=== PATIENT | male | born 1980 | race Caucasian/White ===

== ENCOUNTER → 2019-03-08 09:37 | Outpatient (BNVA) | payer MEDICAID, SELFPAY | PROVIDERS: Family Provider Internal Medicine; PCP Internal Medicine; Visit Provider Nurse Practitioner | DX: F84.0 Autistic disorder (principal); F20.5 Residual schizophrenia | CPT/HCPCS: 99203 ==

== ENCOUNTER 2019-03-17 13:04 | Emergency (ER) | payer MEDICAID, SELFPAY ==
[2019-03-17 13:25] VITALS: BP 129/89; PULSE 69; RESP 18; TEMP 36.4; O2SAT 100; BMI 31.1
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
[2019-03-17 14:15] VITALS: O2SAT 97
[2019-03-17 14:57] LABS: Basophils # 0.1 10^3/uL (0.0-0.1); Eosinophils # 0.2 10^3/uL (0.0-0.8); Eosinophils % 3.3 %; Hematocrit 39.7 % (42.0-52.0); Hemoglobin 12.9 g/dL (11.7-16.6); Lymphocytes # 1.8 10^3/uL (0.8-4.8); Lymphocytes % 34.2 %; Mean Corpuscular HGB Conc 32.5 g/dL (30.0-36.0); Mean Corpuscular Hemoglobin 30.6 pg (28.0-34.0); Mean Corpuscular Volume 94.3 fL (80-94); Mean Platelet Volume 10.5 fL (7.4-10.4); Monocytes # 0.4 10^3/uL (0.2-0.9); Monocytes % 7.4 %; Neutrophils # 2.8 10^3/uL (1.8-7.7); Neutrophils % 53.9 %; Nucleated Red Blood Cells % 0 %; Platelet Count 201 10^3/cmm (130-400); Red Blood Count 4.21 10^6/uL (4.1-5.3); Red Cell Distribution Width 12.6 % (12.1-15.1); White Blood Count 5.2 10^3/uL (4.0-10.0)
[2019-03-17 15:16] LABS: Amphetamines Screen Urine Negative (Negative); Barbiturates Screen Urine Negative (Negative); Benzodiazepines Screen Urine Negative (Negative); Cocaine Screen Urine Negative (Negative); Opiate Screen Urine Negative (Negative); PCP Screen Urine Negative (Negative); THC Screen Urine Negative (Negative)
[2019-03-17 15:25] LABS: Lithium 0.1 mmol/L (0.6-1.2)
[2019-03-17 15:29] LABS: Alanine Aminotransferase 17 U/L (0-41); Albumin Level 4.5 g/dL (3.5-5.2); Alkaline Phosphatase 77 IU/L (40-130); Aspartate Amino Transferase 13 U/L (0-40); Blood Urea Nitrogen 11 mg/dL (6-20); Carbon Dioxide 27 mmol/L (22-29); Chloride 101 mmol/L (98-107); Creatinine Clr Calc Pharmacy 136.7997; Globulin 2.8 g/dL (1.3-4.6); Glomerular Filtration Rate 109.4 mL/min (90-130); Glucose 120 mg/dL (65-115); Phenytoin Dilantin 0.8 ug/mL (10-20); Sodium 139 mmol/L (136-145); Thyroid Stimulating Hormone 1.56 uIU/mL (0.27-4.20); Total Bilirubin 0.2 mg/dL (0.15-1.2); Total Protein 7.3 g/dL (6.6-8.7); Valproic Acid Level 84.5 mcg/mL (50-100)
[2019-03-17 15:33] LABS: Acetaminophen < 5.0 ug/mL (10-30); Alcohol Level < 10 mg/dL (0-10); Salicylate < 0.3 mg/dL (3-10)
--- NOTE | 2019-03-17 15:36 | PC.NURSE ---
Patients caregiver asked this nurse if she could administer the patients meds that is due at 1600. Caregiver reports the medication is oxybutin chloride 5mg. Per Dr. Berg the caregiver can administer the medication to the patient.
[2019-03-17 17:22] VITALS: BP 120/79; PULSE 104; RESP 17; O2SAT 99
== END 2019-03-17 17:23 | disposition home or self-care (01) ==
PROVIDERS: Emergency Provider Emergency Medicine; Family Provider Internal Medicine; PCP Internal Medicine
DX: R45.851 Suicidal ideations (principal); F84.0 Autistic disorder; F20.5 Residual schizophrenia; F17.210 Nicotine dependence, cigarettes, uncomplicated
CPT/HCPCS: 36415; 80053; 80156; 80164; 80178; 80185; 80307; 84443; 85025; 99284; A9270

== ENCOUNTER → 2019-05-03 14:05 | Outpatient (BNVA) | payer MEDICAID, SELFPAY | PROVIDERS: Family Provider Internal Medicine; PCP Internal Medicine; Visit Provider Nurse Practitioner | DX: F20.5 Residual schizophrenia (principal); F84.0 Autistic disorder | CPT/HCPCS: 99213 ==

== ENCOUNTER 2019-11-19 22:18 | Emergency (ER) | payer MEDICAID, SELFPAY ==
[2019-11-19 22:22] VITALS: BP 109/72; PULSE 99; RESP 15; TEMP 36.6; O2SAT 100; BMI 31.3
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
--- NOTE | 2019-11-19 22:45 | ED_ITS ---
HPI - Psych General: Chief Complaint: Psychiatric Symptoms Stated Complaint: mhe Time Seen by Provider: 11/19/19 22:40 Source: patient Mode of arrival: ambulatory Limitations: no limitations History of Present Illness: HPI Narrative: 39-year-old male patient comes in today for abnormal behavior for patient. Patient is a schizophrenic patient with a history of autism. Patient's caregiver states over the last 3 weekends that she has cared for him she has noticed some changes in his behavior. Caregiver is concerned that he may need some adjustments with his medications due to these abnormalities. Patient denies feeling suicidal or wanting to harm himself. Patient denies wanting to hurt anyone else. Caregiver reports that 2 weeks ago he had threatened to hurt himself with a knife but has no thoughts of this at this time. Patient is also trashed his room and his bed. Patient appears well. Patient is cooperative. MD complaint: altered mental status Review of Systems General: Reports: 10 or more systems reviewed and unremarkable except in HPI and below Psych: Reports: mood swings [facility] ED PFSH: Medical History (Updated 11/19/19 @ 23:57 by KALEE Chase) Autistic disorder Residual schizophrenia Social History Smoking and tobacco status: current every day smoker cigarettes Smoking risk assessment/counseling performed?: Yes Tobacco counseling given: counseling >3 minutes Physical Exam Const: COMMON NORMALS: no acute distress and patient oriented x3 GENERAL APPEARANCE: cooperative HENMT: COMMON NORMALS: normocephalic, TM's normal bilaterally and Normal external nose present HEAD & SCALP: normal to inspection and normocephalic NOSE: Normal external nose present TYMPANIC MEMBRANE: TM's normal bilaterally MOUTH: Normal oral and palatal mucosa present Eye: GENERAL EYE: appearance normal, both eyes and all related structures Neck/C-Spine: COMMON NORMALS: full ROM Chest: COMMONS NORMALS: normal inspection of the chest Resp: COMMON NORMALS: normal respiratory effort EFFORT & INSPECTION: Yes able to speak in complete sentences Cardio: COMMON NORMALS: regular rate and regular rhythm RATE: regular rate RHYTHM: regular rhythm GI: COMMON NORMALS: non-tender Back/Pelvis: COMMON NORMALS: thoracic and lumbar spine normal to inspection Extremity: COMMON NORMALS: normal to inspection Neuro: COMMON NORMALS: patient oriented x3 and moves all extremities Psych: COMMON NORMALS: mental status grossly normal and cooperative Skin: COMMON NORMALS: no rashes or lesions noted GENERAL SKIN EXAM: no rashes or lesions noted MDM - Psych MDM Narrative: Medical decision making narrative: Patient comes in today for complaints of agitation and restlessness. Patient denied any suicidal thoughts or thoughts to harm anyone else. Patient's caregiver who watches the patient over the weekend said for the last 3 weekends he seemed like he has been more agitated than normal. She thinks that he may need to have an adjustment in his medication. Patient appears well. Patient is very cooperative on exam. No signs of injury is noted to patient. Patient allows nursing to collect urine and blood without any signs of agitation or distress. Differential diagnosis includes but not limited to behavioral difficulty, autism, schizophrenia, acute psychosis, acute depression. Laboratory values were normal. No signs of hyponatremia or other abnormalities was noted. Reviewed this with patient and recommended may be hydroxyzine to help with agitation as he needs it. Patient was agreeable to try. I also reviewed this with caregiver and recommendations for follow-up with behavioral health cna caregiver to manage his medications. Patient and caregiver both reported understanding. Lab Data: Labs: Lab Results 11/19/19 11/19/19 11/19/19 Range/Units 22:53 22:53 22:53 WBC Cancelled Corrected WBC Cancelled RBC Cancelled Hgb Cancelled Hct Cancelled MCV Cancelled MCH Cancelled MCHC Cancelled RDW Cancelled Plt Count Cancelled MPV Cancelled Gran % Cancelled Neut % (Auto) Cancelled Lymph % (Auto) Cancelled [place] % (Auto) Cancelled Eos % (Auto) Cancelled Baso % (Auto) Cancelled Neut # (Auto) Cancelled Lymph # (Auto) Cancelled [place] # (Auto) Cancelled Eos # (Auto) Cancelled Baso # (Auto) Cancelled Absolute Gran (aut o) Cancelled Nucleated RBC % (a uto) Cancelled Nucleated RBCs # Cancelled Sodium 137 (136-145) mmol/L Potassium 4.1 (3.5-5.1) mmol/L Chloride 101 (98-107) mmol/L Carbon Dioxide 24 (22-29) mmol/L Anion Gap 16.1 (5-19) BUN 13 (6-20) mg/dL Creatinine 0.8 (0.7-1.2) mg/dL GFR Calculation 108.8 (90-130) mL/min Glucose 120 H (65-115) mg/dL Calculated Osmolal ity 285 (285-295) mOsm/k g Calcium 9.8 (8.5-10.5) mg/dL Total Bilirubin 0.3 (0.15-1.2) mg/dL AST 13 (0-40) U/L ALT 11 (0-41) U/L Alkaline Phosphata se 69 (40-130) IU/L Total Protein 6.9 (6.6-8.7) g/dL Albumin 4.6 (3.5-5.2) g/dL Globulin 2.3 (1.3-4.6) g/dL TSH 3.99 (0.27-4.20) uIU/ mL Urine Color (Yellow) Urine Appearance (CLEAR) Urine pH (5-7) Ur Specific Gravit y (1.005-1.030) Urine Protein (Negative) Urine Glucose (UA) (Normal) Urine Ketones (Negative) Urine Blood (Negative) Urine Nitrate (Negative) Urine Bilirubin (Negative) Urine Urobilinogen (Negative) mg/dL Ur Leukocyte Aggie ase (Negative) Salicylates < 0.3 L (3-10) mg/dL Urine Opiates Scre en (Negative) ng/mL Acetaminophen < 5.0 L (10-30) ug/mL Ur Barbiturates Sc reen (Negative) ng/mL Valproic Acid 89.0 (50-100) ug/mL Ur Phencyclidine S crn (Negative) ng/mL Ur Amphetamines Sc reen (Negative) ng/mL U Benzodiazepines Scrn (Negative) ng/mL Urine Cocaine Scre en (Negative) ng/mL U Marijuana (THC) Screen (Negative) ng/mL Ethyl Alcohol < 10 (0-10) mg/dL 11/19/19 11/19/19 11/19/19 Range/Units 23:20 23:20 23:35 WBC 7.6 Corrected WBC RBC 4.40 Hgb 13.7 Hct 41.3 L MCV 93.9 MCH 31.1 MCHC 33.2 RDW 12.0 L Plt Count 227 MPV 10.0 Gran % Neut % (Auto) 56.1 Lymph % (Auto) 30.7 [place] % (Auto) 9.2 Eos % (Auto) 2.9 Baso % (Auto) 0.8 Neut # (Auto) 4.28 Lymph # (Auto) 2.3 [place] # (Auto) 0.7 Eos # (Auto) 0.2 Baso # (Auto) 0.1 Absolute Gran (aut o) Nucleated RBC % (a uto) 0 Nucleated RBCs # 0.0 Sodium (136-145) mmol/L Potassium (3.5-5.1) mmol/L Chloride (98-107) mmol/L Carbon Dioxide (22-29) mmol/L Anion Gap (5-19) BUN (6-20) mg/dL Creatinine (0.7-1.2) mg/dL GFR Calculation (90-130) mL/min Glucose (65-115) mg/dL Calculated Osmolal ity (285-295) mOsm/k g Calcium (8.5-10.5) mg/dL Total Bilirubin (0.15-1.2) mg/dL AST (0-40) U/L ALT (0-41) U/L Alkaline Phosphata se (40-130) IU/L Total Protein (6.6-8.7) g/dL Albumin (3.5-5.2) g/dL Globulin (1.3-4.6) g/dL TSH (0.27-4.20) uIU/ mL Urine Color Yellow (Yellow) Urine Appearance Clear (CLEAR) Urine pH 7 (5-7) Ur Specific Gravit y 1.005 (1.005-1.030) Urine Protein Neg (Negative) Urine Glucose (UA) Norm (Normal) Urine Ketones 1+ H (Negative) Urine Blood Neg (Negative) Urine Nitrate Negative (Negative) Urine Bilirubin Neg (Negative) Urine Urobilinogen Norm (Negative) mg/dL Ur Leukocyte Aggie ase Negative (Negative) Salicylates (3-10) mg/dL Urine Opiates Scre en Negative (Negative) ng/mL Acetaminophen (10-30) ug/mL Ur Barbiturates Sc reen Negative (Negative) ng/mL Valproic Acid (50-100) ug/mL Ur Phencyclidine S crn Negative (Negative) ng/mL Ur Amphetamines Sc reen Negative (Negative) ng/mL U Benzodiazepines Scrn Negative (Negative) ng/mL Urine Cocaine Scre en Negative (Negative) ng/mL U Marijuana (THC) Screen Negative (Negative) ng/mL Ethyl Alcohol (0-10) mg/dL Discharge Plan Discharge Patient Disposition: Home Clinical Impression: Agitation, Autistic disorder, Residual schizophrenia Condition: Stable Prescriptions: New hydroxyzine pamoate 25 mg capsule 25 mg PO TID PRN (Reason: anxiety) Qty: 14 RF: 0 No Action divalproex [Depakote ER] 500 mg tablet extended release 24 hr 500 mg PO DAILY RF: 0 omeprazole 20 mg capsule,delayed release(DR/EC) 20 mg PO DAILY RF: 0 oxybutynin chloride 5 mg tablet 5 mg PO BID RF: 0 paliperidone [Invega] 6 mg tablet extended release 24hr 6 mg PO BID RF: 0 divalproex [Depakote ER] 500 mg tablet extended release 24 hr 1,000 mg PO BEDTIME RF: 0 fluvoxamine 50 mg tablet 50 mg PO DAILY RF: 0 atorvastatin 40 mg tablet 40 mg PO DAILY RF: 0 trazodone 150 mg tablet 150 mg PO BEDTIME RF: 0 naproxen sodium 550 mg tablet 550 mg PO BID PRN (Reason: Pain) RF: 0 Discharge Orders: Discharge Order (Routine); Ordered 11/20/19 Ordered By: Darren Perez Referrals: Baldomero Chacon DO [Primary Care Provider] - Discharge Diet: Usual diet Discharge Activity: Increase activity as tolerated Patient Instructions: Cognitive Behavioral Therapy (ED) Activity Restrictions/Additional Instructions: Home and rest. Continue with routine care. Use hydroxyzine for breakthrough symptoms. Follow-up with primary care or veterans services specialist for further treatment and evaluation. Return to the emergency department for worsening symptoms or new concerns. Coding Level of Care Code ED Lamination Inspector for Evgeny Fwag[place]ito Exam Comprehensive
[2019-11-19 23:31] LABS: Add Urine Microscopic? NO
[2019-11-19 23:36] LABS: Alanine Aminotransferase 11 U/L (0-41); Albumin Level 4.6 g/dL (3.5-5.2); Alkaline Phosphatase 69 IU/L (40-130); Aspartate Amino Transferase 13 U/L (0-40); Blood Urea Nitrogen 13 mg/dL (6-20); Calcium 9.8 mg/dL (8.5-10.5); Carbon Dioxide 24 mmol/L (22-29); Chloride 101 mmol/L (98-107); Globulin 2.3 g/dL (1.3-4.6); Glomerular Filtration Rate 108.8 mL/min (90-130); Glucose 120 mg/dL (65-115); Osmolality Calculated 285 mOsm/kg (285-295); Sodium 137 mmol/L (136-145); Thyroid Stimulating Hormone 3.99 uIU/mL (0.27-4.20); Total Bilirubin 0.3 mg/dL (0.15-1.2); Total Protein 6.9 g/dL (6.6-8.7)
[2019-11-19 23:41] LABS: Bilirubin Urine Neg (Negative); Blood Urine Neg (Negative); Glucose Urine UA Norm (Normal); Ketones Urine 1+ (Negative); Leukocyte Esterase Urine Negative (Negative); Nitrate Urine Negative (Negative); Protein Urine Neg (Negative); Specific Gravity, Urine 1.005 (1.005-1.030); Urine Appearance Clear (CLEAR); Urine Color Yellow (Yellow); Urobilinogen Urine Norm (Negative); pH Urine 7 (5-7)
[2019-11-19 23:42] LABS: Acetaminophen < 5.0 ug/mL (10-30); Alcohol Level < 10 mg/dL (0-10); Anion Gap 16.1 (5-19); Potassium 4.1 mmol/L (3.5-5.1); Salicylate < 0.3 mg/dL (3-10)
[2019-11-19 23:45] LABS: Amphetamines Screen Urine Negative (Negative); Barbiturates Screen Urine Negative (Negative); Benzodiazepines Screen Urine Negative (Negative); Cocaine Screen Urine Negative (Negative); Opiate Screen Urine Negative (Negative); PCP Screen Urine Negative (Negative); THC Screen Urine Negative (Negative)
[2019-11-20 00:05] LABS: Basophils # 0.1 10^3/uL (0.0-0.1); Basophils % 0.8 %; Eosinophils # 0.2 10^3/uL (0.0-0.8); Eosinophils % 2.9 %; Hematocrit 41.3 % (42.0-52.0); Hemoglobin 13.7 g/dL (11.7-16.6); Lymphocytes # 2.3 10^3/uL (0.8-4.8); Lymphocytes % 30.7 %; Mean Corpuscular HGB Conc 33.2 g/dL (30.0-36.0); Mean Corpuscular Hemoglobin 31.1 pg (28.0-34.0); Mean Corpuscular Volume 93.9 fL (80-94); Monocytes # 0.7 10^3/uL (0.2-0.9); Monocytes % 9.2 %; Neutrophils # 4.28 10^3/uL (1.8-7.7); Neutrophils % 56.1 %; Nucleated Red Blood Cells % 0 %; Platelet Count 227 10^3/cmm (130-400); White Blood Count 7.6 10^3/uL (4.0-10.0)
[2019-11-20] MEDS: hyDROXYzine 25 mg Capsule PO (00:21)
[2019-11-20 00:29] VITALS: BP 122/90; PULSE 88; RESP 16; TEMP 36.8; O2SAT 98
== END 2019-11-20 00:31 | disposition home or self-care (01) ==
PROVIDERS: Emergency Provider Nurse Practitioner Family; PCP Internal Medicine
DX: R45.1 Restlessness and agitation (principal); F84.0 Autistic disorder; F20.5 Residual schizophrenia; F17.210 Nicotine dependence, cigarettes, uncomplicated
CPT/HCPCS: 12345; 70450; 80053; 80164; 80306; 80307; 81003; 84443; 85025; 99281; 99283

== ENCOUNTER 2019-11-20 13:07 | Emergency (ER) | payer MEDICAID, SELFPAY ==
[2019-11-20 13:30] VITALS: BP 125/79; PULSE 88; RESP 16; TEMP 36.6; O2SAT 100; BMI 32.5
--- NOTE | 2019-11-20 14:29 | W.ED.GENADLT ---
HPI - General Adult General: Chief complaint: General Medical Stated complaint: HTN Time Seen by Provider: 11/20/19 14:24 History of Present Illness: HPI narrative: Patient with episode of possible hypertension that was acquired by the caregiver who does not have any idea how high the blood pressure was. Said he just been acting out was not able get medication prescription filled today that they received in the ER last night MD complaint: Possible hypertensive episode and anxiety Onset (ago): hour(s) Associated symptoms: Reports no associated symptoms; Deny chest pain, dyspnea, headache(s), nausea, rash or vomiting Review of Systems Const: Denies: fever(s), chills or body aches Eyes: Denies: change in vision or blurry vision ENMT: Denies: throat pain or nasal congestion Card: Denies: chest pain or dyspnea on exertion Resp: Denies: dyspnea, productive cough or non-productive cough GI: Denies: abdominal pain, nausea or vomiting : Denies: difficulty urinating Musc: Denies: extremity pain Skin/Breast: Denies: rash Neuro: Denies: headache(s) Psych: Denies: anxiety or depression Holland/Lymph: Denies: easy bruising PFSH ED PFSH: Medical History (Updated 11/20/19 @ 14:25 by KALEE Everett) Autistic disorder Residual schizophrenia Social History Smoking and tobacco status: current every day smoker cigarettes Smoking risk assessment/counseling performed?: Yes Tobacco counseling given: counseling >3 minutes Physical Exam Const: COMMON NORMALS: no acute distress, average body habitus and patient oriented x3 HENMT: COMMON NORMALS: normocephalic HEAD & SCALP: normal to inspection and normocephalic FACE & SINUS: normal facial exam Eye: COMMON NORMALS: conjunctivae normal GENERAL EYE: appearance normal, both eyes and all related structures CONJUNCTIVA: Yes conjunctivae normal Neck/C-Spine: COMMON NORMALS: no JVD Chest: COMMONS NORMALS: normal inspection of the chest Resp: COMMON NORMALS: normal respiratory effort and clear to auscultation bilaterally AUSCULTATION: clear to auscultation bilaterally Cardio: COMMON NORMALS: no JVD, regular rate and regular rhythm RATE: regular rate RHYTHM: regular rhythm GI: COMMON NORMALS: Normal to inspection, nondistended, normoactive bowel sounds present Extremity: COMMON NORMALS: normal to inspection and full ROM Neuro: COMMON NORMALS: patient oriented x3 Course Vital Signs: Vital signs: Vital Signs Temperature 98 F 11/20/19 13:30 Pulse Rate 88 11/20/19 13:30 Respiratory Rate 16 11/20/19 13:30 Blood Pressure 125/79 11/20/19 13:30 Pulse Oximetry 100 11/20/19 13:30 Discharge Plan Discharge Patient Disposition: Home Clinical Impression: Agitation Condition: Stable Prescriptions: No Action divalproex [Depakote ER] 500 mg tablet extended release 24 hr 500 mg PO DAILY RF: 0 omeprazole 20 mg capsule,delayed release(DR/EC) 20 mg PO DAILY RF: 0 oxybutynin chloride 5 mg tablet 5 mg PO BID RF: 0 paliperidone [Invega] 6 mg tablet extended release 24hr 6 mg PO BID RF: 0 divalproex [Depakote ER] 500 mg tablet extended release 24 hr 1,000 mg PO BEDTIME RF: 0 fluvoxamine 50 mg tablet 50 mg PO DAILY RF: 0 atorvastatin 40 mg tablet 40 mg PO DAILY RF: 0 trazodone 150 mg tablet 150 mg PO BEDTIME RF: 0 naproxen sodium 550 mg tablet 550 mg PO BID PRN (Reason: Pain) RF: 0 hydroxyzine pamoate 25 mg capsule 25 mg PO TID PRN (Reason: anxiety) Qty: 14 RF: 0 Discharge Orders: Discharge Order (Routine); Ordered 11/20/19 Ordered By: Madi Mitchell Referrals: Baldomero Chacon, [Primary Care Provider] - Discharge Diet: Usual diet Discharge Activity: Increase activity as tolerated Patient Instructions: Anxiety (ED) Activity Restrictions/Additional Instructions: Follow-up with medical provider as directed. Take medications as prescribed. Return to the ER or your medical provider if condition worsens. Please read and understand discharge instructions. If any questions ask please. Coding Level of Care Code ED Typesetter Perforator Operator for Evgeny Alcaraz
[2019-11-20] MEDS: hyDROXYzine 25 mg Capsule PO (14:33)
== END 2019-11-20 14:46 | disposition home or self-care (01) ==
PROVIDERS: Emergency Provider Nurse Practitioner Family; PCP Internal Medicine
DX: R45.1 Restlessness and agitation (principal); F84.0 Autistic disorder; F17.210 Nicotine dependence, cigarettes, uncomplicated
CPT/HCPCS: 12345; 99281; 99283

== ENCOUNTER 2019-11-21 17:36 | Emergency (ER) | payer MEDICAID, SELFPAY ==
[2019-11-21 17:41] VITALS: BP 121/55; PULSE 66; RESP 16; TEMP 36.8; O2SAT 100; BMI 29.6
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
[2019-11-21] MEDS: haloperidol 5 mg Tablet PO (21:05)
[2019-11-21 21:10] VITALS: BP 122/78; PULSE 68; RESP 18; TEMP 36.7; O2SAT 98
== END 2019-11-21 21:12 | disposition home or self-care (01) ==
PROVIDERS: Emergency Provider Emergency Medicine; PCP Internal Medicine
DX: R46.89 Other symptoms and signs involving appearance and behavior (principal); F84.0 Autistic disorder; F17.210 Nicotine dependence, cigarettes, uncomplicated
CPT/HCPCS: 12345; 99284

== ENCOUNTER → 2019-11-22 07:35 | Outpatient (BNVA) | payer MEDICAID, SELFPAY | PROVIDERS: PCP Internal Medicine; Visit Provider Nurse Practitioner | DX: F20.5 Residual schizophrenia (principal); F84.0 Autistic disorder | CPT/HCPCS: 99214 ==

== ENCOUNTER 2019-11-28 12:08 | Emergency (ER) | payer MEDICAID, SELFPAY ==
[2019-11-28 12:51] VITALS: BP 111/71; PULSE 96; RESP 18; TEMP 36.7; O2SAT 100; BMI 22.8
--- NOTE | 2019-11-28 15:55 | W.ED.GENADLT ---
Documented by User: Ehsan Hagen DO 11/29/19 07:13 HPI - General Adult General: Chief complaint: General Medical Stated complaint: PAIN L WRIST Time Seen by Provider: 11/28/19 15:55 History of Present Illness: HPI narrative: 39-year-old male who is a resident of a local retirement he has an intellectual disability comes in complaining of some vague chest pain he also has some swelling and discomfort in his left wrist note was earlier today evidently around 11:00 it is all resolved now. He has not had any shortness of breath or cough no fever. No vomiting or diarrhea according to the caregiver. Manipulation left wrist he has no evidence of pain. He denies any pain or shortness of breath now. Onset (ago): hour(s) Location: chest and upper extremity (Left wrist) Radiation: non-radiation Quality: aching Pain Consistency: intermittent and now resolved Relieving factors: none Exacerbating factors: none Associated symptoms: Reports chest pain; Deny confusion, cough, diaphoresis, decreased appetite, dyspnea, fevers/chills, headache(s), malaise, nausea, rash, palpitations, seizures, short of breath, syncope, vomiting or weakness Treatments prior to arrival: none Review of Systems Const: Denies: malaise or diaphoresis ENMT: Denies: throat pain, ear or mastoid pain, nasal discharge or nasal congestion Card: Reports: chest pain; Denies: palpitations or syncope Resp: Denies: dyspnea GI: Denies: nausea or vomiting : Denies: flank pain, dysuria, urinary frequency or urinary urgency Skin/Breast: Denies: rash Neuro: Denies: headache(s) or confusion [facility] ED PFSH: Medical History Autistic disorder Residual schizophrenia Social History Smoking and tobacco status: current every day smoker cigarettes Smoking risk assessment/counseling performed?: Yes Tobacco counseling given: counseling >3 minutes Physical Exam Const: COMMON NORMALS: no acute distress GENERAL APPEARANCE: cooperative and comfortable HENMT: COMMON NORMALS: normocephalic, atraumatic, hearing grossly normal bilaterally, external ears normal, EAC's normal, TM's normal bilaterally, Normal nasal mucous membranes and turbinates present, moist oral mucous membranes and oropharynx normal HEAD & SCALP: normocephalic and atraumatic NOSE: Normal nasal mucous membranes and turbinates present EXTERNAL EAR: Yes external ears normal EXTERNAL AUDITORY CANAL: EAC's normal TYMPANIC MEMBRANE: TM's normal bilaterally Eye: COMMON NORMALS: Equal, round and reactive pupils present, EOMs intact bilaterally, conjunctivae normal and no scleral icterus CONJUNCTIVA: Yes conjunctivae normal PUPIL: Yes Equal, round and reactive pupils present Neck/C-Spine: COMMON NORMALS: full ROM, no lymphadenopathy, supple and no JVD Lymph: LYMPHATIC: no lymphadenopathy noted and no lymphedema noted Resp: COMMON NORMALS: normal respiratory effort, No retractions, No use of accessory muscles and clear to auscultation bilaterally AUSCULTATION: clear to auscultation bilaterally Cardio: COMMON NORMALS: no JVD, regular rate, regular rhythm and No murmurs present (Cardio) RATE: regular rate RHYTHM: regular rhythm GI: COMMON NORMALS: Soft to palpation and No hepatosplenomegaly present AUSCULTATION: Yes normoactive bowel sounds PALPATION: Yes Soft to palpation, No Tenderness to palpation present (GI), No Guarding due to palpation present (GI) and Yes No hepatosplenomegaly present Extremity: COMMON NORMALS: normal to inspection, capillary refill normal, no clubbing, cyanosis or edema, no calf tenderness and no pedal edema Skin: COMMON NORMALS: no rashes or lesions noted GENERAL SKIN EXAM: no rashes or lesions noted Course Vital Signs: Vital signs: Vital Signs Temperature 98.1 F 11/28/19 12:51 Pulse Rate 85 11/28/19 20:01 Respiratory Rate 16 11/28/19 20:01 Blood Pressure 130/66 11/28/19 20:01 Pulse Oximetry 98 11/28/19 20:01 MDM - General Adult MDM Narrative: Medical decision making narrative: Care turned over to Dr. Bethea at change of shift. See his final notes for disposition and diagnosis Lab Data: Labs: Lab Results 11/28/19 11/28/19 11/28/19 Range/Units 16:07 16:07 16:07 WBC 6.2 (4.0-10.0) 10^3/ uL RBC 4.37 (4.1-5.3) 10^6/u L Hgb 13.8 (11.7-16.6) g/dL Hct 42.4 (42.0-52.0) % MCV 97.0 H (80-94) fL MCH 31.6 (28.0-34.0) pg MCHC 32.5 (30.0-36.0) g/dL RDW 12.2 (12.1-15.1) % Plt Count 203 (130-400) 10^3/c mm MPV 10.3 (7.4-10.4) fL Neut % (Auto) 51.4 % Lymph % (Auto) 34.5 % Moore % (Auto) 9.7 % Eos % (Auto) 3.1 % Baso % (Auto) 1.1 % Neut # (Auto) 3.20 (1.8-7.7) 10^3/u L Lymph # (Auto) 2.1 (0.8-4.8) 10^3/u L Moore # (Auto) 0.6 (0.2-0.9) 10^3/u L Eos # (Auto) 0.2 (0.0-0.8) 10^3/u L Baso # (Auto) 0.1 (0.0-0.1) 10^3/u L Nucleated RBC % (a uto) 0 % Nucleated RBCs # 0.0 /100WBC Sodium 139 (136-145) mmol/L Potassium 3.9 (3.5-5.1) mmol/L Chloride 104 (98-107) mmol/L Carbon Dioxide 25 (22-29) mmol/L Anion Gap 13.9 (5-19) BUN 12 (6-20) mg/dL Creatinine 0.6 L (0.7-1.2) mg/dL GFR Calculation 151.6 H (90-130) mL/min Glucose 104 (65-115) mg/dL Calculated Osmolal ity 288 (285-295) mOsm/k g Calcium 8.9 (8.5-10.5) mg/dL Total Bilirubin 0.2 (0.15-1.2) mg/dL AST 13 (0-40) U/L ALT 12 (0-41) U/L Alkaline Phosphata se 63 (40-130) IU/L Troponin T Baselin e 6 (0-15) ng/L Troponin T 120 Min [place] (0-15) ng/L Delta Troponin T (0-10) ABS# C-Reactive Protein 0.5 (0.0-4.9) mg/L Total Protein 6.6 (6.6-8.7) g/dL Albumin 4.2 (3.5-5.2) g/dL Globulin 2.4 (1.3-4.6) g/dL Urine Color (Yellow) Urine Appearance (CLEAR) Urine pH (5-7) Ur Specific Gravit y (1.005-1.030) Urine Protein (Negative) Urine Glucose (UA) (Normal) Urine Ketones (Negative) Urine Blood (Negative) Urine Nitrate (Negative) Urine Bilirubin (Negative) Urine Urobilinogen (Negative) mg/dL Ur Leukocyte Aggie ase (Negative) 11/28/19 11/28/19 Range/Units 16:55 19:10 WBC (4.0-10.0) 10^3/ uL RBC (4.1-5.3) 10^6/u L Hgb (11.7-16.6) g/dL Hct (42.0-52.0) % MCV (80-94) fL MCH (28.0-34.0) pg MCHC (30.0-36.0) g/dL RDW (12.1-15.1) % Plt Count (130-400) 10^3/c mm MPV (7.4-10.4) fL Neut % (Auto) % Lymph % (Auto) % Moore % (Auto) % Eos % (Auto) % Baso % (Auto) % Neut # (Auto) (1.8-7.7) 10^3/u L Lymph # (Auto) (0.8-4.8) 10^3/u L Moore # (Auto) (0.2-0.9) 10^3/u L Eos # (Auto) (0.0-0.8) 10^3/u L Baso # (Auto) (0.0-0.1) 10^3/u L Nucleated RBC % (a uto) % Nucleated RBCs # /100WBC Sodium (136-145) mmol/L Potassium (3.5-5.1) mmol/L Chloride (98-107) mmol/L Carbon Dioxide (22-29) mmol/L Anion Gap (5-19) BUN (6-20) mg/dL Creatinine (0.7-1.2) mg/dL GFR Calculation (90-130) mL/min Glucose (65-115) mg/dL Calculated Osmolal ity (285-295) mOsm/k g Calcium (8.5-10.5) mg/dL Total Bilirubin (0.15-1.2) mg/dL AST (0-40) U/L ALT (0-41) U/L Alkaline Phosphata se (40-130) IU/L Troponin T Baselin e (0-15) ng/L Troponin T 120 Min [place] 6.00 (0-15) ng/L Delta Troponin T 0 (0-10) ABS# C-Reactive Protein (0.0-4.9) mg/L Total Protein (6.6-8.7) g/dL Albumin (3.5-5.2) g/dL Globulin (1.3-4.6) g/dL Urine Color Yellow (Yellow) Urine Appearance Clear (CLEAR) Urine pH 6.5 (5-7) Ur Specific Gravit y 1.015 (1.005-1.030) Urine Protein Neg (Negative) Urine Glucose (UA) Norm (Normal) Urine Ketones 1+ H (Negative) Urine Blood Neg (Negative) Urine Nitrate Negative (Negative) Urine Bilirubin Neg (Negative) Urine Urobilinogen Neg (Negative) mg/dL Ur Leukocyte Aggie ase Negative (Negative) Discharge Plan Discharge Patient Disposition: Home Clinical Impression: Chest pain Qualifiers: Chest pain type: unspecified Qualified Code(s): R07.9 - Chest pain, unspecified Condition: Stable Prescriptions: No Action divalproex [Depakote ER] 500 mg tablet extended release 24 hr 500 mg PO DAILY RF: 0 omeprazole 20 mg capsule,delayed release(DR/EC) 20 mg PO DAILY RF: 0 oxybutynin chloride 5 mg tablet 5 mg PO BID RF: 0 divalproex [Depakote ER] 500 mg tablet extended release 24 hr 1,000 mg PO BEDTIME RF: 0 atorvastatin 40 mg tablet 40 mg PO DAILY RF: 0 naproxen sodium 550 mg tablet 550 mg PO BID PRN (Reason: Pain) RF: 0 aripiprazole [Abilify] 10 mg tablet 10 mg PO DAILY Qty: 30 RF: 0 trazodone 150 mg tablet 150 mg PO BEDTIME Qty: 30 RF: 0 fluvoxamine 50 mg tablet 50 mg PO DAILY Qty: 30 RF: 0 haloperidol 5 mg tablet 5 mg PO BID PRN (Reason: aggression) Qty: 14 RF: 0 hydroxyzine HCl 50 mg tablet 50 mg PO Q8H PRN (Reason: agitation) Qty: 30 RF: 0 hydroxyzine pamoate 25 mg capsule 25 mg PO TID PRN (Reason: anxiety) Qty: 14 RF: 0 Discharge Orders: Discharge Order (Routine); Ordered 11/28/19 Ordered By: Adilson Bethea Referrals: Baldomero Chacon DO [Primary Care Provider] - 1-3 days Discharge Diet: Advance as tolerated Discharge Activity: Resume usual activity Patient Instructions: Chest Pain (ED) Discharge Date/Time: 11/28/19 20:04 Coding Level of Care Code ED Hand Developer for Chg Fwd Exam Comprehensive Documented by User: Adilson Bethea MD 11/28/19 19:57 HPI - General Adult General: Chief complaint: General Medical Stated complaint: PAIN L WRIST Time Seen by Provider: 11/28/19 15:55 PFSH ED PFSH: Medical History Autistic disorder Residual schizophrenia Social History Smoking and tobacco status: current every day smoker cigarettes Smoking risk assessment/counseling performed?: Yes Tobacco counseling given: counseling >3 minutes Course Vital Signs: Vital signs: Vital Signs Temperature 98.1 F 11/28/19 12:51 Pulse Rate 85 11/28/19 20:01 Respiratory Rate 16 11/28/19 20:01 Blood Pressure 130/66 11/28/19 20:01 Pulse Oximetry 98 11/28/19 20:01 MDM - General Adult MDM Narrative: Medical decision making narrative: Patient presents with chest pains atypical in nature. I took patient over from Dr. Huerta to follow his 2-hour troponin which was unchanged. Has been well-appearing here in initial and repeat troponin are normal. Patient's blood work is normal as well. He is stable for discharge and is to follow-up his PCP and return if worsening. Lab Data: Labs: Lab Results 11/28/19 11/28/19 11/28/19 Range/Units 16:07 16:07 16:07 WBC 6.2 (4.0-10.0) 10^3/ uL RBC 4.37 (4.1-5.3) 10^6/u L Hgb 13.8 (11.7-16.6) g/dL Hct 42.4 (42.0-52.0) % MCV 97.0 H (80-94) fL MCH 31.6 (28.0-34.0) pg MCHC 32.5 (30.0-36.0) g/dL RDW 12.2 (12.1-15.1) % Plt Count 203 (130-400) 10^3/c mm MPV 10.3 (7.4-10.4) fL Neut % (Auto) 51.4 % Lymph % (Auto) 34.5 % Moore % (Auto) 9.7 % Eos % (Auto) 3.1 % Baso % (Auto) 1.1 % Neut # (Auto) 3.20 (1.8-7.7) 10^3/u L Lymph # (Auto) 2.1 (0.8-4.8) 10^3/u L Moore # (Auto) 0.6 (0.2-0.9) 10^3/u L Eos # (Auto) 0.2 (0.0-0.8) 10^3/u L Baso # (Auto) 0.1 (0.0-0.1) 10^3/u L Nucleated RBC % (a uto) 0 % Nucleated RBCs # 0.0 /100WBC Sodium 139 (136-145) mmol/L Potassium 3.9 (3.5-5.1) mmol/L Chloride 104 (98-107) mmol/L Carbon Dioxide 25 (22-29) mmol/L Anion Gap 13.9 (5-19) BUN 12 (6-20) mg/dL Creatinine 0.6 L (0.7-1.2) mg/dL GFR Calculation 151.6 H (90-130) mL/min Glucose 104 (65-115) mg/dL Calculated Osmolal ity 288 (285-295) mOsm/k g Calcium 8.9 (8.5-10.5) mg/dL Total Bilirubin 0.2 (0.15-1.2) mg/dL AST 13 (0-40) U/L ALT 12 (0-41) U/L Alkaline Phosphata se 63 (40-130) IU/L Troponin T Baselin e 6 (0-15) ng/L Troponin T 120 Min [place] (0-15) ng/L Delta Troponin T (0-10) ABS# C-Reactive Protein 0.5 (0.0-4.9) mg/L Total Protein 6.6 (6.6-8.7) g/dL Albumin 4.2 (3.5-5.2) g/dL Globulin 2.4 (1.3-4.6) g/dL Urine Color (Yellow) Urine Appearance (CLEAR) Urine pH (5-7) Ur Specific Gravit y (1.005-1.030) Urine Protein (Negative) Urine Glucose (UA) (Normal) Urine Ketones (Negative) Urine Blood (Negative) Urine Nitrate (Negative) Urine Bilirubin (Negative) Urine Urobilinogen (Negative) mg/dL Ur Leukocyte Aggie ase (Negative) 11/28/19 11/28/19 Range/Units 16:55 19:10 WBC (4.0-10.0) 10^3/ uL RBC (4.1-5.3) 10^6/u L Hgb (11.7-16.6) g/dL Hct (42.0-52.0) % MCV (80-94) fL MCH (28.0-34.0) pg MCHC (30.0-36.0) g/dL RDW (12.1-15.1) % Plt Count (130-400) 10^3/c mm MPV (7.4-10.4) fL Neut % (Auto) % Lymph % (Auto) % Moore % (Auto) % Eos % (Auto) % Baso % (Auto) % Neut # (Auto) (1.8-7.7) 10^3/u L Lymph # (Auto) (0.8-4.8) 10^3/u L Moore # (Auto) (0.2-0.9) 10^3/u L Eos # (Auto) (0.0-0.8) 10^3/u L Baso # (Auto) (0.0-0.1) 10^3/u L Nucleated RBC % (a uto) % Nucleated RBCs # /100WBC Sodium (136-145) mmol/L Potassium (3.5-5.1) mmol/L Chloride (98-107) mmol/L Carbon Dioxide (22-29) mmol/L Anion Gap (5-19) BUN (6-20) mg/dL Creatinine (0.7-1.2) mg/dL GFR Calculation (90-130) mL/min Glucose (65-115) mg/dL Calculated Osmolal ity (285-295) mOsm/k g Calcium (8.5-10.5) mg/dL Total Bilirubin (0.15-1.2) mg/dL AST (0-40) U/L ALT (0-41) U/L Alkaline Phosphata se (40-130) IU/L Troponin T Baselin e (0-15) ng/L Troponin T 120 Min [place] 6.00 (0-15) ng/L Delta Troponin T 0 (0-10) ABS# C-Reactive Protein (0.0-4.9) mg/L Total Protein (6.6-8.7) g/dL Albumin (3.5-5.2) g/dL Globulin (1.3-4.6) g/dL Urine Color Yellow (Yellow) Urine Appearance Clear (CLEAR) Urine pH 6.5 (5-7) Ur Specific Gravit y 1.015 (1.005-1.030) Urine Protein Neg (Negative) Urine Glucose (UA) Norm (Normal) Urine Ketones 1+ H (Negative) Urine Blood Neg (Negative) Urine Nitrate Negative (Negative) Urine Bilirubin Neg (Negative) Urine Urobilinogen Neg (Negative) mg/dL Ur Leukocyte Aggie ase Negative (Negative) EKG Data^: EKG 2: Attestation: I personally reviewed and interpreted this EKG as follows: EKG interpretation date: 11/28/19 EKG interpretation time: 19:12 Interpretation: nsr hr [address] or t wave abnormalities qrs 78 qtc 391 Discharge Plan Discharge Patient Disposition: Home Clinical Impression: Chest pain Qualifiers: Chest pain type: unspecified Qualified Code(s): R07.9 - Chest pain, unspecified Condition: Stable Prescriptions: No Action divalproex [Depakote ER] 500 mg tablet extended release 24 hr 500 mg PO DAILY RF: 0 omeprazole 20 mg capsule,delayed release(DR/EC) 20 mg PO DAILY RF: 0 oxybutynin chloride 5 mg tablet 5 mg PO BID RF: 0 divalproex [Depakote ER] 500 mg tablet extended release 24 hr 1,000 mg PO BEDTIME RF: 0 atorvastatin 40 mg tablet 40 mg PO DAILY RF: 0 naproxen sodium 550 mg tablet 550 mg PO BID PRN (Reason: Pain) RF: 0 aripiprazole [Abilify] 10 mg tablet 10 mg PO DAILY Qty: 30 RF: 0 trazodone 150 mg tablet 150 mg PO BEDTIME Qty: 30 RF: 0 fluvoxamine 50 mg tablet 50 mg PO DAILY Qty: 30 RF: 0 haloperidol 5 mg tablet 5 mg PO BID PRN (Reason: aggression) Qty: 14 RF: 0 hydroxyzine HCl 50 mg tablet 50 mg PO Q8H PRN (Reason: agitation) Qty: 30 RF: 0 hydroxyzine pamoate 25 mg capsule 25 mg PO TID PRN (Reason: anxiety) Qty: 14 RF: 0 Discharge Orders: Discharge Order (Routine); Ordered 11/28/19 Ordered By: Adilson Bethea Referrals: Baldomero Chacon DO [Primary Care Provider] - 1-3 days Discharge Diet: Advance as tolerated Discharge Activity: Resume usual activity Patient Instructions: Chest Pain (ED) Discharge Date/Time: 11/28/19 20:04 Coding Level of Care Code ED Hand Developer for Joelleng Fwd Exam Comprehensive
--- NOTE | 2019-11-28 16:03 | ECG_ITS ---
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 Measurements Intervals [place] Rate: 70 P: 27 NH: 172 QRS: 7 QRSD: 80 T: 42 QT: 358 QTc: 388 Interpretive Statements SINUS RHYTHM Compared to ECG 11/13/2018 02:16:27 Sinus bradycardia no longer present Electronically Signed On 11-28-2019 21:41:58 CDT by Josafat Ames M.D. [id number]
[2019-11-28 16:14] LABS: Basophils # 0.1 10^3/uL (0.0-0.1); Basophils % 1.1 %; Eosinophils # 0.2 10^3/uL (0.0-0.8); Eosinophils % 3.1 %; Hematocrit 42.4 % (42.0-52.0); Hemoglobin 13.8 g/dL (11.7-16.6); Lymphocytes # 2.1 10^3/uL (0.8-4.8); Lymphocytes % 34.5 %; Mean Corpuscular HGB Conc 32.5 g/dL (30.0-36.0); Mean Corpuscular Hemoglobin 31.6 pg (28.0-34.0); Mean Platelet Volume 10.3 fL (7.4-10.4); Monocytes # 0.6 10^3/uL (0.2-0.9); Monocytes % 9.7 %; Neutrophils % 51.4 %; Nucleated Red Blood Cells % 0 %; Platelet Count 203 10^3/cmm (130-400); Red Blood Count 4.37 10^6/uL (4.1-5.3); Red Cell Distribution Width 12.2 % (12.1-15.1); White Blood Count 6.2 10^3/uL (4.0-10.0)
[2019-11-28 16:31] LABS: Alanine Aminotransferase 12 U/L (0-41); Albumin Level 4.2 g/dL (3.5-5.2); Alkaline Phosphatase 63 IU/L (40-130); Anion Gap 13.9 (5-19); Aspartate Amino Transferase 13 U/L (0-40); Blood Urea Nitrogen 12 mg/dL (6-20); Calcium 8.9 mg/dL (8.5-10.5); Carbon Dioxide 25 mmol/L (22-29); Chloride 104 mmol/L (98-107); Globulin 2.4 g/dL (1.3-4.6); Glomerular Filtration Rate 151.6 mL/min (90-130); Glucose 104 mg/dL (65-115); Osmolality Calculated 288 mOsm/kg (285-295); Potassium 3.9 mmol/L (3.5-5.1); Sodium 139 mmol/L (136-145); Total Bilirubin 0.2 mg/dL (0.15-1.2); Total Protein 6.6 g/dL (6.6-8.7)
[2019-11-28 16:33] LABS: Troponin(5th) Baseline 6 ng/L (0-15)
[2019-11-28 16:45] LABS: C Reactive Protein 0.5 mg/L (0.0-4.9)
[2019-11-28 16:55] VITALS: BP 160/76; PULSE 69; RESP 20; O2SAT 97
[2019-11-28 17:23] LABS: Add Urine Microscopic? NO
[2019-11-28 17:39] LABS: Urine Appearance Clear (CLEAR); Urine Color Yellow (Yellow); pH Urine 6.5 (5-7)
[2019-11-28 17:40] LABS: Bilirubin Urine Neg (Negative); Blood Urine Neg (Negative); Glucose Urine UA Norm (Normal); Ketones Urine 1+ (Negative); Leukocyte Esterase Urine Negative (Negative); Nitrate Urine Negative (Negative); Protein Urine Neg (Negative); Specific Gravity, Urine 1.015 (1.005-1.030); Urobilinogen Urine Neg (Negative)
--- NOTE | 2019-11-28 18:03 | ECG_ITS ---
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 Measurements Intervals [place] Rate: 82 P: 25 IN: 164 QRS: -12 QRSD: 78 T: 20 QT: 353 QTc: 413 Interpretive Statements SINUS RHYTHM Compared to ECG 11/28/2019 16:47:10 No significant changes Electronically Signed On 11-28-2019 21:48:36 CDT by Josafat Ames M.D. [id number]
[2019-11-28 18:44] VITALS: BP 126/70; PULSE 75; RESP 16; O2SAT 98
[2019-11-28 19:48] LABS: Troponin 5 2HR Delta 0 ABS# (0-10)
[2019-11-28 20:01] VITALS: BP 130/66; PULSE 85; RESP 16; O2SAT 98
== END 2019-11-28 20:04 | disposition home or self-care (01) ==
PROVIDERS: Family Medicine; Emergency Provider Emergency Medicine; PCP Internal Medicine
DX: R07.9 Chest pain, unspecified (principal); F84.0 Autistic disorder; F17.210 Nicotine dependence, cigarettes, uncomplicated
CPT/HCPCS: 12345; 80053; 81003; 84484; 85025; 86140; 93005; 99283

== ENCOUNTER → 2019-12-06 08:03 | Outpatient (BNVA) | payer MEDICAID, SELFPAY | PROVIDERS: PCP Internal Medicine; Visit Provider Nurse Practitioner | DX: F20.5 Residual schizophrenia (principal); F84.0 Autistic disorder | CPT/HCPCS: 99214 ==

== ENCOUNTER 2019-12-11 14:39 | Emergency (ER) | payer MEDICAID, SELFPAY ==
[2019-12-11 14:43] VITALS: PULSE 93; RESP 18; TEMP 36.7; O2SAT 100; BMI 27.3
--- NOTE | 2019-12-11 16:39 | CTR_ITS ---
PROCEDURE INFORMATION: Exam: CT Head Without Contrast Exam date and time: 12/11/2019 5:27 PM Age: 39 years old Clinical indication: Other: Seizures; Additional info: Repeated seizures TECHNIQUE: Imaging protocol: Computed tomography of the head without contrast. Radiation optimization: All CT scans at this facility use at least one of these dose optimization techniques: automated exposure control; mA and/or kV adjustment per patient size (includes targeted exams where dose is matched to clinical indication); or iterative reconstruction. COMPARISON: CT head wo con* [id number] 11/19/2019 10:51 PM RADIATION DOSE METRICS: Total DLP (mGy-cm): 896.72 FINDINGS: Brain: Normal. No hemorrhage. Unremarkable white matter. No mass effect. Cerebral ventricles: No ventriculomegaly. Bones/joints: Unremarkable. No acute fracture. Paranasal sinuses: Visualized sinuses are unremarkable. No fluid levels. Mastoid air cells: Visualized mastoid air cells are well aerated. Soft tissues: Unremarkable. CT/CT head wo con* [id number] IMPRESSION: No acute intracranial abnormality. Radiation Dose CTDIVOL = (mGy): DLP = 896.72 (mGy-cm)
--- NOTE | 2019-12-11 16:39 | XRR_ITS ---
PROCEDURE INFORMATION: Exam: XR Chest, 1 View Exam date and time: 12/11/2019 4:48 PM Age: 39 years old Clinical indication: Other: Seizures; Additional info: Repeated seizures TECHNIQUE: Imaging protocol: XR of the chest Views: 1 view. COMPARISON: CR XR chest 2V* [id number] 07/06/2019 1:07 PM FINDINGS: Lungs: Unremarkable. No consolidation. Pleural space: Unremarkable. No pleural effusion. No pneumothorax. Heart/Mediastinum: Unremarkable. No cardiomegaly. Bones/joints: No acute abnormality. XR/XR chest 1V portable [id number] IMPRESSION: No acute findings.
--- NOTE | 2019-12-11 16:58 | W.ED.SEIZURE ---
HPI - Seizure General: Chief Complaint: Seizure Stated Complaint: SEIZURES Time Seen by Provider: 12/11/19 15:22 Source: patient and other (caregiver) Mode of arrival: EMS Limitations: no limitations History of Present Illness: HPI Narrative: 59-year-old gentleman on with a history of developmental delay and seizures and lives in a residential presents to the emergency department with complaints of seizures. According to the residential staff the patient had 2 seizures last night, 5 seizures today described as staring into space and shaking, then 3 full-blown seizures by which domain generalized tonic-clonic seizures. He is alert and at baseline now. No fever, no recent head trauma. complaint: seizure Description of Episode: tonic-clonic movement Seizure History: Yes Place: Home Associated symptoms: Deny chills or fever(s) Review of Systems General: Reports: 10 or more systems reviewed and unremarkable except in HPI and below Const: Denies: fever(s), chills or body aches Eyes: Denies: change in vision or blurry vision ENMT: Denies: throat pain, enlarged tonsils, odynophagia, hoarseness, mouth pain or swelling of lips/tongue Card: Denies: palpitations, irregular heart rhythm, edema or swelling of feet/ankles Resp: Denies: dyspnea, productive cough or non-productive cough GI: Denies: abdominal pain, nausea or vomiting : Denies: flank pain, dysuria, urinary frequency, urinary urgency or urinary hesitancy Musc: Denies: neck pain, back pain or extremity swelling Skin/Breast: Denies: rash, pruritus or erythema Neuro: Reports: seizure-like activity; Denies: headache(s), numbness in extremities or weakness in extremities Endo: Denies: polyuria, polydipsia or tired all the time PFS ED PFSH: Medical History (Reviewed 12/11/19 @ 17:03 by Margaret Castle MD, [facility] [place]) Autistic disorder Residual schizophrenia Social History (Reviewed 12/11/19 @ 17:03 by Margaret Castle MD, [facility] [place]) Smoking and tobacco status: current every day smoker cigarettes Smoking risk assessment/counseling performed?: Yes Tobacco counseling given: counseling >3 minutes Physical Exam Const: COMMON NORMALS: no acute distress, average body habitus, patient oriented x3, no limitations, healthy appearing, alert and well nourished HENMT: COMMON NORMALS: normocephalic, atraumatic and moist oral mucous membranes HEAD & SCALP: normocephalic and atraumatic Eye: COMMON NORMALS: Equal, round and reactive pupils present, EOMs intact bilaterally, conjunctivae normal and no scleral icterus CONJUNCTIVA: Yes conjunctivae normal PUPIL: Yes Equal, round and reactive pupils present Neck/C-Spine: COMMON NORMALS: no meningeal signs and no JVD Resp: COMMON NORMALS: normal respiratory effort, No retractions, No use of accessory muscles, clear to auscultation bilaterally and percussion normal AUSCULTATION: clear to auscultation bilaterally PERCUSSION: percussion normal Cardio: COMMON NORMALS: no JVD, regular rate, regular rhythm, S1 normal heart sound present, S2 normal heart sound present, No gallops present (Cardio), No clicks present (Cardio), No murmurs present (Cardio), No rub (Cardio) and Peripheral pulses 2+ throughout RATE: regular rate RHYTHM: regular rhythm HEART SOUNDS: S1 normal heart sound present and S2 normal heart sound present PERIPHERAL PULSES: Peripheral pulses 2+ throughout GI: COMMON NORMALS: Normal to inspection, nondistended, normoactive bowel sounds present, Soft to palpation, non-tender, No hepatosplenomegaly present, no masses and no bruits PALPATION: Yes Soft to palpation and Yes No hepatosplenomegaly present Extremity: COMMON NORMALS: normal to inspection, full ROM, capillary refill normal, no calf tenderness and no pedal edema Neuro: COMMON NORMALS: patient oriented x3 SENSORIUM/ORIENTATION: Yes alert MENINGEAL SIGNS: Yes no meningeal signs Skin: COMMON NORMALS: no rashes or lesions noted, no wounds, turgor normal, no jaundice, no petechiae and no mottling GENERAL SKIN EXAM: no rashes or lesions noted and turgor normal Course Reevaluation(s): Reevaluation #1: Discussed lab and imaging findings with patient and caregiver. Negative for acute findings. He is advised to follow-up with his primary care provider for adjustment of his medications. He voiced understanding and is in agreement with the plan Time: 21:06 Vital Signs: Vital signs: Vital Signs Temperature 98.1 F 12/11/19 14:43 Pulse Rate 70 11/01/20 21:17 Respiratory Rate 18 12/11/19 21:17 Blood Pressure 114/60 12/11/19 21:17 Pulse Oximetry 96 12/11/19 21:17 MDM - Seizure MDM Narrative: Medical decision making narrative: Patient with a history of seizures and apparently had several seizures between yesterday and today. Throughout his ED stay he did not have any seizures, however he was given a dose of IV keppra. Evaluation in the ED was negative for acute findings and he is discharged home with no new orders, however he is to f/u with his PCP for adjustment of his antiepileptics. Medical Records: Attestation: I reviewed the patient's medical records. Lab Data: Attestation: I reviewed the patient's lab results. Labs: Lab Results 12/11/19 12/11/19 12/11/19 Range/Units 18:00 18:00 20:02 WBC 5.8 (4.0-10.0) 10^3/ uL RBC 4.54 (4.1-5.3) 10^6/u L Hgb 14.1 (11.7-16.6) g/dL Hct 43.1 (42.0-52.0) % MCV 94.9 H (80-94) fL MCH 31.1 (28.0-34.0) pg MCHC 32.7 (30.0-36.0) g/dL RDW 11.9 L (12.1-15.1) % Plt Count 214 (130-400) 10^3/c mm MPV 10.5 H (7.4-10.4) fL Neut % (Auto) 46.9 % Lymph % (Auto) 39.2 % [place] % (Auto) 9.1 % Eos % (Auto) 3.6 % Baso % (Auto) 0.9 % Neut # (Auto) 2.73 (1.8-7.7) 10^3/u L Lymph # (Auto) 2.3 (0.8-4.8) 10^3/u L [place] # (Auto) 0.5 (0.2-0.9) 10^3/u L Eos # (Auto) 0.2 (0.0-0.8) 10^3/u L Baso # (Auto) 0.1 (0.0-0.1) 10^3/u L Nucleated RBC % (a uto) 0 % Nucleated RBCs # 0.0 /100WBC Sodium Cancelled 141 Potassium Cancelled 3.8 Chloride Cancelled 104 Carbon Dioxide Cancelled 26 Anion Gap Cancelled 14.8 BUN Cancelled 10 Creatinine Cancelled 0.6 L GFR Calculation Cancelled 151.6 H Glucose Cancelled 132 H Calculated Osmolal ity Cancelled 293 Calcium Cancelled 9.2 Phosphorus Cancelled 3.7 Magnesium Cancelled 2.0 Total Bilirubin Cancelled 0.2 AST Cancelled 10 ALT Cancelled 13 Alkaline Phosphata se Cancelled 64 Creatine Kinase Cancelled 65 C-Reactive Protein Cancelled 0.6 Total Protein Cancelled 6.4 L Albumin Cancelled 4.2 Globulin Cancelled 2.2 Lipase Cancelled 51 TSH Cancelled 1.14 Imaging Data^: CXR: Attestation: I personally reviewed and interpreted this imaging study as follows: Radiologist's impression: [place] [address] XRay Report Signed Patient: Cesar Melo #: [id number] : 1980Acct#:[id number] Age/Sex: 39 / MADM Date: 12/11/19 Loc: ERRoom/Bed: Attending Dr: Ordering Provider/Ordering MD: Margaret Castle MD, [facility] [place] Date of Service: 12/11/19 Procedure(s): XR chest 1V portable [id number] Accession Number(s): [id number] Report Number: [id number] PROCEDURE INFORMATION: Exam: XR Chest, 1 View Exam date and time: 12/11/2019 4:48 PM Age: 39 years old Clinical indication: Other: Seizures; Additional info: Repeated seizures TECHNIQUE: Imaging protocol: XR of the chest Views: 1 view. COMPARISON: CR XR chest 2V* [id number] 07/06/2019 1:07 PM FINDINGS: Lungs: Unremarkable. No consolidation. Pleural space: Unremarkable. No pleural effusion. No pneumothorax. Heart/Mediastinum: Unremarkable. No cardiomegaly. Bones/joints: No acute abnormality. XR/XR chest 1V portable [id number] IMPRESSION: No acute findings. Dictated By:Crista Mazariegos Signed By:Paulette Mazariegos Date/Time:12/11/191706 DD/ 05 CT Head: Attestation: I personally reviewed and interpreted this imaging study as follows: Radiologist's impression: [address] [address] [address] Scan Report Signed Patient: Cesar Melo #: [id number] : 1980Acct#:[id number] Age/Sex: 39 / MADM Date: 12/11/19 Loc: ERRoom/Bed: Attending Dr: Ordering Provider/Ordering MD: Margaret Castle MD, [facility] [place] Date of Service: 12/11/19 Procedure(s): CT head wo con* [id number] Accession Number(s): [id number] Report Number: [id number] PROCEDURE INFORMATION: Exam: CT Head Without Contrast Exam date and time: 12/11/2019 5:27 PM Age: 39 years old Clinical indication: Other: Seizures; Additional info: Repeated seizures TECHNIQUE: Imaging protocol: Computed tomography of the head without contrast. Radiation optimization: All CT scans at this facility use at least one of these dose optimization techniques: automated exposure control; mA and/or kV adjustment per patient size (includes targeted exams where dose is matched to clinical indication); or iterative reconstruction. COMPARISON: CT head wo con* [id number] 11/19/2019 10:51 PM RADIATION DOSE METRICS: Total DLP (mGy-cm): 896.72 FINDINGS: Brain: Normal. No hemorrhage. Unremarkable white matter. No mass effect. Cerebral ventricles: No ventriculomegaly. Bones/joints: Unremarkable. No acute fracture. Paranasal sinuses: Visualized sinuses are unremarkable. No fluid levels. Mastoid air cells: Visualized mastoid air cells are well aerated. Soft tissues: Unremarkable. CT/CT head wo con* [id number] IMPRESSION: No acute intracranial abnormality. Radiation Dose CTDIVOL = (mGy): DLP = 896.72 (mGy-cm) Dictated By:Crista Mazariegos Signed By:Paulette Mazariegos Date/Time:12/11/191753 DD/ 51 Discharge Plan Discharge Patient Disposition: Home Clinical Impression: Epileptic seizure Qualifiers: Epilepsy type: generalized idiopathic Intractability: not intractable Status epilepticus: without status epilepticus Qualified Code(s): G40.309 - Generalized idiopathic epilepsy and epileptic syndromes, not intractable, without status epilepticus Condition: Stable Prescriptions: Continued divalproex [Depakote ER] 500 mg tablet extended release 24 hr 500 mg PO DAILY RF: 0 omeprazole 20 mg capsule,delayed release(DR/EC) 20 mg PO DAILY RF: 0 oxybutynin chloride 5 mg tablet 5 mg PO BID RF: 0 divalproex [Depakote ER] 500 mg tablet extended release 24 hr 1,000 mg PO BEDTIME RF: 0 atorvastatin 40 mg tablet 40 mg PO DAILY RF: 0 naproxen sodium 550 mg tablet 550 mg PO BID PRN (Reason: Pain) RF: 0 trazodone 150 mg tablet 150 mg PO BEDTIME Qty: 30 RF: 0 fluvoxamine 50 mg tablet 50 mg PO DAILY Qty: 30 RF: 0 aripiprazole [Abilify] 15 mg tablet 15 mg PO DAILY Qty: 30 RF: 1 haloperidol 5 mg tablet 5 mg PO BID PRN (Reason: aggression) Qty: 14 RF: 0 hydroxyzine HCl 50 mg tablet 50 mg PO Q8H PRN (Reason: agitation) Qty: 30 RF: 0 hydroxyzine pamoate 25 mg capsule 25 mg PO TID PRN (Reason: anxiety) Qty: 14 RF: 0 Discharge Orders: Discharge Order (Routine); Ordered 12/11/19 Ordered By: Margaret Castle Referrals: Baldomero Chacon DO [Primary Care Provider] - 1-3 days Discharge Diet: Usual diet Discharge Activity: Increase activity as tolerated Patient Instructions: Epilepsy (ED) Activity Restrictions/Additional Instructions: Return for any new or worsening symptoms. Follow-up with your primary care provider within 2 days for an adjustment of your medication. Meanwhile continue your current medications. Discharge Date/Time: 12/11/19 21:18 Coding Level of Care Code ED Outreach Clinician for Evgeny Fwagapito Exam Comprehensive
[2019-12-11] MEDS: haloperidol inj 5 mg/mL INJ 1 mL 2 MG IVP (17:44)
[2019-12-11 18:07] LABS: Basophils # 0.1 10^3/uL (0.0-0.1); Basophils % 0.9 %; Eosinophils # 0.2 10^3/uL (0.0-0.8); Eosinophils % 3.6 %; Hematocrit 43.1 % (42.0-52.0); Hemoglobin 14.1 g/dL (11.7-16.6); Lymphocytes # 2.3 10^3/uL (0.8-4.8); Lymphocytes % 39.2 %; Mean Corpuscular HGB Conc 32.7 g/dL (30.0-36.0); Mean Corpuscular Hemoglobin 31.1 pg (28.0-34.0); Mean Corpuscular Volume 94.9 fL (80-94); Mean Platelet Volume 10.5 fL (7.4-10.4); Monocytes # 0.5 10^3/uL (0.2-0.9); Monocytes % 9.1 %; Neutrophils # 2.73 10^3/uL (1.8-7.7); Neutrophils % 46.9 %; Nucleated Red Blood Cells % 0 %; Platelet Count 214 10^3/cmm (130-400); Red Blood Count 4.54 10^6/uL (4.1-5.3); Red Cell Distribution Width 11.9 % (12.1-15.1); White Blood Count 5.8 10^3/uL (4.0-10.0)
[2019-12-11 20:45] LABS: Alanine Aminotransferase 13 U/L (0-41); Albumin Level 4.2 g/dL (3.5-5.2); Alkaline Phosphatase 64 IU/L (40-130); Anion Gap 14.8 (5-19); Aspartate Amino Transferase 10 U/L (0-40); Blood Urea Nitrogen 10 mg/dL (6-20); C Reactive Protein 0.6 mg/L (0.0-4.9); Calcium 9.2 mg/dL (8.5-10.5); Carbon Dioxide 26 mmol/L (22-29); Chloride 104 mmol/L (98-107); Creatine Phosphokinase 65 U/L (39-308); Globulin 2.2 g/dL (1.3-4.6); Glomerular Filtration Rate 151.6 mL/min (90-130); Glucose 132 mg/dL (65-115); Lipase 51 U/L (13-60); Osmolality Calculated 293 mOsm/kg (285-295); Phosphorus 3.7 mg/dL (2.5-4.5); Potassium 3.8 mmol/L (3.5-5.1); Sodium 141 mmol/L (136-145); Thyroid Stimulating Hormone 1.14 uIU/mL (0.27-4.20); Total Bilirubin 0.2 mg/dL (0.15-1.2); Total Protein 6.4 g/dL (6.6-8.7)
[2019-12-11 21:17] VITALS: BP 114/60; PULSE 70; RESP 18; O2SAT 96
== END 2019-12-11 21:18 | disposition home or self-care (01) ==
PROVIDERS: Emergency Provider Family Medicine; PCP Internal Medicine
DX: G40.309 Generalized idiopathic epilepsy and epileptic syndromes, not intractable, without status epilepticus (principal); F84.0 Autistic disorder; F17.210 Nicotine dependence, cigarettes, uncomplicated
CPT/HCPCS: 12345; 70450; 71045; 80053; 82550; 83690; 83735; 84100; 84443; 85025; 86140; 96374; 96375; 99283; J1630; J1953

== ENCOUNTER 2019-12-19 03:25 | Inpatient (IN) | payer MEDICAID, SELFPAY ==
--- NOTE | 2019-12-19 05:40 | PC.NURSE ---
Report from LEOPOLDO Panda. Caregiver at bedside. Per provider no 1:1 sitter need with caregiver at bedside
--- NOTE | 2019-12-19 06:38 | ED_ITS ---
HPI - Psych General: Stated Complaint: SI Time Seen by Provider: 12/19/19 05:34 History of Present Illness: HPI Narrative: 39-year-old male, evidently with a history of autism, presenting with suicidal ideation. Evidently has made suicidal statements recently, essentially yesterday. He was seen at an outside facility and laboratory was drawn. He presents here to be hopefully admitted to the neuropsychiatric facility. He denies other complaints including cough, fever, congestion, shortness of breath, vomiting or diarrhea. complaint: suicidal ideation Onset (ago): hour(s) Duration: constant History of same: Yes Relieving factors: none Exacerbating factors: none Associated psychiatric symptoms: depression Associated symptoms: Reports suicidal ideation Review of Systems Const: Denies: fever(s) or chills Eyes: Denies: change in vision Resp: Denies: dyspnea, productive cough, non-productive cough or wheezing GI: Denies: abdominal pain, nausea, vomiting or hematemesis Psych: Reports: suicidal ideation [facility] ED PFSH: Medical History (Updated 12/19/19 @ 06:45 by Erich Pemberton DO) Autistic disorder Residual schizophrenia Social History Smoking and tobacco status: current every day smoker cigarettes Smoking risk assessment/counseling performed?: Yes Tobacco counseling given: counseling >3 minutes Physical Exam Const: GENERAL APPEARANCE: well developed ORIENTATION/CONSCIOUSNESS: Yes oriented to person, Yes oriented to place and Yes oriented to time HENMT: COMMON NORMALS: normocephalic, external ears normal and Normal external nose present HEAD & SCALP: normocephalic FACE & SINUS: normal facial exam NOSE: Normal external nose present and No nasal discharge present EXTERNAL EAR: Yes external ears normal MOUTH: tongue normal Eye: COMMON NORMALS: Equal, round and reactive pupils present, EOMs intact bilaterally and conjunctivae normal EYELID: eyelids normal CONJUNCTIVA: Yes conjunctivae normal PUPIL: Yes Equal, round and reactive pupils present Neck/C-Spine: COMMON NORMALS: full ROM GENERAL: No tracheal deviation Chest: COMMONS NORMALS: normal inspection of the chest CHEST: No tenderness Resp: COMMON NORMALS: clear to auscultation bilaterally EFFORT & INSPECTION: No tachypneic, No respiratory distress, No retractions, No uses accessory muscles and No tracheal deviation AUSCULTATION: clear to auscultation bilaterally, no rhonchi, no wheezes and lung sounds not diminished Cardio: COMMON NORMALS: regular rate and regular rhythm RATE: regular rate RHYTHM: regular rhythm HEART SOUNDS: no murmurs PERIPHERAL PULSES: radial pulses present GI: INSPECTION: No abdominal distension AUSCULTATION: No Hyperactive bowel sounds present and No Hypoactive bowel sounds present PALPATION: No Guarding due to palpation present (GI) and No Rigid due to palpation PERCUSSION: no dullness to percussion and no tympanic to percussion Neuro: SENSORIUM/ORIENTATION: Yes oriented to person, Yes oriented to place and Yes oriented to time Psych: COMMON NORMALS: speech normal ATTITUDE: Yes engaged ACTIVITY/MOTOR BEHAVIOR: Yes appropriate eye contact SPEECH: Yes normal speech MOOD & AFFECT: Yes depressed mood Skin: COMMON NORMALS: no rashes or lesions noted GENERAL SKIN EXAM: no rashes or lesions noted MDM - Psych 2 MDM Narrative: Medical decision making narrative: 39-year-old autistic patient presents with suicidal statements/ideation. There may be some secondary gain to his statements. He now states that he does not have a plan. He is medically stable this is based on labs done at the outside facility last night. Discharge Plan Discharge Patient Disposition: Admitted As Inpatient Clinical Impression: Suicide ideation Condition: Stable Coding Level of Care Code ED Inverted Block Operator for Evgeny Alcaraz Exam Comprehensive
[2019-12-19 08:09] VITALS: BP 135/94; PULSE 84; RESP 18; TEMP 37.1; O2SAT 99
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
[2019-12-19 14:00] VITALS: BP 122/78; PULSE 84; RESP 20; TEMP 36.2; O2SAT 96
--- NOTE | 2019-12-19 14:19 | PM.NHP ---
Providers/Chief Complaint Admitting Physician: Hany Hooks MD Primary Care Provider: Baldomero Chacon DO Chief Complaint: SI HPI NPU History of Present Illness Yadiel Melo is a 39 year old male who presented to the emergency department with the following report: Stated Complaint: SI Time Seen by Provider: 12/19/19 05:34 History of Present Illness: HPI Narrative: 39-year-old male, evidently with a history of autism, presenting with suicidal ideation. Evidently has made suicidal statements recently, essentially yesterday. He was seen at an outside facility and laboratory was drawn. He presents here to be hopefully admitted to the neuropsychiatric facility. He denies other complaints including cough, fever, congestion, shortness of breath, vomiting or diarrhea. MD complaint: suicidal ideation Onset (ago): hour(s) Duration: constant History of same: Yes Relieving factors: none Exacerbating factors: none Associated psychiatric symptoms: depression Associated symptoms: Reports suicidal ideation. He was admitted to the neuropsychiatric unit for definitive treatment of those issues. Yadiel presents today as a family to my assist RN reporting that he is doing fine and denying any issues. He reports that he was having some anger problems with his [facility]mates at his [facility] but denies having any issues right now. Most questions that were asked of him were followed by 1 or 2 word answers and then home bringing his hands up to his eyes/face and making a trembling motion like he was afraid of how this inspector automatic typewriter would respond to his response. This pattern was fairly predictable. For additional information we reached out to his guardian and the facility. He does have fairly robust follow-up at [facility] and he sees Cherri Valerio. He is letting on and an excerpt of that note is included. Also Joselny from his November 2018 evaluation at [facility]. He has had no inpatient hospitalizations here most likely secondary to him not meeting the criteria for hospitalization here given his intellectual disability. Per his 12/06/2019 [facility] outpatient follow-up: Psychiatry SOAP Note Diagnosis (1) Residual schizophrenia: Status: Acute (2) Autistic disorder: Status: Acute Psychiatry SOAP Note Time In: 11:00 Time Out: 11:16 Subjective Subjective: Yadiel is a 39-year-old male, who is being seen today by telephone due to COVID 19 precautions for medication management and follow up for his schizophrenia and his autism spectrum disorder. He was last seen November 22, 2019. When I called Yadiel today he was at [facility]. I spoke to his caregivers including Brenda, Raven Hansen, and Janina Jones. Staff report he continued to have a few behaviors last week. He did break another window in TV. He has been agitated with his roommate. His behaviors have improved as of and Thursday through the weekend. Staff state when he had behaviors he reported hearing voices. He was on quarantine due to being exposed to someone with coronavirus. He has been allowed to return to [facility] today. Happy about coming to [facility] and enjoys being there. Yadiel use the as needed Haldol 6 different times in the last 2-weeks. He last used it on the . The time before that was on the . Staff state this as needed medication is helpful to calm him. Staff and Yadiel is agreeable to increasing Abilify today for his mood and voices. Staff and Yadiel report the following: Mood: Agitated in the last 2 weeks. His mood has been good throughout the weekend. Sleep: Sleeping well. Typically goes to bed and sleeps throughout the night. Appetite: Adequate Level of energy: Adequate Level of anxiety: None reported Ability to do ADLs: Independent Frightening/uncomfortable/or racing thoughts: Denies Thoughts of , suicide, or violence towards others: Denies Hearing voices or seeing hallucinations/visions: Yadiel reports to hearing voices ROS Respiratory: Recently on quarantine due to exposure to COVID-19 Constitutional: Denies fever, fatigue, weakness Neurological: Seizure disorder. Staff report no seizures recently. Objective Objective: Alert and oriented to person place and time. Patient describes mood as agitated/going through the weekend. Speech is normal rate, rhythm, and volume. Thought process is logical and organized. No hallucinatory activity noted. Currently denies thoughts of harming self and others. Judgment and insight are poor related to diagnosis and history. Memory is intact for recent and remote events. Attention and concentration are within normal limits. Fund of knowledge is estimated to be below average. Affect, appearance, behavior, eye contact, and gait unable to be assessed due to telephone visit for COVID 19 precautions. November 2019 Depakote level was May lipid panel was within normal limits September 2018 hemoglobin A1c was 5.5 Assesment & Plan Assessment: Yadiel had a few continued aggressive behaviors. Staff report throughout this weekend his mood and behaviors have been good Plan: Increase Abilify to 15 mg daily Continue trazodone 150 mg at bedtime Continue Luvox 50 mg daily Continue Haldol 5 mg twice a day as needed for severe agitation A prescription of the increased dose of the Abilify for 30 days with 1 refill was sent to [facility] pharmacy Follow-up in 1 month. Client and staff instructed symptoms worsen or the need to be seen sooner to call the clinic for an earlier appointment. Will order repeat hemoglobin A1c and lipid panel at next in office visit. Per his 11/16/2018 [facility] outpatient psychiatric evaluation: [facility] Psychiatric Evaluation Psychiatric Evaluation: Identifying Data: Yadiel Melo is a 38 year old white male who was referred for medication management.He is single and lives in assisted living facility. Admission is voluntary. He was accompanied by staff at assisted living facility. He gave some of the history. Chief Complaint: On too Many Medications.: History of Present Illness: Mr. Melo is a 38 year old white male who was referred for medication management.Moods are happy. He is able to have fun. Sleep is good Yadiel sleeps all of the time. Appetite is good. He has lost weight. Energy level is low. He is tired all the time. Concentration is good if he is not tired. The patient denies crying spells and guilty feelings.Motivation is good. Self esteem is good. Yadiel denies homicidal and suicidal thoughts. He does not like to be in crowds. Loud noises bother him. He likes to be by himself. The patient will not initiate or sustain a conversation. Yadiel an adapt to changes in routine. Certain clohters and foods do not bother. Yadiel denies hoa and irritability. The patient denies generalized anxiety, specific phobia, social anxiety, compulsions, and obsessions. He hears voices. The voices tell him it is not time to smoke. Denies visual hallucinations, paranoia, ideas of references, thought broadcasting, thought insertion and thought withdrawal. Yadiel denies a history of PTSD. Past Psychiatric History: There is no history of known psychiatric hospitalizations. He went to counseling but there are no records of therapy. He had psychotropic medications prescribed in the residential. Medical History: Seizure Disorder, Diabetes Mellitus, History of Thyroid Disease, Hypertension. Surgical History: Eye Surgery for Cataract Removal Medications: Losartan Potassium 25 mg po q am; Divaproex ER two tabs po a m and 2 tabs po q pm; Fourosemide 40 mg po q day; Oxybutynin 5 mg po bidl Ranitidine 15 0 mg po q 12 hours; Metformin 1000 mg po bid; Atorvastatin 40 mg po q hs and Naproxen 550 mg po bid prn Allergy: Sulfa, Sudafed, purified protein and Tuberculin Review of Systems: HEENT-Allergies Cardiology-Hypertension Pulmonary-None Gastrointestinal-Acid Reflux Endocrine-Diabetes Mellitus and History of Thyroid Disease Genitourinary-Overactive Bladder Hematology-None Dermatology-None Rheumatology-None Musculoskeletal-None Neurology-Seizure Psychiatry-Autism, Depression and Schizophrenia Social History: Substance Abuse: Yadiel denies a history of drug and alcohol abuse. He was born and raised in [place], [place]. Mother is still living. The where abouts of father is unknown. He has half brothers on father's side. The patient is single. He does not know how far he went in [employer]. 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 The patient is disabled and lives in [facility]. Denies legal issues. Yadiel denies a history of physical and sexual abuse. Developmental History: He has a history of autism. Meds NPU Home Medications Medication Instructions Recorded Confirmed Last Taken Type atorvastatin 40 mg tablet 40 mg PO DAILY 03/08/19 12/19/19 03/16/19 History divalproex 500 mg tablet,extended 1,000 mg PO BEDTIME tab 03/08/19 12/19/19 03/16/19 History release 24 hr divalproex 500 mg tablet,extended 500 mg PO DAILY 03/08/19 12/19/19 03/17/19 History release 24 hr naproxen sodium 550 mg tablet 550 mg PO BID PRN 03/08/19 12/19/19 Unknown History omeprazole 20 mg capsule,delayed 20 mg PO DAILY 03/08/19 12/19/19 03/17/19 History release oxybutynin chloride 5 mg tablet 5 mg PO BID 03/08/19 12/19/19 03/17/19 History hydroxyzine pamoate 25 mg PO TID PRN #14 cap 11/20/19 12/19/19 Unknown Rx hydroxyzine HCl 50 mg PO Q8H PRN #30 tab 11/21/19 12/19/19 Unknown Rx fluvoxamine 50 mg tablet 50 mg PO DAILY #30 tab 11/22/19 12/19/19 Unknown Rx trazodone 150 mg tablet 150 mg PO BEDTIME #30 tab 11/22/19 12/19/19 Unknown Rx aripiprazole 15 mg tablet 15 mg PO DAILY #30 tab 12/06/19 12/19/19 Unknown Rx haloperidol 5 mg tablet 5 mg PO BID PRN #60 tab 12/14/19 12/19/19 Unknown Rx Allergies Allergy/AdvReac Type Severity Reaction Status Date / Time lorazepam Allergy Unknown Verified 12/11/19 14:50 pseudoephedrine Allergy Unknown Verified 12/11/19 14:50 Sulfa (Sulfonamide Allergy Unknown Verified 12/11/19 14:50 Antibiotics) tuberculin, purified protein Allergy Unknown Verified 12/11/19 14:50 deriva PFSH NPU PFSH: Medical History (Updated 12/19/19 @ 06:45 by Erich Pemberton DO) Autistic disorder Residual schizophrenia Social History (Reviewed 12/11/19 @ 17:03 by Margaret Castle MD, [facility] [place]) Smoking and tobacco status: current every day smoker cigarettes Smoking risk assessment/counseling performed?: Yes Tobacco counseling given: counseling >3 minutes Mental Status Exam MSE Comments: This is an obese white male with adequate and eye contact. No abnormal movements except for psychomotor retardation and occasional maneuver he brings his hands up to his eyes and face and then he shakes as if he is almost shivering after answering a question. Cooperative with exam in mild distress. Speech was decreased rate and volume and mildly dysarthric. Mood described as okay affect slightly subdued. Thought process linear. Thought content: Patient denied suicidal or homicidal ideations, there were no delusions reported or noted, he denied any auditory visual hallucination. Sensation appeared intact and memory was limited but mostly appeared reliable but none were formally tested. He is alert and oriented x3. Insight and judgment are impaired, impulse control appears limited, intellectual ability is impaired. Vitals/I&O/Wt Last Vital Signs Temp 98.7 F 12/19/19 08:09 Pulse 84 12/19/19 08:09 Resp 18 12/19/19 08:09 BP 135/94 12/19/19 08:09 Pulse Ox 99 12/19/19 08:09 Involuntary Hold Information 96 Hour Hold: 96 Hour Involuntary Admission: No Attestations NPU Medical Necessity Statement*: Inpatient hospitalization is medically necessary and the clinically appropriate intervention at this time. We will monitor medications and make changes as indicated. We will get collateral information from guardian and [facility]. Given the impulsive nature of his diagnoses mind is clear signs of decompensation it would be appropriate to discharge him as soon as he is deemed safe. Likely length of stay 1 to 4 days. 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
[2019-12-19] MEDS: trazodone 150 mg Tablet PO (20:00)
[2019-12-19] MEDS: oxybutynin 5 mg Tablet PO (20:00)
[2019-12-19] MEDS: divalproex ER 500 mg Tablet (24H) 1000 MG PO (20:00)
[2019-12-19 21:40] VITALS: BP 151/92; PULSE 83; RESP 16; TEMP 36.9; O2SAT 96
[2019-12-20 06:00] VITALS: BP 118/74; PULSE 110; RESP 18; TEMP 36.8; O2SAT 96
[2019-12-20] MEDS: atorvastatin 40 mg Tablet PO (08:33)
[2019-12-20] MEDS: divalproex ER 500 mg Tablet (24H) PO (08:33)
[2019-12-20] MEDS: pantoprazole DR 40 mg Tablet PO (08:33)
[2019-12-20] MEDS: ARIPiprazole 30 mg Tablet 15 MG PO (08:33)
[2019-12-20] MEDS: oxybutynin 5 mg Tablet PO (08:35)
--- NOTE | 2019-12-20 11:30 | PM.NDC ---
Diagnoses at Discharge Discharge Diagnosis (1) Suicide ideation: Status: Acute (2) Residual schizophrenia: Status: Acute (3) Autistic disorder: Status: Acute Reason for Visit Reason for Visit: SI Brief History: History of Present Illness Yadiel Melo is a 39 year old male who presented to the emergency department with the following report: Stated Complaint: SI Time Seen by Provider: 12/19/19 05:34 History of Present Illness: HPI Narrative: 39-year-old male, evidently with a history of autism, presenting with suicidal ideation. Evidently has made suicidal statements recently, essentially yesterday. He was seen at an outside facility and laboratory was drawn. He presents here to be hopefully admitted to the neuropsychiatric facility. He denies other complaints including cough, fever, congestion, shortness of breath, vomiting or diarrhea. MD complaint: suicidal ideation Onset (ago): hour(s) Duration: constant History of same: Yes Relieving factors: none Exacerbating factors: none Associated psychiatric symptoms: depression Associated symptoms: Reports suicidal ideation. He was admitted to the neuropsychiatric unit for definitive treatment of those issues. Yadiel presents today as a family to my assist RN reporting that he is doing fine and denying any issues. He reports that he was having some anger problems with his roommates at his residential but denies having any issues right now. Most questions that were asked of him were followed by 1 or 2 word answers and then home bringing his hands up to his eyes/face and making a trembling motion like he was afraid of how this poem writer would respond to his response. This pattern was fairly predictable. For additional information we reached out to his guardian and the facility. He does have fairly robust follow-up at [facility] and he sees Cherri Valerio. He is letting on and an excerpt of that note is included. Also Joselyn from his November 2018 evaluation at [facility]. He has had no inpatient hospitalizations here most likely secondary to him not meeting the criteria for hospitalization here given his intellectual disability. Per his 12/06/2019 [facility] outpatient follow-up: Psychiatry SOAP Note Diagnosis (1) Residual schizophrenia: Status: Acute (2) Autistic disorder: Status: Acute Psychiatry SOAP Note Time In: 11:00 Time Out: 11:16 Subjective Subjective: Yadiel is a 39-year-old male, who is being seen today by telephone due to COVID 19 precautions for medication management and follow up for his schizophrenia and his autism spectrum disorder. He was last seen November 22, 2019. When I called Yadiel today he was at [facility]. I spoke to his caregivers including Brenda, Raven Hansen, and Janina Jones. Staff report he continued to have a few behaviors last week. He did break another window in TV. He has been agitated with his roommate. His behaviors have improved as of and Thursday through the weekend. Staff state when he had behaviors he reported hearing voices. He was on quarantine due to being exposed to someone with coronavirus. He has been allowed to return to [facility] today. Happy about coming to [facility] and enjoys being there. Yadiel use the as needed Haldol 6 different times in the last 2-weeks. He last used it on the . The time before that was on the . Staff state this as needed medication is helpful to calm him. Staff and Yadiel is agreeable to increasing Abilify today for his mood and voices. Staff and Yadiel report the following: Mood: Agitated in the last 2 weeks. His mood has been good throughout the weekend. Sleep: Sleeping well. Typically goes to bed and sleeps throughout the night. Appetite: Adequate Level of energy: Adequate Level of anxiety: None reported Ability to do ADLs: Independent Frightening/uncomfortable/or racing thoughts: Denies Thoughts of , suicide, or violence towards others: Denies Hearing voices or seeing hallucinations/visions: Yadiel reports to hearing voices ROS Respiratory: Recently on quarantine due to exposure to COVID-19 Constitutional: Denies fever, fatigue, weakness Neurological: Seizure disorder. Staff report no seizures recently. Objective Objective: Alert and oriented to person place and time. Patient describes mood as agitated/going through the weekend. Speech is normal rate, rhythm, and volume. Thought process is logical and organized. No hallucinatory activity noted. Currently denies thoughts of harming self and others. Judgment and insight are poor related to diagnosis and history. Memory is intact for recent and remote events. Attention and concentration are within normal limits. Fund of knowledge is estimated to be below average. Affect, appearance, behavior, eye contact, and gait unable to be assessed due to telephone visit for COVID 19 precautions. November 2019 Depakote level was May lipid panel was within normal limits September 2018 hemoglobin A1c was 5.5 Assesment & Plan Assessment: Yadiel had a few continued aggressive behaviors. Staff report throughout this weekend his mood and behaviors have been good Plan: Increase Abilify to 15 mg daily Continue trazodone 150 mg at bedtime Continue Luvox 50 mg daily Continue Haldol 5 mg twice a day as needed for severe agitation A prescription of the increased dose of the Abilify for 30 days with 1 refill was sent to [facility] pharmacy Follow-up in 1 month. Client and staff instructed symptoms worsen or the need to be seen sooner to call the clinic for an earlier appointment. Will order repeat hemoglobin A1c and lipid panel at next in office visit. Per his 11/16/2018 [facility] outpatient psychiatric evaluation: [facility] Psychiatric Evaluation Psychiatric Evaluation: Identifying Data: Yadiel Melo is a 38 year old white male who was referred for medication management.He is single and lives in assisted living facility. Admission is voluntary. He was accompanied by staff at assisted living facility. He gave some of the history. Chief Complaint: On too Many Medications.: History of Present Illness: Mr. Melo is a 38 year old white male who was referred for medication management.Moods are happy. He is able to have fun. Sleep is good Yadiel sleeps all of the time. Appetite is good. He has lost weight. Energy level is low. He is tired all the time. Concentration is good if he is not tired. The patient denies crying spells and guilty feelings.Motivation is good. Self esteem is good. Yadiel denies homicidal and suicidal thoughts. He does not like to be in crowds. Loud noises bother him. He likes to be by himself. The patient will not initiate or sustain a conversation. Yadiel an adapt to changes in routine. Certain clohters and foods do not bother. Yadiel denies hoa and irritability. The patient denies generalized anxiety, specific phobia, social anxiety, compulsions, and obsessions. He hears voices. The voices tell him it is not time to smoke. Denies visual hallucinations, paranoia, ideas of references, thought broadcasting, thought insertion and thought withdrawal. Yadiel denies a history of PTSD. Past Psychiatric History: There is no history of known psychiatric hospitalizations. He went to counseling but there are no records of therapy. He had psychotropic medications prescribed in the intermediate. Medical History: Seizure Disorder, Diabetes Mellitus, History of Thyroid Disease, Hypertension. Surgical History: Eye Surgery for Cataract Removal Medications: Losartan Potassium 25 mg po q am; Divaproex ER two tabs po a m and 2 tabs po q pm; Fourosemide 40 mg po q day; Oxybutynin 5 mg po bidl Ranitidine 15 0 mg po q 12 hours; Metformin 1000 mg po bid; Atorvastatin 40 mg po q hs and Naproxen 550 mg po bid prn Allergy: Sulfa, Sudafed, purified protein and Tuberculin Review of Systems: HEENT-Allergies Cardiology-Hypertension Pulmonary-None Gastrointestinal-Acid Reflux Endocrine-Diabetes Mellitus and History of Thyroid Disease Genitourinary-Overactive Bladder Hematology-None Dermatology-None Rheumatology-None Musculoskeletal-None Neurology-Seizure Psychiatry-Autism, Depression and Schizophrenia Social History: Substance Abuse: Yadiel denies a history of drug and alcohol abuse. He was born and raised in [place], [place]. Mother is still living. The where abouts of father is unknown. He has half brothers on father's side. The patient is single. He does not know how far he went in [place]. 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 The patient is disabled and lives in [facility]. Denies legal issues. Yadiel denies a history of physical and sexual abuse. Developmental History: He has a history of autism. Hospital Course Hospital Course Yadiel presented to the emergency department after significant conflict at his facility. Endorsing lethality and was admitted to the neuropsychiatric unit for definitive treatment of those issues. Consulting with his guardian and residential it was read that this represented an impulsive outburst with his not unheard of but did normally lead to long decompensations. It was agreed that the best plan of action was a quick return to his normal environment. He slowly acclimated to the individual, group and milieu therapies provided. There were no medication changes. He showed modest provement. During hospitalization he had routine laboratory studies which were within normal limits except for few outliers. Additionally he had a general medical evaluation which was also within normal limits and revealed no new acute processes. Discharge summary: At the time of discharge, he was absent lethality and demonstrating no psychosis. His mood and anxiety were well managed. He endorsed a plan to follow the treatment team recommendations after discharge. He was evaluated and deemed to be absent credible lethality and had the maximum benefit patient hospitalization, so he was discharged. Involuntary Hold Information 96 Hour Hold: 96 Hour Involuntary Admission: No Mental Status Exam MSE Comments: This is an obese white male with adequate and eye contact. No abnormal movements except for psychomotor retardation and occasional maneuver he brings his hands up to his eyes and face and then he shakes as if he is almost shivering after answering a question. Cooperative with exam in mild distress. Speech was decreased rate and volume and mildly dysarthric. Mood described happy to go home affect less subdued. Thought process linear. Thought content: Patient denied suicidal or homicidal ideations, there were no delusions reported or noted, he denied any auditory visual hallucination. Sensation appeared intact and memory was limited but mostly appeared reliable but none were formally tested. He is alert and oriented x3. Insight and judgment are impaired, impulse control appears limited, intellectual ability is impaired. Discharge Data Vitals: Last Vital Signs Temp 98.2 F 12/20/19 14:53 Pulse 110 H 12/20/19 14:53 Resp 18 12/20/19 14:53 BP 118/74 12/20/19 14:53 Pulse Ox 96 12/20/19 14:53 Discharge Plan Discharge Patient Disposition: Home Condition: Stable Prescriptions: Continued divalproex [Depakote ER] 500 mg tablet extended release 24 hr 500 mg PO DAILY RF: 0 omeprazole 20 mg capsule,delayed release(DR/EC) 20 mg PO DAILY RF: 0 oxybutynin chloride 5 mg tablet 5 mg PO BID RF: 0 divalproex [Depakote ER] 500 mg tablet extended release 24 hr 1,000 mg PO BEDTIME RF: 0 atorvastatin 40 mg tablet 40 mg PO DAILY RF: 0 naproxen sodium 550 mg tablet 550 mg PO BID PRN (Reason: Pain) RF: 0 trazodone 150 mg tablet 150 mg PO BEDTIME Qty: 30 RF: 0 fluvoxamine 50 mg tablet 50 mg PO DAILY Qty: 30 RF: 0 aripiprazole [Abilify] 15 mg tablet 15 mg PO DAILY Qty: 30 RF: 1 haloperidol 5 mg tablet 5 mg PO BID PRN (Reason: aggression) Qty: 60 RF: 0 hydroxyzine HCl 50 mg tablet 50 mg PO Q8H PRN (Reason: agitation) Qty: 30 RF: 0 hydroxyzine pamoate 25 mg capsule 25 mg PO TID PRN (Reason: anxiety) Qty: 14 RF: 0 Discharge Orders: Discharge Order (Routine); Ordered 12/20/19 Ordered By: Hany Hooks Referrals: [facility] [Outside] - 4-7 days (continue to go to [facility] until patient can get set up with his new psychiatrist. IS staff to make the appointment at [facility] if needed. IS home said that there is already a request to get seen by a different psychiatrist, Dr. Trejo. ) Baldomero Chacon, [Primary Care Provider] - Discharge Diet: Regular Discharge Activity: Resume usual activity Patient Instructions: Autism (DC) Discharge Attestations NPU Time Spent in Discharge Care*: less than 30 min Specific Discharge Activities: Specific discharge activities: educating patient, educating and/or supporting family/caregiver, discussing with case resolution specialist/social workers/dc planners, documenting/other paperwork and evaluating patient/reviewing data Coding Level of Care Code Acute Side Door Man for Chg Fwd Diagnoses Suicide ideation R45.851 Residual schizophrenia F20.5 Autistic disorder F84.0
[2019-12-20 14:53] VITALS: BP 118/74; PULSE 110; RESP 18; TEMP 36.8; O2SAT 96
== END 2019-12-20 15:57 | disposition home or self-care (01) | DRG 885 ==
LOC: ER 06:45 → NP 07:07
PROVIDERS: Admitting Provider Psychiatry & Neurology Psychiatry; Emergency Provider Emergency Medicine; PCP Internal Medicine; Visit Provider Psychiatry & Neurology Psychiatry
DX: F20.5 Residual schizophrenia (principal); R45.851 Suicidal ideations; F32.9 Major depressive disorder, single episode, unspecified; F84.0 Autistic disorder; F17.210 Nicotine dependence, cigarettes, uncomplicated
CPT/HCPCS: 12345; 99281

== ENCOUNTER → 2020-01-02 07:45 | Outpatient (BNVA) | payer MEDICAID, SELFPAY | PROVIDERS: PCP Internal Medicine; Visit Provider Nurse Practitioner | DX: F20.5 Residual schizophrenia (principal); F84.0 Autistic disorder | CPT/HCPCS: 99214 ==

== ENCOUNTER 2020-02-11 00:55 | Inpatient (IN) | payer MEDICAID, SELFPAY ==
[2020-02-11] VITALS (7 sets, daily range): BP systolic 106–134; BP diastolic 55–77; PULSE 67–82; RESP 16–20; TEMP 36.2–37.1; O2SAT 94–97; BMI 35.2
[2020-02-11 01:35] LABS: Basophils # 0.1 10^3/uL (0.0-0.1); Eosinophils # 0.1 10^3/uL (0.0-0.8); Eosinophils % 1.7 %; Hematocrit 44.6 % (42.0-52.0); Hemoglobin 14.6 g/dL (11.7-16.6); Lymphocytes # 2.3 10^3/uL (0.8-4.8); Lymphocytes % 30.2 %; Mean Corpuscular HGB Conc 32.7 g/dL (30.0-36.0); Mean Corpuscular Hemoglobin 30.5 pg (28.0-34.0); Mean Corpuscular Volume 93.1 fL (80-94); Mean Platelet Volume 10.5 fL (7.4-10.4); Monocytes # 0.7 10^3/uL (0.2-0.9); Monocytes % 8.7 %; Neutrophils # 4.46 10^3/uL (1.8-7.7); Neutrophils % 58.3 %; Nucleated Red Blood Cells % 0 %; Platelet Count 218 10^3/cmm (130-400); Red Blood Count 4.79 10^6/uL (4.1-5.3); Red Cell Distribution Width 11.9 % (12.1-15.1); White Blood Count 7.7 10^3/uL (4.0-10.0)
[2020-02-11 01:49] LABS: Alanine Aminotransferase 15 U/L (0-41); Albumin Level 4.2 g/dL (3.5-5.2); Alkaline Phosphatase 79 IU/L (40-130); Anion Gap 13.9 (5-19); Aspartate Amino Transferase 15 U/L (0-40); Blood Urea Nitrogen 14 mg/dL (6-20); Calcium 9.5 mg/dL (8.5-10.5); Carbon Dioxide 25 mmol/L (22-29); Chloride 106 mmol/L (98-107); Globulin 2.7 g/dL (1.3-4.6); Glomerular Filtration Rate 108.8 mL/min (90-130); Glucose 127 mg/dL (65-115); Osmolality Calculated 294 mOsm/kg (285-295); Potassium 3.9 mmol/L (3.5-5.1); Sodium 141 mmol/L (136-145); Total Bilirubin 0.2 mg/dL (0.15-1.2); Total Protein 6.9 g/dL (6.6-8.7)
[2020-02-11 01:52] LABS: Lithium 0.1 mmol/L (0.6-1.2); Valproic Acid Level 74.4 ug/mL (50-100)
[2020-02-11 02:02] LABS: Acetaminophen < 5.0 ug/mL (10-30); Alcohol Level < 10 mg/dL (0-10); Salicylate < 0.3 mg/dL (3-10)
[2020-02-11 02:26] LABS: Amphetamines Screen Urine Negative (Negative); Barbiturates Screen Urine Negative (Negative); Benzodiazepines Screen Urine Positive (Negative); Cocaine Screen Urine Negative (Negative); Opiate Screen Urine Negative (Negative); PCP Screen Urine Negative (Negative); THC Screen Urine Negative (Negative)
[2020-02-11 02:28] LABS: Add Urine Microscopic? YES; Bilirubin Urine Neg (Negative); Blood Urine Neg (Negative); Glucose Urine UA Norm (Normal); Ketones Urine 1+ (Negative); Leukocyte Esterase Urine Negative (Negative); Nitrate Urine Negative (Negative); Protein Urine Neg (Negative); Specific Gravity, Urine 1.015 (1.005-1.030); Urine Appearance Hazy (CLEAR); Urine Color Yellow (Yellow); Urobilinogen Urine Norm (Negative); pH Urine 7 (5-7)
--- NOTE | 2020-02-11 02:32 | W.ED.PSYCH ---
HPI - Psych General: Chief Complaint: Psychiatric Symptoms Stated Complaint: General Medical Time Seen by Provider: 02/11/20 01:07 History of Present Illness: HPI Narrative: 39-year-old autistic male who lives in a long term environment. He became agitated around 9 PM, and made threats to harm himself and his roommate. One of his caretakers notes this is been an ongoing problem, waxing and waning for about 3 to 4 months, but seem to be much worse tonight. He has been admitted for this in the past, although historically calms down pretty quickly and is allowed to go back to his long term environment. He denies any recent illness medically. He has been taking medication appropriately according to the staff member with him. MD complaint: suicidal ideation Onset (ago): hour(s) Duration: constant History of same: Yes Relieving factors: none Exacerbating factors: other Context: significant life stressor Associated psychiatric symptoms: depression, suicidal ideation and homicidal ideation Associated symptoms: Reports homicidal ideation and suicidal ideation; Deny auditory hallucinations or visual hallucinations Review of Systems Const: Denies: fever(s) or chills Eyes: Denies: change in vision ENMT: Denies: odynophagia or sinus pain Card: Denies: chest pain, palpitations or irregular heart rhythm Resp: Denies: dyspnea, productive cough, non-productive cough or wheezing GI: Denies: abdominal pain, nausea or vomiting : Denies: difficulty urinating or hematuria Musc: Reports: back pain; Denies: neck pain Skin/Breast: Denies: rash or erythema Neuro: Denies: headache(s), dizziness, vertigo, confusion or seizure-like activity Psych: Reports: suicidal ideation and homicidal ideation; Denies: visual hallucinations or auditory hallucinations [facility] ED PFSH: Medical History (Updated 02/11/20 @ 03:15 by Erich Pemberton DO) Autistic disorder Residual schizophrenia Social History Smoking and tobacco status: current every day smoker cigarettes Smoking risk assessment/counseling performed?: Yes Tobacco counseling given: counseling >3 minutes Physical Exam Const: GENERAL APPEARANCE: cooperative, comfortable and well kempt ORIENTATION/CONSCIOUSNESS: Yes oriented to person and Yes oriented to place HENMT: COMMON NORMALS: normocephalic, external ears normal and Normal external nose present HEAD & SCALP: normocephalic FACE & SINUS: normal facial exam NOSE: Normal external nose present and No nasal discharge present EXTERNAL EAR: Yes external ears normal MOUTH: tongue normal TEETH & GINGIVA: no abnormal tooth and associated gingiva THROAT: posterior oropharynx normal; no peritonsillar mass Eye: COMMON NORMALS: Equal, round and reactive pupils present, EOMs intact bilaterally and conjunctivae normal EYELID: eyelids normal CONJUNCTIVA: Yes conjunctivae normal PUPIL: Yes Equal, round and reactive pupils present Neck/C-Spine: GENERAL: No tracheal deviation Chest: COMMONS NORMALS: normal inspection of the chest CHEST: No tenderness Resp: COMMON NORMALS: clear to auscultation bilaterally EFFORT & INSPECTION: No tachypneic, No respiratory distress, No retractions, No uses accessory muscles and No tracheal deviation AUSCULTATION: clear to auscultation bilaterally, no rhonchi, no wheezes and lung sounds not diminished Cardio: COMMON NORMALS: regular rate and regular rhythm RATE: regular rate RHYTHM: regular rhythm HEART SOUNDS: no murmurs PERIPHERAL PULSES: radial pulses present GI: INSPECTION: No abdominal distension AUSCULTATION: No Hyperactive bowel sounds present and No Hypoactive bowel sounds present PALPATION: No Guarding due to palpation present (GI) and No Rigid due to palpation PERCUSSION: no dullness to percussion and no tympanic to percussion Neuro: SENSORIUM/ORIENTATION: Yes oriented to person and Yes oriented to place Psych: COMMON NORMALS: Normal thought process present APPEARANCE: Yes well kempt ATTITUDE: Yes calm ACTIVITY/MOTOR BEHAVIOR: Yes psychomotor slowing SPEECH: Yes minimal and Yes slow MOOD & AFFECT: Yes depressed mood and Yes Flat affect present THOUGHT PROCESS: Normal thought process present THOUGHT CONTENT: Yes Suicidality present and Yes Homicidality present ATTENTION/CONCENTRATION: Yes attention grossly intact and Yes concentration grossly intact MEMORY/COGNITION: Yes memory grossly intact and Yes cognition grossly impaired (mild) INSIGHT: Limited insight present (Psych) JUDGEMENT: Limited judgement present (Psych) Skin: COMMON NORMALS: no rashes or lesions noted GENERAL SKIN EXAM: no rashes or lesions noted MDM - Psych MDM Narrative: Medical decision making narrative: Patient is medically stable. Consulted psychiatry from the ER they are okay with admission and evaluation in the morning. Lab Data: Labs: Lab Results 02/11/20 02/11/2021 Range/Units 01:15 01:15 01:15 WBC 7.7 (4.0-10.0) 10^3/ uL RBC 4.79 (4.1-5.3) 10^6/u L Hgb 14.6 (11.7-16.6) g/dL Hct 44.6 (42.0-52.0) % MCV 93.1 (80-94) fL MCH 30.5 (28.0-34.0) pg MCHC 32.7 (30.0-36.0) g/dL RDW 11.9 L (12.1-15.1) % Plt Count 218 (130-400) 10^3/c mm MPV 10.5 H (7.4-10.4) fL Neut % (Auto) 58.3 % Lymph % (Auto) 30.2 % Roane % (Auto) 8.7 % Eos % (Auto) 1.7 % Baso % (Auto) 1.0 % Neut # (Auto) 4.46 (1.8-7.7) 10^3/u L Lymph # (Auto) 2.3 (0.8-4.8) 10^3/u L Roane # (Auto) 0.7 (0.2-0.9) 10^3/u L Eos # (Auto) 0.1 (0.0-0.8) 10^3/u L Baso # (Auto) 0.1 (0.0-0.1) 10^3/u L Nucleated RBC % (a uto) 0 % Nucleated RBCs # 0.0 /100WBC Sodium 141 (136-145) mmol/L Potassium 3.9 (3.5-5.1) mmol/L Chloride 106 (98-107) mmol/L Carbon Dioxide 25 (22-29) mmol/L Anion Gap 13.9 (5-19) BUN 14 (6-20) mg/dL Creatinine 0.8 (0.7-1.2) mg/dL GFR Calculation 108.8 (90-130) mL/min Glucose 127 H (65-115) mg/dL Calculated Osmolal ity 294 (285-295) mOsm/k g Calcium 9.5 (8.5-10.5) mg/dL Total Bilirubin 0.2 (0.15-1.2) mg/dL AST 15 (0-40) U/L ALT 15 (0-41) U/L Alkaline Phosphata se 79 (40-130) IU/L Total Protein 6.9 (6.6-8.7) g/dL Albumin 4.2 (3.5-5.2) g/dL Globulin 2.7 (1.3-4.6) g/dL Urine Color (Yellow) Urine Appearance (CLEAR) Urine pH (5-7) Ur Specific Gravit y (1.005-1.030) Urine Protein (Negative) Urine Glucose (UA) (Normal) Urine Ketones (Negative) Urine Blood (Negative) Urine Nitrate (Negative) Urine Bilirubin (Negative) Urine Urobilinogen (Negative) mg/dL Ur Leukocyte Aggie ase (Negative) Urine RBC (0-2) /hpf Urine WBC (0-5) /hpf Ur Squamous Epith Cells (0-5) /hpf Amorphous Sediment Urine Bacteria (NONE) /hpf Urine Mucus /hpf Salicylates < 0.3 L (3-10) mg/dL Urine Opiates Scre en (Negative) ng/mL Acetaminophen < 5.0 L (10-30) ug/mL Ur Barbiturates Sc reen (Negative) ng/mL Valproic Acid 74.4 (50-100) ug/mL Ur Phencyclidine S crn (Negative) ng/mL Ur Amphetamines Sc reen (Negative) ng/mL U Benzodiazepines Scrn (Negative) ng/mL Captain Cook 0.1 L (0.6-1.2) mmol/L Urine Cocaine Scre en (Negative) ng/mL U Marijuana (THC) Screen (Negative) ng/mL Ethyl Alcohol < 10 (0-10) mg/dL 02/11/20 02/11/20 Range/Units 01:56 01:56 WBC (4.0-10.0) 10^3/ uL RBC (4.1-5.3) 10^6/u L Hgb (11.7-16.6) g/dL Hct (42.0-52.0) % MCV (80-94) fL MCH (28.0-34.0) pg MCHC (30.0-36.0) g/dL RDW (12.1-15.1) % Plt Count (130-400) 10^3/c mm MPV (7.4-10.4) fL Neut % (Auto) % Lymph % (Auto) % Roane % (Auto) % Eos % (Auto) % Baso % (Auto) % Neut # (Auto) (1.8-7.7) 10^3/u L Lymph # (Auto) (0.8-4.8) 10^3/u L Roane # (Auto) (0.2-0.9) 10^3/u L Eos # (Auto) (0.0-0.8) 10^3/u L Baso # (Auto) (0.0-0.1) 10^3/u L Nucleated RBC % (a uto) % Nucleated RBCs # /100WBC Sodium (136-145) mmol/L Potassium (3.5-5.1) mmol/L Chloride (98-107) mmol/L Carbon Dioxide (22-29) mmol/L Anion Gap (5-19) BUN (6-20) mg/dL Creatinine (0.7-1.2) mg/dL GFR Calculation (90-130) mL/min Glucose (65-115) mg/dL Calculated Osmolal ity (285-295) mOsm/k g Calcium (8.5-10.5) mg/dL Total Bilirubin (0.15-1.2) mg/dL AST (0-40) U/L ALT (0-41) U/L Alkaline Phosphata se (40-130) IU/L Total Protein (6.6-8.7) g/dL Albumin (3.5-5.2) g/dL Globulin (1.3-4.6) g/dL Urine Color Yellow (Yellow) Urine Appearance Hazy A (CLEAR) Urine pH 7 (5-7) Ur Specific Gravit y 1.015 (1.005-1.030) Urine Protein Neg (Negative) Urine Glucose (UA) Norm (Normal) Urine Ketones 1+ H (Negative) Urine Blood Neg (Negative) Urine Nitrate Negative (Negative) Urine Bilirubin Neg (Negative) Urine Urobilinogen Norm (Negative) mg/dL Ur Leukocyte Aggie ase Negative (Negative) Urine RBC None (0-2) /hpf Urine WBC None (0-5) /hpf Ur Squamous Epith Cells 0-4 H (0-5) /hpf Amorphous Sediment Not Reportable Urine Bacteria Trace (NONE) /hpf Urine Mucus 2+ /hpf Salicylates (3-10) mg/dL Urine Opiates Scre en Negative (Negative) ng/mL Acetaminophen (10-30) ug/mL Ur Barbiturates Sc reen Negative (Negative) ng/mL Valproic Acid (50-100) ug/mL Ur Phencyclidine S crn Negative (Negative) ng/mL Ur Amphetamines Sc reen Negative (Negative) ng/mL U Benzodiazepines Scrn Positive H (Negative) ng/mL Captain Cook (0.6-1.2) mmol/L Urine Cocaine Scre en Negative (Negative) ng/mL U Marijuana (THC) Screen Negative (Negative) ng/mL Ethyl Alcohol (0-10) mg/dL Discharge Plan Discharge Patient Disposition: Admitted As Inpatient Admit Provider: Hany Hooks Clinical Impression: Suicidal ideation Condition: Stable Coding Level of Care Code ED Stockroom Attendant for Evgeny Fwd Exam Comprehensive
[2020-02-11 02:36] LABS: Add Urine Culture? No; Bacteria Urine TRACE /hpf; Mucus Urine 2+ /hpf; Squamous Epithelial Cell Urine 0-4 /hpf (0-5)
[2020-02-11] MEDS: ziprasidone hcl 20 mg Capsule PO (03:13)
[2020-02-11] MEDS: divalproex ER 500 mg Tablet (24H) PO (08:37)
[2020-02-11] MEDS: ARIPiprazole 30 mg Tablet PO (08:37)
[2020-02-11] MEDS: pantoprazole DR 40 mg Tablet PO (08:37)
[2020-02-11] MEDS: oxybutynin 5 mg Tablet PO ×2 (08:37→17:57)
[2020-02-11] MEDS: atorvastatin 40 mg Tablet PO (08:38)
[2020-02-11] MEDS: hyDROXYzine 25 mg Capsule 50 MG PO (14:53)
[2020-02-11] MEDS: nicotine 2 mg Gum BUCCAL (15:49)
--- NOTE | 2020-02-11 16:27 | PM.NHP ---
Providers/Chief Complaint Admitting Physician: Hany Hooks MD Primary Care Provider: Baldomero Chacon DO Chief Complaint: General Medical HPI NPU History of Present Illness Yadiel Melo is a 39 year old male who presented to the ED with the following report: Chief Complaint: Psychiatric Symptoms Stated Complaint: General Medical Time Seen by Provider: 02/11/20 01:07 History of Present Illness: HPI Narrative: 39-year-old autistic male who lives in a long term environment. He became agitated around 9 PM, and made threats to harm himself and his roommate. One of his caretakers notes this is been an ongoing problem, waxing and waning for about 3 to 4 months, but seem to be much worse tonight. He has been admitted for this in the past, although historically calms down pretty quickly and is allowed to go back to his long term environment. He denies any recent illness medically. He has been taking medication appropriately according to the staff member with him. MD complaint: suicidal ideation Onset (ago): hour(s) Duration: constant History of same: Yes Relieving factors: none Exacerbating factors: other Context: significant life stressor Associated psychiatric symptoms: depression, suicidal ideation and homicidal ideation Associated symptoms: Reports homicidal ideation and suicidal ideation; Deny auditory hallucinations or visual hallucinations. He was admitted to the psychiatric unit for definitive treatment of those issues. Yadiel presented to the unit this morning much like he normally does. With limited input or thoughts about the circumstances that led to his admission. Seeming somewhat timid and endorsing ultimately wanting to go back to his facility. He denied any significant insight into the circumstance or how it was different than any of the other situations. It appears to be the standard acting out behavior that is followed by a fairly rapid return to baseline. Consistent with what one might see with someone with autism and limited intellectual ability. Report from staff are that this episode was made worse or that frequency is increasing, however he is consistent with his outpatient appointments and his last report about a month ago suggested that these episodes are decreasing. An excerpt from his most recent hospitalization is included below for context. Per his 12/19/2019 [facility] inpatient eval: History of Present Illness Yadiel Melo is a 39 year old male who presented to the emergency department with the following report: Stated Complaint: SI Time Seen by Provider: 12/19/19 05:34 History of Present Illness: HPI Narrative: 39-year-old male, evidently with a history of autism, presenting with suicidal ideation. Evidently has made suicidal statements recently, essentially yesterday. He was seen at an outside facility and laboratory was drawn. He presents here to be hopefully admitted to the neuropsychiatric facility. He denies other complaints including cough, fever, congestion, shortness of breath, vomiting or diarrhea. MD complaint: suicidal ideation Onset (ago): hour(s) Duration: constant History of same: Yes Relieving factors: none Exacerbating factors: none Associated psychiatric symptoms: depression Associated symptoms: Reports suicidal ideation. He was admitted to the neuropsychiatric unit for definitive treatment of those issues. Yadiel presents today as a family to my assist RN reporting that he is doing fine and denying any issues. He reports that he was having some anger problems with his roommates at his long term but denies having any issues right now. Most questions that were asked of him were followed by 1 or 2 word answers and then home bringing his hands up to his eyes/face and making a trembling motion like he was afraid of how this chief writer would respond to his response. This pattern was fairly predictable. For additional information we reached out to his guardian and the facility. He does have fairly robust follow-up at [facility] and he sees Cherri Valerio. He is letting on and an excerpt of that note is included. Also Joselyn from his November 2018 evaluation at [facility]. He has had no inpatient hospitalizations here most likely secondary to him not meeting the criteria for hospitalization here given his intellectual disability. Per his 12/06/2019 [facility] outpatient follow-up: Psychiatry SOAP Note Diagnosis (1) Residual schizophrenia: Status: Acute (2) Autistic disorder: Status: Acute Psychiatry SOAP Note Time In: 11:00 Time Out: 11:16 Subjective Subjective: Yadiel is a 39-year-old male, who is being seen today by telephone due to COVID 19 precautions for medication management and follow up for his schizophrenia and his autism spectrum disorder. He was last seen November 22, 2019. When I called Yadiel today he was at [facility]. I spoke to his caregivers including Brenda, Raven Hansen, and Janina Jones. Staff report he continued to have a few behaviors last week. He did break another window in TV. He has been agitated with his roommate. His behaviors have improved as of and Thursday through the weekend. Staff state when he had behaviors he reported hearing voices. He was on quarantine due to being exposed to someone with coronavirus. He has been allowed to return to [facility] today. Happy about coming to [facility] and enjoys being there. Yadiel use the as needed Haldol 6 different times in the last 2-weeks. He last used it on the . The time before that was on the . Staff state this as needed medication is helpful to calm him. Staff and Yadiel is agreeable to increasing Abilify today for his mood and voices. Staff and Yadiel report the following: Mood: Agitated in the last 2 weeks. His mood has been good throughout the weekend. Sleep: Sleeping well. Typically goes to bed and sleeps throughout the night. Appetite: Adequate Level of energy: Adequate Level of anxiety: None reported Ability to do ADLs: Independent Frightening/uncomfortable/or racing thoughts: Denies Thoughts of , suicide, or violence towards others: Denies Hearing voices or seeing hallucinations/visions: Yadiel reports to hearing voices ROS Respiratory: Recently on quarantine due to exposure to COVID-19 Constitutional: Denies fever, fatigue, weakness Neurological: Seizure disorder. Staff report no seizures recently. Objective Objective: Alert and oriented to person place and time. Patient describes mood as agitated/going through the weekend. Speech is normal rate, rhythm, and volume. Thought process is logical and organized. No hallucinatory activity noted. Currently denies thoughts of harming self and others. Judgment and insight are poor related to diagnosis and history. Memory is intact for recent and remote events. Attention and concentration are within normal limits. Fund of knowledge is estimated to be below average. Affect, appearance, behavior, eye contact, and gait unable to be assessed due to telephone visit for COVID 19 precautions. November 2019 Depakote level was May lipid panel was within normal limits September 2018 hemoglobin A1c was 5.5 Assesment & Plan Assessment: Yadiel had a few continued aggressive behaviors. Staff report throughout this weekend his mood and behaviors have been good Plan: Increase Abilify to 15 mg daily Continue trazodone 150 mg at bedtime Continue Luvox 50 mg daily Continue Haldol 5 mg twice a day as needed for severe agitation A prescription of the increased dose of the Abilify for 30 days with 1 refill was sent to [facility] pharmacy Follow-up in 1 month. Client and staff instructed symptoms worsen or the need to be seen sooner to call the clinic for an earlier appointment. Will order repeat hemoglobin A1c and lipid panel at next in office visit. Per his 11/16/2018 [facility] outpatient psychiatric evaluation: [facility] Psychiatric Evaluation Psychiatric Evaluation: Identifying Data: Yadiel Melo is a 38 year old white male who was referred for medication management.He is single and lives in assisted living facility. Admission is voluntary. He was accompanied by staff at assisted living facility. He gave some of the history. Chief Complaint: On too Many Medications.: History of Present Illness: Mr. Melo is a 38 year old white male who was referred for medication management.Moods are happy. He is able to have fun. Sleep is good Yadiel sleeps all of the time. Appetite is good. He has lost weight. Energy level is low. He is tired all the time. Concentration is good if he is not tired. The patient denies crying spells and guilty feelings.Motivation is good. Self esteem is good. Yadiel denies homicidal and suicidal thoughts. He does not like to be in crowds. Loud noises bother him. He likes to be by himself. The patient will not initiate or sustain a conversation. Yadiel an adapt to changes in routine. Certain clohters and foods do not bother. Yadiel denies hoa and irritability. The patient denies generalized anxiety, specific phobia, social anxiety, compulsions, and obsessions. He hears voices. The voices tell him it is not time to smoke. Denies visual hallucinations, paranoia, ideas of references, thought broadcasting, thought insertion and thought withdrawal. Yadiel denies a history of PTSD. Past Psychiatric History: There is no history of known psychiatric hospitalizations. He went to counseling but there are no records of therapy. He had psychotropic medications prescribed in the correction. Medical History: Seizure Disorder, Diabetes Mellitus, History of Thyroid Disease, Hypertension. Surgical History: Eye Surgery for Cataract Removal Medications: Losartan Potassium 25 mg po q am; Divaproex ER two tabs po a m and 2 tabs po q pm; Fourosemide 40 mg po q day; Oxybutynin 5 mg po bidl Ranitidine 15 0 mg po q 12 hours; Metformin 1000 mg po bid; Atorvastatin 40 mg po q hs and Naproxen 550 mg po bid prn Allergy: Sulfa, Sudafed, purified protein and Tuberculin Review of Systems: HEENT-Allergies Cardiology-Hypertension Pulmonary-None Gastrointestinal-Acid Reflux Endocrine-Diabetes Mellitus and History of Thyroid Disease Genitourinary-Overactive Bladder Hematology-None Dermatology-None Rheumatology-None Musculoskeletal-None Neurology-Seizure Psychiatry-Autism, Depression and Schizophrenia Social History: Substance Abuse: Yadiel denies a history of drug and alcohol abuse. He was born and raised in [place], [place]. Mother is still living. The where abouts of father is unknown. He has half brothers on father's side. The patient is single. He does not know how far he went in [place] ([place]). 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 The patient is disabled and lives in [facility]. Denies legal issues. Yadiel denies a history of physical and sexual abuse. Developmental History: He has a history of autism. Meds NPU Home Medications Medication Instructions Recorded Confirmed Last Taken Type atorvastatin 40 mg tablet 40 mg PO DAILY 03/08/19 02/11/20 02/10/20 History divalproex 500 mg tablet,extended 1,000 mg PO BEDTIME tab 03/08/19 02/11/20 02/10/20 History release 24 hr divalproex 500 mg tablet,extended 500 mg PO DAILY 03/08/19 02/11/20 02/10/20 History release 24 hr omeprazole 20 mg capsule,delayed 20 mg PO DAILY 03/08/19 02/11/20 02/10/20 History release oxybutynin chloride 5 mg tablet 5 mg PO BID 03/08/19 02/11/20 02/10/20 History aripiprazole 30 mg tablet 30 mg PO DAILY #30 tab 01/02/20 02/11/20 02/10/20 Rx fluvoxamine 50 mg tablet 50 mg PO DAILY #30 tab 01/02/20 02/11/20 02/10/20 Rx trazodone 150 mg tablet 150 mg PO BEDTIME #30 tab 11/23/20 01/02/21 12/31/20 Rx haloperidol 5 mg tablet 5 mg PO BID PRN #60 tab 01/04/20 02/11/20 02/10/20 Rx Allergies Allergy/AdvReac Type Severity Reaction Status Date / Time lorazepam Allergy Unknown Verified 12/11/19 14:50 pseudoephedrine Allergy Unknown Verified 12/11/19 14:50 Sulfa (Sulfonamide Allergy Unknown Verified 12/11/19 14:50 Antibiotics) tuberculin, purified protein Allergy Unknown Verified 12/11/19 14:50 deriva PFSH NPU PFSH: Medical History (Updated 02/12/20 @ 11:48 by Hany Hooks MD) Autistic disorder Residual schizophrenia Social History (Reviewed 12/11/19 @ 17:03 by Margaret Castle MD, [facility]) Smoking and tobacco status: current every day smoker cigarettes Smoking risk assessment/counseling performed?: Yes Tobacco counseling given: counseling >3 minutes Mental Status Exam MSE Comments: This is an obese white male in hospital scrubs with adequate and eye contact. With bald head. No abnormal movements except for psychomotor retardation. Cooperative with exam in no acute distress. Speech was decreased rate and volume and mildly dysarthric. Mood described okay, affect less subdued. Thought process linear. Thought content: Patient denied suicidal or homicidal ideations, there were no delusions reported or noted, he denied any auditory visual hallucination. Sensation appeared intact and memory was limited but mostly appeared reliable but none were formally tested. He is alert and oriented x3. Insight and judgment are impaired, impulse control appears limited, intellectual ability is impaired. Vitals/I&O/Wt Last Vital Signs Temp 97.2 F L 02/11/20 14:00 Pulse 74 02/11/20 14:00 Resp 20 H 02/11/20 14:00 BP 128/77 02/11/20 14:00 Pulse Ox 96 02/11/20 14:00 Weight last 48 hrs Weight 117.934 kg Data NPU : 02/11/20 01:15 02/11/20 01:15 A&P Assessment and plan (1) Suicidal ideation: Status: Acute (2) Residual schizophrenia: Status: Acute (3) Autistic disorder: Status: Acute (4) Intellectual disability: Status: Acute Additional A&P Information This is a 39-year-old white male with a long history of left visibility, autism and history of schizophrenia who presents after an episode at his facility much like previous episodes that are significant enough to lead to an evaluation in emergency room but generally he is calm almost immediately and discharged quickly. 1. Continue current medication. Medication changes inpatient when his low projected to his outpatient provider likely would not make sense when she is the one best equipped to make insightful changes. 2. Continue every 15 minute checks for safety. 3. Encourage individual, group and milieu therapy. 4. Will work with facility to get him home sooner rather than later. Involuntary Hold Information 96 Hour Hold: 96 Hour Involuntary Admission: No Attestations NPU Medical Necessity Statement*: Inpatient hospitalization is medically necessary and the clinically appropriate intervention at this time. We will monitor medications and make changes as indicated. We will get collateral information from guardian and long term. Given the impulsive nature of his diagnoses minus clear signs of decompensation it would be appropriate to discharge him as soon as he is deemed safe. Likely length of stay 1 to 4 days. Coding Level of Care Code Acute [facility] for [facility] Fwd Diagnoses Suicidal ideation R45.851 Residual schizophrenia F20.5 Autistic disorder F84.0 Intellectual disability F79
[2020-02-11] MEDS: divalproex ER 500 mg Tablet (24H) 1000 MG PO (20:25)
[2020-02-11] MEDS: trazodone 150 mg Tablet PO (20:25)
[2020-02-12 05:51] VITALS: BP 122/72; PULSE 81; RESP 20; TEMP 36.3; O2SAT 98
[2020-02-12 05:59] VITALS: BMI 35.2
[2020-02-12] MEDS: ARIPiprazole 30 mg Tablet PO (08:09)
[2020-02-12] MEDS: pantoprazole DR 40 mg Tablet PO (08:09)
[2020-02-12] MEDS: oxybutynin 5 mg Tablet PO (08:09)
[2020-02-12] MEDS: divalproex ER 500 mg Tablet (24H) PO (08:09)
[2020-02-12] MEDS: atorvastatin 40 mg Tablet PO (08:09)
--- NOTE | 2020-02-12 12:34 | P.DS_ITS ---
Diagnoses at Discharge Discharge Diagnosis (1) Suicidal ideation: Status: Resolved (2) Residual schizophrenia: Status: Acute (3) Autistic disorder: Status: Acute (4) Intellectual disability: Status: Acute Reason for Visit Reason for Visit: General Medical Brief History: History of Present Illness Yadiel Melo is a 39 year old male who presented to the ED with the following report: Chief Complaint: Psychiatric Symptoms Stated Complaint: General Medical Time Seen by Provider: 02/11/20 01:07 History of Present Illness: HPI Narrative: 39-year-old autistic male who lives in a assisted environment. He became agitated around 9 PM, and made threats to harm himself and his roommate. One of his caretakers notes this is been an ongoing problem, waxing and waning for about 3 to 4 months, but seem to be much worse tonight. He has been admitted for this in the past, although historically calms down pretty quickly and is allowed to go back to his assisted environment. He denies any recent illness medically. He has been taking medication appropriately according to the staff member with him. MD complaint: suicidal ideation Onset (ago): hour(s) Duration: constant History of same: Yes Relieving factors: none Exacerbating factors: other Context: significant life stressor Associated psychiatric symptoms: depression, suicidal ideation and homicidal ideation Associated symptoms: Reports homicidal ideation and suicidal ideation; Deny auditory hallucinations or visual hallucinations. He was admitted to the psychiatric unit for definitive treatment of those issues. Yadiel presented to the unit this morning much like he normally does. With limited input or thoughts about the circumstances that led to his admission. Seeming somewhat timid and endorsing ultimately wanting to go back to his facility. He denied any significant insight into the circumstance or how it was different than any of the other situations. It appears to be the standard acting out behavior that is followed by a fairly rapid return to baseline. Consistent with what one might see with someone with autism and limited intellectual ability. Report from staff are that this episode was made worse or that frequency is increasing, however he is consistent with his outpatient appointments and his last report about a month ago suggested that these episodes are decreasing. An excerpt from his most recent hospitalization is included below for context. Per his 12/19/2019 [facility] inpatient eval: History of Present Illness Yadiel Melo is a 39 year old male who presented to the emergency department with the following report: Stated Complaint: SI Time Seen by Provider: 12/19/19 05:34 History of Present Illness: HPI Narrative: 39-year-old male, evidently with a history of autism, presenting with suicidal ideation. Evidently has made suicidal statements recently, essentially yesterday. He was seen at an outside facility and laboratory was drawn. He presents here to be hopefully admitted to the neuropsychiatric facility. He denies other complaints including cough, fever, congestion, shortness of breath, vomiting or diarrhea. MD complaint: suicidal ideation Onset (ago): hour(s) Duration: constant History of same: Yes Relieving factors: none Exacerbating factors: none Associated psychiatric symptoms: depression Associated symptoms: Reports suicidal ideation. He was admitted to the neuropsychiatric unit for definitive treatment of those issues. Yadiel presents today as a family to my assist RN reporting that he is doing fine and denying any issues. He reports that he was having some anger problems with his roommates at his assisted but denies having any issues right now. Most questions that were asked of him were followed by 1 or 2 word answers and then home bringing his hands up to his eyes/face and making a trembling motion like he was afraid of how this entry writer would respond to his response. This pattern was fairly predictable. For additional information we reached out to his guardian and the facility. He does have fairly robust follow-up at [facility] and he sees Cherri Valerio. He is letting on and an excerpt of that note is included. Also Joselyn from his November 2018 evaluation at [facility]. He has had no inpatient hospitalizations here most likely secondary to him not meeting the criteria for hospitalization here given his intellectual disability. Per his 12/06/2019 [facility] outpatient follow-up: Psychiatry SOAP Note Diagnosis (1) Residual schizophrenia: Status: Acute (2) Autistic disorder: Status: Acute Psychiatry SOAP Note Time In: 11:00 Time Out: 11:16 Subjective Subjective: Yadiel is a 39-year-old male, who is being seen today by telephone due to COVID 19 precautions for medication management and follow up for his schizophrenia and his autism spectrum disorder. He was last seen November 22, 2019. When I called Yadiel today he was at [facility]. I spoke to his caregivers including Raven Gutierrez, and Janina Jones. Staff report he continued to have a few behaviors last week. He did break another window in TV. He has been agitated with his roommate. His behaviors have improved as of and Thursday through the weekend. Staff state when he had behaviors he reported hearing voices. He was on quarantine due to being exposed to someone with coronavirus. He has been allowed to return to [facility] today. Happy about coming to [facility] and enjoys being there. Yadiel use the as needed Haldol 6 diff erent times in the last 2-weeks. He last used it on the . The time before that was on the . Staff state this as needed medication is helpful to calm him. Staff and Yadiel is agreeable to increasing Abilify today for his mood and voices. Staff and Yadiel report the following: Mood: Agitated in the last 2 weeks. His mood has been good throughout the weekend. Sleep: Sleeping well. Typically goes to bed and sleeps throughout the night. Appetite: Adequate Level of energy: Adequate Level of anxiety: None reported Ability to do ADLs: Independent Frightening/uncomfortable/or racing thoughts: Denies Thoughts of , suicide, or violence towards others: Denies Hearing voices or seeing hallucinations/visions: Yadiel reports to hearing voices ROS Respiratory: Recently on quarantine due to exposure to COVID-19 Constitutional: Denies fever, fatigue, weakness Neurological: Seizure disorder. Staff report no seizures recently. Objective Objective: Alert and oriented to person place and time. Patient describes mood as agitated/going through the weekend. Speech is normal rate, rhythm, and volume. Thought process is logical and organized. No hallucinatory activity noted. Currently denies thoughts of harming self and others. Judgment and insight are poor related to diagnosis and history. Memory is intact for recent and remote events. Attention and concentration are within normal limits. Fund of knowledge is estimated to be below average. Affect, appearance, behavior, eye contact, and gait unable to be assessed due to telephone visit for COVID 19 precautions. November 2019 Depakote level was May lipid panel was within normal limits September 2018 hemoglobin A1c was 5.5 Assesment & Plan Assessment: Yadiel had a few continued aggressive behaviors. Staff report thr oughout this weekend his mood and behaviors have been good Plan: Increase Abilify to 15 mg daily Continue trazodone 150 mg at bedtime Continue Luvox 50 mg daily Continue Haldol 5 mg twice a day as needed for severe agitation A prescription of the increased dose of the Abilify for 30 days with 1 refill was sent to [facility] pharmacy Follow-up in 1 month. Client and staff instructed symptoms worsen or the need to be seen sooner to call the clinic for an earlier appointment. Will order repeat hemoglobin A1c and lipid panel at next in office visit. Per his 11/16/2018 [facility] outpatient psychiatric evaluation: [facility] Psychiatric Evaluation Psychiatric Evaluation: Identifying Data: Yadiel Melo is a 38 year old white male who was referred for medication management.He is single and lives in assisted living facility. Admission is voluntary. He was accompanied by staff at assisted living facility. He gave some of the history. Chief Complaint: On too Many Medications.: History of Present Illness: Mr. Melo is a 38 year old white male who was referred for medication management.Moods are happy. He is able to have fun. Sleep is good Yadiel sleeps all of the time. Appetite is good. He has lost weigh t. Energy level is low. He is tired all the time. Concentration is good if he is not tired. The patient denies crying spells and guilty feelings.Motivation is good. Self esteem is good. Yadiel denies homicidal and suicidal thoughts. He does not like to be in crowds. Loud noises bother him. He likes to be by himself. The patient will not initiate or sustain a conversation. Yadiel an adapt to changes in routine. Certain clohters and foods do not bother. Yadiel denies hoa and irritability. The patient denies generalized anxiety, specific phobia, social anxiety, compulsions, and obsessions. He hears voices. The voices tell him it is not time to smoke. Denies visual hallucinations, paranoia, ideas of references, thought broadcasting, thought insertion and thought withdrawal. Yadiel denies a history of PTSD. Past Psychiatric History: There is no history of known psychiatric hospitalizations. He went to counseling but there are no records of therapy. He had psychotropic medications prescribed in the shelter. Medical History: Seizure Disorder, Diabetes Mellitus, History of Thyroid Disease, Hypertension. Surgical History: Eye Surgery for Cataract Removal Medications: Losartan Potassium 25 mg po q am; Divaproex ER two tabs po a m and 2 tabs po q pm; Fourosemide 40 mg po q day; Oxybutynin 5 mg po bidl Ranitidine 15 0 mg po q 12 hours; Metformin 1000 mg po bid; Atorvastatin 40 mg po q hs and Naproxen 550 mg po bid prn Allergy: Sulfa, Sudafed, purified protein and Tuberculin Review of Systems: HEENT-Allergies Cardiology-Hypertension Pulmonary-None Gastrointestinal-Acid Reflux Endocrine-Diabetes Mellitus and History of Thyroid Disease Genitourinary-Overactive Bladder Hematology-None Dermatology-None Rheumatology-None Musculoskeletal-None Neurology-Seizure Psychiatry-Autism, Depression and Schizophrenia Social History: Substance Abuse: Yadiel denies a history of drug and alcohol abuse. He was born and raised in [place], [place]. Mother is still living. The where abouts of father is unknown. He has half brothers on father's side. The patient is single. He does not know how far he went in [employer]. 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 The patient is disabled and lives in [facility]. Denies legal issues. Yadiel denies a history of physical and sexual abuse. Developmental History: He has a history of autism. Hospital Course Hospital Course Yadiel presented to the emergency department with aggression at his [facility] and reports for concerns for lethality. He was admitted to the neuropsychiatric unit for definitive treatment of those issues and to assure safety. He continues to have intermittent outbursts which are consistent with his intellectual disability and per his outpatient provider notes there is no indication of decompensations that would warrant medication changes that are not led by his outpatient provider who knows him much better. We assessed him for safety, and he was able to contract for safety prior to discharge. During the hospitalization, patient had routine laboratory studies which were within normal limits except for few outliers. Additionally he had a general medical evaluation which was also within normal limits and revealed no new acute processes. Discharge Summary: At the time of discharge, patient was absent psychosis or lethality. Mood and anxiety were well managed. Patient endorsed a plan to follow-up with the aftercare recommendations of the treatment team. Patient was evaluated and deemed to be absent credible lethality, and had achieved the maximum benefit from an inpatient hospitalization, so was discharged. Involuntary Hold Information 96 Hour Hold: 96 Hour Involuntary Admission: No Mental Status Exam MSE Comments: This is an obese white male in hospital scrubs with adequate and eye contact. With bald head. No abnormal movements except for psychomotor retardation. Cooperative with exam in no acute distress. Speech was decreased rate and volume and mildly dysarthric. Mood described okay, affect less subdued. Thought process linear. Thought content: Patient denied suicidal or homicidal ideations, there were no delusions reported or noted, he denied any auditory visual hallucination. Sensation appeared intact and memory was limited but mostly appeared reliable but none were formally tested. He is alert and oriented x3. Insight and judgment are impaired, impulse control appears limited, intellectual ability is impaired. Discharge Data Vitals: Last Vital Signs Temp 97.4 F L 02/12/20 05:51 Pulse 81 02/12/20 05:51 Resp 20 H 02/12/20 05:51 BP 122/72 02/12/20 05:51 Pulse Ox 98 02/12/20 05:51 Discharge Plan Discharge Patient Disposition: Home Condition: Stable Prescriptions: Continued aripiprazole [Abilify] 30 mg tablet 30 mg PO DAILY Qty: 30 RF: 1 trazodone 150 mg tablet 150 mg PO BEDTIME Qty: 30 RF: 1 fluvoxamine 50 mg tablet 50 mg PO DAILY Qty: 30 RF: 1 divalproex [Depakote ER] 500 mg tablet extended release 24 hr 500 mg PO DAILY RF: 0 omeprazole 20 mg capsule,delayed release(DR/EC) 20 mg PO DAILY RF: 0 oxybutynin chloride 5 mg tablet 5 mg PO BID RF: 0 divalproex [Depakote ER] 500 mg tablet extended release 24 hr 1,000 mg PO BEDTIME RF: 0 atorvastatin 40 mg tablet 40 mg PO DAILY RF: 0 haloperidol 5 mg tablet 5 mg PO BID PRN (Reason: aggression) Qty: 60 RF: 4 Discharge Orders: Discharge Order (Routine); Ordered 02/12/20 Ordered By: Hany Hooks Discharge Diet: Regular Discharge Activity: Resume usual activity Discharge Attestations NPU Time Spent in Discharge Care*: less than 30 min Specific Discharge Activities: Specific discharge activities: educating patient, educating and/or supporting family/caregiver, documenting/other paperwork and evaluating patient/reviewing data Coding Level of Care Code Acute Director Of Nuclear Medicine for [facility] Fwd Diagnoses Suicidal ideation R45.851 Residual schizophrenia F20.5 Autistic disorder F84.0 Intellectual disability F79
[2020-02-12 12:42] VITALS: BP 122/72; PULSE 81; RESP 20; TEMP 36.3; O2SAT 98
--- NOTE | 2020-02-13 14:16 | PC.RESP ---
Smoking Cessation information sent to patient.
== END 2020-02-12 13:54 | disposition home or self-care (01) | DRG 885 ==
LOC: ER 01:39 → NP 03:02
PROVIDERS: Admitting Provider Psychiatry & Neurology Psychiatry; Emergency Provider Emergency Medicine; PCP Internal Medicine; Visit Provider Psychiatry & Neurology Psychiatry
DX: F20.5 Residual schizophrenia (principal); F84.0 Autistic disorder; I10 Essential (primary) hypertension; K21.9 Gastro-esophageal reflux disease without esophagitis; E11.9 Type 2 diabetes mellitus without complications; N32.81 Overactive bladder; F32.9 Major depressive disorder, single episode, unspecified; F17.210 Nicotine dependence, cigarettes, uncomplicated; F79 Unspecified intellectual disabilities
CPT/HCPCS: 12345; 80053; 80164; 80178; 80306; 80307; 81001; 85025; 99284

== ENCOUNTER 2020-02-12 20:32 | Emergency (ER) | payer MEDICAID, SELFPAY ==
[2020-02-12 20:47] VITALS: BP 97/60; PULSE 63; RESP 17; TEMP 36.7; O2SAT 98; BMI 35.2
--- NOTE | 2020-02-12 21:29 | ECG_ITS ---
[facility] Test Date: 2020-02-12 Pat Name: Yadiel Melo Department: Room: Gender: Male Hospice Care Sales Consultant: : 1980 Requested By: Jose Ramon Villeda Order Number: [id number] Smith MD: Benjamin Gao M.D. Measurements Intervals Valentine Rate: 64 P: 19 AK: 180 QRS: 10 QRSD: 92 T: 31 QT: 379 QTc: 393 Interpretive Statements SINUS RHYTHM SEPTAL MYOCARDIAL INFARCTION , OF INDETERMINATE AGE [40+ ms Q WAVE IN V1/V2] Compared to ECG 11/28/2019 19:12:04 Myocardial infarct finding now present Electronically Signed On 02-13-2020 19:00:41 PRINT OPERATOR by Benjamin Gao M.D. [email or web address] [email or web address].[id number] f
--- NOTE | 2020-02-12 21:29 | XRR_ITS ---
PROCEDURE INFORMATION: Exam: XR Chest, 1 View Exam date and time: 02/12/2020 10:40 PM Age: 39 years old Clinical indication: Shortness of breath; Chest pain; Type not specified; Additional info: Cp TECHNIQUE: Imaging protocol: XR of the chest Views: 1 view. COMPARISON: CR XR chest 1V portable [id number] 12/11/2019 4:40 PM FINDINGS: Lungs: Unremarkable. No consolidation. Pleural space: Unremarkable. No pleural effusion. No pneumothorax. Heart/Mediastinum: Unremarkable. No cardiomegaly. Bones/joints: Unremarkable. XR/XR chest 1V portable [id number] IMPRESSION: No acute findings.
--- NOTE | 2020-02-12 21:30 | ED_ITS ---
HPI - Chest Pain General: Chief Complaint: Chest Pain Stated Complaint: CHEST PAIN Time Seen by Provider: 02/12/20 20:49 History of Present Illness: HPI narrative: Patient is a 39-year-old male comes to the ED with chest pain. Patient has an intellectual disability and is diagnosed with autistic disorder and was just released from [facility] earlier today. Patient lives in a longterm embedded nurse is present. Patient says his chest pain started earlier today and he describes it as a burning pain. Location of pain is in the center of chest. He has a history of acid reflux and takes omeprazole to treat it. Patient's embedded nurse is present. Associated symptoms: Deny abdominal pain, dyspnea, fever(s), nausea, palpitations or vomiting Review of Systems Const: Denies: fever(s), chills or fatigue Eyes: Denies: change in vision or eye discomfort ENMT: Denies: throat pain, odynophagia, nasal discharge or nasal congestion Card: Reports: chest pain; Denies: palpitations, edema, swelling of feet/ankles, dyspnea on exertion or orthopnea Resp: Denies: dyspnea, productive cough or non-productive cough GI: Reports: heartburn; Denies: abdominal pain, nausea, vomiting, diarrhea, constipation or hematochezia : Denies: flank pain, difficulty urinating, dysuria or hematuria Musc: Denies: neck pain, back pain or extremity swelling Skin/Breast: Denies: rash or new lesions Neuro: Denies: headache(s), numbness in extremities or weakness in extremities PFS ED PFSH: Medical History Autistic disorder Residual schizophrenia Social History Smoking and tobacco status: current every day smoker cigarettes Smoking risk assessment/counseling performed?: Yes Tobacco counseling given: counseling >3 minutes Physical Exam Const: COMMON NORMALS: no acute distress, patient oriented x3 and alert EXAM LIMITATIONS: altered mental status (Patient has intellectual disability and is been diagnosed with autistic dis) GENERAL APPEARANCE: cooperative and comfortable HENMT: COMMON NORMALS: normocephalic HEAD & SCALP: normocephalic MOUTH: Normal oral and palatal mucosa present THROAT: posterior oropharynx normal and uvula midline Eye: COMMON NORMALS: Equal, round and reactive pupils present PUPIL: Yes Equal, round and reactive pupils present Neck/C-Spine: COMMON NORMALS: supple GENERAL: Yes normal visual inspection Resp: COMMON NORMALS: normal respiratory effort, No retractions, No use of accessory muscles and clear to auscultation bilaterally AUSCULTATION: clear to auscultation bilaterally Cardio: COMMON NORMALS: regular rate, regular rhythm, S1 normal heart sound present, S2 normal heart sound present, No gallops present (Cardio), No clicks present (Cardio), No murmurs present (Cardio) and Peripheral pulses 2+ throughout RATE: regular rate RHYTHM: regular rhythm HEART SOUNDS: S1 normal heart sound present and S2 normal heart sound present PERIPHERAL PULSES: Peripheral pulses 2+ throughout GI: COMMON NORMALS: Normal to inspection, nondistended, normoactive bowel sounds present, Soft to palpation, non-tender and no masses PALPATION: Yes Soft to palpation : COMMON NORMALS: Yes no CVA tenderness BLADDER/KIDNEY EXAM: Yes no CVA tenderness Back/Pelvis: COMMON NORMALS: no CVA tenderness Extremity: GENERAL: Yes normal exam except as noted and Yes edema (Bilateral 1+ pitting edema.) Neuro: COMMON NORMALS: patient oriented x3 and moves all extremities SENSORIUM/ORIENTATION: Yes alert Skin: GENERAL SKIN EXAM: dry skin Course Reevaluation(s): Reevaluation #1: Patient says after he got GI cocktail his chest pain resolved. He currently has no more chest pain and is ready to go home. Time: 23:06 Vital Signs: Vital signs: Vital Signs Temperature 98.1 F 02/12/20 20:47 Pulse Rate 62 02/12/20 22:44 Respiratory Rate 16 02/12/20 22:44 Blood Pressure 132/65 02/12/20 22:44 Pulse Oximetry 99 02/12/20 22:44 MDM - Chest Pain 2 MDM Narrative: Medical decision making narrative: Patient is a 39-year-old male comes to the ED with chest pain. Past medical history of intellectual disability and autistic disorder and lives in a longterm. He has a history of acid reflux and describes the chest pain as a burning located in the center of the chest. Exam findings were unremarkable. CBC and CMP unremarkable. Troponin negative. EKG showed no signs of IN. Chest x-ray shows no acute findings. Patient was given GI cocktail here in the ED and chest pain compl etely resolved. Patient diagnosed with noncardiac chest pain and discharged. Return to ED precautions given. Follow-up with PCP in 7 to 10 days. Patient understood and agreed with plan and patient's embedded nurse was present and understood agree with plan as well. Lab Data: Attestation: I reviewed the patient's lab results. Labs: Lab Results 02/12/20 02/12/20 02/12/20 Range/Units 20:52 20:52 20:52 WBC 5.5 (4.0-10.0) 10^3/ uL RBC 4.73 (4.1-5.3) 10^6/u L Hgb 14.7 (11.7-16.6) g/dL Hct 44.1 (42.0-52.0) % MCV 93.2 (80-94) fL MCH 31.1 (28.0-34.0) pg MCHC 33.3 (30.0-36.0) g/dL RDW 11.9 L (12.1-15.1) % Plt Count 213 (130-400) 10^3/c mm MPV 10.9 H (7.4-10.4) fL Neut % (Auto) 42.4 % Lymph % (Auto) 41.9 % [place] % (Auto) 10.2 % Eos % (Auto) 4.0 % Baso % (Auto) 1.3 % Neut # (Auto) 2.33 (1.8-7.7) 10^3/u L Lymph # (Auto) 2.3 (0.8-4.8) 10^3/u L [place] # (Auto) 0.6 (0.2-0.9) 10^3/u L Eos # (Auto) 0.2 (0.0-0.8) 10^3/u L Baso # (Auto) 0.1 (0.0-0.1) 10^3/u L Nucleated RBC % (a uto) 0 % Nucleated RBCs # 0.0 /100WBC Sodium 140 (136-145) mmol/L Potassium 4.5 (3.5-5.1) mmol/L Chloride 100 (98-107) mmol/L Carbon Dioxide 30 H (22-29) mmol/L Anion Gap 14.5 (5-19) BUN 13 (6-20) mg/dL Creatinine 0.8 (0.7-1.2) mg/dL GFR Calculation 108.8 (90-130) mL/min Glucose 134 H (65-115) mg/dL Calculated Osmolal ity 292 (285-295) mOsm/k g Calcium 10.2 (8.5-10.5) mg/dL Total Bilirubin 0.3 (0.15-1.2) mg/dL AST 15 (0-40) U/L ALT 16 (0-41) U/L Alkaline Phosphata se 81 (40-130) IU/L Troponin T Baselin e 6 (0-15) ng/L Total Protein 7.0 (6.6-8.7) g/dL Albumin 4.5 (3.5-5.2) g/dL Globulin 2.5 (1.3-4.6) g/dL Urine Color (Yellow) Urine Appearance (CLEAR) Urine pH (5-7) Ur Specific Gravit y (1.005-1.030) Urine Protein (Negative) Urine Glucose (UA) (Normal) Urine Ketones (Negative) Urine Blood (Negative) Urine Nitrate (Negative) Urine Bilirubin (Negative) Urine Urobilinogen (Negative) mg/dL Ur Leukocyte Aggie ase (Negative) Urine RBC (0-2) /hpf Urine WBC (0-5) /hpf Ur Squamous Epith Cells (0-5) /hpf Amorphous Sediment Urine Bacteria (NONE) /hpf 02/12/20 Range/Units 21:15 WBC (4.0-10.0) 10^3/ uL RBC (4.1-5.3) 10^6/u L Hgb (11.7-16.6) g/dL Hct (42.0-52.0) % MCV (80-94) fL MCH (28.0-34.0) pg MCHC (30.0-36.0) g/dL RDW (12.1-15.1) % Plt Count (130-400) 10^3/c mm MPV (7.4-10.4) fL Neut % (Auto) % Lymph % (Auto) % [place] % (Auto) % Eos % (Auto) % Baso % (Auto) % Neut # (Auto) (1.8-7.7) 10^3/u L Lymph # (Auto) (0.8-4.8) 10^3/u L [place] # (Auto) (0.2-0.9) 10^3/u L Eos # (Auto) (0.0-0.8) 10^3/u L Baso # (Auto) (0.0-0.1) 10^3/u L Nucleated RBC % (a uto) % Nucleated RBCs # /100WBC Sodium (136-145) mmol/L Potassium (3.5-5.1) mmol/L Chloride (98-107) mmol/L Carbon Dioxide (22-29) mmol/L Anion Gap (5-19) BUN (6-20) mg/dL Creatinine (0.7-1.2) mg/dL GFR Calculation (90-130) mL/min Glucose (65-115) mg/dL Calculated Osmolal ity (285-295) mOsm/k g Calcium (8.5-10.5) mg/dL Total Bilirubin (0.15-1.2) mg/dL AST (0-40) U/L ALT (0-41) U/L Alkaline Phosphata se (40-130) IU/L Troponin T Baselin e (0-15) ng/L Total Protein (6.6-8.7) g/dL Albumin (3.5-5.2) g/dL Globulin (1.3-4.6) g/dL Urine Color Straw (Yellow) Urine Appearance Clear (CLEAR) Urine pH 7 (5-7) Ur Specific Gravit y 1.005 (1.005-1.030) Urine Protein Neg (Negative) Urine Glucose (UA) Norm (Normal) Urine Ketones Negative (Negative) Urine Blood Neg (Negative) Urine Nitrate Negative (Negative) Urine Bilirubin Neg (Negative) Urine Urobilinogen Norm (Negative) mg/dL Ur Leukocyte Aggie ase Negative (Negative) Urine RBC None (0-2) /hpf Urine WBC None (0-5) /hpf Ur Squamous Epith Cells None (0-5) /hpf Amorphous Sediment Not Reportable Urine Bacteria None (NONE) /hpf Imaging Data^: CXR: Attestation: I personally reviewed and interpreted this imaging study as follows: My impression: Chest x-ray showed no acute findings. EKG Data^: EKG 1: Attestation: I personally reviewed and interpreted this EKG as follows: EKG interpretation date: 02/12/20 Interpretation: Sinus rhythm, 64 bpm, no ST segment elevation or depression seen. Discharge Plan Discharge Patient Disposition: Home Clinical Impression: Non-cardiac chest pain Condition: Stable Prescriptions: No Action aripiprazole [Abilify] 30 mg tablet 30 mg PO DAILY Qty: 30 RF: 1 trazodone 150 mg tablet 150 mg PO BEDTIME Qty: 30 RF: 1 fluvoxamine 50 mg tablet 50 mg PO DAILY Qty: 30 RF: 1 divalproex [Depakote ER] 500 mg tablet extended release 24 hr 500 mg PO DAILY RF: 0 omeprazole 20 mg capsule,delayed release(DR/EC) 20 mg PO DAILY RF: 0 oxybutynin chloride 5 mg tablet 5 mg PO BID RF: 0 divalproex [Depakote ER] 500 mg tablet extended release 24 hr 1,000 mg PO BEDTIME RF: 0 atorvastatin 40 mg tablet 40 mg PO DAILY RF: 0 haloperidol 5 mg tablet 5 mg PO BID PRN (Reason: aggression) Qty: 60 RF: 4 Discharge Orders: Discharge ED (Routine); Ordered 02/12/20 Ordered By: Jose Ramon Villeda Referrals: Baldomero Chacon DO [Primary Care Provider] - Discharge Diet: Regular Discharge Activity: Increase activity as tolerated Patient Instructions: Noncardiac Chest Pain (ED) Activity Restrictions/Additional Instructions: Follow-up with medical provider as directed in 7-10 days for reevaluation. Continue taking all home medications as prescribed. Make sure to continue taking your previously prescribed omeprazole to help with any acid reflux symptoms. Return to the ER or your medical provider if condition worsens. Please read and understand discharge instructions. If any questions, please ask. Coding Level of Care Code ED Gear Lapping Machine Operator for Chg Fwd Exam Comprehensive
[2020-02-12 21:50] LABS: Basophils # 0.1 10^3/uL (0.0-0.1); Basophils % 1.3 %; Eosinophils # 0.2 10^3/uL (0.0-0.8); Hematocrit 44.1 % (42.0-52.0); Hemoglobin 14.7 g/dL (11.7-16.6); Lymphocytes # 2.3 10^3/uL (0.8-4.8); Lymphocytes % 41.9 %; Mean Corpuscular HGB Conc 33.3 g/dL (30.0-36.0); Mean Corpuscular Hemoglobin 31.1 pg (28.0-34.0); Mean Corpuscular Volume 93.2 fL (80-94); Mean Platelet Volume 10.9 fL (7.4-10.4); Monocytes # 0.6 10^3/uL (0.2-0.9); Monocytes % 10.2 %; Neutrophils # 2.33 10^3/uL (1.8-7.7); Neutrophils % 42.4 %; Nucleated Red Blood Cells % 0 %; Platelet Count 213 10^3/cmm (130-400); Red Blood Count 4.73 10^6/uL (4.1-5.3); Red Cell Distribution Width 11.9 % (12.1-15.1); White Blood Count 5.5 10^3/uL (4.0-10.0)
[2020-02-12 22:12] LABS: Troponin(5th) Baseline 6 ng/L (0-15)
[2020-02-12 22:13] LABS: Alanine Aminotransferase 16 U/L (0-41); Albumin Level 4.5 g/dL (3.5-5.2); Alkaline Phosphatase 81 IU/L (40-130); Aspartate Amino Transferase 15 U/L (0-40); Blood Urea Nitrogen 13 mg/dL (6-20); Calcium 10.2 mg/dL (8.5-10.5); Carbon Dioxide 30 mmol/L (22-29); Chloride 100 mmol/L (98-107); Globulin 2.5 g/dL (1.3-4.6); Glomerular Filtration Rate 108.8 mL/min (90-130); Glucose 134 mg/dL (65-115); Osmolality Calculated 292 mOsm/kg (285-295); Sodium 140 mmol/L (136-145); Total Bilirubin 0.3 mg/dL (0.15-1.2)
[2020-02-12 22:17] LABS: Anion Gap 14.5 (5-19); Potassium 4.5 mmol/L (3.5-5.1)
[2020-02-12] MEDS: lidocaine 2% viscous 15 ML, aluminum-mag hydrox-simethicon 30 ML, sucralfate oral liq 1 GM PO (22:31)
[2020-02-12 22:44] VITALS: BP 132/65; PULSE 62; RESP 16; O2SAT 99
[2020-02-12 23:06] LABS: Add Urine Culture? No; Bilirubin Urine Neg (Negative); Blood Urine Neg (Negative); Glucose Urine UA Norm (Normal); Ketones Urine Negative (Negative); Leukocyte Esterase Urine Negative (Negative); Nitrate Urine Negative (Negative); Protein Urine Neg (Negative); Specific Gravity, Urine 1.005 (1.005-1.030); Urine Appearance Clear (CLEAR); Urine Color Straw (Yellow); Urobilinogen Urine Norm (Negative); pH Urine 7 (5-7)
== END 2020-02-13 00:46 | disposition home or self-care (01) ==
PROVIDERS: Emergency Provider Physician Assistant; PCP Internal Medicine
DX: R07.89 Other chest pain (principal); F84.0 Autistic disorder; F17.210 Nicotine dependence, cigarettes, uncomplicated
CPT/HCPCS: 12345; 71045; 80053; 81001; 84484; 85025; 93005; 99282; 99283

== ENCOUNTER 2020-02-22 17:13 | Emergency (ER) | payer MEDICAID, SELFPAY ==
[2020-02-22 17:19] VITALS: BP 115/71; PULSE 86; RESP 18; TEMP 36.1; O2SAT 99; BMI 4686.6
[2020-02-22 17:23] VITALS: BP 118/76; PULSE 92; RESP 16; O2SAT 98
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
--- NOTE | 2020-02-22 17:34 | XR_ITS ---
WS: [id number] Right hand, 3 views, 02/22/2020 Clinical Data: hand injury Comparison: None. Findings: No fractures or dislocations are seen. The soft tissues are unremarkable. The joint space s are normal XR/XR hand RT min 3V* [id number] Impression: Negative right hand.
--- NOTE | 2020-02-22 17:34 | XR_ITS ---
WS: [id number] Chest with left rib detail, 02/22/2020 Clinical Data: left rib pain Comparison: Portable chest, 02/12/2020. Findings: The lungs show no nodules, masses, or effusions. The heart is normal. No pneumonia or pneumothorax is seen. The ribs are intact. No rib fractures seen. No subcutaneous emphysema is present. XR/XR ribs LT mn 3V w CXR1V [id number] Impression: Negative chest with left rib detail.
--- NOTE | 2020-02-22 17:34 | CTR_ITS ---
PROCEDURE INFORMATION: Exam: CT Head Without Contrast Exam date and time: 02/22/2020 5:58 PM Age: 39 years old Clinical indication: Injury or trauma; Fall; Blunt trauma (contusions or hematomas); Consciousness not specified; Injury details: Hematoma above left eye; Additional info: Fell hit head TECHNIQUE: Imaging protocol: Computed tomography of the head without contrast. Sagittal and coronal reformatted images were created and reviewed. Radiation optimization: All CT scans at this facility use at least one of these dose optimization techniques: automated exposure control; mA and/or kV adjustment per patient size (includes targeted exams where dose is matched to clinical indication); or iterative reconstruction. COMPARISON: CT head wo con* [id number] 12/11/2019 5:44 PM RADIATION DOSE METRICS: Total DLP (mGy-cm): 906.09 FINDINGS: Brain: No acute intracranial hemorrhage. No acute infarct. No intra-axial or extra-axial masses. [place]-white matter differentiation is preserved. No cerebral edema. No extra-axial fluid collections. No midline shift. No evidence for Chiari 1 malformation. Cerebral ventricles: No hydrocephalus. Incidental note of a cavum septum pellucidum and cavum septum vergae. Bones/joints: Mild left nasal septal deviation. Paranasal sinuses: Visualized paranasal sinuses are clear. Mastoid air cells: Mastoid air cells are clear bilaterally. Orbital cavity: Globes and lenses, extraocular muscles, and optic nerves are intact bilaterally. No acute intraorbital abnormality. Soft tissues: Small left supraorbital hematoma/contusion. CT/CT head wo con* [id number] IMPRESSION: 1. No acute abnormality of the brain. 2. Small left supraorbital hematoma/contusion. Radiation Dose CTDIVOL = (mGy): DLP = 906.09 (mGy-cm)
[2020-02-22] MEDS: HYDROcodone-acetaminophen 5-325 mg Tablet 1 TAB PO (17:40)
== END 2020-02-22 19:14 | disposition home or self-care (01) ==
PROVIDERS: Emergency Provider Physician Assistant; PCP Internal Medicine
DX: M79.641 Pain in right hand (principal); S00.03XA Contusion of scalp, initial encounter; F84.0 Autistic disorder; F17.210 Nicotine dependence, cigarettes, uncomplicated; Y04.2XXA Assault by strike against or bumped into by another person, initial encounter
CPT/HCPCS: 12345; 70450; 71101; 73130; 99281; 99283

== ENCOUNTER → 2020-03-02 10:33 | Outpatient (BNVA) | payer MEDICAID, SELFPAY | PROVIDERS: PCP Internal Medicine; Visit Provider Nurse Practitioner Family | DX: E78.5 Hyperlipidemia, unspecified (principal); R73.9 Hyperglycemia, unspecified; K21.9 Gastro-esophageal reflux disease without esophagitis; J06.9 Acute upper respiratory infection, unspecified; R60.9 Edema, unspecified | CPT/HCPCS: 80053; 80061; 83036; 85025 ==

== ENCOUNTER → 2020-03-15 10:46 | Outpatient (BNVA) | payer MEDICAID, SELFPAY | PROVIDERS: PCP Internal Medicine; Visit Provider Nurse Practitioner | DX: F20.5 Residual schizophrenia (principal); F84.0 Autistic disorder | CPT/HCPCS: 99214 ==

== ENCOUNTER 2020-03-18 21:31 | Emergency (ER) | payer MEDICAID, SELFPAY ==
[2020-03-18 21:32] VITALS: BP 121/72; PULSE 63; RESP 16; TEMP 36.6; O2SAT 100; BMI 33.9
--- NOTE | 2020-03-18 21:39 | XRR_ITS ---
PROCEDURE INFORMATION: Exam: XR Chest, 1 View Exam date and time: 03/18/2020 9:48 PM Age: 39 years old Clinical indication: Cough; Additional info: Cough with leg swelling TECHNIQUE: Imaging protocol: XR of the chest Views: 1 view. COMPARISON: 1. CR XR ribs LT mn 3V w CXR1V [id number] 02/22/2020 6:09 PM 2. CR XR chest 1V portable [id number] 02/12/2020 10:30:01 PM FINDINGS: Lungs: Unremarkable. No consolidation. Pleural spaces: Unremarkable. No pleural effusion. No pneumothorax. Heart/Mediastinum: Unremarkable. No cardiomegaly. Bones/joints: Unremarkable. XR/XR chest 1V portable [id number] IMPRESSION: No acute findings.
--- NOTE | 2020-03-18 21:40 | ECG_ITS ---
[facility] Test Date: 2020-03-18 Pat Name: Yadiel Melo Department: Room: Gender: Male Reordering Clerk: : 1980 Requested By: Camila Lujan Order Number: [id number] Luis MD: JOSE THOMAS Measurements Intervals Ord Rate: 58 P: 5 TN: 168 QRS: -7 QRSD: 85 T: 19 QT: 385 QTc: 381 Interpretive Statements SINUS BRADYCARDIA Compared to ECG 02/12/2020 20:43:28 Sinus rhythm no longer present Myocardial infarct finding no longer present Electronically Signed On 03-19-2020 19:31:11 MILL REPRESENTATIVE by JOSE THOMAS [id number]
[2020-03-18 21:53] VITALS: BP 127/78; PULSE 65; RESP 18; O2SAT 99
--- NOTE | 2020-03-18 22:06 | ED_ITS ---
HPI - General Adult General: Chief complaint: General Medical Stated complaint: COUGH/ RIB PAIN/ LEG SWELLING Time Seen by Provider: 03/18/20 21:33 Source: patient and EMS Mode of arrival: EMS Limitations: physical limitation History of Present Illness: HPI narrative: 39-year-old male patient presents to the emergency department due to caregiver's concern of cough congestion for approximately 1 week. Patient reports coughing up yellow phlegm. He reports he is insulin-dependent diabetic with blood sugars up and down but that is chronic. He has history of autism, schizophrenia and seizure disorder. Primary care provider is Dr. Torres. Staff is available to assist with history of present illness, they report he has experienced lower extremity edema for the past 5 months. States edema has been evaluated by PCP without addition of medication suggested. Staff reports tonight, he has complained of chest pain. Staff also reports he has experienced a headache over the past week with negative Covid test results. He denies headache upon exam, denies chest pain upon exam. Staff also reports he exhibited gasping episodes today as if he was short of breath. He is alert and oriented, is normally ambulatory, needs assistance with ADLs. Caregiver who is with him today states he has been out from work due to Covid 19 infection. Staff reports he has normal intake of p.o. fluid and meals. They deny diarrhea. Onset (ago): day(s) (7) Location: chest Associated symptoms: Reports chest pain, cough, headache(s) and nausea; Deny confusion, diaphoresis, dyspnea, rash, palpitations or vomiting Treatments prior to arrival: other (cough syrup) Review of Systems General: Reports: 10 or more systems reviewed and unremarkable except in HPI and below Const: Denies: fever(s), chills, change in appetite or diaphoresis Eyes: Denies: change in vision, blurry vision, eye discomfort or eye redness ENMT: Reports: throat pain; Denies: hoarseness, dental pain, disequilibrium, nasal discharge, nasal congestion or nasal obstruction Card: Reports: chest pain, swelling of feet/ankles and dyspnea on exertion; Denies: palpitations or lightheadedness Resp: Denies: dyspnea, productive cough, non-productive cough or wheezing GI: Reports: nausea; Denies: abdominal pain, vomiting, heartburn, diarrhea, constipation or fecal incontinence : Denies: difficulty urinating, dysuria or nocturia Musc: Denies: neck pain, back pain, joint pain or joint warmth Skin/Breast: Denies: rash, pruritus or changes in skin color Neuro: Reports: headache(s); Denies: numbness in extremities, difficulty walking or confusion [place]/Lymph: Denies: easy bruising PFS ED PFSH: Medical History Autistic disorder GERD (gastroesophageal reflux disease) Hyperglycemia Hyperlipidemia Peripheral edema Residual schizophrenia Seizure disorder Social History Smoking and tobacco status: current every day smoker cigarettes Smoking risk assessment/counseling performed?: Yes Tobacco counseling given: counseling >3 minutes Physical Exam Const: COMMON NORMALS: no acute distress, patient oriented x3, alert and well nourished EXAM LIMITATIONS: physical limitations GENERAL APPEARANCE: cooperative, comfortable, well kempt, well developed and well hydrated; not anxious, not ill appearing and not frail appearing ORIENTATION/CONSCIOUSNESS: Yes awake, Yes oriented to person and Yes oriented to place HENMT: COMMON NORMALS: normocephalic, atraumatic, Normal external nose present and moist oral mucous membranes HEAD & SCALP: normal to inspection, normocephalic and atraumatic NOSE: Normal external nose present MOUTH: Normal oral and palatal mucosa present and tongue normal THROAT: uvula midline Eye: COMMON NORMALS: Equal, round and reactive pupils present and EOMs intact bilaterally GENERAL EYE: appearance normal, both eyes and all related structures PUPIL: Yes Equal, round and reactive pupils present Neck/C-Spine: COMMON NORMALS: full ROM, no lymphadenopathy and no meningeal signs GENERAL: Yes normal visual inspection and Yes trachea midline CERVICAL SPINE: Yes cervical ROM normal Lymph: LYMPHATIC: no lymphadenopathy noted Chest: COMMONS NORMALS: normal inspection of the chest CHEST: Yes Symmetrical chest wall rise and Yes tenderness costal cartilage Laterality: bila teral Resp: COMMON NORMALS: normal respiratory effort, No retractions, No use of accessory muscles and clear to auscultation bilaterally EFFORT & INSPECTION: Yes able to speak in complete sentences, No respiratory distress, No pursed lip breathing, No labored and No audible wheezes AUSCULTATION: clear to auscultation bilaterally Cardio: COMMON NORMALS: regular rate, regular rhythm, S1 normal heart sound present, S2 normal heart sound present and Peripheral pulses 2+ throughout RATE: regular rate RHYTHM: regular rhythm HEART SOUNDS: S1 normal heart sound present and S2 normal heart sound present PERIPHERAL PULSES: Peripheral pulses 2+ throughout GI: COMMON NORMALS: Normal to inspection, nondistended, normoactive bowel sounds present, Soft to palpation and non-tender INSPECTION: Yes normal to inspection, No abdominal wall ecchymosis, No abdominal distension and Yes central obesity AUSCULTATION: Yes normoactive bowel sounds PALPATION: Yes Soft to palpation : COMMON NORMALS: Yes no CVA tenderness BLADDER/KIDNEY EXAM: Yes no CVA tenderness Back/Pelvis: COMMON NORMALS: no CVA tenderness and thoracic and lumbar spine normal to inspection Extremity: COMMON NORMALS: normal to inspection, full ROM, capillary refill normal, no clubbing, cyanosis or edema and no calf tenderness GENERAL: Yes normal exam except as noted and Yes edema (BLE 2 +, non-pitting) Neuro: GERSON COMA SCALE: document GCS findings Gerson coma scale eye opening: Spontaneous Gerson coma scale verbal response: Orientated [place] coma scale motor response: Obey commands Gerson coma scale total score: 15 COMMON NORMALS: patient oriented x3 and no focal motor deficits SENSORIUM/ORIENTATION: Yes alert, Yes oriented to person and Yes oriented to place MENINGEAL SIGNS: Yes no meningeal signs SPEECH: speech normal MOTOR EXAM: Abnormal motor strength present (generalized weakness) Psych: COMMON NORMALS: cooperative, speech normal, denies hallucinations, denies homicidal ideation and denies suicidal ideation APPEARANCE: Yes grossly normal and Yes well kempt ATTITUDE: Yes calm ACTIVITY/MOTOR BEHAVIOR: Yes psychomotor slowing SPEECH: Yes normal speech THOUGHT PROCESS: Circumstantial thought process present INSIGHT: Limited insight present (Psych) JUDGEMENT: Limited judgement present (Psych) Skin: COMMON NORMALS: no rashes or lesions noted, no wounds, turgor normal, no petechiae and no mottling GENERAL SKIN EXAM: no rashes or lesions noted, elasticity normal and turgor normal Course Vital Signs: Vital signs: Vital Signs Temperature 98 F 03/18/20 21:32 Pulse Rate 82 03/19/20 01:11 Respiratory Rate 16 03/19/20 01:11 Blood Pressure 168/96 03/19/20 01:11 Pulse Oximetry 94 03/19/20 01:11 MDM - General Adult MDM Narrative: Medical decision making narrative: 39-year-old male patient presents to the emergency department with history of schizophrenia, autistic disorder and intellectual disability. Patient was not able to provide detailed history of present illness due to medical conditions. Staff from his long-term care facility was available to assist. Covid testing results from last week were negative. His rapid screen today was negative. He has exhibited 1 week onset of cough with congestion, productive sputum that is yellow. Staff was concerned as he has experienced bilateral lower extremity edema x6 months. He exhibited episodes of shortness of breath today at the facility. During his stay. He remained sinus rhythm to the monitor, oxygen saturation remained 97 to 100%, he is afebrile, has not exhibited fever by history. EKG without ST elevation/depression, BNP slightly elevated 161, troponin 10, chemistry without acute abnormalities, CBC without acute abnormalities, valproic acid within normal limits. Urinalysis normal. EKG and troponin with BNP completed secondary to patient's complaint of chest pain with bilateral lower extremity edema present, edema is non-pitting, congestive heart failure not present upon today's findings. Chest pain was reproduced with costochondral palpation. Toradol was administered for pain. CT of the head was completed as baseline neurological function was difficult to evaluate, he did complain of headache x7 days, CT of the head was normal. Upon discharge, patient denied chest pain or headache. He states was ready to go home. Omnicef provided as antibiotic for bronchitis along with albuterol inhaler with spacer to use for cough. Staff states cough medication, guaifenesin was effective with controlling cough symptoms. Encouraged to follow-up with his primary care provider this week for reevaluation to ensure he is improving. I discussed with staff bilateral lower extremity edema could be result of chronic medications patient is taking. Lab Data: Labs: Lab Results 03/18/20 03/18/20 03/18/20 Range/Units 22:04 22:04 22:04 WBC 7.7 (4.0-10.0) 10^3/ uL RBC 4.49 (4.1-5.3) 10^6/u L Hgb 13.7 (11.7-16.6) g/dL Hct 42.0 (42.0-52.0) % MCV 93.5 (80-94) fL MCH 30.5 (28.0-34.0) pg MCHC 32.6 (30.0-36.0) g/dL RDW 12.2 (12.1-15.1) % Plt Count 237 (130-400) 10^3/c mm MPV 10.3 (7.4-10.4) fL Neut % (Auto) 56.0 % Lymph % (Auto) 31.5 % [place] % (Auto) 8.2 % Eos % (Auto) 3.3 % Baso % (Auto) 0.9 % Neut # (Auto) 4.31 (1.8-7.7) 10^3/u L Lymph # (Auto) 2.4 (0.8-4.8) 10^3/u L [place] # (Auto) 0.6 (0.2-0.9) 10^3/u L Eos # (Auto) 0.3 (0.0-0.8) 10^3/u L Baso # (Auto) 0.1 (0.0-0.1) 10^3/u L Nucleated RBC % (a uto) 0 % Nucleated RBCs # 0.0 /100WBC Sodium 138 (136-145) mmol/L Potassium 4.1 (3.5-5.1) mmol/L Chloride 102 (98-107) mmol/L Carbon Dioxide 25 (22-29) mmol/L Anion Gap 15.1 (5-19) BUN 13 (6-20) mg/dL Creatinine 0.7 (0.7-1.2) mg/dL GFR Calculation 126.9 (90-130) mL/min Glucose 104 (65-115) mg/dL Calculated Osmolal ity 286 (285-295) mOsm/k g Calcium 9.2 (8.5-10.5) mg/dL Total Bilirubin 0.2 (0.15-1.2) mg/dL AST 14 (0-40) U/L ALT 15 (0-41) U/L Alkaline Phosphata se 95 (40-130) IU/L Troponin T Gen 5 n g/L (0-15) ng/L NT-Pro-B Natriuret Pep 161 H (0-125) pg/mL Total Protein 6.5 L (6.6-8.7) g/dL Albumin 4.1 (3.5-5.2) g/dL Globulin 2.4 (1.3-4.6) g/dL Lipase (13-60) U/L Urine Color (Yellow) Urine Appearance (CLEAR) Urine pH (5-7) Ur Specific Gravit y (1.005-1.030) Urine Protein (Negative) Urine Glucose (UA) (Normal) Urine Ketones (Negative) Urine Blood (Negative) Urine Nitrate (Negative) Urine Bilirubin (Negative) Prot Sulfosalicyli c Acd (Negative) Urine Urobilinogen (Negative) mg/dL Ur Leukocyte Aggie ase (Negative) Valproic Acid 81.0 (50-100) ug/mL SARS-CoV-2 Ag (Rap id) (Negative) 03/18/20 03/18/20 03/18/20 Range/Units 22:04 22:04 22:20 WBC (4.0-10.0) 10^3/ uL RBC (4.1-5.3) 10^6/u L Hgb (11.7-16.6) g/dL Hct (42.0-52.0) % MCV (80-94) fL MCH (28.0-34.0) pg MCHC (30.0-36.0) g/dL RDW (12.1-15.1) % Plt Count (130-400) 10^3/c mm MPV (7.4-10.4) fL Neut % (Auto) % Lymph % (Auto) % [place] % (Auto) % Eos % (Auto) % Baso % (Auto) % Neut # (Auto) (1.8-7.7) 10^3/u L Lymph # (Auto) (0.8-4.8) 10^3/u L [place] # (Auto) (0.2-0.9) 10^3/u L Eos # (Auto) (0.0-0.8) 10^3/u L Baso # (Auto) (0.0-0.1) 10^3/u L Nucleated RBC % (a uto) % Nucleated RBCs # /100WBC Sodium (136-145) mmol/L Potassium (3.5-5.1) mmol/L Chloride (98-107) mmol/L Carbon Dioxide (22-29) mmol/L Anion Gap (5-19) BUN (6-20) mg/dL Creatinine (0.7-1.2) mg/dL GFR Calculation (90-130) mL/min Glucose (65-115) mg/dL Calculated Osmolal ity (285-295) mOsm/k g Calcium (8.5-10.5) mg/dL Total Bilirubin (0.15-1.2) mg/dL AST (0-40) U/L ALT (0-41) U/L Alkaline Phosphata se (40-130) IU/L Troponin T Gen 5 n g/L 10 (0-15) ng/L NT-Pro-B Natriuret Pep (0-125) pg/mL Total Protein (6.6-8.7) g/dL Albumin (3.5-5.2) g/dL Globulin (1.3-4.6) g/dL Lipase 43 (13-60) U/L Urine Color (Yellow) Urine Appearance (CLEAR) Urine pH (5-7) Ur Specific Gravit y (1.005-1.030) Urine Protein (Negative) Urine Glucose (UA) (Normal) Urine Ketones (Negative) Urine Blood (Negative) Urine Nitrate (Negative) Urine Bilirubin (Negative) Prot Sulfosalicyli c Acd (Negative) Urine Urobilinogen (Negative) mg/dL Ur Leukocyte Aggie ase (Negative) Valproic Acid (50-100) ug/mL SARS-CoV-2 Ag (Rap id) Negative (Negative) 03/18/20 Range/Units 23:26 WBC (4.0-10.0) 10^3/ uL RBC (4.1-5.3) 10^6/u L Hgb (11.7-16.6) g/dL Hct (42.0-52.0) % MCV (80-94) fL MCH (28.0-34.0) pg MCHC (30.0-36.0) g/dL RDW (12.1-15.1) % Plt Count (130-400) 10^3/c mm MPV (7.4-10.4) fL Neut % (Auto) % Lymph % (Auto) % [place] % (Auto) % Eos % (Auto) % Baso % (Auto) % Neut # (Auto) (1.8-7.7) 10^3/u L Lymph # (Auto) (0.8-4.8) 10^3/u L [place] # (Auto) (0.2-0.9) 10^3/u L Eos # (Auto) (0.0-0.8) 10^3/u L Baso # (Auto) (0.0-0.1) 10^3/u L Nucleated RBC % (a uto) % Nucleated RBCs # /100WBC Sodium (136-145) mmol/L Potassium (3.5-5.1) mmol/L Chloride (98-107) mmol/L Carbon Dioxide (22-29) mmol/L Anion Gap (5-19) BUN (6-20) mg/dL Creatinine (0.7-1.2) mg/dL GFR Calculation (90-130) mL/min Glucose (65-115) mg/dL Calculated Osmolal ity (285-295) mOsm/k g Calcium (8.5-10.5) mg/dL Total Bilirubin (0.15-1.2) mg/dL AST (0-40) U/L ALT (0-41) U/L Alkaline Phosphata se (40-130) IU/L Troponin T Gen 5 n g/L (0-15) ng/L NT-Pro-B Natriuret Pep (0-125) pg/mL Total Protein (6.6-8.7) g/dL Albumin (3.5-5.2) g/dL Globulin (1.3-4.6) g/dL Lipase (13-60) U/L Urine Color Yellow (Yellow) Urine Appearance Clear (CLEAR) Urine pH 8 H (5-7) Ur Specific Gravit y 1.005 (1.005-1.030) Urine Protein Neg (Negative) Urine Glucose (UA) Norm (Normal) Urine Ketones Negative (Negative) Urine Blood Neg (Negative) Urine Nitrate Negative (Negative) Urine Bilirubin Neg (Negative) Prot Sulfosalicyli c Acd Negative (Negative) Urine Urobilinogen Norm (Negative) mg/dL Ur Leukocyte Aggie ase Negative (Negative) Valproic Acid (50-100) ug/mL SARS-CoV-2 Ag (Rap id) (Negative) Imaging Data^: CXR: Radiologist's impression: [address] [address] XRay Report Signed Patient: Yadiel Melo #: [id number] : 1980 Age/Sex: 39 / M ADM Date: 03/18/20 Loc: ER Room/Bed: Attending Dr: Ordering Provider/Ordering MD: Camila Feliz Date of Service: 03/18/20 Procedure(s): XR chest 1V portable [id number] Accession Number(s): [id number] Report Number: [id number] PROCEDURE INFORMATION: Exam: XR Chest, 1 View Exam date and time: 03/18/2020 9:48 PM Age: 39 years old Clinical indication: Cough; Additional info: Cough with leg swelling TECHNIQUE: Imaging protocol: XR of the chest Views: 1 view. COMPARISON: 1. CR XR ribs LT mn 3V w CXR1V [id number] 02/22/2020 6:09 PM 2. CR XR chest 1V portable [id number] 02/12/2020 10:30:01 PM FINDINGS: Lungs: Unremarkable. No consolidation. Pleural spaces: Unremarkable. No pleural effusion. No pneumothorax. Heart/Mediastinum: Unremarkable. No cardiomegaly. Bones/joints: Unremarkable. XR/XR chest 1V portable [id number] IMPRESSION: No acute findings. Dictated By: Pepe Street Signed By: Pepe Street Signed Date/Time: 03/18/202154 DD/ 52 CT Head: Radiologist's impression: [address] [address] XRay Report Signed Patient: Alma Delia Meloit #: [id number] : 1980Acct#:[id number] Age/Sex: 39 / MADM Date: 03/18/20 Loc: ERRoom/Bed: Attending Dr: Ordering Provider/Ordering MD: Camila Feliz Date of Service: 03/18/20 Procedure(s): XR chest 1V portable [id number] Accession Number(s): [id number] Report Number: [id number] PROCEDURE INFORMATION: Exam: XR Chest, 1 View Exam date and time: 03/18/2020 9:48 PM Age: 39 years old Clinical indication: Cough; Additional info: Cough with leg swelling TECHNIQUE: Imaging protocol: XR of the chest Views: 1 view. COMPARISON: 1. CR XR ribs LT mn 3V w CXR1V [id number] 02/22/2020 6:09 PM 2. CR XR chest 1V portable [id number] 02/12/2020 10:30:01 PM FINDINGS: Lungs: Unremarkable. No consolidation. Pleural spaces: Unremarkable. No pleural effusion. No pneumothorax. Heart/Mediastinum: Unremarkable. No cardiomegaly. Bones/joints: Unremarkable. XR/XR chest 1V portable [id number] IMPRESSION: No acute findings. Dictated By:Pepe Street Signed By:Belgica Streetigned Date/Time:03/18/202154 DD/ 52 Discharge Plan Discharge Patient Disposition: Home Clinical Impression: Acute costochondritis Acute bronchitis Qualifiers: Bronchitis organism: unspecified organism Qualified Code(s): J20.9 - Acute bronchitis, unspecified Headache Qualifiers: Headache type: unspecified Headache chronicity pattern: unspecified pattern Intractability: intractable Qualified Code(s): R51.9 - Headache, unspecified Condition: Stable Prescriptions: New cefdinir 300 mg capsule 300 mg PO BID 10 Days Qty: 20 RF: 0 No Action oxybutynin chloride 5 mg tablet 5 mg PO BID RF: 0 atorvastatin 40 mg tablet 40 mg PO DAILY RF: 0 dextromethorphan-guaifenesin [Tussin DM] 10-100 mg/5 mL syrup 10 ml PO Q4H PRN (Reason: cough) Qty: 237 RF: 1 pantoprazole 40 mg tablet,delayed release (DR/EC) 40 mg PO DAILY Qty: 30 RF: 0 aripiprazole [Abilify] 30 mg tablet 30 mg PO DAILY Qty: 30 RF: 1 divalproex [Depakote ER] 500 mg tablet extended release 24 hr 1,500 mg PO .COMPLEX Qty: 90 RF: 1 fluvoxamine 50 mg tablet 50 mg PO DAILY Qty: 30 RF: 1 trazodone 150 mg tablet 150 mg PO BEDTIME Qty: 30 RF: 1 hydroxyzine HCl 25 mg tablet 25 mg PO BID PRN (Reason: anxiety) Qty: 60 RF: 1 haloperidol 5 mg tablet 5 mg PO BID PRN (Reason: aggression) Qty: 60 RF: 4 Discharge Orders: Discharge ED (Routine); Ordered 03/19/20 Ordered By: Camila Feliz Referrals: Baldomero Chacon DO [Primary Care Provider] - Discharge Diet: Usual diet Discharge Activity: Resume usual activity Patient Instructions: Chest Pain - Noncardiac, Acute Bronchitis (ED), Acute Headache (ED) Activity Restrictions/Additional Instructions: Follow-up with your primary care provider this week without fail to ensure patient is improving Return to the emergency department if patient develops worsening symptoms Take antibiotics until all gone, even if better May take Tylenol as needed for chest pain or headache Continue prescribed cough syrup as needed for cough as directed Albuterol 2 puffs every 4 hours with spacer as needed for cough/shortness of breath as instructed by respiratory therapy Coding Level of Care Code ED Quality Control Engineer for Joelleng Fwd Exam Comprehensive
[2020-03-18 22:13] LABS: Basophils # 0.1 10^3/uL (0.0-0.1); Basophils % 0.9 %; Eosinophils # 0.3 10^3/uL (0.0-0.8); Eosinophils % 3.3 %; Hemoglobin 13.7 g/dL (11.7-16.6); Lymphocytes # 2.4 10^3/uL (0.8-4.8); Lymphocytes % 31.5 %; Mean Corpuscular HGB Conc 32.6 g/dL (30.0-36.0); Mean Corpuscular Hemoglobin 30.5 pg (28.0-34.0); Mean Corpuscular Volume 93.5 fL (80-94); Mean Platelet Volume 10.3 fL (7.4-10.4); Monocytes # 0.6 10^3/uL (0.2-0.9); Monocytes % 8.2 %; Neutrophils # 4.31 10^3/uL (1.8-7.7); Nucleated Red Blood Cells % 0 %; Platelet Count 237 10^3/cmm (130-400); Red Blood Count 4.49 10^6/uL (4.1-5.3); Red Cell Distribution Width 12.2 % (12.1-15.1); White Blood Count 7.7 10^3/uL (4.0-10.0)
--- NOTE | 2020-03-18 22:20 | CTR_ITS ---
PROCEDURE INFORMATION: Exam: CT Head Without Contrast Exam date and time: 03/18/2020 11:05 PM Age: 39 years old Clinical indication: Pain; Headache not specified; Patient HX: C/O EMERSON x 1 week TECHNIQUE: Imaging protocol: Computed tomography of the head without contrast. Radiation optimization: All CT scans at this facility use at least one of these dose optimization techniques: automated exposure control; mA and/or kV adjustment per patient size (includes targeted exams where dose is matched to clinical indication); or iterative reconstruction. COMPARISON: CT head wo con* [id number] 02/22/2020 6:20 PM RADIATION DOSE METRICS: Total DLP (mGy-cm): 810.57 FINDINGS: Brain: Normal. No hemorrhage. Unremarkable white matter. No mass effect. Cerebral ventricles: There is a cavum septum pellucidum. Ventricles are within normal limits of size. Bones/joints: Unremarkable. No acute fracture. Paranasal sinuses: Visualized sinuses are unremarkable. No fluid levels. Mastoid air cells: Visualized mastoid air cells are well aerated. Soft tissues: Unremarkable. CT/CT head wo con* [id number] IMPRESSION: No acute intracranial finding. No significant change from previous. Radiation Dose CTDIVOL = (mGy): DLP = 810.57 (mGy-cm)
[2020-03-18 22:23] VITALS: RESP 18
[2020-03-18 22:44] LABS: Alanine Aminotransferase 15 U/L (0-41); Albumin Level 4.1 g/dL (3.5-5.2); Alkaline Phosphatase 95 IU/L (40-130); Aspartate Amino Transferase 14 U/L (0-40); Blood Urea Nitrogen 13 mg/dL (6-20); Calcium 9.2 mg/dL (8.5-10.5); Carbon Dioxide 25 mmol/L (22-29); Chloride 102 mmol/L (98-107); Globulin 2.4 g/dL (1.3-4.6); Glomerular Filtration Rate 126.9 mL/min (90-130); Glucose 104 mg/dL (65-115); NT Pro B Type Natriuretic Pept 161 pg/mL (0-125); Osmolality Calculated 286 mOsm/kg (285-295); Sodium 138 mmol/L (136-145); Total Bilirubin 0.2 mg/dL (0.15-1.2); Total Protein 6.5 g/dL (6.6-8.7)
--- NOTE | 2020-03-18 22:45 | PC.NURSE ---
patient given urinal for urine sample.
[2020-03-18 22:48] LABS: Anion Gap 15.1 (5-19); Potassium 4.1 mmol/L (3.5-5.1)
[2020-03-18 23:02] LABS: SARS Covid-2 Antigen Negative (Negative)
[2020-03-18 23:08] LABS: Lipase 43 U/L (13-60)
[2020-03-18 23:34] LABS: Add Urine Microscopic? NO
[2020-03-18 23:48] LABS: Bilirubin Urine Neg (Negative); Blood Urine Neg (Negative); Glucose Urine UA Norm (Normal); Ketones Urine Negative (Negative); Leukocyte Esterase Urine Negative (Negative); Nitrate Urine Negative (Negative); Protein Urine Neg (Negative); Specific Gravity, Urine 1.005 (1.005-1.030); Sulfosalicylic Acid Urine Negative (Negative); Urine Appearance Clear (CLEAR); Urine Color Yellow (Yellow); Urobilinogen Urine Norm (Negative); pH Urine 8 (5-7)
[2020-03-19 00:18] VITALS: BP 122/74; PULSE 62; RESP 17; O2SAT 97
[2020-03-19 00:19] LABS: Troponin T (5th) Once 10 ng/L (0-15)
[2020-03-19] MEDS: albuterol 8 gm MDI 2 PUFF INHALATION (00:56)
[2020-03-19 00:57] VITALS: PULSE 88; RESP 16; O2SAT 98
[2020-03-19 01:02] VITALS: PULSE 89
[2020-03-19] MEDS: cefdinir 300 MG CAPSULE PO (01:05)
[2020-03-19] MEDS: ketorolac 30 mg/mL INJ IVP (01:05)
[2020-03-19 01:11] VITALS: BP 168/96; PULSE 82; RESP 16; O2SAT 94
== END 2020-03-19 01:13 | disposition home or self-care (01) ==
PROVIDERS: Emergency Provider Nurse Practitioner Family; PCP Internal Medicine
DX: J20.9 Acute bronchitis, unspecified (principal); M94.0 Chondrocostal junction syndrome [Tietze]; R51.9 Headache, unspecified; E78.5 Hyperlipidemia, unspecified; F84.0 Autistic disorder; F17.210 Nicotine dependence, cigarettes, uncomplicated
CPT/HCPCS: 12345; 70450; 71045; 80053; 80164; 81003; 83690; 83880; 84484; 85025; 87426; 93005; 94640; 96374; 99283; 99284; J1885; J3535

== ENCOUNTER 2020-03-28 21:39 | Emergency (ER) | payer MEDICAID, SELFPAY ==
[2020-03-28 21:44] VITALS: BP 135/53; PULSE 65; RESP 18; TEMP 36.8; O2SAT 97; BMI 29.8
--- NOTE | 2020-03-28 21:46 | W.ED.SEIZURE ---
HPI - Seizure General: Chief Complaint: Seizure Stated Complaint: seizures Time Seen by Provider: 03/28/20 21:41 Source: patient and EMS Mode of arrival: EMS Limitations: no limitations History of Present Illness: HPI Narrative: 39-year-old male who has a history of seizures presents here by EMS. Patient is here from [facility] and is on Depakote. He had multiple seizures tonight was the last one being at 9 PM. Patient now is awake alert able answer my questions. He denies hitting his head. He states he does have a migraine headache that is typical for his previous migraines. MD complaint: seizure Seizure History: Yes Associated symptoms: Deny chest pain, chills or fever(s) Review of Systems Const: Denies: fever(s), chills, body aches or change in appetite Eyes: Denies: blurry vision or eye discomfort ENMT: Denies: throat pain or dental pain Card: Denies: chest pain Resp: Denies: dyspnea GI: Denies: abdominal pain, nausea, vomiting or diarrhea : Denies: dysuria Musc: Denies: neck pain or back pain Skin/Breast: Denies: rash Neuro: Reports: seizure-like activity Psych: Denies: depression [place]/Lymph: Denies: easy bruising All/Imm: Denies: urticaria PFSH ED PFSH: Medical History Autistic disorder GERD (gastroesophageal reflux disease) Hyperglycemia Hyperlipidemia Peripheral edema Residual schizophrenia Seizure disorder Social History Smoking and tobacco status: current every day smoker cigarettes Smoking risk assessment/counseling performed?: Yes Tobacco counseling given: counseling >3 minutes Physical Exam Const: COMMON NORMALS: no acute distress, patient oriented x3 and healthy appearing HENMT: COMMON NORMALS: normocephalic and atraumatic HEAD & SCALP: normocephalic and atraumatic Eye: COMMON NORMALS: Equal, round and reactive pupils present and EOMs intact bilaterally PUPIL: Yes Equal, round and reactive pupils present Neck/C-Spine: COMMON NORMALS: full ROM and supple Chest: COMMONS NORMALS: normal inspection of the chest and normal palpation of entire chest wall Resp: COMMON NORMALS: normal respiratory effort, No retractions, No use of accessory muscles and clear to auscultation bilaterally AUSCULTATION: clear to auscultation bilaterally Cardio: COMMON NORMALS: regular rate, regular rhythm and No murmurs present (Cardio) RATE: regular rate RHYTHM: regular rhythm GI: COMMON NORMALS: Normal to inspection, nondistended, normoactive bowel sounds present, Soft to palpation, non-tender and no masses PALPATION: Yes Soft to palpation Extremity: COMMON NORMALS: normal to inspection and full ROM Neuro: COMMON NORMALS: patient oriented x3, moves all extremities and no focal motor deficits Psych: COMMON NORMALS: mental status grossly normal, Normal thought process present and cooperative THOUGHT PROCESS: Normal thought process present Skin: COMMON NORMALS: no rashes or lesions noted and no wounds GENERAL SKIN EXAM: no rashes or lesions noted Course Vital Signs: Vital signs: Vital Signs Temperature 98.3 F 03/28/20 21:44 Pulse Rate 74 03/28/20 22:17 Respiratory Rate 18 03/28/20 22:17 Blood Pressure 130/59 03/28/20 22:17 Pulse Oximetry 98 03/28/20 22:17 MDM - Seizure MDM Narrative: Medical decision making narrative: 71-year-old male Yadiel presents here with seizure. His Depakote level is normal. He stable for discharge back to [facility]. He is to continue take his meds and follow-up with PCP and return if worsening. Lab Data: Labs: Lab Results 03/28/20 Range/Units 22:08 Valproic Acid 80.0 (50-100) ug/mL Discharge Plan Discharge Patient Disposition: Home Clinical Impression: Generalized seizure Condition: Stable Prescriptions: No Action oxybutynin chloride 5 mg tablet 5 mg PO BID RF: 0 atorvastatin 40 mg tablet 40 mg PO DAILY RF: 0 dextromethorphan-guaifenesin [Tussin DM] 10-100 mg/5 mL syrup 10 ml PO Q4H PRN (Reason: cough) Qty: 237 RF: 1 pantoprazole 40 mg tablet,delayed release (DR/EC) 40 mg PO DAILY Qty: 30 RF: 0 aripiprazole [Abilify] 30 mg tablet 30 mg PO DAILY Qty: 30 RF: 1 divalproex [Depakote ER] 500 mg tablet extended release 24 hr 1,500 mg PO .COMPLEX Qty: 90 RF: 1 fluvoxamine 50 mg tablet 50 mg PO DAILY Qty: 30 RF: 1 trazodone 150 mg tablet 150 mg PO BEDTIME Qty: 30 RF: 1 hydroxyzine HCl 25 mg tablet 25 mg PO BID PRN (Reason: anxiety) Qty: 60 RF: 1 haloperidol 5 mg tablet 5 mg PO BID PRN (Reason: aggression) Qty: 60 RF: 4 cefdinir 300 mg capsule 300 mg PO BID 10 Days Qty: 20 RF: 0 Discharge Orders: Discharge ED (Routine); Ordered 03/28/20 Ordered By: Adilson Bethea Referrals: Baldomero Chaocn DO [Primary Care Provider] - 1-3 days Discharge Diet: Advance as tolerated Discharge Activity: Resume usual activity Patient Instructions: Recurrent Seizures Adult (ED) Coding Level of Care Code ED Machine Design Checker for Evgeny Fwagapito Exam Comprehensive
[2020-03-28] MEDS: ketorolac 30 mg/mL INJ 15 MG IVP (22:05)
[2020-03-28] MEDS: diazePAM 5 mg Tablet PO (22:05)
[2020-03-28 22:17] VITALS: BP 130/59; PULSE 74; RESP 18; O2SAT 98
[2020-03-28 23:26] VITALS: BP 121/61; PULSE 87; RESP 18; O2SAT 99
== END 2020-03-28 23:26 | disposition home or self-care (01) ==
PROVIDERS: Emergency Provider Emergency Medicine; PCP Internal Medicine
DX: G40.409 Other generalized epilepsy and epileptic syndromes, not intractable, without status epilepticus (principal); E78.5 Hyperlipidemia, unspecified; F84.0 Autistic disorder; F17.210 Nicotine dependence, cigarettes, uncomplicated
CPT/HCPCS: 80164; 96374; 99283; J1885

== ENCOUNTER → 2020-03-30 15:33 | Outpatient (BNVA) | payer MEDICAID, SELFPAY | PROVIDERS: PCP Internal Medicine; Visit Provider Nurse Practitioner Family | DX: J02.9 Acute pharyngitis, unspecified (principal); R09.82 Postnasal drip | CPT/HCPCS: 87071; 87880 ==

== ENCOUNTER 2020-04-01 15:37 | Inpatient (IN) | payer MEDICAID, SELFPAY ==
[2020-04-01 15:44] VITALS: BP 144/84; PULSE 103; RESP 20; TEMP 36.6; O2SAT 100; BMI 39.5
--- NOTE | 2020-04-01 15:56 | ECG_ITS ---
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 Measurements Intervals [place] Rate: 61 P: 15 AL: 162 QRS: 4 QRSD: 81 T: 28 QT: 371 QTc: 375 Interpretive Statements SINUS RHYTHM Compared to ECG 03/18/2020 21:59:34 Sinus bradycardia no longer present Electronically Signed On 04-01-2020 18:36:02 FOOD PREPARER by Haley Tee M.D. [id number]
--- NOTE | 2020-04-01 16:02 | CTR_ITS ---
PROCEDURE INFORMATION: Exam: CT Head Without Contrast Exam date and time: 04/01/2020 4:17 PM Age: 39 years old Clinical indication: Injury or trauma; Fall; Blunt trauma (contusions or hematomas) and laceration; Without loss of consciousness; Without residual foreign body; Scalp; Patient HX: Mentally challenged - threw self onto pavement - lac and abrasions R side of head TECHNIQUE: Imaging protocol: Computed tomography of the head without contrast. Radiation optimization: All CT scans at this facility use at least one of these dose optimization techniques: automated exposure control; mA and/or kV adjustment per patient size (includes targeted exams where dose is matched to clinical indication); or iterative reconstruction. COMPARISON: CT head wo con* [id number] 03/18/2020 11:14 PM RADIATION DOSE METRICS: Total DLP (mGy-cm): 882.98 FINDINGS: Brain: Normal. No hemorrhage. Unremarkable white matter. No mass effect. Cerebral ventricles: Normal variant cavum septum pellucidum. Bones/joints: Hyperostosis of the calvarium is similar to the prior study. Paranasal sinuses: Visualized sinuses are unremarkable. No fluid levels. Mastoid air cells: Visualized mastoid air cells are well aerated. Vasculature: There are multiple benign dural-based calcifications similar to the prior study. Soft tissues: Right frontal and right facial soft tissue lacerations. CT/CT head wo con* [id number] IMPRESSION: There are right frontal and right facial soft tissue lacerations. No evidence for acute intracranial injury. Radiation Dose CTDIVOL = (mGy): DLP = 882.98 (mGy-cm)
--- NOTE | 2020-04-01 16:08 | CTR_ITS ---
PROCEDURE INFORMATION: Exam: CT Cervical Spine Without Contrast Exam date and time: 04/01/2020 4:17 PM Age: 39 years old Clinical indication: Injury or trauma; Fall; Blunt trauma; Patient HX: Mentally challenged - threw self onto pavement - lac and abrasions R side of head TECHNIQUE: Imaging protocol: Computed tomography images of the cervical spine without contrast. Radiation optimization: All CT scans at this facility use at least one of these dose optimization techniques: automated exposure control; mA and/or kV adjustment per patient size (includes targeted exams where dose is matched to clinical indication); or iterative reconstruction. COMPARISON: No relevant prior studies available. RADIATION DOSE METRICS: Total DLP (mGy-cm): 685.26 FINDINGS: Vertebrae: Multilevel mild uncovertebral and facet degenerative changes. C2-C3: No significant disc protrusion. No severe spinal canal stenosis. No significant neural foraminal narrowing. C3-C4: No significant disc protrusion. No severe spinal canal stenosis. No significant neural foraminal narrowing. C4-C5: No significant disc protrusion. No severe spinal canal stenosis. No significant neural foraminal narrowing. C5-C6: No significant disc protrusion. No severe spinal canal stenosis. No significant neural foraminal narrowing. C6-C7: No significant disc protrusion. No severe spinal canal stenosis. No significant neural foraminal narrowing. C7-T1: No significant disc protrusion. No severe spinal canal stenosis. No significant neural foraminal narrowing. Soft tissues: Unremarkable. Lungs: Lung apices are normal. CT/CT cervical spin wo con* [id number] IMPRESSION: There are mild degenerative changes in the cervical spine. No evidence for acute fracture. Radiation Dose CTDIVOL = (mGy): DLP = 685.26 (mGy-cm)
--- NOTE | 2020-04-01 16:08 | CTR_ITS ---
PROCEDURE INFORMATION: Exam: CT Maxillofacial Without Contrast Exam date and time: 04/01/2020 4:17 PM Age: 39 years old Clinical indication: Injury or trauma; Fall; Blunt trauma (contusions or hematomas); Head/scalp and forehead; Without loss of consciousness; Patient HX: Mentally challenged - threw self onto pavement - lac and abrasions R side of head TECHNIQUE: Imaging protocol: Computed tomography images of the face without contrast. Radiation optimization: All CT scans at this facility use at least one of these dose optimization techniques: automated exposure control; mA and/or kV adjustment per patient size (includes targeted exams where dose is matched to clinical indication); or iterative reconstruction. COMPARISON: No relevant prior studies available. RADIATION DOSE METRICS: Total DLP (mGy-cm): 724.12 FINDINGS: Orbital cavity: Orbits are normal. Globes are unremarkable. Bones/joints: There is hyperostosis of the calvarium and multiple benign dural-based calcifications. Paranasal sinuses: There is mild mucosal thickening in the maxillary sinuses. Soft tissues: Right frontal and right facial soft tissue lacerations with underlying edema and/or hematoma. Dental: Patient is edentulous. CT/CT facial bones wo con* [id number] IMPRESSION: Right frontal and right facial soft tissue lacerations with underlying edema and/or hematoma. No acute fracture. Radiation Dose CTDIVOL = (mGy): DLP = 724.12 (mGy-cm)
--- NOTE | 2020-04-01 16:14 | ED_ITS ---
HPI - Psych General: Chief Complaint: Psychiatric Symptoms Stated Complaint: FELL/HEAD INJURY Time Seen by Provider: 04/01/20 15:49 History of Present Illness: HPI Narrative: The patient is a 39-year-old male with past medical history of depression, autism, and seizure disorder. He comes to the ER today after he was out of his residential with his experimental physicist and he said he wanted to kill himself and threw himself on the floor sustaining a laceration to his right eyebrow. [employer] says he has had increased threats of killing himself, and his roommate, and experimental physicist complaint: suicidal ideation and feels depressed Associated symptoms: Reports no associated symptoms and depression If self harm: admits thoughts of self harm and has acted on plan Review of Systems General: Reports: 10 or more systems reviewed and unremarkable except in HPI and below Const: Denies: fatigue Eyes: Denies: change in vision, blurry vision or eye redness ENMT: Denies: throat pain, swelling of lips/tongue, ear or mastoid pain or nasal congestion Card: Denies: chest pain, palpitations, irregular heart rhythm, edema, dyspnea on exertion or orthopnea Resp: Denies: dyspnea, productive cough or non-productive cough GI: Denies: abdominal pain, diarrhea or GI cramping : Denies: flank pain, urinary frequency or urinary urgency Musc: Denies: neck pain, back pain, extremity pain, joint pain, joint redness, limited range of motion or muscle weakness Skin/Breast: Denies: rash, pruritus, erythema, skin pain or skin tenderness Neuro: Denies: headache(s), numbness in extremities, weakness in extremities, sensory changes, difficulty walking, dizziness, confusion or Slurred speech present Psych: Reports: anxiety and depression Endo: Denies: polyuria All/Imm: Denies: urticaria, throat swelling or tongue swelling PFSH ED PFSH: Medical History Autistic disorder GERD (gastroesophageal reflux disease) Hyperglycemia Hyperlipidemia Peripheral edema Residual schizophrenia Seizure disorder Social History Smoking and tobacco status: current every day smoker cigarettes Smoking risk assessment/counseling performed?: Yes Tobacco counseling given: counseling >3 minutes Physical Exam Const: COMMON NORMALS: no acute distress, average body habitus, patient oriented x3, no limitations, healthy appearing, alert and well nourished GENERAL APPEARANCE: cooperative, comfortable, well kempt and well developed ORIENTATION/CONSCIOUSNESS: Yes awake, Yes oriented to person, Yes oriented to place and Yes oriented to time HENMT: COMMON NORMALS: normocephalic, external ears normal and Normal external nose present HEAD & SCALP: normal to inspection and normocephalic NOSE: Normal external nose present EXTERNAL EAR: Yes external ears normal MOUTH: Normal oral and palatal mucosa present THROAT: posterior oropharynx normal Eye: COMMON NORMALS: Equal, round and reactive pupils present and EOMs intact bilaterally GENERAL EYE: appearance normal, both eyes and all related structures PUPIL: Yes Equal, round and reactive pupils present Neck/C-Spine: COMMON NORMALS: full ROM, no lymphadenopathy, no meningeal signs and no JVD GENERAL: Yes normal visual inspection Lymph: LYMPHATIC: no lymphadenopathy noted Chest: COMMONS NORMALS: normal inspection of the chest and normal palpation of entire chest wall Resp: COMMON NORMALS: normal respiratory effort, No retractions, No use of accessory muscles, clear to auscultation bilaterally and percussion normal EFFORT & INSPECTION: Yes able to speak in complete sentences AUSCULTATION: clear to auscultation bilaterally PERCUSSION: percussion normal Cardio: COMMON NORMALS: no JVD, regular rate, regular rhythm, S1 normal heart sound present, S2 normal heart sound present and Peripheral pulses 2+ throughout RATE: regular rate RHYTHM: regular rhythm HEART SOUNDS: S1 normal heart sound present and S2 normal heart sound present PERIPHERAL PULSES: Peripheral pulses 2+ throughout GI: COMMON NORMALS: Normal to inspection, nondistended, normoactive bowel sounds present, Soft to palpation, non-tender and no masses INSPECTION: Yes normal to inspection PALPATION: Yes Soft to palpation : COMMON NORMALS: Yes no CVA tenderness BLADDER/KIDNEY EXAM: Yes no CVA tenderness Back/Pelvis: COMMON NORMALS: no CVA tenderness, thoracic and lumbar spine normal to inspection, no thoracic nor lumbar tenderness and thoraco-lumbar ROM normal Extremity: COMMON NORMALS: normal to inspection, full ROM, capillary refill normal, no joint enlargement and no pedal edema GENERAL: Yes normal exam except as noted Neuro: COMMON NORMALS: patient oriented x3, CN's II-XII intact bilaterally, moves all extremities, no focal motor deficits, no sensory deficits noted and gait normal SENSORIUM/ORIENTATION: Yes alert, Yes oriented to person, Yes oriented to place and Yes oriented to time MENINGEAL SIGNS: Yes no meningeal signs Psych: COMMON NORMALS: mental status grossly normal, cooperative, normal affect and speech normal APPEARANCE: Yes well kempt ATTITUDE: Yes calm SPEECH: Yes normal speech MOOD & AFFECT: Yes anxious INSIGHT: Poor insight present (Psych) JUDGEMENT: Poor judgement present (Psych) Skin: COMMON NORMALS: no rashes or lesions noted NARRATIVE SKIN EXAM: 4 cm laceration to right eyebrow. This 1 was repaired with 6 sutures. Abrasion to right face 6 cm in diameter. The right face abrasion has a small area that separates requiring 1 suture. The rest of it should heal fine. GENERAL SKIN EXAM: no rashes or lesions noted Procedures Laceration Laceration 1: Site: face (fight eyebrow) Side (If applicable): right Size (cm): 4 Description: irregular Depth: simple, single layer Local Anesthetic: lidocaine 1% Amount of anesthesia used (mL): 3 Pre-repair: wound explored and irrigated extensively Skin layer closed with: other (ethilon) Size (cm): 5-0 Number of sutures: 6 Technique: simple, interrupted Laceration 2: Site: face (right cheek) Size (cm): 7 Description: linear Depth: simple, single layer Local Anesthetic: lidocaine 1% Amount of anesthesia used (mL): 2 Pre-repair: wound explored and irrigated extensively Skin layer closed with: other (ethilon) Size (cm): 5-0 Number of sutures: 1 Technique: simple, interrupted MDM - Psych MDM Narrative: Medical decision making narrative: Discussed with Dr. Pickens who accepts to the NPU. Lab Data: Labs: Lab Results 04/01/20 04/01/20 04/01/20 Range/Units 16:42 16:42 16:48 WBC 10.2 H (4.0-10.0) 10^3/ uL RBC 5.13 (4.1-5.3) 10^6/u L Hgb 15.8 (11.7-16.6) g/dL Hct 48.8 (42.0-52.0) % MCV 95.1 H (80-94) fL MCH 30.8 (28.0-34.0) pg MCHC 32.4 (30.0-36.0) g/dL RDW 12.2 (12.1-15.1) % Plt Count 200 (130-400) 10^3/c mm MPV 10.7 H (7.4-10.4) fL Neut % (Auto) 75.7 % Lymph % (Auto) 15.5 % Wirt % (Auto) 6.9 % Eos % (Auto) 1.0 % Baso % (Auto) 0.6 % Neut # (Auto) 7.71 H (1.8-7.7) 10^3/u L Lymph # (Auto) 1.6 (0.8-4.8) 10^3/u L Wirt # (Auto) 0.7 (0.2-0.9) 10^3/u L Eos # (Auto) 0.1 (0.0-0.8) 10^3/u L Baso # (Auto) 0.1 (0.0-0.1) 10^3/u L Nucleated RBC % (a uto) 0 % Nucleated RBCs # 0.0 /100WBC Urine Color Dark yellow (Yellow) Urine Appearance Clear (CLEAR) Urine pH 7 (5-7) Ur Specific Gravit y 1.010 (1.005-1.030) Urine Protein 1+ H (Negative) Urine Glucose (UA) Norm (Normal) Urine Ketones 2+ H (Negative) Urine Blood Neg (Negative) Urine Nitrate Negative (Negative) Urine Bilirubin 1+ H (Negative) Urine Urobilinogen 1 H (Negative) mg/dL Ur Leukocyte Aggie ase Negative (Negative) Urine RBC None (0-2) /hpf Urine WBC Rare (0-5) /hpf Ur Squamous Epith Cells Rare (0-5) /hpf Amorphous Sediment Not Reportable Urine Bacteria Trace (NONE) /hpf Urine Mucus 1+ /hpf Urine Opiates Scre en (Negative) ng/mL Ur Barbiturates Sc reen (Negative) ng/mL Valproic Acid 87.8 (50-100) ug/mL Ur Phencyclidine S crn (Negative) ng/mL Ur Amphetamines Sc reen (Negative) ng/mL U Benzodiazepines Scrn (Negative) ng/mL Urine Cocaine Scre en (Negative) ng/mL U Marijuana (THC) Screen (Negative) ng/mL 04/01/20 Range/Units 16:48 WBC (4.0-10.0) 10^3/ uL RBC (4.1-5.3) 10^6/u L Hgb (11.7-16.6) g/dL Hct (42.0-52.0) % MCV (80-94) fL MCH (28.0-34.0) pg MCHC (30.0-36.0) g/dL RDW (12.1-15.1) % Plt Count (130-400) 10^3/c mm MPV (7.4-10.4) fL Neut % (Auto) % Lymph % (Auto) % Wirt % (Auto) % Eos % (Auto) % Baso % (Auto) % Neut # (Auto) (1.8-7.7) 10^3/u L Lymph # (Auto) (0.8-4.8) 10^3/u L Wirt # (Auto) (0.2-0.9) 10^3/u L Eos # (Auto) (0.0-0.8) 10^3/u L Baso # (Auto) (0.0-0.1) 10^3/u L Nucleated RBC % (a uto) % Nucleated RBCs # /100WBC Urine Color (Yellow) Urine Appearance (CLEAR) Urine pH (5-7) Ur Specific Gravit y (1.005-1.030) Urine Protein (Negative) Urine Glucose (UA) (Normal) Urine Ketones (Negative) Urine Blood (Negative) Urine Nitrate (Negative) Urine Bilirubin (Negative) Urine Urobilinogen (Negative) mg/dL Ur Leukocyte Aggie ase (Negative) Urine RBC (0-2) /hpf Urine WBC (0-5) /hpf Ur Squamous Epith Cells (0-5) /hpf Amorphous Sediment Urine Bacteria (NONE) /hpf Urine Mucus /hpf Urine Opiates Scre en Negative (Negative) ng/mL Ur Barbiturates Sc reen Negative (Negative) ng/mL Valproic Acid (50-100) ug/mL Ur Phencyclidine S crn Negative (Negative) ng/mL Ur Amphetamines Sc reen Negative (Negative) ng/mL U Benzodiazepines Scrn Positive H (Negative) ng/mL Urine Cocaine Scre en Negative (Negative) ng/mL U Marijuana (THC) Screen Negative (Negative) ng/mL Discharge Plan Discharge Patient Disposition: Admitted As Inpatient Clinical Impression: Depression Condition: Stable Coding Level of Care Code ED Manager Etl for Evgeny Fwd Exam Comprehensive
[2020-04-01] MEDS: lidocaine 1% INJ 20 mL SUBCUT (16:27)
[2020-04-01 17:08] LABS: Basophils # 0.1 10^3/uL (0.0-0.1); Basophils % 0.6 %; Eosinophils # 0.1 10^3/uL (0.0-0.8); Hematocrit 48.8 % (42.0-52.0); Hemoglobin 15.8 g/dL (11.7-16.6); Lymphocytes # 1.6 10^3/uL (0.8-4.8); Lymphocytes % 15.5 %; Mean Corpuscular HGB Conc 32.4 g/dL (30.0-36.0); Mean Corpuscular Hemoglobin 30.8 pg (28.0-34.0); Mean Corpuscular Volume 95.1 fL (80-94); Mean Platelet Volume 10.7 fL (7.4-10.4); Monocytes # 0.7 10^3/uL (0.2-0.9); Monocytes % 6.9 %; Neutrophils # 7.71 10^3/uL (1.8-7.7); Neutrophils % 75.7 %; Nucleated Red Blood Cells % 0 %; Platelet Count 200 10^3/cmm (130-400); Red Blood Count 5.13 10^6/uL (4.1-5.3); Red Cell Distribution Width 12.2 % (12.1-15.1); White Blood Count 10.2 10^3/uL (4.0-10.0)
[2020-04-01 17:14] LABS: Amphetamines Screen Urine Negative (Negative); Barbiturates Screen Urine Negative (Negative); Benzodiazepines Screen Urine Positive (Negative); Cocaine Screen Urine Negative (Negative); Opiate Screen Urine Negative (Negative); PCP Screen Urine Negative (Negative); THC Screen Urine Negative (Negative)
[2020-04-01 17:18] LABS: Urine Appearance Clear (CLEAR); Urine Color Dark Yellow (Yellow); pH Urine 7 (5-7)
[2020-04-01 17:19] LABS: Add Urine Culture? No; Add Urine Microscopic? YES; Bacteria Urine TRACE /hpf; Bilirubin Urine 1+ (Negative); Blood Urine Neg (Negative); Glucose Urine UA Norm (Normal); Ketones Urine 2+ (Negative); Leukocyte Esterase Urine Negative (Negative); Mucus Urine 1+ /hpf; Nitrate Urine Negative (Negative); Protein Urine 1+ (Negative); Squamous Epithelial Cell Urine RARE /hpf (0-5); Urobilinogen Urine 1 mg/dL (Negative); WBC Urine RARE /hpf (0-5)
[2020-04-01] MEDS: neomycin-poly-bacitracin oint 0.9 gm Pkt 1 APPLIC TOPICAL (17:24)
[2020-04-01 17:29] LABS: Valproic Acid Level 87.8 ug/mL (50-100)
[2020-04-01] MEDS: cephALEXin 500 mg Capsule PO (18:28)
[2020-04-01 18:32] LABS: Alanine Aminotransferase 27 U/L (0-41); Albumin Level 4.7 g/dL (3.5-5.2); Alkaline Phosphatase 99 IU/L (40-130); Aspartate Amino Transferase 27 U/L (0-40); Blood Urea Nitrogen 13 mg/dL (6-20); Calcium 9.5 mg/dL (8.5-10.5); Carbon Dioxide 21 mmol/L (22-29); Chloride 102 mmol/L (98-107); Globulin 3.1 g/dL (1.3-4.6); Glucose 92 mg/dL (65-115); Osmolality Calculated 288 mOsm/kg (285-295); Sodium 139 mmol/L (136-145); Total Bilirubin 0.6 mg/dL (0.15-1.2); Total Protein 7.8 g/dL (6.6-8.7)
[2020-04-01 18:34] VITALS: RESP 18
[2020-04-01 18:36] LABS: Acetaminophen < 5.0 ug/mL (10-30); Alcohol Level < 10 mg/dL (0-10); Salicylate < 0.3 mg/dL (3-10)
[2020-04-01 18:46] VITALS: BP 118/68; PULSE 101; RESP 21; TEMP 36.9; O2SAT 100
[2020-04-01 20:02] VITALS: BP 118/68; PULSE 101; RESP 19; TEMP 36.9; O2SAT 100
[2020-04-01 22:00] VITALS: RESP 18
[2020-04-02] MEDS: hyDROXYzine 25 mg Capsule 50 MG PO ×2 (00:57→19:59)
[2020-04-02] MEDS: trazodone 50 mg Tablet PO (00:57)
[2020-04-02 06:00] VITALS: BP 111/68; PULSE 76; RESP 17; TEMP 36.2; O2SAT 100
[2020-04-02 06:37] LABS: Glucose Point of Care 113 mg/dL (70-110)
[2020-04-02] MEDS: pantoprazole DR 40 mg Tablet PO (08:37)
[2020-04-02] MEDS: divalproex ER 500 mg Tablet (24H) 1000 MG PO ×2 (08:37→19:59)
[2020-04-02] MEDS: ARIPiprazole 30 mg Tablet PO (08:37)
[2020-04-02] MEDS: oxybutynin 5 mg Tablet PO ×2 (08:37→16:35)
[2020-04-02] MEDS: artificial tears Op Soln 15 mL Btl 1 DROP EYE-BOTH ×3 (08:38→20:25)
--- NOTE | 2020-04-02 12:33 | PM.NHP ---
Providers/Chief Complaint Admitting Physician: Alonso Pickens DO Primary Care Provider: Bladomero Chacon DO Chief Complaint: FELL/HEAD INJURY HPI NPU History of Present Illness Yadiel Melo is a 39 year old male with history of autistic disorder and schizophrenia presented to the emergency department after throwing himself on the ground well outside of the house on a trip sustaining a laceration above his eyebrow. Per report, patient had been endorsing suicidal ideation as well as thoughts about hurting other people and worsening depressive symptoms. Patient frequently presents to the emergency department on a near monthly basis with similar complaints related to behavioral disturbances due to underlying autistic disorder as well as perceptual disturbances that have been previously reported as schizophrenia. Per previous episodes of care, patient typically quickly reconstitutes and requests to go home. Patient currently denying any suicidal ideation or thoughts about harming others. When initially asked about depressive symptoms he denied any depressive symptoms but then subsequently reports some depressive symptoms recently. Patient is a difficult historian secondary to his autism and presents in a very childlike manner with brief responses. He currently denies any perceptual disturbances, denies any auditory or visual hallucinations and denies any delusions. Patient states, I was having behaviors and hurt myself. Psychiatric review of systems is otherwise negative. Review of Systems General: Reports: 10 or more systems reviewed and unremarkable except in HPI and below Meds NPU Home Medications Medication Instructions Recorded Confirmed Last Taken Type atorvastatin 40 mg tablet 40 mg PO DAILY@199903/08/19 04/01/20 03/31/20 History oxybutynin chloride 5 mg tablet 5 mg PO BID@03/08/19 04/01/20 04/01/20 History haloperidol 5 mg tablet 5 mg PO BID PRN #60 tab 01/04/20 04/01/20 02/10/20 Rx aripiprazole [Abilify] 30 mg PO DAILY@04/01/20 04/01/20 04/01/20 History divalproex [Depakote ER] 1,000 mg PO BID 04/01/20 04/01/20 04/01/20 History fluvoxamine 50 mg PO DAILY@199904/01/20 04/01/20 03/31/20 History pantoprazole 40 mg PO DAILY@04/01/20 04/01/20 04/01/20 History trazodone 150 mg PO BEDTIME@199904/01/20 04/01/20 03/31/20 History Allergies Allergy/AdvReac Type Severity Reaction Status Date / Time lorazepam Allergy Unknown Verified 03/30/20 15:32 pseudoephedrine Allergy Unknown Verified 03/30/20 15:32 Sulfa (Sulfonamide Allergy Unknown Verified 03/30/20 15:32 Antibiotics) tuberculin, purified protein Allergy Unknown Verified 03/30/20 15:32 deriva PFSH NPU PFSH: Medical History Autistic disorder GERD (gastroesophageal reflux disease) Hyperglycemia Hyperlipidemia Peripheral edema Residual schizophrenia Seizure disorder Social History Smoking and tobacco status: current every day smoker cigarettes Smoking risk assessment/counseling performed?: Yes Tobacco counseling given: counseling >3 minutes Other Psychiatric History: Other Psychiatric History: No changes in psychiatric history since last admission 02/11/2020 Mental Status Exam MSE Comments: Appears stated age, obese, childlike behavior, shy and nervous, averted gaze but mostly making good eye contact, cooperative Psychomotor activity is neither increased nor decreased although patient has a somewhat nervous restlessness at times Speech is simple, brief, normal volume, spontaneous, not pressured I feel fine, full range, not labile Alert and oriented to person, place, time, situation Intellectual functioning appears to be low to low to below average based on historical reference, vocabulary, interview Memory and concentration appear to be fair to intact per interview Thought process, linear but brief Thought content, no delusions, no hallucinations, no suicidal homicidal ideation Insight and judgment appear to be limited Vitals/I&O/Wt Last Vital Signs Temp 97.2 F L 04/02/20 06:00 Pulse 76 04/02/20 06:00 Resp 17 04/02/20 06:00 BP 111/68 04/02/20 06:00 Pulse Ox 100 04/02/20 06:00 Weight last 48 hrs Weight 117.934 kg Data NPU : 04/01/20 16:42 04/01/20 16:42 A&P Assessment and plan (1) Depression: Status: Acute (2) Autistic disorder: Status: Acute (3) Generalized seizure: Status: Acute (4) Suicidal ideation: Status: Acute Additional A&P Information Patient with longstanding intermittent behavioral disturbances, suicidal behavior as well as physical agitation in the context of autism, history of schizophrenia, mood disorder, with reported worsening depressive symptoms with recent increase in suicidal ideation, throwing himself on the ground and injuring himself. Patient would likely benefit from observation, medication stabilization targeting depressive symptoms. VOLUNTARY ADMIT to inpatient psychiatry INCREASE to fluvoxamine 75 mg by mouth daily targeting mood symptoms CONTINUE other home medications, continue to monitor Involuntary Hold Information 96 Hour Hold: 96 Hour Involuntary Admission: No Attestations NPU Medical Necessity Statement*: Require psychiatric hospitalization for observation for return of any suicidal ideation or behavior, medication stabilization, coordination for safe discharge Anticipate hospital stay to exceed 2 midnights Time Spent in Patient Care: Greater than 35 minutes (>than 50% of time spent in counselling and/or direct pt care on unit). Coding Level of Care Code Acute Title I Instructional Assistant for Evgeny Alcaraz Diagnoses Depression F32.9 Autistic disorder F84.0 Generalized seizure R56.9 Suicidal ideation R45.85
[2020-04-02] MEDS: acetaminophen 325 mg Tablet 650 MG PO (12:56)
[2020-04-02 14:00] VITALS: BP 95/53; PULSE 82; RESP 20; TEMP 36.9; O2SAT 98
[2020-04-02 17:02] LABS: Glucose Point of Care 144 mg/dL (70-110)
[2020-04-02 19:37] VITALS: BP 118/76; PULSE 84; RESP 16; TEMP 36.7; O2SAT 96
[2020-04-02] MEDS: atorvastatin 40 mg Tablet PO (19:59)
[2020-04-02] MEDS: trazodone 150 mg Tablet PO (20:00)
[2020-04-03] MEDS: acetaminophen 325 mg Tablet 650 MG PO (02:55)
[2020-04-03 06:00] VITALS: BP 131/78; PULSE 68; RESP 16; TEMP 36.3; O2SAT 99
[2020-04-03 06:38] LABS: Glucose Point of Care 121 mg/dL (70-110)
[2020-04-03] MEDS: ARIPiprazole 30 mg Tablet PO (07:12)
[2020-04-03] MEDS: pantoprazole DR 40 mg Tablet PO (07:12)
[2020-04-03] MEDS: oxybutynin 5 mg Tablet PO ×2 (07:12→15:25)
[2020-04-03] MEDS: divalproex ER 500 mg Tablet (24H) 1000 MG PO ×2 (07:12→21:05)
--- NOTE | 2020-04-03 10:23 | PM.NPN ---
Subjective NPU Subjective: Interval history: Continues to report no depressive symptoms, no suicidal ideation Denies any irritability, denies any homicidal ideation or thoughts about harming others Denies any interval psychotic symptoms, no auditory or visual destinations Reports that his appetite is good States that he slept well Reports being compliant with his medication and denies any medication side effects Per nurse report, no interval behavioral disturbances Mental Status Exam MSE Comments: Standing in his room, calm, cooperative, childlike in his mannerisms and interaction, shy and nervous, good eye contact, cooperative Psychomotor activity is neither increased nor decreased, no agitation Speech is simple, brief, normal volume, spontaneous, not pressured I feel good, full range, not labile Alert and oriented to person, place, time, situation Memory and concentration appear to be fair to intact per interview Thought process, linear but brief Thought content, no delusions, no hallucinations, no suicidal homicidal ideation Insight and judgment appear to be limited Vitals/I&O/Wt Last Vital Signs Temp 97.3 F L 04/03/20 06:00 Pulse 68 04/03/20 06:00 Resp 16 04/03/20 06:00 BP 131/78 04/03/20 06:00 Pulse Ox 99 04/03/20 06:00 Weight last 48 hrs Weight 117.934 kg Data NPU : 04/01/20 16:42 04/01/20 16:42 A&P Assessment and plan (1) Suicidal ideation: Status: Acute (2) Depression: Status: Acute (3) Autistic disorder: Status: Acute (4) Generalized seizure: Status: Acute Additional A&P Information Continues to report improved mood with no suicidal or homicidal ideation, no interval behavioral disturbances, tolerating increase of fluvoxamine well with no reported side effects CONTINUE current medication, continue to monitor Anticipate discharge tomorrow Involuntary Hold Information 96 Hour Hold: 96 Hour Involuntary Admission: No Attestations NPU Medical Necessity Statement*: Continues require psychiatric hospitalization for medication stabilization, coordination of safe discharge Coding Level of Care Code Acute Crown Wheel Assembler for Evgeny Fwagapito Diagnoses Suicidal ideation R45.851 Depression F32.9 Autistic disorder F84.0 Generalized seizure R56.9
[2020-04-03 14:00] VITALS: BP 105/70; PULSE 85; RESP 20; TEMP 36.6; O2SAT 97
[2020-04-03 16:37] LABS: Glucose Point of Care 134 mg/dL (70-110)
[2020-04-03 19:23] VITALS: BP 101/66; PULSE 94; RESP 16; TEMP 36.8; O2SAT 96
[2020-04-03] MEDS: atorvastatin 40 mg Tablet PO (21:02)
[2020-04-03] MEDS: trazodone 150 mg Tablet PO (21:03)
[2020-04-03] MEDS: artificial tears Op Soln 15 mL Btl 1 DROP EYE-BOTH (21:04)
[2020-04-03] MEDS: hyDROXYzine 25 mg Capsule 50 MG PO (21:05)
[2020-04-04 06:00] VITALS: BP 103/69; PULSE 87; RESP 18; TEMP 36.3; O2SAT 95
[2020-04-04 06:18] LABS: Glucose Point of Care 110 mg/dL (70-110)
[2020-04-04] MEDS: ARIPiprazole 30 mg Tablet PO (07:26)
[2020-04-04] MEDS: pantoprazole DR 40 mg Tablet PO (07:26)
[2020-04-04] MEDS: oxybutynin 5 mg Tablet PO (07:26)
[2020-04-04] MEDS: divalproex ER 500 mg Tablet (24H) 1000 MG PO (07:27)
--- NOTE | 2020-04-04 09:55 | PM.NDC ---
Diagnoses at Discharge Discharge Diagnosis (1) Suicidal ideation: Status: Acute (2) Depression: Status: Acute (3) Autistic disorder: Status: Acute (4) Generalized seizure: Status: Acute Reason for Visit Reason for Visit: FELL/HEAD INJURY Hospital Course Hospital Course 39 year old male with history of autistic disorder and schizophrenia presented to the emergency department after throwing himself on the ground well outside of the house on a trip sustaining a laceration above his eyebrow. Per report, patient had been endorsing suicidal ideation as well as thoughts about hurting other people and worsening depressive symptoms. At the time of initial evaluation patient had reported ongoing low mood symptoms but was unable to report for how long only stating that he had decreased interest in his usual activities. He did admit to having suicidal thoughts although was currently denying any suicidal ideation or thoughts about self-harm. Patient states that he enjoys being at his half-way and enjoys watching TV and playing video games. Patient's fluvoxamine was increased to fluvoxamine 75 mg targeting mood symptoms with no reports of any medication side effects. Patient quickly reconstituted and never endorsed any suicidal thoughts throughout his hospital stay and participate in unit milieu with no reports of any behavioral disturbances. Of note, patient typically reconstitutes quite quickly on this unit with no behavioral problems throughout his hospital stays. Patient was not suicidal at the time of discharge and did not appear to pose an imminent threat of harm to self or others. Patient is low to moderate risk of harm to self or others given no current suicidal ideation and no current endorsement of psychiatric symptoms although patient historically has a pattern of intermittently being impulsive or demonstrating behavioral problems in the context of his environment which could lead to unexpected behavior not intended by the patient. Risk mitigation during this hospitalization was observation, increasing his fluvoxamine as well as coordinating for safe discharge. Behavioral modification and redirection in his living environment in conjunction with medication and medication management follow-up compliance will likely further mitigate this risk. Involuntary Hold Information 96 Hour Hold: 96 Hour Involuntary Admission: No Mental Status Exam MSE Comments: Standing in the hallway, polite, interactive, appropriately groomed in hospital scrubs, childlike in his mannerisms and interaction, good eye contact Psychomotor activity is neither increased nor decreased, no agitation Speech is simple, brief, normal volume, spontaneous, not pressured I feel okay, full range, smiles at times during interview, not labile Alert and oriented to person, place, time, situation Memory and concentration appear to be fair to intact per interview Thought process, linear but brief Thought content, no delusions, no hallucinations, no suicidal homicidal ideation Insight and judgment appear to be limited Discharge Data Data Completed and Pending: Completed Studies During Hospitalization Category Date Time Status CT cervical spin wo con* 21814 Stat Cat Scan 04/01/20 16:[address] facial bones w o con* 03436 Stat Cat Scan 04/01/20 16:[address] head wo con* 7 0450 Stat Cat Scan 04/01/20 16:02 Completed Labs from last 24 hours 04/04/20 04/03/20 06:13 16:32 POC Glucose 110 134 H Vitals: Last Vital Signs Temp 97.3 F L 04/04/20 06:00 Pulse 87 04/04/20 06:00 Resp 18 04/04/20 06:00 BP 103/69 04/04/20 06:00 Pulse Ox 95 04/04/20 06:00 Discharge Plan Discharge Patient Disposition: Home Condition: Stable Prescriptions: New fluvoxamine 50 mg Tablet 75 mg PO DAILY@2099 Qty: 30 RF: 0 Continued oxybutynin chloride 5 mg tablet 5 mg PO BID@, RF: 0 atorvastatin 40 mg tablet 40 mg PO DAILY@1999 RF: 0 haloperidol 5 mg tablet 5 mg PO BID PRN (Reason: aggression) Qty: 60 RF: 4 pantoprazole 40 mg tablet,delayed release (DR/EC) 40 mg PO DAILY@ RF: 0 trazodone 150 mg tablet 150 mg PO BEDTIME@1999 RF: 0 divalproex [Depakote ER] 500 mg tablet extended release 24 hr 1,000 mg PO BID RF: 0 aripiprazole [Abilify] 30 mg tablet 30 mg PO DAILY@ RF: 0 Discontinued fluvoxamine 50 mg tablet 50 mg PO DAILY@1999 RF: 0 Discharge Orders: Discharge Order (Routine); Ordered 04/04/20 Ordered By: Alonso Pickens Referrals: Cherri Valerio, PMHNP [Staff Physician] - 04/17/20 11:30 am (Hospital follow up, medication check *Phone appointment) Benjamin Gao M.D [Physician] - 04/17/20 1:15 pm (For cardiac work up) Baldomero Chacon DO [Primary Care Provider] - Discharge Diet: Usual diet Discharge Activity: Resume usual activity Activity Restrictions/Additional Instructions: Remove stitches 04/08/20-04/10/20 Discharge Attestations NPU Time Spent in Discharge Care*: greater than 30 min Status at Discharge: Cognitive status at discharge: mildly impaired cognition, Behavioral status at discharge: cooperative, Functional status at discharge: independent ambulation Overall status at discharge: patient is back to baseline Coding Level of Care Code Acute Forest Fire Prevention Manager for g Fwd Diagnoses Suicidal ideation R45.851 Depression F32.9 Autistic disorder F84.0 Generalized seizure R56.9
[2020-04-04 10:06] VITALS: BP 103/69; PULSE 87; RESP 18; TEMP 36.3; O2SAT 95
--- NOTE | 2020-04-04 10:51 | PC.NURSE ---
Guardian Notified guardian Allie Gómez of patient discharge and info.
== END 2020-04-04 14:53 | disposition home or self-care (01) | DRG 884 ==
LOC: ER 18:06 → NP 18:20
PROVIDERS: Admitting Provider Psychiatry & Neurology Psychiatry; Emergency Provider Family Medicine; PCP Internal Medicine; Visit Provider Psychiatry & Neurology Psychiatry
DX: F84.0 Autistic disorder (principal); R45.851 Suicidal ideations; F20.5 Residual schizophrenia; K21.9 Gastro-esophageal reflux disease without esophagitis; E78.5 Hyperlipidemia, unspecified; F17.210 Nicotine dependence, cigarettes, uncomplicated; F32.9 Major depressive disorder, single episode, unspecified
CPT/HCPCS: 36416; 70450; 70486; 72125; 80053; 80164; 80306; 80307; 81001; 82962; 85025; 93005; 99285

== ENCOUNTER 2020-05-04 20:41 | Emergency (ER) | payer MEDICAID, SELFPAY ==
[2020-05-04 20:42] VITALS: BP 126/58; PULSE 73; RESP 18; TEMP 37.1; O2SAT 98; BMI 29.9
--- NOTE | 2020-05-04 20:48 | ECG_ITS ---
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 Measurements Intervals [place] Rate: 66 P: 27 MN: 173 QRS: 9 QRSD: 88 T: 27 QT: 376 QTc: 394 Interpretive Statements SINUS RHYTHM Compared to ECG 04/01/2020 16:53:23 No significant changes Electronically Signed On 05-05-2020 0:05:57 CDT by Haley Tee M.D. [email or web address]
--- NOTE | 2020-05-04 21:06 | W.ED.SEIZURE ---
HPI - Seizure General: Chief Complaint: Seizure Stated Complaint: seizure Time Seen by Provider: 05/04/20 20:41 History of Present Illness: HPI Narrative: 40-year-old autistic male. Presents with a seizure lasting about 2 minutes, with a prolonged postictal episode with obtundation, followed by stupor, by slow recovery to baseline lasting about 30 minutes. He states that he can tell the seizure was coming on, he told a home staff member that he was fighting it happening. He went and sat down on the couch, and had the episode he appears to be back at baseline on exam. complaint: seizure Onset (ago): hour(s) (1) Description of Episode: loss of consciousness and tonic-clonic movement Duration of episode: 2 Witnessed: Yes - by Other Trauma: No Seizure History: Yes Place: Home Possible Precipitating Event: none Associated symptoms: Reports confusion (now improved), syncope and weakness; Deny chest pain, chills or fever(s) Treatments prior to arrival: none Review of Systems Const: Denies: fever(s) or chills Eyes: Denies: change in vision ENMT: Denies: odynophagia, bleeding gums, epistaxis or sinus pain Card: Reports: syncope; Denies: chest pain Resp: Denies: dyspnea or productive cough GI: Reports: nausea; Denies: abdominal pain or vomiting : Denies: difficulty urinating or hematuria Musc: Denies: neck pain or back pain Skin/Breast: Denies: rash, pruritus or erythema Neuro: Reports: headache(s) and confusion (now improved) Psych: Denies: anxiety, visual hallucinations or auditory hallucinations PFSH ED PFSH: Medical History Autistic disorder GERD (gastroesophageal reflux disease) Hyperglycemia Hyperlipidemia Peripheral edema Residual schizophrenia Seizure disorder Social History Smoking and tobacco status: current every day smoker cigarettes Smoking risk assessment/counseling performed?: Yes Tobacco counseling given: counseling >3 minutes Physical Exam Const: GENERAL APPEARANCE: cooperative, comfortable and other (developmental delay, autism ) ORIENTATION/CONSCIOUSNESS: Yes oriented to person and Yes oriented to place HENMT: COMMON NORMALS: normocephalic, external ears normal and Normal external nose present HEAD & SCALP: normocephalic FACE & SINUS: normal facial exam NOSE: Normal external nose present and No nasal discharge present EXTERNAL EAR: Yes external ears normal MOUTH: tongue normal THROAT: posterior oropharynx normal; no peritonsillar mass Eye: COMMON NORMALS: Equal, round and reactive pupils present, EOMs intact bilaterally and conjunctivae normal EYELID: eyelids normal CONJUNCTIVA: Yes conjunctivae normal PUPIL: Yes Equal, round and reactive pupils present Neck/C-Spine: COMMON NORMALS: full ROM GENERAL: No tracheal deviation CERVICAL SPINE: Yes normal cervical lordosis Chest: COMMONS NORMALS: normal inspection of the chest CHEST: No tenderness Resp: COMMON NORMALS: clear to auscultation bilaterally EFFORT & INSPECTION: No tachypneic, No respiratory distress, No retractions, No uses accessory muscles and No tracheal deviation AUSCULTATION: clear to auscultation bilaterally, no rhonchi, no wheezes and lung sounds not diminished Cardio: COMMON NORMALS: regular rate and regular rhythm RATE: regular rate RHYTHM: regular rhythm HEART SOUNDS: no murmurs PERIPHERAL PULSES: radial pulses present GI: INSPECTION: No abdominal distension AUSCULTATION: No Hyperactive bowel sounds present and No Hypoactive bowel sounds present PALPATION: No Guarding due to palpation present (GI) and No Rigid due to palpation Neuro: GERSON COMA SCALE: document GCS findings Gerson coma scale eye opening: Spontaneous [place] coma scale verbal response: Orientated [place] coma scale motor response: Obey commands Gerson coma scale total score: 15 SENSORIUM/ORIENTATION: Yes oriented to person and Yes oriented to place CRANIAL NERVES: Yes CN normal except as noted SENSORY EXAM: Yes extremities MOTOR EXAM: 5/5 motor strength present throughout Skin: COMMON NORMALS: no rashes or lesions noted GENERAL SKIN EXAM: no rashes or lesions noted Course Vital Signs: Vital signs: Vital Signs Temperature 98.8 F 05/04/20 20:42 Pulse Rate 82 05/04/20 23:30 Respiratory Rate 18 05/04/20 23:30 Blood Pressure 115/64 05/04/20 23:30 Pulse Oximetry 98 05/04/20 23:30 MDM - Seizure MDM Narrative: Medical decision making narrative: Yadiel is back to baseline. His labs are normal. His valproic acid level is appropriate. He will be allowed home. Lab Data: Labs: Lab Results 05/04/20 05/04/20 05/04/20 Range/Units 21:06 21:06 21:26 WBC Cancelled Corrected WBC Cancelled RBC Cancelled Hgb Cancelled Hct Cancelled MCV Cancelled MCH Cancelled MCHC Cancelled RDW Cancelled Plt Count Cancelled MPV Cancelled Gran % Cancelled Neut % (Auto) Cancelled Lymph % (Auto) Cancelled [place] % (Auto) Cancelled Eos % (Auto) Cancelled Baso % (Auto) Cancelled Neut # (Auto) Cancelled Lymph # (Auto) Cancelled [place] # (Auto) Cancelled Eos # (Auto) Cancelled Baso # (Auto) Cancelled Absolute Gran (aut o) Cancelled Nucleated RBC % (a uto) Cancelled Nucleated RBCs # Cancelled Sodium 141 (136-145) mmol/L Potassium 4.3 (3.5-5.1) mmol/L Chloride 103 (98-107) mmol/L Carbon Dioxide 27 (22-29) mmol/L Anion Gap 15.3 (5-19) BUN 14 (6-20) mg/dL Creatinine 0.8 (0.7-1.2) mg/dL GFR Calculation 108.2 (90-130) mL/min Glucose 138 H (65-115) mg/dL Calculated Osmolal ity 295 (285-295) mOsm/k g Calcium 9.1 (8.5-10.5) mg/dL Magnesium 1.9 (1.7-2.3) mg/dL Total Bilirubin 0.3 (0.15-1.2) mg/dL AST 13 (0-40) U/L ALT 11 (0-41) U/L Alkaline Phosphata se 81 (40-130) IU/L Creatine Kinase 87 (39-308) U/L Total Protein 6.6 (6.6-8.7) g/dL Albumin 4.3 (3.5-5.2) g/dL Globulin 2.3 (1.3-4.6) g/dL Urine Color Yellow (Yellow) Urine Appearance Clear (CLEAR) Urine pH 5 (5-7) Ur Specific Gravit y 1.020 (1.005-1.030) Urine Protein Neg (Negative) Urine Glucose (UA) Norm (Normal) Urine Ketones 1+ H (Negative) Urine Blood Neg (Negative) Urine Nitrate Negative (Negative) Urine Bilirubin 1+ H (Negative) Urine Urobilinogen 1 H (Negative) mg/dL Ur Leukocyte Aggie ase Negative (Negative) Urine Opiates Scre en (Negative) ng/mL Ur Barbiturates Sc reen (Negative) ng/mL Valproic Acid (50-100) ug/mL Ur Phencyclidine S crn (Negative) ng/mL Ur Amphetamines Sc reen (Negative) ng/mL U Benzodiazepines Scrn (Negative) ng/mL Urine Cocaine Scre en (Negative) ng/mL U Marijuana (THC) Screen (Negative) ng/mL Ethyl Alcohol < 10 (0-10) mg/dL 05/04/20 05/04/20 05/04/20 Range/Units 21:26 22:29 22:29 WBC Cancelled Corrected WBC Cancelled RBC Cancelled Hgb Cancelled Hct Cancelled MCV Cancelled MCH Cancelled MCHC Cancelled RDW Cancelled Plt Count Cancelled MPV Cancelled Gran % Cancelled Neut % (Auto) Cancelled Lymph % (Auto) Cancelled [place] % (Auto) Cancelled Eos % (Auto) Cancelled Baso % (Auto) Cancelled Neut # (Auto) Cancelled Lymph # (Auto) Cancelled [place] # (Auto) Cancelled Eos # (Auto) Cancelled Baso # (Auto) Cancelled Absolute Gran (aut o) Cancelled Nucleated RBC % (a uto) Cancelled Nucleated RBCs # Cancelled Sodium (136-145) mmol/L Potassium (3.5-5.1) mmol/L Chloride (98-107) mmol/L Carbon Dioxide (22-29) mmol/L Anion Gap (5-19) BUN (6-20) mg/dL Creatinine (0.7-1.2) mg/dL GFR Calculation (90-130) mL/min Glucose (65-115) mg/dL Calculated Osmolal ity (285-295) mOsm/k g Calcium (8.5-10.5) mg/dL Magnesium (1.7-2.3) mg/dL Total Bilirubin (0.15-1.2) mg/dL AST (0-40) U/L ALT (0-41) U/L Alkaline Phosphata se (40-130) IU/L Creatine Kinase (39-308) U/L Total Protein (6.6-8.7) g/dL Albumin (3.5-5.2) g/dL Globulin (1.3-4.6) g/dL Urine Color (Yellow) Urine Appearance (CLEAR) Urine pH (5-7) Ur Specific Gravit y (1.005-1.030) Urine Protein (Negative) Urine Glucose (UA) (Normal) Urine Ketones (Negative) Urine Blood (Negative) Urine Nitrate (Negative) Urine Bilirubin (Negative) Urine Urobilinogen (Negative) mg/dL Ur Leukocyte Aggie ase (Negative) Urine Opiates Scre en Negative (Negative) ng/mL Ur Barbiturates Sc reen Negative (Negative) ng/mL Valproic Acid 75.0 (50-100) ug/mL Ur Phencyclidine S crn Negative (Negative) ng/mL Ur Amphetamines Sc reen Negative (Negative) ng/mL U Benzodiazepines Scrn Negative (Negative) ng/mL Urine Cocaine Scre en Negative (Negative) ng/mL U Marijuana (THC) Screen Negative (Negative) ng/mL Ethyl Alcohol (0-10) mg/dL 05/04/20 Range/Units 22:57 WBC 7.1 Corrected WBC RBC 4.44 Hgb 13.5 Hct 42.3 MCV 95.3 H MCH 30.4 MCHC 31.9 RDW 12.8 Plt Count 202 MPV 10.4 Gran % Neut % (Auto) 51.7 Lymph % (Auto) 34.9 [place] % (Auto) 8.8 Eos % (Auto) 3.3 Baso % (Auto) 1.0 Neut # (Auto) 3.65 Lymph # (Auto) 2.5 [place] # (Auto) 0.6 Eos # (Auto) 0.2 Baso # (Auto) 0.1 Absolute Gran (aut o) Nucleated RBC % (a uto) 0 Nucleated RBCs # 0.0 Sodium (136-145) mmol/L Potassium (3.5-5.1) mmol/L Chloride (98-107) mmol/L Carbon Dioxide (22-29) mmol/L Anion Gap (5-19) BUN (6-20) mg/dL Creatinine (0.7-1.2) mg/dL GFR Calculation (90-130) mL/min Glucose (65-115) mg/dL Calculated Osmolal ity (285-295) mOsm/k g Calcium (8.5-10.5) mg/dL Magnesium (1.7-2.3) mg/dL Total Bilirubin (0.15-1.2) mg/dL AST (0-40) U/L ALT (0-41) U/L Alkaline Phosphata se (40-130) IU/L Creatine Kinase (39-308) U/L Total Protein (6.6-8.7) g/dL Albumin (3.5-5.2) g/dL Globulin (1.3-4.6) g/dL Urine Color (Yellow) Urine Appearance (CLEAR) Urine pH (5-7) Ur Specific Gravit y (1.005-1.030) Urine Protein (Negative) Urine Glucose (UA) (Normal) Urine Ketones (Negative) Urine Blood (Negative) Urine Nitrate (Negative) Urine Bilirubin (Negative) Urine Urobilinogen (Negative) mg/dL Ur Leukocyte Aggie ase (Negative) Urine Opiates Scre en (Negative) ng/mL Ur Barbiturates Sc reen (Negative) ng/mL Valproic Acid (50-100) ug/mL Ur Phencyclidine S crn (Negative) ng/mL Ur Amphetamines Sc reen (Negative) ng/mL U Benzodiazepines Scrn (Negative) ng/mL Urine Cocaine Scre en (Negative) ng/mL U Marijuana (THC) Screen (Negative) ng/mL Ethyl Alcohol (0-10) mg/dL Discharge Plan Discharge Patient Disposition: Home Clinical Impression: Epileptic seizure Qualifiers: Epilepsy type: generalized idiopathic Intractability: not intractable Status epilepticus: without status epilepticus Qualified Code(s): G40.309 - Generalized idiopathic epilepsy and epileptic syndromes, not intractable, without status epilepticus Condition: Stable Prescriptions: No Action oxybutynin chloride 5 mg tablet 5 mg PO BID@ RF: 0 atorvastatin 40 mg tablet 40 mg PO DAILY@1999 RF: 0 trazodone 150 mg tablet 150 mg PO BEDTIME@1999 RF: 0 divalproex [Depakote ER] 500 mg tablet extended release 24 hr 1,000 mg PO BID@ RF: 0 acetaminophen 325 mg tablet 650 mg PO Q6H PRN (Reason: PAIN OR FEVER GREATER THAN 100) RF: 0 naproxen sodium 550 mg Tablet 550 mg PO BID PRN (Reason: Pain) RF: 0 omeprazole 20 mg capsule,delayed release(DR/EC) 20 mg PO DAILY@0800 RF: 0 paliperidone 6 mg tablet extended release 24hr 6 mg PO BID@0800,1999 RF: 0 fluvoxamine 50 mg tablet 75 mg PO DAILY@1999 RF: 0 Discharge Orders: Discharge ED (Routine); Ordered 05/04/20 Ordered By: Erich Pemberton Referrals: Baldomero Chacon DO [Primary Care Provider] - 4-7 days Discharge Diet: Advance as tolerated Discharge Activity: Increase activity as tolerated Patient Instructions: Recurrent Seizures Adult (ED) Activity Restrictions/Additional Instructions: Return for mental status changes, continued episodes of seizure, fever greater than 100, any other concerning symptoms Coding Level of Care Code ED Sales Driver for Chg Fwd Exam Comprehensive
[2020-05-04 21:28] LABS: Alanine Aminotransferase 11 U/L (0-41); Albumin Level 4.3 g/dL (3.5-5.2); Alkaline Phosphatase 81 IU/L (40-130); Blood Urea Nitrogen 14 mg/dL (6-20); Calcium 9.1 mg/dL (8.5-10.5); Carbon Dioxide 27 mmol/L (22-29); Chloride 103 mmol/L (98-107); Creatine Phosphokinase 87 U/L (39-308); Globulin 2.3 g/dL (1.3-4.6); Glomerular Filtration Rate 108.2 mL/min (90-130); Glucose 138 mg/dL (65-115); Magnesium 1.9 mg/dL (1.7-2.3); Osmolality Calculated 295 mOsm/kg (285-295); Sodium 141 mmol/L (136-145); Total Bilirubin 0.3 mg/dL (0.15-1.2); Total Protein 6.6 g/dL (6.6-8.7)
[2020-05-04 21:33] LABS: Alcohol Level < 10 mg/dL (0-10)
[2020-05-04 21:34] LABS: Anion Gap 15.3 (5-19); Aspartate Amino Transferase 13 U/L (0-40); Potassium 4.3 mmol/L (3.5-5.1)
[2020-05-04 21:51] LABS: Add Urine Microscopic? NO
[2020-05-04 21:52] LABS: Bilirubin Urine 1+ (Negative); Blood Urine Neg (Negative); Glucose Urine UA Norm (Normal); Ketones Urine 1+ (Negative); Leukocyte Esterase Urine Negative (Negative); Nitrate Urine Negative (Negative); Protein Urine Neg (Negative); Urine Appearance Clear (CLEAR); Urine Color Yellow (Yellow); Urobilinogen Urine 1 mg/dL (Negative); pH Urine 5 (5-7)
[2020-05-04 22:01] LABS: Amphetamines Screen Urine Negative (Negative); Barbiturates Screen Urine Negative (Negative); Benzodiazepines Screen Urine Negative (Negative); Cocaine Screen Urine Negative (Negative); Opiate Screen Urine Negative (Negative); PCP Screen Urine Negative (Negative); THC Screen Urine Negative (Negative)
[2020-05-04 23:00] LABS: Basophils # 0.1 10^3/uL (0.0-0.1); Eosinophils # 0.2 10^3/uL (0.0-0.8); Eosinophils % 3.3 %; Hematocrit 42.3 % (42.0-52.0); Hemoglobin 13.5 g/dL (11.7-16.6); Lymphocytes # 2.5 10^3/uL (0.8-4.8); Lymphocytes % 34.9 %; Mean Corpuscular HGB Conc 31.9 g/dL (30.0-36.0); Mean Corpuscular Hemoglobin 30.4 pg (28.0-34.0); Mean Corpuscular Volume 95.3 fL (80-94); Mean Platelet Volume 10.4 fL (7.4-10.4); Monocytes # 0.6 10^3/uL (0.2-0.9); Monocytes % 8.8 %; Neutrophils # 3.65 10^3/uL (1.8-7.7); Neutrophils % 51.7 %; Nucleated Red Blood Cells % 0 %; Platelet Count 202 10^3/cmm (130-400); Red Blood Count 4.44 10^6/uL (4.1-5.3); Red Cell Distribution Width 12.8 % (12.1-15.1); White Blood Count 7.1 10^3/uL (4.0-10.0)
[2020-05-04 23:30] VITALS: BP 115/64; PULSE 82; RESP 18; O2SAT 98
== END 2020-05-04 23:31 | disposition home or self-care (01) ==
PROVIDERS: Emergency Provider Emergency Medicine; PCP Internal Medicine
DX: G40.309 Generalized idiopathic epilepsy and epileptic syndromes, not intractable, without status epilepticus (principal); F84.0 Autistic disorder; E78.5 Hyperlipidemia, unspecified; F17.210 Nicotine dependence, cigarettes, uncomplicated
CPT/HCPCS: 36415; 80053; 80164; 80306; 80307; 81003; 82550; 83735; 85025; 93005; 99283

== ENCOUNTER 2020-05-05 10:04 | Emergency (ER) | payer MEDICAID, SELFPAY ==
[2020-05-05 10:13] VITALS: BP 123/77; PULSE 96; RESP 18; TEMP 37.3; O2SAT 97; BMI 28.1
[2020-05-05 10:30] VITALS: BP 123/77; PULSE 95; RESP 18; TEMP 37.2; O2SAT 95
--- NOTE | 2020-05-05 10:31 | W.ED.PSYCH ---
HPI - Psych General: Chief Complaint: Psychiatric Symptoms Stated Complaint: AGITATED Time Seen by Provider: 05/05/20 10:07 History of Present Illness: HPI Narrative: 40-year-old male with a history of autism. He was brought in by EMS after having behavioral disturbance at a half-way became very agitated was threatening to himself and others. On arrival here he is well behaved although mostly nonverbal he answers a few simple questions he does not really express any desire to harm himself or others however he did receive Haldol in route in the 8 EMS. MD complaint: suicidal ideation Onset (ago): hour(s) Duration: intermittent History of same: Yes Relieving factors: none Exacerbating factors: none Review of Systems General: Reports: ROS unobtainable due to medical condition PFSH ED PFSH: Medical History Autistic disorder GERD (gastroesophageal reflux disease) Hyperglycemia Hyperlipidemia Peripheral edema Residual schizophrenia Seizure disorder Social History Smoking and tobacco status: current every day smoker cigarettes Smoking risk assessment/counseling performed?: Yes Tobacco counseling given: counseling >3 minutes Physical Exam Const: COMMON NORMALS: no acute distress GENERAL APPEARANCE: cooperative and comfortable HENMT: COMMON NORMALS: normocephalic, atraumatic and hearing grossly normal bilaterally HEAD & SCALP: normocephalic and atraumatic Neck/C-Spine: COMMON NORMALS: no JVD Resp: COMMON NORMALS: normal respiratory effort, No retractions, No use of accessory muscles and clear to auscultation bilaterally AUSCULTATION: clear to auscultation bilaterally Cardio: COMMON NORMALS: no JVD, regular rate, regular rhythm and No murmurs present (Cardio) RATE: regular rate RHYTHM: regular rhythm GI: COMMON NORMALS: Soft to palpation and No hepatosplenomegaly present AUSCULTATION: Yes normoactive bowel sounds PALPATION: Yes Soft to palpation, No Tenderness to palpation present (GI), No Guarding due to palpation present (GI) and Yes No hepatosplenomegaly present Extremity: COMMON NORMALS: normal to inspection, capillary refill normal, no clubbing, cyanosis or edema, no calf tenderness and no pedal edema Skin: COMMON NORMALS: no rashes or lesions noted GENERAL SKIN EXAM: no rashes or lesions noted MDM - Psych MDM Narrative: Medical decision making narrative: [address] Hooks for consult regarding this patient. Dr. Hooks seen the patient he does not feel he would benefit from hospitalization be discharged home follow-up with his behavioral health team within the week. Lab Data: Labs: Lab Results 05/05/20 05/05/20 Range/Units 10:53 10:53 WBC 5.4 (4.0-10.0) 10^3/ uL RBC 4.63 (4.1-5.3) 10^6/u L Hgb 14.2 (11.7-16.6) g/dL Hct 42.5 (42.0-52.0) % MCV 91.8 (80-94) fL MCH 30.7 (28.0-34.0) pg MCHC 33.4 (30.0-36.0) g/dL RDW 12.6 (12.1-15.1) % Plt Count 220 (130-400) 10^3/c mm MPV 10.3 (7.4-10.4) fL Neut % (Auto) 62.4 % Lymph % (Auto) 26.0 % [place] % (Auto) 9.2 % Eos % (Auto) 1.3 % Baso % (Auto) 0.9 % Neut # (Auto) 3.34 (1.8-7.7) 10^3/u L Lymph # (Auto) 1.4 (0.8-4.8) 10^3/u L [place] # (Auto) 0.5 (0.2-0.9) 10^3/u L Eos # (Auto) 0.1 (0.0-0.8) 10^3/u L Baso # (Auto) 0.1 (0.0-0.1) 10^3/u L Nucleated RBC % (a uto) 0 % Nucleated RBCs # 0.0 /100WBC Sodium 141 (136-145) mmol/L Potassium 3.8 (3.5-5.1) mmol/L Chloride 106 (98-107) mmol/L Carbon Dioxide 26 (22-29) mmol/L Anion Gap 12.8 (5-19) BUN 13 (6-20) mg/dL Creatinine 0.7 (0.7-1.2) mg/dL GFR Calculation 126.2 (90-130) mL/min Glucose 107 (65-115) mg/dL Calculated Osmolal ity 293 (285-295) mOsm/k g Calcium 8.7 (8.5-10.5) mg/dL Total Bilirubin 0.3 (0.15-1.2) mg/dL AST 11 (0-40) U/L ALT 10 (0-41) U/L Alkaline Phosphata se 78 (40-130) IU/L Total Protein 6.8 (6.6-8.7) g/dL Albumin 4.2 (3.5-5.2) g/dL Globulin 2.6 (1.3-4.6) g/dL Salicylates < 0.3 L (3-10) mg/dL Acetaminophen < 5.0 L (10-30) ug/mL Discharge Plan Discharge Patient Disposition: Home Clinical Impression: Behavioral problems, Autistic disorder, Intellectual disability Condition: Stable Prescriptions: No Action oxybutynin chloride 5 mg tablet 5 mg PO BID@, RF: 0 atorvastatin 40 mg tablet 40 mg PO DAILY@1999 RF: 0 trazodone 150 mg tablet 150 mg PO BEDTIME RF: 0 divalproex [Depakote ER] 500 mg tablet extended release 24 hr See Rx Instructions .ROUTE .COMPLEX RF: 0 acetaminophen 325 mg tablet 650 mg PO Q6H PRN (Reason: PAIN OR FEVER GREATER THAN 100) RF: 0 fluvoxamine 50 mg tablet 75 mg PO BEDTIME RF: 0 haloperidol 5 mg Tablet 5 mg PO BID PRN (Reason: Agitation) RF: 0 Milk of Magnesia 400 mg/5 mL Suspension 30 ml PO DAILY PRN (Reason: Constipation) RF: 0 pantoprazole 40 mg Tablet,Delayed Release (Dr/Ec) 40 mg PO DAILY@08 RF: 0 hydroxyzine HCl 25 mg Tablet 25 mg PO BID PRN (Reason: Anxiety) RF: 0 Flonase 50 mcg/actuation [place],Suspension 1 spray INTRANASAL DAILY@08 RF: 0 Abilify 30 mg Tablet 30 mg PO DAILY@08 RF: 0 Refresh Relieva 0.5-0.9 % drops 1 drp ophthalmic (eye) QID PRN (Reason: UNKNOWN) RF: 0 Tussin DM 10 ml PO Q4H PRN (Reason: Cough) RF: 0 Discharge Orders: Discharge ED (Routine); Ordered 05/05/20 Ordered By: Ehsan Hagen Referrals: Baldomero Chacon DO [Primary Care Provider] - Discharge Diet: Usual diet Discharge Activity: Resume usual activity Patient Instructions: Opioid Safety Activity Restrictions/Additional Instructions: Follow-up with psychiatry or behavioral health team next week no change in medications. Coding Level of Care Code ED Acid Correction Hand for Joelleng Fwd Exam Comprehensive
[2020-05-05 11:01] LABS: Basophils # 0.1 10^3/uL (0.0-0.1); Basophils % 0.9 %; Eosinophils # 0.1 10^3/uL (0.0-0.8); Eosinophils % 1.3 %; Hematocrit 42.5 % (42.0-52.0); Hemoglobin 14.2 g/dL (11.7-16.6); Lymphocytes # 1.4 10^3/uL (0.8-4.8); Mean Corpuscular HGB Conc 33.4 g/dL (30.0-36.0); Mean Corpuscular Hemoglobin 30.7 pg (28.0-34.0); Mean Corpuscular Volume 91.8 fL (80-94); Mean Platelet Volume 10.3 fL (7.4-10.4); Monocytes # 0.5 10^3/uL (0.2-0.9); Monocytes % 9.2 %; Neutrophils # 3.34 10^3/uL (1.8-7.7); Neutrophils % 62.4 %; Nucleated Red Blood Cells % 0 %; Platelet Count 220 10^3/cmm (130-400); Red Blood Count 4.63 10^6/uL (4.1-5.3); Red Cell Distribution Width 12.6 % (12.1-15.1); White Blood Count 5.4 10^3/uL (4.0-10.0)
[2020-05-05 11:20] LABS: Alanine Aminotransferase 10 U/L (0-41); Albumin Level 4.2 g/dL (3.5-5.2); Alkaline Phosphatase 78 IU/L (40-130); Anion Gap 12.8 (5-19); Aspartate Amino Transferase 11 U/L (0-40); Blood Urea Nitrogen 13 mg/dL (6-20); Calcium 8.7 mg/dL (8.5-10.5); Carbon Dioxide 26 mmol/L (22-29); Chloride 106 mmol/L (98-107); Creatinine Clr Calc Pharmacy 150.9883; Globulin 2.6 g/dL (1.3-4.6); Glomerular Filtration Rate 126.2 mL/min (90-130); Glucose 107 mg/dL (65-115); Osmolality Calculated 293 mOsm/kg (285-295); Potassium 3.8 mmol/L (3.5-5.1); Sodium 141 mmol/L (136-145); Total Bilirubin 0.3 mg/dL (0.15-1.2); Total Protein 6.8 g/dL (6.6-8.7)
[2020-05-05 11:24] LABS: Acetaminophen < 5.0 ug/mL (10-30); Salicylate < 0.3 mg/dL (3-10)
== END 2020-05-05 13:09 | disposition home or self-care (01) ==
PROVIDERS: Emergency Provider Family Medicine; PCP Internal Medicine
DX: R46.89 Other symptoms and signs involving appearance and behavior (principal); F84.0 Autistic disorder; E78.5 Hyperlipidemia, unspecified; F17.210 Nicotine dependence, cigarettes, uncomplicated
CPT/HCPCS: 80053; 80307; 85025; 99282

== ENCOUNTER 2020-05-08 08:40 | Outpatient (CLI) | payer MEDICAID, SELFPAY ==
--- NOTE | 2020-05-08 08:45 | USCV_ITS ---
Yadiel Melo Age: 40 Gender: M : 1980 Exam Date: 05/08/2020 08:55 Ordering Phys: Benjamin Gao M.D ([email or web address]) Technologist: Marita Chavarria Exam Location: [facility] [place] Indication: CHEST PAIN BP: / HR: 61 Rhythm: Sinus Technical Quality: Adequate MEASUREMENTS (Male / Female) Normal Values 2D ECHO LV Diastolic Diameter PLAX 4.6 cm 4.2 - 5.9 / 3.9 - 5.3 cm LV Systolic Diameter PLAX 2.7 cm LV Chamber Size 4.1 cm IVS Diastolic Thickness 1.2 cm 0.6 - 1.0 / 0.6 - 0.9 cm IVS Systolic Thickness 1.7 cm LVPW Diastolic Thickness 1.0 cm 0.6 - 1.0 / 0.6 - 0.9 cm LVPW Systolic Thickness 1.6 cm RV Chamber Size 3.0 cm LVOT Diameter 2.0 cm LV Ejection Fraction 2D Teich 72.1 % LV Ejection Fraction MOD 2C 62.5 % LV Ejection Fraction 2C AL 63.9 % LA Diameter 3.0 cm LA Width 3.3 cm LA Height 4.3 cm RA Width 2.2 cm RA Height 2.8 cm Aorta at Sinotubular Diameter 3.3 cm M-MODE LV Diastolic Diameter MM 4.2 cm 4.2 - 5.9 / 3.9 - 5.3 cm LV Systolic Diameter MM 2.5 cm LV Ejection Fraction MM Teich 73.1 % IVS Diastolic Thickness MM 1.5 cm 0.6 - 1.0 / 0.6 - 0.9 cm IVS Systolic Thickness MM 1.8 cm LVPW Diastolic Thickness MM 1.3 cm 0.6 - 1.0 / 0.6 - 0.9 cm LVPW Systolic Thickness MM 1.7 cm RV Diastolic Diameter MM 1.3 cm Aortic Annulus Diameter 3.0 cm LA Ao Ratio MM 1.1 MV E Point Septal Separation 0.4 cm DOPPLER AV Peak Velocity 130.0 cm/s LVOT Peak Velocity 83.0 cm/s AV Area Cont Eq vti 2.2 cm squared AV Area Cont Eq pk 2.0 cm squared MV Area PHT 4.4 cm squared Mitral E to A Ratio 1.0 MV E' Velocity 49.5 cm/s Mitral E to MV E' Ratio 9.3 Mitral E to LV E' Lateral Ratio 8.0 Mitral E to LV E' Septal Ratio 11.4 TR Peak Velocity 112.8 cm/s TR Peak Gradient 5.1 mmHg TR Mean Velocity 80.8 cm/s TR Mean Gradient 3.0 mmHg TR Velocity Time Integral 28.7 cm TV Peak E Velocity 60.0 cm/s PV Peak Velocity 80.0 cm/s FINDINGS Left Ventricle Normal left ventricular size. LV systolic function is normal with EF of 55-60%. No regional wall motion abnormalities. Normal diastolic filling pattern. Right Ventricle The right ventricle is normal in size and function. Right Atrium The right atrium is normal in size. Left Atrium The left atrium is normal in size. Mitral Valve Structurally normal mitral valve without significant stenosis or prolapse. There is no mitral regurgitation. Aortic Valve Structurally normal aortic valve without significant sclerosis or stenosis. There is no aortic regurgitation. Tricuspid Valve Structurally normal tricuspid valve without significant stenosis or regurgitation. RVSP is normal. Pulmonic Valve Structurally normal pulmonic valve without significant stenosis. There is no pulmonic regurgitation. Pericardium Normal pericardium without effusion. Aorta Normal ascending aorta dimension. CONCLUSIONS LV systolic function is normal with EF of 55-60% Diastolic function is normal No significant valvular heart disease No comparison studies are available Benjamin Gao MD (Electronically Signed) Final Date: 11 May 2020 17:39 S
== END 2020-05-08 08:41 | disposition home or self-care (01) ==
LOC: US 08:41
PROVIDERS: PCP Internal Medicine; Visit Provider Internal Medicine
DX: R07.9 Chest pain, unspecified (principal)
CPT/HCPCS: 93306

== ENCOUNTER 2020-05-16 08:48 | Outpatient (CLI) | payer MEDICAID, SELFPAY ==
[2020-05-16 09:16] VITALS: BMI 31.9
--- NOTE | 2020-05-16 09:28 | ECG_ITS ---
[facility] Test Date: 2020-05-16 Pat Name: Yadiel Melo Department: Room: Gender: Male Humane Officer: Yessica Ringgold : 1980 Requested By: Benjamin Gao Order Number: [id number] Luis MD: Benjamin Gao M.D. Interpretive Statements NAME OF STUDY: LEXISCAN SESTAMIBI STRESS TEST INDICATION: [Chest Pain] Procedure: At the baseline, blood pressure was 119/64 mmHg, with a heart rate of 61 bpm. The electrocardiogram showed normal sinus rhythm, normal axis with normal ST and T waves. The Lexiscan was infused over a duration of 20 seconds. A total of 0.4 mg of Lexiscan was infused. Stress phase was continued for a total of 5 minutes. Heart rate at the end of stress phase was 79 bpm, with a blood pressure of 126/70 mmHg. The EKG at the peak infusion revealed sinus rhythm with no significant ST-T wave changes. Sestamibi was injected 20 seconds after the Lexiscan infusion. Blood pressure at the end of recovery phase was 111/68 mmHg, with a heart rate of 78 bpm. Conclusion: 1. Normal EKG response to Lexiscan infusion. 2. No Lexiscan induced chest pain or cardiac arrhythmia. 3. Normal blood pressure and heart rate response. 4. Sestamibi/sestamibi perfusion scan pending; see separate report. Electronically Signed On 06-12-2020 12:42:55 CDT by Benjamin Gao M.D. [email or web address]
--- NOTE | 2020-05-16 09:28 | NMCV_ITS ---
NM miguel perf SPECT r/s* [id number] Kameron Yadiel Age: 40 Gender: M : 1980 Exam Date: 05/16/2020 10:11 Ordering Phys: Benjamin Gao M.D ([email or web address]) Technologist: ROBERTA Hernandez Exam Location: [facility] Indications: CHEST PAIN STRESS TEST Please [facility] IMAGE PROTOCOL Rest/Stress 1 Lexiscan Day Radiopharmaceutical Dose (mCi) Administration Site Administered by Rest: Tc-99m 10.6 IV ROBERTA Law Sestamibi Stress:Tc-99m 32.8 IV ROBERTA Law Sestamibi Rest: 16-May-2020 60 Discovery 630 Stress: 16-May-2020 30 Discovery 630 0.4mg Lexiscan. Supine position only as patient was unable to lay prone. SPECT RESULTS Technical Quality: Excellent Raw Data Analysis: Normal Image Corrections: No attenuation or motion correction applied Summed Stress Score: 0 Summed Rest Score: 0 Summed Difference Score: 0 PERFUSION FINDINGS There is homogenous radiotracer uptake throughout the myocardium. No evidence of ischemia FUNCTIONAL RESULTS (calculated via Gated SPECT) Stress Image LV EF (%): 73 Stress EDV (mL):94 TID: 0.79 Stress ESV (mL):25 FUNCTIONAL FINDINGS: There is normal left ventricular systolic function. IMPRESSIONS 1. Normal myocardial perfusion imaging with no evidence of ischemia 2. LV systolic function is normal Benjamin Gao MD (Electronically Signed) Final Date: 16 May 2020 12:47 S
[2020-05-16 10:49] VITALS: BP 119/63; PULSE 69
[2020-05-16] MEDS: regadenoson 0.4 Mg/5 ml Syringe IVP (11:11)
== END 2020-05-16 08:49 | disposition home or self-care (01) ==
PROVIDERS: PCP Internal Medicine; Visit Provider Internal Medicine
DX: R07.9 Chest pain, unspecified (principal)
CPT/HCPCS: 78452; 93017; A9500; J2785

== ENCOUNTER 2020-09-21 21:30 | Emergency (ER) | payer MEDICAID, SELFPAY ==
[2020-09-21 21:36] VITALS: BP 108/72; PULSE 99; RESP 18; TEMP 37.2; O2SAT 96; BMI 30.7
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
== END 2020-09-21 22:48 | disposition home or self-care (01) ==
PROVIDERS: Emergency Provider Emergency Medicine; PCP Internal Medicine
DX: S00.03XA Contusion of scalp, initial encounter (principal); F84.0 Autistic disorder; E78.5 Hyperlipidemia, unspecified; W22.8XXA Striking against or struck by other objects, initial encounter; Y92.199 Unspecified place in other specified residential institution as the place of occurrence of the external cause
CPT/HCPCS: 99282

== ENCOUNTER → 2021-01-08 13:00 | Outpatient (BNVA) | payer MEDICAID, SELFPAY | PROVIDERS: PCP Internal Medicine; Visit Provider Family Medicine | DX: F41.9 Anxiety disorder, unspecified (principal); E11.9 Type 2 diabetes mellitus without complications; G47.00 Insomnia, unspecified; G40.909 Epilepsy, unspecified, not intractable, without status epilepticus; E78.5 Hyperlipidemia, unspecified; K21.9 Gastro-esophageal reflux disease without esophagitis; S46.912A Strain of unspecified muscle, fascia and tendon at shoulder and upper arm level, left arm, initial encounter; X58.XXXA Exposure to other specified factors, initial encounter | CPT/HCPCS: 80053; 80061; 83036; 84443; 85025 ==

== ENCOUNTER 2021-01-20 20:54 | Inpatient (IN) | payer MEDICAID, SELFPAY ==
[2021-01-20 21:01] VITALS: BP 136/73; PULSE 105; RESP 18; TEMP 36.3; O2SAT 100; BMI 31.1
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
[2021-01-20 21:53] LABS: Basophils # 0.1 10^3/uL (0.0-0.1); Basophils % 0.8 %; Eosinophils # 0.2 10^3/uL (0.0-0.8); Eosinophils % 2.5 %; Hematocrit 41.3 % (42.0-52.0); Hemoglobin 13.7 g/dL (11.7-16.6); Lymphocytes # 1.8 10^3/uL (0.8-4.8); Lymphocytes % 21.8 %; Mean Corpuscular HGB Conc 33.2 g/dL (30.0-36.0); Mean Corpuscular Hemoglobin 30.7 pg (28.0-34.0); Mean Corpuscular Volume 92.6 fl (80-94); Mean Platelet Volume 9.9 fL (7.4-10.4); Monocytes # 0.8 10^3/uL (0.2-0.9); Monocytes % 9.3 %; Neutrophils # 5.41 10^3/uL (1.8-7.7); Neutrophils % 65.4 %; Nucleated Red Blood Cells % 0 %; Platelet Count 207 10^3/cmm (130-400); Red Blood Count 4.46 10^6/uL (4.1-5.3); Red Cell Distribution Width 13.2 % (12.1-15.1); White Blood Count 8.3 10^3/uL (4.0-10.0)
[2021-01-20 22:09] LABS: Alanine Aminotransferase 12 U/L (0-41); Albumin Level 4.5 g/dL (3.5-5.2); Alkaline Phosphatase 60 IU/L (40-130); Aspartate Amino Transferase 15 U/L (0-40); Blood Urea Nitrogen 19 mg/dL (6-20); Calcium 8.6 mg/dL (8.5-10.5); Carbon Dioxide 27 mmol/L (22-29); Chloride 103 mmol/L (98-107); Globulin 2.1 g/dL (1.3-4.6); Glomerular Filtration Rate 108.2 mL/min (90-130); Glucose 104 mg/dL (65-115); Osmolality Calculated 293 mOsm/kg (285-295); Sodium 140 mmol/L (136-145); Total Bilirubin 0.2 mg/dL (0.15-1.2); Total Protein 6.6 g/dL (6.6-8.7)
[2021-01-20 22:11] LABS: Acetaminophen < 5.0 ug/mL (10-30); Alcohol Level < 10 mg/dL (0-10); Salicylate < 0.3 mg/dL (3-10)
[2021-01-20 22:13] LABS: Add Urine Microscopic? NO; Charge for UA Resulting for Rev
[2021-01-20 22:25] LABS: Bilirubin Urine Neg (Negative); Blood Urine Neg (Negative); Glucose Urine UA Norm (Normal); Ketones Urine 1+ (Negative); Leukocyte Esterase Urine Negative (Negative); Nitrate Urine Negative (Negative); Protein Urine Neg (Negative); Urine Appearance Clear (CLEAR); Urine Color Yellow (Yellow); Urobilinogen Urine 1 mg/dL (Negative); pH Urine 5 (5-7)
[2021-01-20 22:26] LABS: Amphetamines Screen Urine Negative (Negative); Barbiturates Screen Urine Negative (Negative); Benzodiazepines Screen Urine Negative (Negative); Cocaine Screen Urine Negative (Negative); Opiate Screen Urine Negative (Negative); PCP Screen Urine Negative (Negative); THC Screen Urine Negative (Negative)
[2021-01-21 01:13] VITALS: BP 129/78; PULSE 90; RESP 16; O2SAT 100
[2021-01-21 01:20] VITALS: BP 137/74; PULSE 94; RESP 21; TEMP 36.7; O2SAT 99
[2021-01-21 06:00] VITALS: BP 136/70; PULSE 100; RESP 16; TEMP 36.9; O2SAT 99
[2021-01-21] MEDS: atorvastatin 40 mg Tablet PO (09:09)
[2021-01-21] MEDS: ibuprofen 800 mg tablet PO ×3 (09:09→21:28)
[2021-01-21] MEDS: ARIPiprazole 30 mg Tablet PO (09:09)
[2021-01-21] MEDS: divalproex ER 500 mg Tablet (24H) PO (09:09)
[2021-01-21] MEDS: pantoprazole DR 40 mg Tablet PO (09:09)
[2021-01-21] MEDS: oxybutynin 5 mg Tablet PO ×2 (10:21→21:28)
--- NOTE | 2021-01-21 13:00 | NPU.GN ---
[facility] Group Topic:Whine Barrel / Discussion General Mood of Group: Yadiel did attend group and participated . He was calm and social with others in group. His hygiene was ok .
[2021-01-21 14:00] VITALS: BP 122/76; PULSE 77; RESP 18; TEMP 36.4; O2SAT 100
--- NOTE | 2021-01-21 14:09 | P.NPUHP_ITS ---
Providers/Chief Complaint Admitting Physician: Hany Hooks MD Primary Care Provider: Baldomero Chacon DO Chief Complaint: [place]\SI\Hurt others\Property damage HPI NPU History of Present Illness Yadiel Melo is a 40 year old male who presented to the ED with the following report: Chief Complaint: Psychiatric Symptoms Stated Complaint: [place]\SI\Hurt others\Property damage Time Seen by Provider: 01/20/21 21:29 History of Present Illness: HPI Narrative: Patient is a 40-year-old male comes to the ED with SI and HI. Patient lives at a longterm and has a roommate. Past medical history of type 2 diabetes, seizures, autism, hyperlipi demia, GERD, anxiety, intellectual disability and schizophrenia. Today patient started getting aggressive and very violent at his home. He was headbutting the wall and punched and broke a window. He then threatened to slit his wrist with a broken glass and also was threatening to attack his roommate with a broken glass. He was admitting that he wanted to hurt people especially his roommate. The staff with patient was helping provide history and said that patient usually does not act like this. She is unaware of anything that would have caused his behavior today. No recent medication changes. Associated symptoms: Reports homicidal ideation and suicidal ideation. He was admitted to the neuropsychiatric unit for definitive treatment of those issues. Patient is well-known to this public relations writer through past hospitalizations and there is a clear pattern. He presents after a impulsive and/or aggressive behavior and by the time he is admitted he is already saying that he is ready to go home and denying any issues. He has been hospitalized for a few days to 24 hours with notable changes in outcomes after discharge. He has periodic explosions and then later calms down. Discussed with the people at his home that the admission was purely a safety measure to give him time to decide what they were going to do to manage safety moving forward as he from the moment he had the floor was saying that he did not want to hurt anyone and he was just angry and could not control his impulses. There have been no changes in his outpatient reality. Excerpts from his last hospitalization is included below for context. Per his 04/02/2020 [facility] inpatient psychiatric evaluation: History of Present Illness Yadiel Melo is a 39 year old male with history of autistic disorder and schizophrenia presented to the emergency department after throwing himself on the ground well outside of the house on a trip sustaining a laceration above his eyebrow. Per report, patient had been endorsing suicidal ideation as well as thoughts about hurting other people and worsening depressive symptoms. Patient frequently presents to the emergency department on a near monthly basis with similar complaints related to behavioral disturbances due to underlying autistic disorder as well as perceptual disturbances that have been previously reported as schizophrenia. Per previous episodes of care, patient typically quickly reconstitutes and requests to go home. Patient currently denying any suicidal ideation or thoughts about harming others. When initially asked about depressive symptoms he denied any depressive symptoms but then subsequently reports some depressive symptoms recently. Patient is a difficult historian secondary to his autism and presents in a very childlike manner with brief responses. He currently denies any perceptual disturbances, denies any auditory or visual hallucinations and denies any delusions. Patient states, I was having behaviors and hurt myself. Per his 04/04/2020 [facility] inpatient psychiatric discharge summary: Hospital Course 39 year old male with history of autistic disorder and schizophrenia presented to the emergency department after throwing himself on the ground well outside of the house on a trip sustaining a laceration above his eyebrow. Per report, patient had been endorsing suicidal ideation as well as thoughts about hurting other people and worsening depressive symptoms. At the time of initial evaluation patient had reported ongoing low mood symptoms but was unable to report for how long only stating that he had decreased interest in his usual activities. He did admit to having suicidal thoughts although was currently denying any suicidal ideation or thoughts about self-harm. Patient states that he enjoys being at his longterm and enjoys watching TV and playing video games. Patient's fluvoxamine was increased to fluvoxamine 75 mg targeting mood symptoms with no reports of any medication side effects. Patient quickly reconstituted and never endorsed any suicidal thoughts throughout his hospital stay and participate in unit milieu with no reports of any behavioral disturbances. Of note, patient typically reconstitutes quite quickly on this unit with no behavioral problems throughout his hospital stays. Patient was not suicidal at the time of discharge and did not appear to pose an imminent threat of harm to self or others. Patient is low to moderate risk of harm to self or others given no current suicidal ideation and no current endorsement of psychiatric symptoms although patient historically has a pattern of intermittently being impulsive or demonstrating behavioral problems in the context of his environment which could lead to unexpected behavior not intended by the patient. Risk mitigation during this hospitalization was observation, increasing his fluvoxamine as well as coordinating for safe discharge. Behavioral modification and redirection in his living environment in conjunction with medication and medication management follow-up compliance will likely further mitigate this risk. Psychiatric review of systems is otherwise negative. Meds NPU Home Medications Medication Instructions Recorded Confirmed Last Taken Type atorvastatin 40 mg tablet 40 mg PO DAILY 03/08/19 01/21/21 05/04/20 History oxybutynin chloride 5 mg tablet 5 mg PO BID 03/08/19 01/21/21 05/05/20 08:00 History divalproex [Depakote ER] 500 mg PO TID 04/01/20 01/21/21 01/20/21 20:00 History trazodone 150 mg PO BEDTIME 04/01/20 01/21/21 05/04/20 History acetaminophen 650 mg PO Q6H PRN 05/04/20 01/21/21 Unknown History fluvoxamine 75 mg PO BEDTIME 05/04/20 01/21/21 05/04/20 History Tussin DM 10 ml PO Q4H PRN 05/05/20 01/21/21 Unknown History aripiprazole [Abilify] 30 mg PO DAILY 05/05/20 01/21/21 05/05/20 08:00 History carboxymethylcellulose-glycern 1 drp OPHTHALMIC (EYE) QID PRN 05/05/20 01/21/21 01/20/21 20:30 History [Refresh Relieva] haloperidol 5 mg PO BID PRN 05/05/20 01/21/21 Unknown History hydroxyzine HCl 25 mg PO BID PRN 05/05/20 01/21/21 05/05/20 08:54 History magnesium hydroxide [Milk of 30 ml PO DAILY PRN 05/05/20 01/21/21 Unknown History Magnesia] pantoprazole 40 mg PO DAILY 05/05/20 01/21/21 05/05/20 History cetirizine 10 mg tablet 10 mg PO DAILY PRN #30 tab 01/08/21 01/21/21 Unknown Rx fluticasone propionate 50 1 spray INTRANASAL DAILY PRN 01/08/21 01/21/21 Unknown History mcg/actuation nasal spray,suspension ibuprofen 800 mg tablet 800 mg PO TID #30 tab 01/08/21 01/21/21 Unknown Rx phenol 1.4 % mucosal aerosol spray 4 spray MUCOUS MEMBRANE Q4H PRN 01/08/21 01/21/21 Unknown Rx #177 ml Allergies Allergy/AdvReac Type Severity Reaction Status Date / Time lorazepam Allergy Unknown Verified 01/08/21 10:42 pseudoephedrine Allergy Unknown Verified 01/08/21 10:42 Sulfa (Sulfonamide Allergy Unknown Verified 01/08/21 10:42 Antibiotics) tuberculin, purified protein Allergy Unknown Verified 01/08/21 10:42 deriva PFSH NPU PFSH: Medical History Autistic disorder GERD (gastroesophageal reflux disease) Hyperglycemia Hyperlipidemia Peripheral edema Residual schizophrenia Seizure disorder Social History Smoking and tobacco status: current every day smoker cigarettes Smoking risk assessment/counseling performed?: Yes Tobacco counseling given: counseling >3 minutes Alcohol intake: never Caregiver/support person: Yes Household members: caregiver and other Marital status: Single Current occupational status: disabled Current gender identity: Male Mental Status Exam MSE Comments: This is an obese white male with adequate and eye contact. No abnormal movements except for psychomotor retardation and occasional maneuver he brings his hands up to his eyes and face and then he shakes as if he is almost shivering after answering a question. Cooperative with exam in no acute dist ress. Speech was limited and decreased rate and volume and mildly dysarthric. Mood described as good, affect slightly subdued. Thought process linear. Thought content: Patient denied suicidal or homicidal ideations, there were no delusions reported or noted, he denied any auditory visual hallucination. Attention centration appeared intact and memory was limited but mostly appeared reliable but none were formally tested. He is alert and oriented x3. Insight and judgment are impaired, impulse control appears limited, intellectual ability is impaired. Vitals/I&O/Wt Last Vital Signs Temp 98.4 F 01/21/21 06:00 Pulse 100 01/21/21 06:00 Resp 16 01/21/21 06:00 BP 136/70 01/21/21 06:00 Pulse Ox 99 01/21/21 06:00 Weight last 48 hrs Weight 92.986 kg Data NPU : 01/20/21 21:45 01/20/21 21:45 A&P Assessment and plan (1) Suicidal behavior with attempted self-injury: Status: Acute (2) Homicidal ideation: Status: Acute (3) Left shoulder strain: Status: Acute (4) Anxiety: Status: Acute (5) Insomnia: Status: Acute (6) Diabetes type 2, controlled: Status: Acute (7) Seizure disorder: Status: Acute (8) Autistic disorder: Status: Acute (9) Hyperglycemia: Status: Acute (10) Hyperlipidemia: Status: Acute Qualifiers: Hyperlipidemia type: unspecified Qualified Code(s): E78.5 - Hyperlipidemia, unspecified (11) GERD (gastroesophageal reflux disease): Status: Acute Qualifiers: Esophagitis presence: esophagitis presence not specified Qualified Code(s): K21.9 - Gastro-esophageal reflux disease without esophagitis (12) Intellectual disability: Status: Acute (13) Residual schizophrenia: Status: Acute (14) Viral URI with cough: Status: Acute (15) Peripheral edema: Status: Acute Additional A&P Information This is a 40-year-old white male with a long history of intellectual disability, autism and history of schizophrenia who presents after an episode at his facility much like previous episodes that are significant enough to lead to an evaluation in emergency room with varying levels of aggression, but generally he returns to being calm almost immediately and is discharged quickly. 1. Continue current medication. Reality is that these occasional outbursts can be expected given his condition. 2. Continue every 15 minute checks for safety. 3. Encourage individual, group and milieu therapy. 4. Will work with facility to get him home sooner rather than later. We will allow them at least till tomorrow to be able to determine how they are going to manage safety after discharge. Involuntary Hold Information 96 Hour Hold: 96 Hour Involuntary Admission: No Attestations NPU Medical Necessity Statement*: Inpatient hospitalization is medically necessary and the clinically appropriate intervention at this time. We will monitor medications and make changes as indicated. We will get collateral information from guardian and longterm. Given the impulsive nature of his diagnoses minus clear signs of decompensation it would be appropriate to discharge him as soon as he is deemed safe. Likely length of stay 1 to 4 days. 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
[2021-01-21] MEDS: trazodone 150 mg Tablet PO (21:28)
[2021-01-21] MEDS: divalproex ER 500 mg Tablet (24H) 1000 MG PO (21:28)
[2021-01-21 21:36] VITALS: BP 121/71; PULSE 67; RESP 15; TEMP 36.9; O2SAT 99
[2021-01-21 22:23] LABS: Glucose Point of Care 119 mg/dL (70-110)
[2021-01-22 06:19] VITALS: BP 112/76; PULSE 67; RESP 18; TEMP 36.6; O2SAT 99
[2021-01-22 06:44] LABS: Glucose Point of Care 105 mg/dL (70-110)
[2021-01-22] MEDS: divalproex ER 500 mg Tablet (24H) PO (08:39)
[2021-01-22] MEDS: atorvastatin 40 mg Tablet PO (08:39)
[2021-01-22] MEDS: oxybutynin 5 mg Tablet PO (08:39)
[2021-01-22] MEDS: ARIPiprazole 30 mg Tablet PO (08:39)
[2021-01-22] MEDS: ibuprofen 800 mg tablet PO (08:39)
[2021-01-22] MEDS: pantoprazole DR 40 mg Tablet PO (08:39)
--- NOTE | 2021-01-22 11:40 | P.NPUDS_ITS ---
Diagnoses at Discharge Discharge Diagnosis (1) Suicidal behavior with attempted self-injury: Status: Acute (2) Homicidal ideation: Status: Resolved (3) Left shoulder strain: Status: Acute (4) Anxiety: Status: Acute (5) Insomnia: Status: Acute (6) Diabetes type 2, controlled: Status: Acute (7) Seizure disorder: Status: Acute (8) Autistic disorder: Status: Acute (9) Hyperglycemia: Status: Acute (10) Hyperlipidemia: Status: Acute Qualifiers: Hyperlipidemia type: unspecified Qualified Code(s): E78.5 - Hyperlipidemia, unspecified (11) GERD (gastroesophageal reflux disease): Status: Acute Qualifiers: Esophagitis presence: esophagitis presence not specified Qualified Code(s): K21.9 - Gastro-esophageal reflux disease without esophagitis (12) Intellectual disability: Status: Acute (13) Residual schizophrenia: Status: Acute (14) Viral URI with cough: Status: Acute (15) Peripheral edema: Status: Acute Reason for Visit Reason for Visit: [place]\SI\Hurt others\Property damage Brief Histo ry: History of Present Illness Yadiel Melo is a 40 year old male who presented to the ED with the following report: Chief Complaint: Psychiatric Symptoms Stated Complaint: [place]\SI\Hurt others\Property damage Time Seen by Provider: 01/20/21 21:29 History of Present Illness: HPI Narrative: Patient is a 40-year-old male comes to the ED with SI and HI. Patient lives at a half-way and has a roommate. Past medical history of type 2 diabetes, seizures, autism, hyperlipidemia, GERD, anxiety, intellectual disability and schizophrenia. Today patient started getting aggressive and very violent at his home. He was headbutting the wall and punched and broke a window. He then threatened to slit his wrist with a broken glass and also was threatening to attack his roommate with a broken glass. He was admitting that he wanted to hurt people especially his roommate. The staff with patient was helping provide history and said that patient usually does not act like this. She is unaware of anything that would have caused his behavior today. No recent medication changes. Associated symptoms: Reports homicidal ideation and suicidal ideation. He was admitted to the neuropsychiatric unit for definitive treatment of those issues. Patient is well-known to this commercial lines underwriter through past hospitalizations and there is a clear pattern. He presents after a impulsive and/or aggressive behavior and by the time he is admitted he is already saying that he is ready to go home and denying any issues. He has been hospitalized for a few days to 24 hours with notable changes in outcomes after discharge. He has periodic explosions and then later calms down. Discussed with the people at his home that the admission was purely a safety measure to give him time to decide what they were going to do to manage safety moving forward as he from the moment he had the floor was saying that he did not want to hurt anyone and he was just angry and could not control his impulses. There have been no changes in his outpatient reality. Excerpts from his last hospitalization is included below for context. Per his 04/02/2020 [facility] inpatient psychiatric evaluation: History of Present Illness Yadiel Melo is a 39 year old male with history of autistic disorder and schizophrenia presented to the emergency department after throwing himself on the ground well outside of the house on a trip sustaining a laceration above his eyebrow. Per report, patient had been endorsing suicidal ideation as well as thoughts about hurting other people and worsening depressive symptoms. Patient frequently presents to the emergency department on a near monthly basis with similar complaints related to behavioral disturbances due to underlying autistic disorder as well as perceptual disturbances that have been previously reported as schizophrenia. Per previous episodes of care, patient typically quickly reconstitutes and requests to go home. Patient currently denying any suicidal ideation or thoughts about harming others. When initially asked about depressive symptoms he denied any depressive symptoms but then subsequently reports some depressive symptoms recently. Patient is a difficult historian secondary to his autism and presents in a very childlike manner with brief responses. He currently denies any perceptual disturbances, denies any auditory or visual hallucinations and denies any delusions. Patient states, I was having behaviors and hurt myself. Per his 04/04/2020 [facility] inpatient psychiatric discharge summary: Hospital Course 39 year old male with history of autistic disorder and schizophrenia presented to the emergency department after throwing himself on the ground well outside of the house on a trip sustaining a laceration above his eyebrow. Per report, patient had been endorsing suicidal ideation as well as thoughts about hurting other people and worsening depressive symptoms. At the time of initial evaluation patient had reported ongoing low mood symptoms but was unable to report for how long only stating that he had decreased interest in his usual activities. He did admit to having suicidal thoughts although was currently denying any suicidal ideation or thoughts about self-harm. Patient states that he enjoys being at his half-way and enjoys watching TV and playing video games. Patient's fluvoxamine was increased to fluvoxamine 75 mg targeting mood symptoms with no reports of any medication side effects. Patient quickly reconstituted and never endorsed any suicidal thoughts throughout his hospital stay and participate in unit milieu with no reports of any behavioral disturbances. Of note, patient typically reconstitutes quite quickly on this unit with no behavioral problems throughout his hospital stays. Patient was not suicidal at the time of discharge and did not appear to pose an imminent threat of harm to self or others. Patient is low to moderate risk of harm to self or others given no current suicidal ideation and no current endorsement of psychiatric symptoms although patient historically has a pattern of intermittently being impulsive or demonstrating behavioral problems in the context of his environment which could lead to unexpected behavior not intended by the patient. Risk mitigation during this hospitalization was observation, increasing his fluvoxamine as well as coordinating for safe discharge. Behavioral modification and redirection in his living environment in conjunction with medication and medication management follow-up compliance will likely further mitigate this risk. Psychiatric review of systems is otherwise negative. Hospital Course Hospital Course He quickly acclimated to the individual, group and milieu therapy provided. Like most hospitalizations he was not having residual anger or feelings about the episode that occurred as he has impulse control issues which he will always have. Given the intensity of the situation we admitted him to give some time for clean up and planning for how to manage him when he is discharged. A contract for safety prior to discharge. During the hospitalization, patient had routine laboratory studies which were within normal limits except for few outliers. Additionally there was a general medical evaluation which was also within normal limits and revealed no new acute processes. Discharge Summary: At the time of discharge, he denied psychosis or lethality. Mood and anxiety were well managed. Patient endorsed a plan to follow-up with the aftercare recommendations of the treatment team. Patient was evaluated and deemed to be absent credible lethality, and had achieved the maximum benefit from an inpatient hospitalization, so was discharged. Involuntary Hold Information 96 Hour Hold: 96 Hour Involuntary Admission: No Mental Status Exam MSE Comments: This is an obese white male with adequate and eye contact. No abnormal movements except for psychomotor retardation and occasional maneuver he brings his hands up to his eyes and face and then he shakes as if he is almost shivering after answering a question. Cooperative with exam in no acute distress. Speech was limited and decreased rate and volume and mildly dysarthric. Mood described as good, affect slightly subdued. Thought process linear. Thought content: Patient denied suicidal or homicidal ideations, there were no delusions reported or noted, he denied any auditory visual hallucination. Attention centration appeared intact and memory was limited but mostly appeared reliable but none were formally tested. He is alert and oriented x3. Insight and judgment are impaired, impulse control appears limited, intellectual ability is impaired. Discharge Data Data Completed and Pending: Labs from last 24 hours 01/22/21 01/21/21 06:41 06:13 POC Glucose 105 119 H Vitals: Last Vital Signs Temp 97.8 F 01/22/21 06:19 Pulse 67 01/22/21 06:19 Resp 18 01/22/21 06:19 BP 112/76 01/22/21 06:19 Pulse Ox 99 01/22/21 06:19 Discharge Plan Discharge Patient Disposition: Home Condition: Stable Prescriptions: Continued cetirizine [Zyrtec] 10 mg tablet 10 mg PO DAILY PRN (Reason: allergy symptoms) Qty: 30 RF: 3 Chloraseptic Throat [place] 1.4 % aerosol,spray 4 spray mucous membrane Q4H PRN (Reason: sore throat) Qty: 177 RF: 3 fluticasone propionate 50 mcg/actuation spray,suspension 1 spray INTRANASAL DAILY PRN (Reason: Congestion) RF: 0 ibuprofen 800 mg tablet 800 mg PO TID Qty: 30 RF: 0 oxybutynin chloride 5 mg tablet 5 mg PO BID RF: 0 atorvastatin 40 mg tablet 40 mg PO DAILY RF: 0 trazodone 150 mg tablet 150 mg PO BEDTIME RF: 0 divalproex [Depakote ER] 500 mg tablet extended release 24 hr 500 mg PO TID RF: 0 acetaminophen 325 mg tablet 650 mg PO Q6H PRN (Reason: PAIN OR FEVER GREATER THAN 100) RF: 0 fluvoxamine 50 mg tablet 75 mg PO BEDTIME RF: 0 haloperidol 5 mg Tablet 5 mg PO BID PRN (Reason: Agitation) RF: 0 magnesium hydroxide [Milk of Magnesia] 400 mg/5 mL Suspension 30 ml PO DAILY PRN (Reason: Constipation) RF: 0 pantoprazole 40 mg Tablet,Delayed Release (Dr/Ec) 40 mg PO DAILY RF: 0 hydroxyzine HCl 25 mg Tablet 25 mg PO BID PRN (Reason: Anxiety) RF: 0 aripiprazole [Abilify] 30 mg Tablet 30 mg PO DAILY RF: 0 Refresh Relieva 0.5-0.9 % drops 1 drp ophthalmic (eye) QID PRN (Reason: UNKNOWN) RF: 0 Tussin DM 10 ml PO Q4H PRN (Reason: Cough) RF: 0 Discharge Orders: Discharge Order (Routine); Ordered 01/22/21 Ordered By: Hany Hooks Referrals: Baldomeor Chacon DO [Primary Care Provider] - Discharge Diet: Diabetic Discharge Activity: Resume usual activity Patient Instructions: Opioid Safety Discharge Attestations NPU Time Spent in Discharge Care*: less than 30 min Specific Discharge Activities: Specific discharge activities: educating patient, discussing with disease case manager/social workers/dc planners, documenting/other paperwork and evaluating patient/reviewing data Status at Discharge: Cognitive status at discharge: mildly impaired cognition , Behavioral status at discharge: cooperative , Coding Level of Care Code Acute Chg FW DC note Diagnoses Suicidal behavior with attempted self-injury T14.91XA Homicidal ideation R45.850 Left shoulder strain S46.912A Anxiety F41.9 Insomnia G47.00 Diabetes type 2, controlled E11.9 Seizure disorder G40.909 Autistic disorder F84.0 Hyperglycemia R73.9 Hyperlipidemia E78.5 Hyperlipidemia type: unspecified GERD (gastroesophageal reflux disease) K21.9 Esophagitis presence: esophagitis presence not specified Intellectual disability F79 Residual schizophrenia F20.5 Viral URI with cough J06.9 Peripheral edema R60.9
[2021-01-22 11:49] VITALS: BP 112/76; PULSE 67; RESP 18; TEMP 36.6; O2SAT 99
== END 2021-01-22 13:07 | disposition home or self-care (01) | DRG 885 ==
LOC: ER 23:59 → NP 01-21 06:57
PROVIDERS: Admitting Provider Psychiatry & Neurology Psychiatry; Emergency Provider Physician Assistant; PCP Internal Medicine; Visit Provider Psychiatry & Neurology Psychiatry
DX: F20.5 Residual schizophrenia (principal); R45.851 Suicidal ideations; F84.0 Autistic disorder; R45.850 Homicidal ideations; F41.9 Anxiety disorder, unspecified; G47.00 Insomnia, unspecified; E11.9 Type 2 diabetes mellitus without complications; G40.909 Epilepsy, unspecified, not intractable, without status epilepticus; K21.9 Gastro-esophageal reflux disease without esophagitis; F17.210 Nicotine dependence, cigarettes, uncomplicated; Z91.51 Personal history of suicidal behavior
CPT/HCPCS: 36415; 36416; 80053; 80306; 80307; 81003; 82962; 85025; 97150; 97165; 99285

== ENCOUNTER 2021-02-09 10:41 | Emergency (ER) | payer MEDICAID, SELFPAY ==
--- NOTE | 2021-02-09 11:02 | W.ED.SEIZURE ---
HPI - Seizure General: Chief Complaint: Seizure Stated Complaint: SEIZURES Time Seen by Provider: 02/09/21 10:44 History of Present Illness: HPI Narrative: 40-year-old male who presents emergency room. He is part of a long-term. He got into a argument with another housemate became quite emotional staff was trying to restrain him he became agitated and began what they described as shaking. He continued to have intentional movements and even vocalize things during this time. That was what the staff had recognized as a possible seizure. He was poorly responsive for a time after that. He has a history of schizophrenia and autism has been hospitalized in the past. He is on Depakote he is not on any other antiseizure medicines he is being referred for evaluation for seizures because of previous episodes like this. complaint: possible seizure Onset (ago): minute(s) Witnessed: Yes - by Bystander Trauma: No Seizure History: Yes (Questionable) Place: Home Associated symptoms: Deny chest pain, chills, confusion, cough, diaphoresis, fever(s), malaise, rash, short of breath, syncope or weakness Treatments prior to arrival: none Review of Systems Const: Denies: fever(s), chills, malaise or diaphoresis ENMT: Denies: throat pain, ear or mastoid pain, nasal discharge or nasal congestion Card: Denies: chest pain or syncope Resp: Denies: dyspnea, productive cough or non-productive cough GI: Denies: abdominal pain, nausea, vomiting, hematemesis, coffee ground emesis, diarrhea, constipation, bloating, hematochezia or melena : Denies: flank pain, dysuria, urinary frequency or urinary urgency Skin/Breast: Denies: rash or pruritus Neuro: Denies: confusion PFSH ED PFSH: Medical History Autistic disorder GERD (gastroesophageal reflux disease) Hyperglycemia Hyperlipidemia Peripheral edema Residual schizophrenia Seizure disorder Social History Smoking risk assessment/counseling performed?: Yes Tobacco counseling given: counseling >3 minutes Alcohol intake: never Caregiver/support person: Yes Household members: caregiver and other Marital status: Single Current occupational status: disabled Current gender identity: Male Physical Exam Const: GENERAL APPEARANCE: cooperative and comfortable ORIENTATION/CONSCIOUSNESS: Yes awake HENMT: COMMON NORMALS: normocephalic, atraumatic and hearing grossly normal bilaterally HEAD & SCALP: normocephalic and atraumatic Neck/C-Spine: COMMON NORMALS: no JVD Resp: COMMON NORMALS: normal respiratory effort, No retractions, No use of accessory muscles and clear to auscultation bilaterally AUSCULTATION: clear to auscultation bilaterally Cardio: COMMON NORMALS: no JVD, regular rate, regular rhythm and No murmurs present (Cardio) RATE: regular rate RHYTHM: regular rhythm GI: COMMON NORMALS: Soft to palpation and No hepatosplenomegaly present AUSCULTATION: Yes normoactive bowel sounds PALPATION: Yes Soft to palpation, No Tenderness to palpation present (GI), No Guarding due to palpation present (GI) and Yes No hepatosplenomegaly present Extremity: COMMON NORMALS: normal to inspection, capillary refill normal, no clubbing, cyanosis or edema, no calf tenderness and no pedal edema Skin: COMMON NORMALS: no rashes or lesions noted GENERAL SKIN EXAM: no rashes or lesions noted Course Vital Signs: Vital signs: Vital Signs Temperature 97.3 F L 02/09/21 11:03 Pulse Rate 71 02/09/21 11:11 Respiratory Rate 16 02/09/21 11:11 Blood Pressure 120/61 02/09/21 11:11 Pulse Oximetry 94 02/09/21 11:11 MDM - Seizure MDM Narrative: Medical decision making narrative: Staff describes an episode of the patient was essentially had purposeful movements the entire time but he does some shaking. He had no postictal phase. He took direction while he was having these shaking episodes we will go ahead and discharge him back to the long-term. He should have an outpatient EEG at a later date. Lab Data: Labs: Lab Results 02/09/21 02/09/21 11:13 11:13 WBC 6.3 10^3/uL 10^3/ uL (4.0-10.0) RBC 4.51 10^6/uL 10^6 /uL (4.1-5.3) Hgb 13.8 g/dL g/dL (11.7-16.6) Hct 42.0 % % (42.0-52.0) MCV 93.1 fl fl (80-94) MCH 30.6 pg pg (28.0-34.0) MCHC 32.9 g/dL g/dL (30.0-36.0) RDW 12.8 % % (12.1-15.1) Plt Count 235 10^3/cmm 10^3 /cmm (130-400) MPV 10.3 fL fL (7.4-10.4) Neut % (Auto) 57.2 % % Lymph % (Auto) 31.5 % % [place] % (Auto) 7.0 % % Eos % (Auto) 3.0 % % Baso % (Auto) 1.0 % % Neut # (Auto) 3.60 10^3/uL 10^3 /uL (1.8-7.7) Lymph # (Auto) 2.0 10^3/uL 10^3/ uL (0.8-4.8) [place] # (Auto) 0.4 10^3/uL 10^3/ uL (0.2-0.9) Eos # (Auto) 0.2 10^3/uL 10^3/ uL (0.0-0.8) Baso # (Auto) 0.1 10^3/uL 10^3/ uL (0.0-0.1) Nucleated RBC % (a uto) 0 % % Nucleated RBCs # 0.0 /100WBC /100W BC Sodium 141 mmol/L mmol/L (136-145) Potassium 3.9 mmol/L mmol/L (3.5-5.1) Chloride 104 mmol/L mmol/L (98-107) Carbon Dioxide 25 mmol/L mmol/L (22-29) Anion Gap 15.9 (5-19) BUN 13 mg/dL mg/dL (6-20) Creatinine 0.7 mg/dL mg/dL (0.7-1.2) GFR Calculation 126.2 mL/min mL/m in (90-130) Glucose 128 mg/dL H mg/dL (65-115) Calculated Osmolal ity 294 mOsm/kg mOsm/ kg (285-295) Calcium 8.5 mg/dL mg/dL (8.5-10.5) Magnesium 1.7 mg/dL mg/dL (1.7-2.3) Total Bilirubin 0.2 mg/dL mg/dL (0.15-1.2) AST 12 U/L U/L (0-40) ALT 17 U/L U/L (0-41) Alkaline Phosphata se 70 IU/L IU/L (40-130) Creatine Kinase 77 U/L U/L (39-308) Total Protein 6.5 g/dL L g/dL (6.6-8.7) Albumin 4.3 g/dL g/dL (3.5-5.2) Globulin 2.2 g/dL g/dL (1.3-4.6) Discharge Plan Discharge Patient Disposition: Home Clinical Impression: Seizure disorder, Autistic disorder, Residual schizophrenia, Diabetes type 2, controlled, Intellectual disability Condition: Stable Prescriptions: No Action cetirizine [Zyrtec] 10 mg tablet 10 mg PO DAILY PRN (Reason: allergy symptoms) Qty: 30 RF: 3 Chloraseptic Throat [place] 1.4 % aerosol,spray 4 spray mucous membrane Q4H PRN (Reason: sore throat) Qty: 177 RF: 3 fluticasone propionate 50 mcg/actuation spray,suspension 1 spray INTRANASAL DAILY PRN (Reason: Congestion) RF: 0 ibuprofen 800 mg tablet 800 mg PO TID Qty: 30 RF: 0 oxybutynin chloride 5 mg tablet 5 mg PO BID RF: 0 atorvastatin 40 mg tablet 40 mg PO DAILY RF: 0 trazodone 150 mg tablet 150 mg PO BEDTIME RF: 0 divalproex [Depakote ER] 500 mg tablet extended release 24 hr 500 mg PO TID RF: 0 acetaminophen 325 mg tablet 650 mg PO Q6H PRN (Reason: PAIN OR FEVER GREATER THAN 100) RF: 0 fluvoxamine 50 mg tablet 75 mg PO BEDTIME RF: 0 haloperidol 5 mg Tablet 5 mg PO BID PRN (Reason: Agitation) RF: 0 magnesium hydroxide [Milk of Magnesia] 400 mg/5 mL Suspension 30 ml PO DAILY PRN (Reason: Constipation) RF: 0 pantoprazole 40 mg Tablet,Delayed Release (Dr/Ec) 40 mg PO DAILY RF: 0 hydroxyzine HCl 25 mg Tablet 25 mg PO BID PRN (Reason: Anxiety) RF: 0 aripiprazole [Abilify] 30 mg Tablet 30 mg PO DAILY RF: 0 Refresh Relieva 0.5-0.9 % drops 1 drp ophthalmic (eye) QID PRN (Reason: UNKNOWN) RF: 0 Tussin DM 10 ml PO Q4H PRN (Reason: Cough) RF: 0 Discharge Orders: Discharge ED (Routine); Ordered 02/09/21 Ordered By: Ehsan Hagen Referrals: Baldomero Chacon DO [Primary Care Provider] - Discharge Diet: Usual diet Patient Instructions: Opioid Safety Activity Restrictions/Additional Instructions: cancer registry manager will make arrangements for an outpatient EEG. Coding Level of Care Code ED Rivet Heater Gas for Chg Fwd Exam Comprehensive
[2021-02-09 11:03] VITALS: BP 120/61; PULSE 81; RESP 20; TEMP 36.3; O2SAT 94; BMI 29.0
[2021-02-09 11:11] VITALS: BP 120/61; PULSE 71; RESP 16; O2SAT 94
--- NOTE | 2021-02-09 11:12 | XRR_ITS ---
PROCEDURE INFORMATION: Exam: XR Chest Exam date and time: 02/09/2021 11:12 AM Age: 40 years old Clinical indication: Cough and dyspnea; Additional info: Dyspnea/cough TECHNIQUE: Imaging protocol: XR of the chest. Views: 1 view. COMPARISON: CR XR chest 2V* [id number] 06/27/2020 10:23 AM FINDINGS: Lungs: Mildly increased lung markings, likely secondary to low lung volumes. No consolidation. Pleural spaces: Unremarkable. No pleural effusion. No pneumothorax. Heart/Mediastinum: Stable cardiomediastinal silhouette. Bones/joints: Unremarkable. XR/XR chest 1V portable [id number] IMPRESSION: No evidence of active cardiopulmonary disease.
--- NOTE | 2021-02-09 11:12 | ECG_ITS ---
[facility] Test Date: 2021-02-09 Pat Name: Yadiel Melo Department: Room: Gender: Male Bit Shaver: : 1980 Requested By: Ehsan Chambers Order Number: [id number] Luis MD: Josafat Ames M.D. Measurements Intervals [place] Rate: 70 P: 20 NH: 167 QRS: 6 QRSD: 96 T: 41 QT: 349 QTc: 378 Interpretive Statements SINUS RHYTHM Compared to ECG 05/04/2020 21:41:13 No significant changes Electronically Signed On 02-09-2021 15:02:39 SHOEMAKING FINISHER by Josafat Ames M.D. [id number]
--- NOTE | 2021-02-09 11:22 | PC.NURSE ---
Pt arrived via EMS from [facility] where pt resides. Staff from [facility] arrived and is at bedside. Staff reports pt was arguing with roommate, pt and roommate were , pt began having shaking episode, pt was assisted onto the couch and staff attempted to talkk with pt to calm pt down. Staff reports pts eyes rolled back in his head, seizure lasted approximately 30 minutes during which pt was intermittently talking with staff . Pt did not experience any incontinence of bowel or bladder at that time. Pt A/O x4, vss, pt placed on monitor.
[2021-02-09 11:26] LABS: Basophils # 0.1 10^3/uL (0.0-0.1); Eosinophils # 0.2 10^3/uL (0.0-0.8); Hemoglobin 13.8 g/dL (11.7-16.6); Lymphocytes % 31.5 %; Mean Corpuscular HGB Conc 32.9 g/dL (30.0-36.0); Mean Corpuscular Hemoglobin 30.6 pg (28.0-34.0); Mean Corpuscular Volume 93.1 fl (80-94); Mean Platelet Volume 10.3 fL (7.4-10.4); Monocytes # 0.4 10^3/uL (0.2-0.9); Neutrophils % 57.2 %; Nucleated Red Blood Cells % 0 %; Platelet Count 235 10^3/cmm (130-400); Red Blood Count 4.51 10^6/uL (4.1-5.3); Red Cell Distribution Width 12.8 % (12.1-15.1); White Blood Count 6.3 10^3/uL (4.0-10.0)
[2021-02-09 11:50] LABS: Alanine Aminotransferase 17 U/L (0-41); Albumin Level 4.3 g/dL (3.5-5.2); Alkaline Phosphatase 70 IU/L (40-130); Anion Gap 15.9 (5-19); Aspartate Amino Transferase 12 U/L (0-40); Blood Urea Nitrogen 13 mg/dL (6-20); Calcium 8.5 mg/dL (8.5-10.5); Carbon Dioxide 25 mmol/L (22-29); Chloride 104 mmol/L (98-107); Creatine Phosphokinase 77 U/L (39-308); Globulin 2.2 g/dL (1.3-4.6); Glomerular Filtration Rate 126.2 mL/min (90-130); Glucose 128 mg/dL (65-115); Magnesium 1.7 mg/dL (1.7-2.3); Osmolality Calculated 294 mOsm/kg (285-295); Potassium 3.9 mmol/L (3.5-5.1); Sodium 141 mmol/L (136-145); Total Bilirubin 0.2 mg/dL (0.15-1.2); Total Protein 6.5 g/dL (6.6-8.7)
--- NOTE | 2021-02-13 15:18 | DCPLANNER ---
Addendum entered by Liliana Du 05/03/21 12:27: Patient had a follow up appointment scheduled for 04.22.21 for an EEG - patient did attend appointment. Addendum entered by Liliana Du 03/08/21 14:47: Patient has an EEG scheduled for Thursday April 22, 2021 at 1:00 with neurology. Clinic will call patient with appointment information. Original Note: manager cosmetics had message to schedule an outpatient EEG for patient. manager cosmetics faxed signed order to centralized scheduling, who will call patient with appointment information.
== END 2021-02-09 13:01 | disposition home or self-care (01) ==
PROVIDERS: Emergency Provider Family Medicine; PCP Internal Medicine
DX: G40.909 Epilepsy, unspecified, not intractable, without status epilepticus (principal); F84.0 Autistic disorder; F20.5 Residual schizophrenia; E11.9 Type 2 diabetes mellitus without complications; F79 Unspecified intellectual disabilities; E78.5 Hyperlipidemia, unspecified; Z77.22 Contact with and (suspected) exposure to environmental tobacco smoke (acute) (chronic)
CPT/HCPCS: 71045; 80053; 82550; 83735; 85025; 93005; 99283; 99291

== ENCOUNTER 2021-02-09 16:31 | Emergency (ER) | payer MEDICAID, SELFPAY ==
--- NOTE | 2021-02-09 16:32 | ED_ITS ---
HPI - Seizure General: Chief Complaint: Seizure Stated Complaint: SEIZURE Time Seen by Provider: 02/09/21 16:32 History of Present Illness: HPI Narrative: 40-year-old male who was here earlier today with a complaint of seizure. In doing the history he had gotten excitable and he had shaking which was interpreted as a seizure but he was doing purposeful movements and intermittently talking a little time for a time after that he was not talking at all. He was evaluated. He has had these episodes before they have been questionable as to whether or not there is seizures and is being referred to neurology. He has not had an EEG. He has a history of autism and schizophrenia he is on multiple medications for schizophrenia. He is also on Depakote. Was recommended to complete the planned out patient work-up and we added an EEG to be scheduled next week. Patient returns now having another episode similar to the first. Initially the caregiver states he had another seizure he was having these type tremors in the exam room she stated they were usually much worse than the. He again had purposeful movement the whole time and was talking through the episodes prior to coming in according to EMS. Caregiver stated that as well. After reviewing discussing at the bedside recommended that we continue with our plan of outpatient work-up. The still do not sound like seizures and and recommended that we would do the EEG before initiating any medications. Caregiver then stated that the patient had been threatening himself and others that he tried to run out into traffic that he does this frequently. Patient denies any suicidal or homicidal ideation. He answered no to the screening questions. Dr. Hooks was consulted. While we are setting up for Dr. Hooks to be consulted via video conference the caregiver states he has had several episodes of passing out. Labs done earlier were reviewed. complaint: seizure Onset (ago): minute(s) -: second(s) Trauma: No Seizure History: Yes (Questionable) Place: Home Possible Precipitating Event: stress Associated symptoms: Deny chest pain, chills, fever(s) or malaise Review of Systems Const: Denies: fever(s), chills, body aches, change in appetite, fatigue or malaise ENMT: Denies: throat pain, ear or mastoid pain, nasal discharge or nasal congestion Card: Denies: chest pain, edema, dyspnea on exertion or orthopnea Resp: Denies: dyspnea, productive cough or non-productive cough GI: Denies: abdominal pain, nausea, vomiting, hematemesis, coffee ground emesis, diarrhea, constipation, bloating, hematochezia or melena : Denies: flank pain, dysuria, urinary frequency or urinary urgency Skin/Breast: Denies: rash or pruritus PFSH ED PFSH: Medical History Autistic disorder GERD (gastroesophageal reflux disease) Hyperglycemia Hyperlipidemia Peripheral edema Residual schizophrenia Seizure disorder Social History Smoking risk assessment/counseling performed?: Yes Tobacco counseling given: counseling >3 minutes Alcohol intake: never Caregiver/support person: Yes Household members: caregiver and other Marital status: Single Current occupational status: disabled Current gender identity: Male Physical Exam Const: COMMON NORMALS: no acute distress GENERAL APPEARANCE: cooperative and comfortable HENMT: COMMON NORMALS: normocephalic, atraumatic and hearing grossly normal bilaterally HEAD & SCALP: normocephalic and atraumatic Eye: COMMON NORMALS: Equal, round and reactive pupils present, EOMs intact bilaterally, conjunctivae normal and no scleral icterus CONJUNCTIVA: Yes conjunctivae normal PUPIL: Yes Equal, round and reactive pupils present Neck/C-Spine: COMMON NORMALS: full ROM, no lymphadenopathy, supple and no JVD Resp: COMMON NORMALS: normal respiratory effort, No retractions, No use of accessory muscles and clear to auscultation bilaterally AUSCULTATION: clear to auscultation bilaterally Cardio: COMMON NORMALS: no JVD, regular rate, regular rhythm and No murmurs present (Cardio) RATE: regular rate RHYTHM: regular rhythm GI: COMMON NORMALS: Soft to palpation and No hepatosplenomegaly present AUSCULTATION: Yes normoactive bowel sounds PALPATION: Yes Soft to palpation, No Tenderness to palpation present (GI), No Guarding due to palpation present (GI) and Yes No hepatosplenomegaly present Extremity: COMMON NORMALS: normal to inspection, capillary refill normal, no clubbing, cyanosis or edema, no calf tenderness and no pedal edema Skin: COMMON NORMALS: no rashes or lesions noted GENERAL SKIN EXAM: no rashes or lesions noted Course Vital Signs: Vital signs: Vital Signs Temperature 97.6 F 02/09/21 16:35 Pulse Rate 78 01/01/22 16:35 Respiratory Rate 16 02/09/21 16:35 Blood Pressure 122/54 02/09/21 16:35 Pulse Oximetry 96 02/09/21 16:35 MDM - Seizure MDM Narrative: Medical decision making narrative: Dr. Hooks is seen the patient and agrees he does not recommend hospitalization for this patient. He is very familiar with this patient please see his consultation notes we will go ahead and discharge patient home continue plan for outpatient EEG. Discharge Plan Discharge Patient Disposition: Home Clinical Impression: Behavioral problems Condition: Stable Prescriptions: No Action cetirizine [Zyrtec] 10 mg tablet 10 mg PO DAILY PRN (Reason: allergy symptoms) Qty: 30 RF: 3 Chloraseptic Throat [place] 1.4 % aerosol,spray 4 spray mucous membrane Q4H PRN (Reason: sore throat) Qty: 177 RF: 3 fluticasone propionate 50 mcg/actuation spray,suspension 1 spray INTRANASAL DAILY PRN (Reason: Congestion) RF: 0 ibuprofen 800 mg tablet 800 mg PO TID Qty: 30 RF: 0 oxybutynin chloride 5 mg tablet 5 mg PO BID RF: 0 atorvastatin 40 mg tablet 40 mg PO DAILY RF: 0 trazodone 150 mg tablet 150 mg PO BEDTIME RF: 0 divalproex [Depakote ER] 500 mg tablet extended release 24 hr 500 mg PO TID RF: 0 acetaminophen 325 mg tablet 650 mg PO Q6H PRN (Reason: PAIN OR FEVER GREATER THAN 100) RF: 0 fluvoxamine 50 mg tablet 75 mg PO BEDTIME RF: 0 haloperidol 5 mg Tablet 5 mg PO BID PRN (Reason: Agitation) RF: 0 magnesium hydroxide [Milk of Magnesia] 400 mg/5 mL Suspension 30 ml PO DAILY PRN (Reason: Constipation) RF: 0 pantoprazole 40 mg Tablet,Delayed Release (Dr/Ec) 40 mg PO DAILY RF: 0 hydroxyzine HCl 25 mg Tablet 25 mg PO BID PRN (Reason: Anxiety) RF: 0 aripiprazole [Abilify] 30 mg Tablet 30 mg PO DAILY RF: 0 Refresh Relieva 0.5-0.9 % drops 1 drp ophthalmic (eye) QID PRN (Reason: UNKNOWN) RF: 0 Tussin DM 10 ml PO Q4H PRN (Reason: Cough) RF: 0 Discharge Orders: Discharge ED (Routine); Ordered 02/09/21 Ordered By: Ehsan Hagen Referrals: Baldomero Chacon DO [Primary Care Provider] - Patient Instructions: Opioid Safety Coding Level of Care Code ED Supervisor Machine Setter for Chg Fwd Exam Comprehensive
[2021-02-09 16:35] VITALS: BP 122/54; PULSE 78; RESP 16; TEMP 36.4; O2SAT 96; BMI 28.1
== END 2021-02-09 18:10 | disposition home or self-care (01) ==
PROVIDERS: Emergency Provider Family Medicine; PCP Internal Medicine
DX: R46.89 Other symptoms and signs involving appearance and behavior (principal); E78.5 Hyperlipidemia, unspecified; R73.9 Hyperglycemia, unspecified
CPT/HCPCS: 99282

== ENCOUNTER 2021-03-10 22:33 | Emergency (ER) | payer MEDICAID, SELFPAY ==
[2021-03-10 22:43] VITALS: BP 110/66; PULSE 96; RESP 16; O2SAT 97
--- NOTE | 2021-03-10 22:58 | ED.C_ITS ---
HPI - Psych General: Chief Complaint: Psychiatric Symptoms Stated Complaint: SI Time Seen by Provider: 03/10/21 22:35 Source: patient and EMS Mode of arrival: EMS Limitations: no limitations History of Present Illness: 40-year-old male is here with EMS after getting upset. He has a history of low mental functioning lives at a senior care. 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 He had slammed his head into the wall and said that he no longer wanted to live. He is much more calm here states that he feels better does not want to kill himself currently Associated symptoms: Reports depression Review of Systems Const: Denies: fever(s), chills, body aches or change in appetite Eyes: Denies: blurry vision or eye discomfort ENMT: Denies: throat pain or dental pain Card: Denies: chest pain Resp: Denies: dyspnea GI: Denies: abdominal pain, nausea, vomiting or diarrhea : Denies: dysuria Musc: Denies: neck pain or back pain Skin/Breast: Denies: rash Neuro: Denies: headache(s) Psych: Reports: depression and mood swings [place]/Lymph: Denies: easy bruising All/Imm: Denies: urticaria PFSH ED PFSH: Medical History Autistic disorder GERD (gastroesophageal reflux disease) Hyperglycemia Hyperlipidemia Peripheral edema Residual schizophrenia Seizure disorder Social History Smoking risk assessment/counseling performed?: Yes Tobacco counseling given: counseling >3 minutes Alcohol intake: never Caregiver/support person: Yes Household members: caregiver and other Marital status: Single Current occupational status: disabled Current gender identity: Male Physical Exam Const: COMMON NORMALS: no acute distress, patient oriented x3 and healthy appearing HENMT: COMMON NORMALS: normocephalic and atraumatic HEAD & SCALP: normocephalic and atraumatic Eye: COMMON NORMALS: Equal, round and reactive pupils present and EOMs intact bilaterally PUPIL: Yes Equal, round and reactive pupils present Neck/C-Spine: COMMON NORMALS: full ROM and supple Chest: COMMONS NORMALS: normal inspection of the chest and normal palpation of entire chest wall Resp: COMMON NORMALS: normal respiratory effort, No retractions, No use of accessory muscles and clear to auscultation bilaterally AUSCULTATION: clear to auscultation bilaterally Cardio: COMMON NORMALS: regular rate, regular rhythm and No murmurs present (Cardio) RATE: regular rate RHYTHM: regular rhythm GI: COMMON NORMALS: Normal to inspection, nondistended, normoactive bowel sounds present, Soft to palpation, non-tender and no masses PALPATION: Yes Soft to palpation Extremity: COMMON NORMALS: normal to inspection and full ROM Neuro: COMMON NORMALS: patient oriented x3, moves all extremities and no focal motor deficits Psych: COMMON NORMALS: mental status grossly normal, Normal thought process present and cooperative THOUGHT PROCESS: Normal thought process present Skin: COMMON NORMALS: no rashes or lesions noted and no wounds GENERAL SKIN EXAM: no rashes or lesions noted Course Vital Signs: Vital signs: Vital Signs Pulse Rate 96 03/10/21 22:43 Respiratory Rate 16 03/10/21 22:43 Blood Pressure 110/66 03/10/21 22:43 Pulse Oximetry 97 03/10/21 22:43 [facility] - Psych Medical Decision Making Patient presents here with an anger outburst after she said loss. Has been calm here had Dr. Hooks evaluate him who agrees with me that he is no threat to himself or others discharge back into care of caregiver return if worsening follow-up [facility] they understand agree to plan. Discharge Plan Discharge Patient Disposition: Home Clinical Impression: Depression, Outbursts of anger Condition: Stable Prescriptions: No Action cetirizine [Zyrtec] 10 mg tablet 10 mg PO DAILY PRN (Reason: allergy symptoms) Qty: 30 3RF Chloraseptic Throat [place] 1.4 % aerosol,spray 4 spray mucous membrane Q4H PRN (Reason: sore throat) Qty: 177 3RF fluticasone propionate 50 mcg/actuation spray,suspension 1 spray INTRANASAL DAILY PRN (Reason: Congestion) 0RF ibuprofen 800 mg tablet 800 mg PO TID Qty: 30 0RF oxybutynin chloride 5 mg tablet 5 mg PO BID 0RF atorvastatin 40 mg tablet 40 mg PO DAILY 0RF trazodone 150 mg tablet 150 mg PO BEDTIME 0RF divalproex [Depakote ER] 500 mg tablet extended release 24 hr 500 mg PO TID 0RF acetaminophen 325 mg tablet 650 mg PO Q6H PRN (Reason: PAIN OR FEVER GREATER THAN 100) 0RF fluvoxamine 50 mg tablet 75 mg PO BEDTIME 0RF haloperidol 5 mg Tablet 5 mg PO BID PRN (Reason: Agitation) 0RF magnesium hydroxide [Milk of Magnesia] 400 mg/5 mL Suspension 30 ml PO DAILY PRN (Reason: Constipation) 0RF pantoprazole 40 mg Tablet,Delayed Release (Dr/Ec) 40 mg PO DAILY 0RF hydroxyzine HCl 25 mg Tablet 25 mg PO BID PRN (Reason: Anxiety) 0RF aripiprazole [Abilify] 30 mg Tablet 30 mg PO DAILY 0RF Refresh Relieva 0.5-0.9 % drops 1 drp ophthalmic (eye) QID PRN (Reason: UNKNOWN) 0RF Tussin DM 10 ml PO Q4H PRN (Reason: Cough) 0RF Discharge Orders: Discharge ED (Routine); Ordered 03/10/21 Ordered By: Adilson Bethea Referrals: Baldomero Chacon DO [Primary Care Provider] - Discharge Diet: Advance as tolerated Discharge Activity: Resume usual activity Patient Instructions: Depression (ED) Coding Level of Care Code ED Lidding Machine Operator for Chg Fwd Exam Comprehensive
--- NOTE | 2021-03-11 13:29 | DCPLANNER ---
it manager had message to speak with patient about services at [facility]. it manager spoke with caregiver, was told that patient has all of the services set up with [facility] and other organizations.
== END 2021-03-10 23:44 | disposition home or self-care (01) ==
PROVIDERS: Emergency Provider Emergency Medicine; PCP Internal Medicine
DX: F32.A Depression, unspecified (principal); R45.4 Irritability and anger; E78.5 Hyperlipidemia, unspecified; F84.0 Autistic disorder
CPT/HCPCS: 99283

== ENCOUNTER 2021-03-11 20:29 | Inpatient (IN) | payer MEDICAID, SELFPAY ==
[2021-03-11 20:32] VITALS: BP 117/65; PULSE 100; RESP 18; TEMP 37; O2SAT 96; BMI 29.0
--- NOTE | 2021-03-11 20:58 | ED.C_ITS ---
HPI - Psych General: Chief Complaint: Psychiatric Symptoms Stated Complaint: MHE Time Seen by Provider: 03/11/21 20:31 Source: patient Mode of arrival: ambulatory Limitations: no limitations History of Present Illness: 40-year-old male history of intellectual disability and autism here from a custodial for agitation he became angry was threatened to hurt himself and his roommate and hit his head against the wall. Patient was seen yesterday evaluated by psychiatrist was cleared to go home but he states that he had increasing agitation since being there. Patient here is scratching his own arm and is agitated here he is not being very cooperative with questioning either Associated symptoms: Reports depression Review of Systems Const: Denies: fever(s), chills, body aches or change in appetite Eyes: Denies: blurry vision or eye discomfort ENMT: Denies: throat pain or dental pain Card: Denies: chest pain Resp: Denies: dyspnea GI: Denies: abdominal pain, nausea, vomiting or diarrhea : Denies: dysuria Musc: Denies: neck pain or back pain Skin/Breast: Denies: rash Neuro: Denies: headache(s) Psych: Reports: depression, mood swings and irritability Holland/Lymph: Denies: easy bruising All/Imm: Denies: urticaria PFSH ED PFSH: Medical History Autistic disorder GERD (gastroesophageal reflux disease) Hyperglycemia Hyperlipidemia Peripheral edema Residual schizophrenia Seizure disorder Social History Smoking risk assessment/counseling performed?: Yes Tobacco counseling given: counseling >3 minutes Alcohol intake: never Caregiver/support person: Yes Household members: caregiver and other Marital status: Single Current occupational status: disabled Current gender identity: Male Physical Exam Const: COMMON NORMALS: no acute distress, patient oriented x3 and healthy appearing HENMT: COMMON NORMALS: normocephalic and atraumatic HEAD & SCALP: no rmocephalic and atraumatic Eye: COMMON NORMALS: Equal, round and reactive pupils present and EOMs intact bilaterally PUPIL: Yes Equal, round and reactive pupils present Neck/C-Spine: COMMON NORMALS: full ROM and supple Chest: COMMONS NORMALS: normal inspection of the chest and normal palpation of entire chest wall Resp: COMMON NORMALS: normal respiratory effort, No retractions, No use of accessory muscles and clear to auscultation bilaterally AUSCULTATION: clear to auscultation bilaterally Cardio: COMMON NORMALS: regular rate, regular rhythm and No murmurs present (Cardio) RATE: regular rate RHYTHM: regular rhythm GI: COMMON NORMALS: Normal to inspection, nondistended, normoactive bowel sounds present, Soft to palpation, non-tender and no masses PALPATION: Yes Soft to palpation Extremity: COMMON NORMALS: normal to inspection and full ROM Neuro: COMMON NORMALS: patient oriented x3, moves all extremities and no focal motor deficits Psych: COMMON NORMALS: mental status grossly normal ATTITUDE: Yes agitated and Yes aggressive INSIGHT: Limited insight present (Psych) Skin: COMMON NORMALS: no rashes or lesions noted and no wounds GENERAL SKIN EXAM: no rashes or lesions noted Course Vital Signs: Vital signs: Vital Signs Temperature 98.6 F 03/11/21 20:32 Pulse Rate 100 03/11/21 20:32 Respiratory Rate 18 03/11/21 20:32 Blood Pressure 117/65 03/11/21 20:32 Pulse Oximetry 96 03/11/21 20:32 [facility] - Psych Medical Decision Making Patient presents here with agitation and outbursts of anger Dr. Hooks evaluat ed patient again will admit for observation to the psych unit at this time patient given some Haldol here he has been cooperative now. Lab Data : 03/11/21 21:05 03/11/21 21:05 Laboratory Results WBC 7.5 10^3/uL (4.0-10.0) 03/11/21 21:05 RBC 4.51 10^6/uL (4.1-5.3) 03/11/21 21:05 Hgb 14.0 g/dL (11.7-16.6) 03/11/21 21:05 Hct 41.9 % (42.0-52.0) L 03/11/21 21:05 MCV 92.9 fl (80-94) 03/11/21 21:05 MCH 31.0 pg (28.0-34.0) 03/11/21 21:05 MCHC 33.4 g/dL (30.0-36.0) 03/11/21 21:05 RDW 12.6 % (12.1-15.1) 03/11/21 21:05 Plt Count 219 10^3/cmm (130-400) 03/11/21 21:05 MPV 10.1 fL (7.4-10.4) 03/11/21 21:05 Neut % (Auto) 68.7 % 03/11/21 21:05 Lymph % (Auto) 21.0 % 03/11/21 21:05 Monona % (Auto) 7.7 % 03/11/21 21:05 Eos % (Auto) 1.5 % 03/11/21 21:05 Baso % (Auto) 0.8 % 03/11/21 21:05 Neut # (Auto) 5.16 10^3/uL (1.8-7.7) 03/11/21 21:05 Lymph # (Auto) 1.6 10^3/uL (0.8-4.8) 03/11/21 21:05 Monona # (Auto) 0.6 10^3/uL (0.2-0.9) 03/11/21 21:05 Eos # (Auto) 0.1 10^3/uL (0.0-0.8) 03/11/21 21:05 Baso # (Auto) 0.1 10^3/uL (0.0-0.1) 03/11/21 21:05 Nucleated RBC % (auto) 0 % 03/11/21 21:05 Nucleated RBCs # 0.0 /100WBC 03/11/21 21:05 Sodium 139 mmol/L (136-145) 03/11/21 21:05 Potassium 4.0 mmol/L (3.5-5.1) 03/11/21 21:05 Chloride 104 mmol/L (98-107) 03/11/21 21:05 Carbon Dioxide 24 mmol/L (22-29) 03/11/21 21:05 Anion Gap 15.0 (5-19) 03/11/21 21:05 BUN 15 mg/dL (6-20) 03/11/21 21:05 Creatinine 0.9 mg/dL (0.7-1.2) 03/11/21 21:05 GFR Calculation 94.4 mL/min (90-130) 03/11/21 21:05 Glucose 123 mg/dL (65-115) H 01/31/22 21:05 Calculated Osmolality 290 mOsm/kg (285-295) 03/11/21 21:05 Calcium 8.6 mg/dL (8.5-10.5) 03/11/21 21:05 Total Bilirubin 0.3 mg/dL (0.15-1.2) 03/11/21 21:05 AST 18 U/L (0-40) 03/11/21 21:05 ALT 18 U/L (0-41) 03/11/21 21:05 Alkaline Phosphatase 82 IU/L (40-130) 03/11/21 21:05 Total Protein 6.7 g/dL (6.6-8.7) 03/11/21 21:05 Albumin 4.5 g/dL (3.5-5.2) 03/11/21 21:05 Globulin 2.2 g/dL (1.3-4.6) 03/11/21 21:05 Salicylates < 0.3 mg/dL (3-10) L 03/11/21 21:05 Urine Opiates Screen Negative ng/mL (Negative) 03/11/21 21:35 Acetaminophen < 5.0 ug/mL (10-30) L 03/11/21 21:05 Ur Barbiturates Screen Negative ng/mL (Negative) 03/11/21 21:35 Ur Phencyclidine Scrn Negative ng/mL (Negative) 03/11/21 21:35 Ur Amphetamines Screen Negative ng/mL (Negative) 03/11/21 21:35 U Benzodiazepines Scrn Negative ng/mL (Negative) 03/11/21 21:35 Urine Cocaine Screen Negative ng/mL (Negative) 03/11/21 21:35 U Marijuana (THC) Screen Negative ng/mL (Negative) 03/11/21 21:35 Ethyl Alcohol < 10 mg/dL (0-10) 03/11/21 21:05 Discharge Plan Discharge Patient Disposition: Admitted As Inpatient Admit Provider: Hany Hooks Clinical Impression: Outbursts of anger Condition: Stable Coding Level of Care Code 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
[2021-03-11] MEDS: LORazepam 1 mg Tablet PO (21:03)
[2021-03-11] MEDS: haloperidol 5 mg Tablet PO (21:03)
[2021-03-11 21:14] LABS: Basophils # 0.1 10^3/uL (0.0-0.1); Basophils % 0.8 %; Eosinophils # 0.1 10^3/uL (0.0-0.8); Eosinophils % 1.5 %; Hematocrit 41.9 % (42.0-52.0); Lymphocytes # 1.6 10^3/uL (0.8-4.8); Mean Corpuscular HGB Conc 33.4 g/dL (30.0-36.0); Mean Corpuscular Volume 92.9 fl (80-94); Mean Platelet Volume 10.1 fL (7.4-10.4); Monocytes # 0.6 10^3/uL (0.2-0.9); Monocytes % 7.7 %; Neutrophils # 5.16 10^3/uL (1.8-7.7); Neutrophils % 68.7 %; Nucleated Red Blood Cells % 0 %; Platelet Count 219 10^3/cmm (130-400); Red Blood Count 4.51 10^6/uL (4.1-5.3); Red Cell Distribution Width 12.6 % (12.1-15.1); White Blood Count 7.5 10^3/uL (4.0-10.0)
[2021-03-11 21:40] LABS: Alanine Aminotransferase 18 U/L (0-41); Albumin Level 4.5 g/dL (3.5-5.2); Alkaline Phosphatase 82 IU/L (40-130); Aspartate Amino Transferase 18 U/L (0-40); Blood Urea Nitrogen 15 mg/dL (6-20); Calcium 8.6 mg/dL (8.5-10.5); Carbon Dioxide 24 mmol/L (22-29); Chloride 104 mmol/L (98-107); Globulin 2.2 g/dL (1.3-4.6); Glomerular Filtration Rate 94.4 mL/min (90-130); Glucose 123 mg/dL (65-115); Osmolality Calculated 290 mOsm/kg (285-295); Sodium 139 mmol/L (136-145); Total Bilirubin 0.3 mg/dL (0.15-1.2); Total Protein 6.7 g/dL (6.6-8.7)
[2021-03-11 21:41] LABS: Acetaminophen < 5.0 ug/mL (10-30); Alcohol Level < 10 mg/dL (0-10); Salicylate < 0.3 mg/dL (3-10)
[2021-03-11 21:57] LABS: Amphetamines Screen Urine Negative (Negative); Barbiturates Screen Urine Negative (Negative); Benzodiazepines Screen Urine Negative (Negative); Cocaine Screen Urine Negative (Negative); Opiate Screen Urine Negative (Negative); PCP Screen Urine Negative (Negative); THC Screen Urine Negative (Negative)
[2021-03-11 22:00] VITALS: BP 118/73; PULSE 93; RESP 16; TEMP 36.7; O2SAT 98
[2021-03-11 22:03] LABS: Valproic Acid Level 88.5 ug/mL (50-100)
[2021-03-11 22:37] VITALS: BP 141/65; PULSE 82; RESP 16; TEMP 37; O2SAT 96
[2021-03-11] MEDS: nicotine 2 mg Gum BUCCAL (22:58)
--- NOTE | 2021-03-12 00:41 | PC.ADMIT ---
[facility] Admission Note: The patient,Yadiel Melo,40 y/o, was given written information regarding hospital policies, unit procedures and contact persons. Patient's smoking status: . Vital Signs - 8 hr 03/11/21 20:32 03/11/21 22:00 03/11/21 22:37 Temperature 98.6 F 98.0 F 98.6 F Pulse Rate 100 93 82 Respiratory Rate 18 16 16 Blood Pressure 117/65 118/73 141/65 Pulse Oximetry 96 98 96 Patient alert, oriented to self and place. Pleasant mood,and cooperative on intake. Arrived from ED accompanied by nurse and security in wheelchair with clutching baby doll. Patient stated I got mad because they said I didn't have money for pizza. Patient had self infliced wound to middle of forehead, stated I hit my head on the wall and threw stuff because I was mad. Patient stated he had a guardian but could not given more information. Patient struggles to find the words and has garbled/mumbling speech at times with tics and mental delay. Patient given admission book, changed into green scrubs, oriented to unit, given meal tray, and VS and physical assessment done.
[2021-03-12 05:57] VITALS: BP 132/72; PULSE 84; RESP 17; TEMP 36.3; O2SAT 98
[2021-03-12 06:59] LABS: Glucose Point of Care 152 mg/dL (70-110)
[2021-03-12] MEDS: atorvastatin 40 mg Tablet PO (09:10)
[2021-03-12] MEDS: ARIPiprazole 30 mg Tablet PO (09:10)
[2021-03-12] MEDS: oxybutynin 5 mg Tablet PO ×2 (09:10→18:41)
[2021-03-12] MEDS: divalproex ER 500 mg Tablet (24H) PO (09:10)
[2021-03-12] MEDS: pantoprazole DR 40 mg Tablet PO (09:10)
--- NOTE | 2021-03-12 10:54 | W.PM.NPUH&PS ---
Providers/Chief Complaint Admitting Physician: Hany Hooks MD Primary Care Provider: Baldomero Chacon DO Chief Complaint: MHE HPI NPU History of Present Illness Yadiel Melo is a 40 year old male who presented to the emergency department with the following report: Chief Complaint: Psychiatric Symptoms Stated Complaint: MHE Time Seen by Provider: 03/11/21 20:31 Source: patient Mode of arrival: ambulatory Limitations: no limitations History of Present Illness:?? 40-year-old male history of intellectual disability and autism here from a skilled nursing for agitation he became angry was threatened to hurt himself and his roommate and hit his head against the wall.? Patient was seen yesterday evaluated by psychiatrist was cleared to go home but he states that he had increasing agitation since being there.? Patient here is scratching his own arm and is agitated here he is not being very cooperative with questioning either Associated symptoms: Reports depression He is admitted to the neuropsychiatric unit for definitive treatment of those issues. He presents today as a limited historian as usual due to his cognitive limitations. He had presented to the hospital a couple nights prior after the chief loss there playoff game angry, aggressive lashing out and threatening to kill himself, staff and his roommate. He agreed to go home but returned again yesterday angry, lashing out and threatening to kill people. This time reportedly he was angry because his money had not arrived and he went pizza and he did not have the funds to get the pizza. Reportedly a staff member acquiesced to avoid the eventual outcome by buying pizza and that still did not in his aggression and threats. Ultimately he came to the emergency department and much like the day prior he was upset but this time he was cursing the staff member calling her all kinds of names, lashing out equipment and already having had all of his as needed medications for the day and his bedtime medication and he still is not calming down. He presents now reporting that he is feeling okay and possibly ready to go home but I do not know. We discussed that given his inability to calm down even after his as needed medication we would take a look at his medication and watch his behavior and another hopefully therapeutic admission. An excerpt from his last note is included below for context as nothing is changed from psychosocial circumstances. Per his 01/21/[address] [facility] inpatient psychiatric evaluation: Yadiel Mleo is a 40 year old male who presented to the ED with the following report: Chief Complaint: Psychiatric Symptoms Stated Complaint: [place]\SI\Hurt others\Property damage Time Seen by Provider: 01/20/21 21:29 History of Present Illness:?? HPI Narrative: Patient is a 40-year-old male comes to the ED with SI and HI.? Patient lives at a skilled nursing and has a roommate.? Past medical history of type 2 diabetes, seizures, autism, hyperlipidemia, GERD, anxiety, intellectual disability and schizophrenia.? Today patient started getting aggressive and very violent at his home.? He was headbutting the wall and punched and broke a window.? He then threatened to slit his wrist with a broken glass and also was threatening to attack his roommate with a broken glass.? He was admitting that he wanted to hurt people especially his roommate.? The staff with patient was helping provide history and said that patient usually does not act like this.? She is unaware of anything that would have caused his behavior today.? No recent medication changes. Associated symptoms: Reports homicidal ideation and suicidal ideation. He was admitted to the neuropsychiatric unit for definitive treatment of those issues.? 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 He presents after a impulsive and/or aggressive behavior and by the time he is admitted he is already saying that he is ready to go home and denying any issues.? He has been hospitalized for a few days to 24 hours with notable changes in outcomes after discharge.? He has periodic explosions and then later calms down.? Discussed with the people at his home that the admission was purely a safety measure to give him time to decide what they were going to do to manage safety moving forward as he from the moment he had the floor was saying that he did not want to hurt anyone and he was just angry and could not control his impulses.? There have been no changes in his outpatient reality.? Excerpts from his last hospitalization is included below for context. Per his 04/02/[address] [facility] inpatient psychiatric evaluation: History of Present Illness Yadiel Melo is a 39 year old male with history of autistic disorder and schizophrenia presented to the emergency department after throwing himself on the ground well outside of the house on a trip sustaining a laceration above his eyebrow.? Per report, patient had been endorsing suicidal ideation as well as thoughts about hurting other people and worsening depressive symptoms.? Patient frequently presents to the emergency department on a near monthly basis with similar complaints related to behavioral disturbances due to underlying autistic disorder as well as perceptual disturbances that have been previously reported as schizophrenia.? Per previous episodes of care, patient typically quickly reconstitutes and requests to go home. Patient currently denying any suicidal ideation or thoughts about harming others.? When initially asked about depressive symptoms he denied any depressive symptoms but then subsequently reports some depressive symptoms recently.? Patient is a difficult historian secondary to his autism and presents in a very childlike manner with brief responses. He currently denies any perceptual disturbances, denies any auditory or visual hallucinations and denies any delusions. Patient states, I was having behaviors and hurt myself. Per his 04/04/[address] [facility] inpatient psychiatric discharge summary: Hospital Course 39 year old male with history of autistic disorder and schizophrenia presented to the emergency department after throwing himself on the ground well outside of the house on a trip sustaining a laceration above his eyebrow.? Per report, patient had been endorsing suicidal ideation as well as thoughts about hurting other people and worsening depressive symptoms.? At the time of initial evaluation patient had reported ongoing low mood symptoms but was unable to report for how long only stating that he had decreased interest in his usual activities.? He did admit to having suicidal thoughts although was currently denying any suicidal ideation or thoughts about self-harm.? Patient states that he enjoys being at his skilled nursing and enjoys watching TV and playing video games.? Patient's fluvoxamine was increased to fluvoxamine 75 mg targeting mood symptoms with no reports of any medication side effects.? Patient quickly reconstituted and never endorsed any suicidal thoughts throughout his hospital stay and participate in unit milieu with no reports of any behavioral disturbances.? Of note, patient typically reconstitutes quite quickly on this unit with no behavioral problems throughout his hospital stays.? Patient was not suicidal at the time of discharge and did not appear to pose an imminent threat of harm to self or others. Patient is low to moderate risk of harm to self or others given no current suicidal ideation and no current endorsement of psychiatric symptoms although patient historically has a pattern of intermittently being impulsive or demonstrating behavioral problems in the context of his environment which could lead to unexpected behavior not intended by the patient.? Risk mitigation during this hospitalization was observation, increasing his fluvoxamine as well as coordinating for safe discharge.? Behavioral modification and redirection in his living environment in conjunction with medication and medication management follow-up compliance will likely further mitigate this risk. Psychiatric review of systems is otherwise negative. Meds NPU Home Medications Medication Instructions Recorded Confirmed Last Taken Type atorvastatin 40 mg tablet 40 mg PO DAILY 03/08/19 03/12/21 05/04/20 History oxybutynin chloride 5 mg tablet 5 mg PO BID 03/08/19 03/12/21 05/05/20 08:00 History divalproex 500 mg tablet,extended 500 mg PO DAILY 04/01/20 03/12/21 01/20/21 20:00 History release 24 hr (Depakote ER) trazodone 150 mg tablet 150 mg PO BEDTIME 04/01/20 03/12/21 05/04/20 History fluvoxamine 50 mg tablet 50 mg PO BEDTIME 05/04/20 03/12/21 05/04/20 History aripiprazole 30 mg tablet (Abilify) 30 mg PO DAILY 05/05/20 03/12/21 05/05/20 08:00 History haloperidol 5 mg tablet 5 mg PO TID 05/05/20 03/12/21 Unknown History pantoprazole 40 mg tablet,delayed 40 mg PO DAILY 05/05/20 03/12/21 05/05/20 History release divalproex 500 mg tablet,extended 1,000 mg PO BEDTIME 03/12/21 03/12/21 Unknown History release 24 hr (Depakote ER) Allergies Allergy/AdvReac Type Severity Reaction Status Date / Time lorazepam Allergy Unknown Verified 03/11/21 20:40 pseudoephedrine Allergy Unknown Verified 03/11/21 20:40 Sulfa (Sulfonamide Allergy Unknown Verified 03/11/21 20:40 Antibiotics) tuberculin, purified protein Allergy Unknown Verified 03/11/21 20:40 deriva PFSH NPU PFSH: Medical History Autistic disorder GERD (gastroesophageal reflux disease) Hyperglycemia Hyperlipidemia Peripheral edema Residual schizophrenia Seizure disorder Social History Smoking risk assessment/counseling performed?: Yes Tobacco counseling given: counseling >3 minutes Alcohol intake: never Caregiver/support person: Yes Household members: caregiver and other Marital status: Single Current occupational status: disabled Current gender identity: Male Mental Status Exam MSE Comments: This is an obese white male in hospital scrubs with adequate grooming and eye contact.? Slightly abnormal facies. No abnormal movements except for psychomotor retardation and occasional maneuver he brings his hands up to his eyes and face and then he shakes as if he is almost shivering after answering a question.? Cooperative with exam in no acute distress.? Speech was limited and decreased rate and volume and mildly dysarthric.? Mood described as good, affect slightly subdued.? Thought process linear.? Thought content: Patient denied suicidal or homicidal ideations, there were no delusions reported or noted, he denied any auditory visual hallucination.? Attention centration appeared intact and memory was limited but mostly appeared reliable but none were formally tested.? He is alert and oriented x3.? Insight and judgment are impaired, impulse control appears limited, intellectual ability is impaired. Vitals/I&O/Wt Last Vital Signs Temp 98.6 F 03/11/21 22:37 Pulse 82 03/11/21 22:37 Resp 16 03/11/21 22:37 BP 141/65 03/11/21 22:37 Pulse Ox 96 03/11/21 22:37 Weight last 48 hrs Weight 83.915 kg Data NPU : 03/11/21 21:05 03/11/21 21:05 A&P Assessment and plan (1) Depression: Status: Acute (2) Outbursts of anger: Status: Acute (3) Suicidal behavior with attempted self-injury: Status: Acute (4) Left shoulder strain: Status: Acute (5) Anxiety: Status: Acute (6) Insomnia: Status: Acute (7) Diabetes type 2, controlled: Status: Acute (8) Seizure disorder: Status: Acute (9) Autistic disorder: Status: Acute (10) Intellectual disability: Status: Acute (11) Residual schizophrenia: Status: Acute Plan This is a 40-year-old white male with a long history of intellectual disability, autism and history of schizophrenia who presents after an episode at his facility much like previous episodes that are significant enough to lead to an evaluation in emergency room with varying levels of aggression, but generally he returns to being calm almost immediately and is discharged quickly. 1.? Continue current medication.? Reality is that these occasional outbursts can be expected given his condition. We will explore whether a medication change or at least change in available as needed medications is warranted. 2.? Continue every 15 minute checks for safety. 3.? Encourage individual, group and milieu therapy. 4.? Will work with facility to get him home sooner rather than later.? Involuntary Hold Information 96 Hour Hold: 96 Hour Involuntary Admission: No Attestations NPU Medical Necessity Statement*: Inpatient hospitalization is medically necessary and the clinically appropriate intervention at this time.? We will monitor medications and make changes as indicated.? We will get collateral information from guardian and skilled nursing.? Given the impulsive nature of his diagnoses minus clear signs of decompensation it would be appropriate to discharge him as soon as he is deemed safe.? Likely length of stay 1 to 4 days. 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
--- NOTE | 2021-03-12 13:00 | NPU.GN ---
[facility] Unit Group Topic: Triggers, Coping Skills, Crisis Intervention Plan General Mood of Group: Yadiel did not attend group this morning.
[2021-03-12 13:29] VITALS: BP 106/69; PULSE 74; RESP 17; TEMP 36.3; O2SAT 95
[2021-03-12] MEDS: trazodone 150 mg Tablet PO (20:48)
[2021-03-12] MEDS: divalproex ER 500 mg Tablet (24H) 1000 MG PO (20:48)
[2021-03-12 21:13] VITALS: BP 118/77; PULSE 88; RESP 15; TEMP 37.1; O2SAT 96
[2021-03-13 06:00] VITALS: BP 114/73; PULSE 86; RESP 18; TEMP 36.8; O2SAT 97
[2021-03-13] MEDS: oxybutynin 5 mg Tablet PO ×2 (09:13→18:45)
[2021-03-13] MEDS: atorvastatin 40 mg Tablet PO (09:13)
[2021-03-13] MEDS: pantoprazole DR 40 mg Tablet PO (09:13)
[2021-03-13] MEDS: divalproex ER 500 mg Tablet (24H) PO (09:14)
[2021-03-13] MEDS: ARIPiprazole 30 mg Tablet PO (09:14)
[2021-03-13 11:33] LABS: Glucose Point of Care 123 mg/dL (70-110)
[2021-03-13 14:00] VITALS: BP 124/78; PULSE 79; RESP 20; TEMP 36.4; O2SAT 97
--- NOTE | 2021-03-13 16:22 | W.PM.NPUPNS ---
Subjective NPU Subjective: Interval history: Patient presents today as he generally does mostly nonverbal with occasional responses. We discussed his situation with staff at his residence today expressing concern about his Depakote level but we did get a trough Depakote level yesterday and their concern was that it was high if anything it might be a little low. We discussed increasing his morning dose. We will try to outpatient team. But he has been without incident and discussed discharge in the next 48 hours. Mental Status Exam MSE Comments: This is an obese white male in hospital scrubs with adequate grooming and eye contact.? Slightly abnormal facies.? No abnormal movements except for psychomotor retardation and occasional maneuver he brings his hands up to his eyes and face and then he shakes as if he is almost shivering after answering a question.? Cooperative with exam in no acute distress.? Speech was limited and decreased rate and volume and mildly dysarthric.? Mood described as good, affect slightly subdued.? Thought process linear.? Thought content: Patient denied suicidal or homicidal ideations, there were no delusions reported or noted, he denied any auditory visual hallucination.? Attention centration appeared intact and memory was limited but mostly appeared reliable but none were formally tested.? He is alert and oriented x3.? Insight and judgment are impaired, impulse control appears limited, intellectual ability is impaired. Vitals/I&O/Wt Last Vital Signs Temp 97.6 F 03/13/21 14:00 Pulse 79 03/13/21 14:00 Resp 20 H 03/13/21 14:00 BP 124/78 03/13/21 14:00 Pulse Ox 97 03/13/21 14:00 Weight last 48 hrs Weight 83.915 kg Data NPU : 03/11/21 21:05 03/11/21 21:05 A&P Assessment and plan (1) Depression: Status: Acute (2) Outbursts of anger: Status: Acute (3) Suicidal behavior with attempted self-injury: Status: Acute (4) Left shoulder strain: Status: Acute (5) Anxiety: Status: Acute (6) Insomnia: Status: Acute (7) Seizure disorder: Status: Acute (8) Autistic disorder: Status: Acute (9) Diabetes type 2, controlled: Status: Acute (10) Hyperglycemia: Status: Acute (11) Hyperlipidemia: Status: Acute Qualifiers: Hyperlipidemia type: unspecified Qualified Code(s): E78.5 - Hyperlipidemia, unspecified (12) GERD (gastroesophageal reflux disease): Status: Acute Qualifiers: Esophagitis presence: esophagitis presence not specified Qualified Code(s): K21.9 - Gastro-esophageal reflux disease without esophagitis (13) Intellectual disability: Status: Acute (14) Residual schizophrenia: Status: Acute Plan This is a 40-year-old white male with a long history of intellectual disability, autism and history of schizophrenia who presents after an episode at his facility much like previous episodes that are significant enough to lead to an evaluation in emergency room with varying levels of aggression, but generally he returns to being calm almost immediately and is discharged quickly. 1.? Continue current medication.? Reality is that these occasional outbursts can be expected given his condition.? We will explore whether a medication change or at least change in available as needed medications is warranted. Trough Depakote level 66.9 we will increase overall dosing to 1000 p.o. twice daily. 2.? Continue every 15 minute checks for safety. 3.? Encourage individual, group and milieu therapy. 4.? Will work with facility to get him home sooner rather than later.? Involuntary Hold Information 96 Hour Hold: 96 Hour Involuntary Admission: No Attestations NPU Medical Necessity Statement*: Inpatient hospitalization is medically necessary and the clinically appropriate intervention at this time.? We will monitor medications and make changes as indicated.? We will get collateral information from guardian and penitentiary.? Given the impulsive nature of his diagnoses minus clear signs of decompensation it would be appropriate to discharge him as soon as he is deemed safe.? Likely length of stay 1 to 3 days. 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
[2021-03-13 21:18] LABS: Valproic Acid Level 66.9 ug/mL (50-100)
[2021-03-13] MEDS: divalproex ER 500 mg Tablet (24H) 1000 MG PO (21:22)
[2021-03-13] MEDS: trazodone 150 mg Tablet PO (21:23)
[2021-03-13 22:00] VITALS: BP 95/60; PULSE 72; RESP 14; TEMP 36.6; O2SAT 100
[2021-03-14 06:00] VITALS: BP 107/68; PULSE 107; RESP 20; TEMP 22.2; O2SAT 100
[2021-03-14] MEDS: ARIPiprazole 30 mg Tablet PO (08:37)
[2021-03-14] MEDS: divalproex ER 500 mg Tablet (24H) 1000 MG PO ×2 (08:37→20:21)
[2021-03-14] MEDS: pantoprazole DR 40 mg Tablet PO (08:37)
[2021-03-14] MEDS: atorvastatin 40 mg Tablet PO (08:37)
[2021-03-14] MEDS: oxybutynin 5 mg Tablet PO ×2 (08:37→17:53)
[2021-03-14 12:35] VITALS: BP 107/68; PULSE 107; RESP 20; TEMP 22.2; O2SAT 100
[2021-03-14 14:00] VITALS: BP 105/70; PULSE 71; RESP 17; TEMP 36.6; O2SAT 100
--- NOTE | 2021-03-14 18:11 | W.PM.NPUPNS ---
Subjective NPU Subjective: Interval history: Yadiel presents today mostly due to his usual and a little less on edge. He appears to be tolerating the increase in his Depakote. He was endorsing feeling ready to leave. However roads prevented his staff from coming to get him as they report they tried in 2 different vehicles. We discussed the risk benefits and alternatives of him leaving tomorrow when they are able to pick him up and he understood and agreed to proceed as is documented in this note. He did not have any outbursts due to not getting to leave. Mental Status Exam MSE Comments: This is an obese white male in hospital scrubs with adequate grooming and eye contact.? Slightly abnormal facies.? No abnormal movements except for psychomotor retardation and occasional maneuver he brings his hands up to his eyes and face and then he shakes as if he is almost shivering after answering a question.? Cooperative with exam in no acute distress.? Speech was limited and decreased rate and volume and mildly dysarthric.? Mood described as good, affect more calm.? Thought process linear.? Thought content: Patient denied suicidal or homicidal ideations, there were no delusions reported or noted, he denied any auditory visual hallucination.? Attention centration appeared intact and memory was limited but mostly appeared reliable but none were formally tested.? He is alert and oriented x3.? Insight and judgment are impaired, impulse control appears limited, intellectual ability is impaired. Vitals/I&O/Wt Last Vital Signs Temp 98.0 F 03/14/21 20:47 Pulse 74 03/14/21 20:47 Resp 17 03/14/21 20:47 BP 126/80 03/14/21 20:47 Pulse Ox 98 03/14/21 20:47 Data NPU : 03/11/21 21:05 03/11/21 21:05 A&P Assessment and plan (1) Depression: Status: Acute (2) Outbursts of anger: Status: Acute (3) Suicidal behavior with attempted self-injury: Status: Acute (4) Left shoulder strain: Status: Acute (5) Anxiety: Status: Acute (6) Insomnia: Status: Acute (7) Diabetes type 2, controlled: Status: Acute (8) Seizure disorder: Status: Acute (9) Autistic disorder: Status: Acute (10) Hyperglycemia: Status: Acute (11) Hyperlipidemia: Status: Acute Qualifiers: Hyperlipidemia type: unspecified Qualified Code(s): E78.5 - Hyperlipidemia, unspecified (12) GERD (gastroesophageal reflux disease): Status: Acute Qualifiers: Esophagitis presence: esophagitis presence not specified Qualified Code(s): K21.9 - Gastro-esophageal reflux disease without esophagitis (13) Intellectual disability: Status: Acute (14) Residual schizophrenia: Status: Acute Plan This is a 40-year-old white male with a long history of intellectual disability, autism and history of schizophrenia who presents after an episode at his facility much like previous episodes that are significant enough to lead to an evaluation in emergency room with varying levels of aggression, but generally he returns to being calm almost immediately and is discharged quickly. 1.? Continue current medication.? Reality is that these occasional outbursts can be expected given his condition.? We will explore whether a medication change or at least change in available as needed medications is warranted.? Trough Depakote level 66.9 we will increase overall dosing to 1000 p.o. twice daily. His home regiment was switched from Haldol 5 mg 3 times daily with twice daily dosing as needed and Haldol 5 mg twice daily with 3 times daily dosing as needed. 2.? Continue every 15 minute checks for safety. 3.? Encourage individual, group and milieu therapy. 4.? Plan for discharge in the morning weather permitting..? Involuntary Hold Information 96 Hour Hold: 96 Hour Involuntary Admission: No Attestations NPU Medical Necessity Statement*: Inpatient hospitalization is medically necessary and the clinically appropriate intervention at this time.? We will monitor medications and make changes as indicated.? We will get collateral information from guardian and custodial.? Given the impulsive nature of his diagnoses minus clear signs of decompensation it would be appropriate to discharge him as soon as he is deemed safe.? We will discharge tomorrow if weather permits. 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
[2021-03-14] MEDS: trazodone 150 mg Tablet PO (20:21)
[2021-03-14 20:47] VITALS: BP 126/80; PULSE 74; RESP 17; TEMP 36.7; O2SAT 98
[2021-03-15 06:00] VITALS: BP 125/71; PULSE 92; RESP 18; O2SAT 100
[2021-03-15] MEDS: pantoprazole DR 40 mg Tablet PO (09:46)
[2021-03-15] MEDS: divalproex ER 500 mg Tablet (24H) 1000 MG PO (09:46)
[2021-03-15] MEDS: haloperidol 5 mg Tablet PO (09:46)
[2021-03-15] MEDS: ARIPiprazole 30 mg Tablet PO (09:47)
[2021-03-15] MEDS: oxybutynin 5 mg Tablet PO (09:47)
[2021-03-15] MEDS: atorvastatin 40 mg Tablet PO (09:47)
--- NOTE | 2021-03-15 11:10 | W.PM.NPUDCS ---
Diagnoses at Discharge Discharge Diagnosis (1) Depression: Status: Acute (2) Outbursts of anger: Status: Acute (3) Suicidal behavior with attempted self-injury: Status: Acute (4) Left shoulder strain: Status: Acute (5) Anxiety: Status: Acute (6) Insomnia: Status: Acute (7) Seizure disorder: Status: Acute (8) Autistic disorder: Status: Acute (9) Diabetes type 2, controlled: Status: Acute (10) Hyperglycemia: Status: Acute (11) Hyperlipidemia: Status: Acute Qualifiers: Hyperlipidemia type: unspecified Qualified Code(s): E78.5 - Hyperlipidemia, unspecified (12) GERD (gastroesophageal reflux disease): Status: Acute Qualifiers: Esophagitis presence: esophagitis presence not specified Qualified Code(s): K21.9 - Gastro-esophageal reflux disease without esophagitis (13) Intellectual disability: Status: Acute (14) Residual schizophrenia: Status: Acute Reason for Visit Reason for Visit: MHE Brief History: Yadiel Melo is a 40 year old male who presented to the emergency department with the following report: Chief Complaint: P sychiatric Symptom s Stated Complaint : MHE Time Seen by Provider: 2 20:31 Source: sonia flores Mode of arri paresh: ambulatory Li mitations: no limi tations? ? History of Present Illness:??? 40-year-old male history of intelle ctual disability a nd autism here fro m a residential for agitation he dorcas me angry was threa tened to hurt hims elf and his roomma te and hit his hea d against the wall .? Patient was see n yesterday evalua khang by psychiatris t was cleared to g o home but he stat es that he had inc reasing agitation since being there. ? Patient here is scratching his own arm and is agitat ed here he is not being very coopera tive with question ing eitherAssociat ed symptoms: Repor ts depression He is admitted to the neuropsychiatric unit for definitive treatment of those issues.? He presents today as a limited historian as usual due to his cognitive limitations.? He had presented to the hospital a couple nights prior after the chief loss there playoff game angry, aggressive lashing out and threatening to kill himself, staff and his roommate.? He agreed to go home but returned again yesterday angry, lashing out and threatening to kill people.? This time reportedly he was angry because his money had not arrived and he went pizza and he did not have the funds to get the pizza.? Reportedly a staff member acquiesced to avoid the eventual outcome by buying pizza and that still did not in his aggression and threats.? Ultimately he came to the emergency department and much like the day prior he was upset but this time he was cursing the staff member calling her all kinds of names, lashing out equipment and already having had all of his as needed medications for the day and his bedtime medication and he still is not calming down.? He presents now reporting that he is feeling okay and possibly ready to go home but I do not know. ? We discussed that given his inability to calm down even after his as needed medication we would take a look at his medication and watch his behavior and another hopefully therapeutic admission.? An excerpt from his last note is included below for context as nothing is changed from psychosocial circumstances. Per his 01/21/2021 [facility] inpatient psychiatric evaluation: Yadiel Melo is a 40 year old male who presented to the ED with the following report: Chief Complaint: Psychiatric Symptoms Stated Complaint: [place]\SI\Hurt others\Property damage Time Seen by Provider: 01/20/21 21:29 History of Present Illness:?? HPI Narrative: Patient is a 40-year-old male comes to the ED with SI and HI.? Patient lives at a residential and has a roommate.? Past medical history of type 2 diabetes, seizures, autism, hyperlipidemia, GERD, anxiety, intellectual disability and schizophrenia.? Today patient started getting aggressive and very violent at his home.? He was headbutting the wall and punched and broke a window.? He then threatened to slit his wrist with a broken glass and also was threatening to attack his roommate with a broken glass.? He was admitting that he wanted to hurt people especially his roommate.? The staff with patient was helping provide history and said that patient usually does not act like this.? She is unaware of anything that would have caused his behavior today.? No recent medication changes. Associated symptoms: Reports homicidal ideation and suicidal ideation. He was admitted to the neuropsychiatric unit for definitive treatment of those issues.? Patient is well-known to this tech writer through past hospitalizations and there is a clear pattern.? He presents after a impulsive and/or aggressive behavior and by the time he is admitted he is already saying that he is ready to go home and denying any issues.? He has been hospitalized for a few days to 24 hours with notable changes in outcomes after discharge.? He has periodic explosions and then later calms down.? Discussed with the people at his home that the admission was purely a safety measure to give him time to decide what they were going to do to manage safety moving forward as he from the moment he had the floor was saying that he did not want to hurt anyone and he was just angry and could not control his impulses.? There have been no changes in his outpatient reality.? Excerpts from his last hospitalization is included below for context. Per his 04/02/2020 [facility] inpatient psychiatric evaluation: History of Present Illness Yadiel Melo is a 39 year old male with history of autistic disorder and schizophrenia presented to the emergency department after throwing himself on the ground well outside of the house on a trip sustaining a laceration above his eyebrow.? Per report, patient had been endorsing suicidal ideation as well as thoughts about hurting other people and worsening depressive symptoms.? Patient frequently presents to the emergency department on a near monthly basis with similar complaints related to behavioral disturbances due to underlying autistic disorder as well as perceptual disturbances that have been previously reported as schizophrenia.? Per previous episodes of care, patient typically quickly reconstitutes and requests to go home. Patient currently denying any suicidal ideation or thoughts about harming others.? When initially asked about depressive symptoms he denied any depressive symptoms but then subsequently reports some depressive symptoms recently.? Patient is a difficult historian secondary to his autism and presents in a very childlike manner with brief responses. He currently denies any perceptual disturbances, denies any auditory or visual hallucinations and denies any delusions. Patient states, I was having behaviors and hurt myself. Per his 04/04/2020 [facility] inpatient psychiatric discharge summary: Hospital Course 39 year old male with history of autistic disorder and schizophrenia presented to the emergency department after throwing himself on the ground well outside of the house on a trip sustaining a laceration above his eyebrow.? Per report, patient had been endorsing suicidal ideation as well as thoughts about hurting other people and worsening depressive symptoms.? At the time of initial evaluation patient had reported ongoing low mood symptoms but was unable to report for how long only stating that he had decreased interest in his usual activities.? He did admit to having suicidal thoughts although was currently denying any suicidal ideation or thoughts about self-harm.? Patient states that he enjoys being at his residential and enjoys watching TV and playing video games.? Patient's fluvoxamine was increased to fluvoxamine 75 mg targeting mood symptoms with no reports of any medication side effects.? Patient quickly reconstituted and never endorsed any suicidal thoughts throughout his hospital stay and participate in unit milieu with no reports of any behavioral disturbances.? Of note, patient typically reconstitutes quite quickly on this unit with no behavioral problems throughout his hospital stays.? Patient was not suicidal at the time of discharge and did not appear to pose an imminent threat of harm to self or others. Patient is low to moderate risk of harm to self or others given no current suicidal ideation and no current endorsement of psychiatric symptoms although patient historically has a pattern of intermittently being impulsive or demonstrating behavioral problems in the context of his environment which could lead to unexpected behavior not intended by the patient.? Risk mitigation during this hospitalization was observation, increasing his fluvoxamine as well as coordinating for safe discharge.? Behavioral modification and redirection in his living environment in conjunction with medication and medication management follow-up compliance will likely further mitigate this risk. Psychiatric review of systems is otherwise negative. Hospital Course Hospital Course He quickly acclimated to the individual, group and milieu therapies provided. Concerns raised by staff about Depakote level was reviewed and unlike their concern a trough level revealed a low therapeutic range. In response we increased his Depakote ER to 1000 mg p.o. twice daily. Additionally there wasn't much you seen for the Haldol, so we switched him from 3 times daily scheduled dosing with twice daily as needed to twice daily schedule dosing and 3 times daily as needed. As we continue to report he has mental health conditions that can towards impulsivity and lack of impulse control and so intermittent explosiveness should be anticipated versus found to be odd. He had no episodes here in the hospital. He was able to contract for safety outside the hospital, prior to discharge. During the hospitalization, patient had routine laboratory studies which were within normal limits except for few outliers. Additionally there was a general medical evaluation which was also within normal limits and revealed no new acute processes. Discharge Summary: At the time of discharge, he denied psychosis or lethality. Mood and anxiety were well managed. Patient endorsed a plan to follow-up with the aftercare recommendations of the treatment team. Patient was evaluated and deemed to be absent credible lethality, and had achieved the maximum benefit from an inpatient hospitalization, so was discharged. Involuntary Hold Information 96 Hour Hold: 96 Hour Involuntary Admission: No Mental Status Exam MSE Comments: This is an obese white male in hospital scrubs with adequate grooming and eye contact.? Slightly abnormal facies.? No abnormal movements except for psychomotor retardation and occasional maneuver he brings his hands up to his eyes and face and then he shakes as if he is almost shivering after answering a question.? Cooperative with exam in no acute distress.? Speech was limited and decreased rate and volume and mildly dysarthric.? Mood described as good, affect slightly subdued.? Thought process linear.? Thought content: Patient denied suicidal or homicidal ideations, there were no delusions reported or noted, he denied any auditory visual hallucination.? Attention centration appeared intact and memory was limited but mostly appeared reliable but none were formally tested.? He is alert and oriented x3.? Insight and judgment are impaired, impulse control appears limited, intellectual ability is impaired. Discharge Data Studies Completed and Pending: Laboratory Results WBC 7.5 10^3/uL (4.0- 10.0) 03/11/21 21:05 RBC 4.51 10^6/uL (4.1 -5.3) 03/11/21 21:05 Hgb 14.0 g/dL (11.7-1 6.6) 03/11/21 21:05 Hct 41.9 % (42.0-52.0 ) L 03/11/21 21:05 MCV 92.9 fl (80-94) 03/11/21 21:05 MCH 31.0 pg (28.0-34. 0) 03/11/21 21:05 MCHC 33.4 g/dL (30.0-3 6.0) 03/11/21 21:05 RDW 12.6 % (12.1-15.1 ) 03/11/21 21:05 Plt Count 219 10^3/cmm (130 -400) 03/11/21 21:05 MPV 10.1 fL (7.4-10.4 ) 03/11/21 21:05 Neut % (Auto) 68.7 % 03/11/21 21:05 Lymph % (Auto) 21.0 % 03/11/21 21:05 [place] % (Auto) 7.7 % 03/11/21 21:05 Eos % (Auto) 1.5 % 03/11/21 21:05 Baso % (Auto) 0.8 % 03/11/21 21:05 Neut # (Auto) 5.16 10^3/uL (1.8 -7.7) 03/11/21 21:05 Lymph # (Auto) 1.6 10^3/uL (0.8- 4.8) 03/11/21 21:05 [place] # (Auto) 0.6 10^3/uL (0.2- 0.9) 03/11/21 21:05 Eos # (Auto) 0.1 10^3/uL (0.0- 0.8) 03/11/21 21:05 Baso # (Auto) 0.1 10^3/uL (0.0- 0.1) 03/11/21 21:05 Nucleated RBC % (a uto) 0 % 03/11/21 21:05 Nucleated RBCs # 0.0 /100WBC 03/11/21 21:05 Sodium 139 mmol/L (136-1 45) 03/11/21 21:05 Potassium 4.0 mmol/L (3.5-5 .1) 03/11/21 21:05 Chloride 104 mmol/L (98-10 7) 03/11/21 21:05 Carbon Dioxide 24 mmol/L (22-29) 03/11/21 21:05 Anion Gap 15.0 (5-19) 03/11/21 21:05 BUN 15 mg/dL (6-20) 03/11/21 21:05 Creatinine 0.9 mg/dL (0.7-1. 2) 03/11/21 21:05 GFR Calculation 94.4 mL/min (90-1 30) 03/11/21 21:05 Glucose 123 mg/dL (65-115 ) H 03/11/21 21:05 POC Glucose 123 mg/dL (70-110 ) H 03/13/21 11:30 Calculated Osmolal ity 290 mOsm/kg (285- 295) 03/11/21 21:05 Calcium 8.6 mg/dL (8.5-10 .5) 03/11/21 21:05 Total Bilirubin 0.3 mg/dL (0.15-1 .2) 03/11/21 21:05 AST 18 U/L (0-40) 03/11/21 21:05 ALT 18 U/L (0-41) 03/11/21 21:05 Alkaline Phosphata se 82 IU/L (40-130) 03/11/21 21:05 Total Protein 6.7 g/dL (6.6-8.7 ) 03/11/21 21:05 Albumin 4.5 g/dL (3.5-5.2 ) 03/11/21 21:05 Globulin 2.2 g/dL (1.3-4.6 ) 03/11/21 21:05 Salicylates < 0.3 mg/dL (3-10 ) L 03/11/21 21:05 Urine Opiates Scre en Negative ng/mL (N egative) 03/11/21 21:35 Acetaminophen < 5.0 ug/mL (10-3 0) L 03/11/21 21:05 Ur Barbiturates Sc reen Negative ng/mL (N egative) 03/11/21 21:35 Valproic Acid 66.9 ug/mL (50-10 0) 03/13/21 20:42 Ur Phencyclidine S crn Negative ng/mL (N egative) 03/11/21 21:35 Ur Amphetamines Sc reen Negative ng/mL (N egative) 03/11/21 21:35 U Benzodiazepines Scrn Negative ng/mL (N egative) 03/11/21 21:35 Urine Cocaine Scre en Negative ng/mL (N egative) 03/11/21 21:35 U Marijuana (THC) Screen Negative ng/mL (N egative) 03/11/21 21:35 Ethyl Alcohol < 10 mg/dL (0-10) 03/11/21 21:05 Vitals: Last Vital Signs Temp 72 F L 03/14/21 06:00 Pulse 107 H 03/14/21 06:00 Resp 20 H 03/14/21 06:00 BP 107/68 03/14/21 06:00 Pulse Ox 100 03/14/21 06:00 Discharge Plan Discharge Patient Disposition: Home Condition: Stable Prescriptions: New haloperidol 5 mg tablet 5 mg PO BID 30 Days Qty: 60 1RF Continued oxybutynin chloride 5 mg tablet 5 mg PO BID 0RF atorvastatin 40 mg tablet 40 mg PO DAILY 0RF trazodone 150 mg tablet 150 mg PO BEDTIME 0RF fluvoxamine 50 mg tablet 50 mg PO BEDTIME 0RF pantoprazole 40 mg Tablet,Delayed Release (Dr/Ec) 40 mg PO DAILY 0RF aripiprazole [Abilify] 30 mg Tablet 30 mg PO DAILY 0RF Changed haloperidol 5 mg Tablet 5 mg PO TID PRN (Reason: Agitation) 30 Days Qty: 90 1RF Depakote ER 500 mg Tablet Extended Release 24 Hr 1,000 mg PO BID 30 Days Qty: 120 1RF Discontinued divalproex [Depakote ER] 500 mg tablet extended release 24 hr 500 mg PO DAILY 0RF Discharge Orders: Discharge Order (Routine); Ordered 03/14/21 Ordered By: Hany Hooks Referrals: Baldomero Chacon DO [Primary Care Provider] - Discharge Diet: Regular Discharge Activity: Resume usual activity Patient Instructions: Opioid Safety Discharge Attestations NPU Time Spent in Discharge Care*: less than 30 min Specific Discharge Activities: Specific discharge activities: educating patient, discussing with family independence case manager/social workers/dc planners, documenting/other paperwork and evaluating patient/reviewing data Status at Discharge: Cognitive status at discharge: mildly impaired cognition, Behavioral status at discharge: cooperative, Coding Level of Care Code Acute Chg FW DC note Diagnoses Depression F32.A Outbursts of anger R45.4 Suicidal behavior with attempted self-injury T14.91XA Left shoulder strain S46.912A Anxiety F41.9 Insomnia G47.00 Seizure disorder G40.909 Autistic disorder F84.0 Diabetes type 2, controlled E11.9 Hyperglycemia R73.9 Hyperlipidemia E78.5 Hyperlipidemia type: unspecified GERD (gastroesophageal reflux disease) K21.9 Esophagitis presence: esophagitis presence not specified Intellectual disability F79 Residual schizophrenia F20.5
== END 2021-03-15 11:15 | disposition home or self-care (01) | DRG 885 ==
LOC: ER 21:43 → NP 22:03
PROVIDERS: Admitting Provider Psychiatry & Neurology Psychiatry; Emergency Provider Emergency Medicine; PCP Internal Medicine; Visit Provider Psychiatry & Neurology Psychiatry
DX: F20.5 Residual schizophrenia (principal); R45.851 Suicidal ideations; F84.0 Autistic disorder; K21.9 Gastro-esophageal reflux disease without esophagitis; E78.5 Hyperlipidemia, unspecified; F41.9 Anxiety disorder, unspecified; G47.00 Insomnia, unspecified; E11.9 Type 2 diabetes mellitus without complications
CPT/HCPCS: 36415; 36416; 80053; 80164; 80306; 80307; 82962; 85025; 97150; 97165; 99285

== ENCOUNTER 2021-03-29 21:47 | Emergency (ER) | payer MEDICAID, SELFPAY ==
[2021-03-29 22:00] VITALS: BP 127/58; PULSE 95; RESP 18; TEMP 36.8; O2SAT 100; BMI 31.3
--- NOTE | 2021-03-29 22:00 | ED.C_ITS ---
HPI - Psych General: Chief Complaint: Head Injury Stated Complaint: behavioral epi Time Seen by Provider: 03/29/21 21:55 Source: patient and EMS Mode of arrival: EMS Limitations: no limitations History of Present Illness: 32-year-old male that lives in a long-term has a history of intellectual disability is here for anger outburst. Patient's been seen here multiple times for the same. He was admitted earlier this month here a states that he is also admitted at [place] and released today states that they would not let him have his ladders to get angry and hit his head against the wall. Patient is since calm down he is currently been cooperative and setting the bed very calm here denies any worsening improving factors. Review of Systems Const: Denies: fever(s), chills, body aches or change in appetite Eyes: Denies: blurry vision or eye discomfort ENMT: Denies: throat pain or dental pain Card: Denies: chest pain Resp: Denies: dyspnea GI: Denies: abdominal pain, nausea, vomiting or diarrhea : Denies: dysuria Musc: Denies: neck pain or back pain Skin/Breast: Denies: rash Neuro: Denies: headache(s) Psych: Reports: irritability [place]/Lymph: Denies: easy bruising All/Imm: Denies: urticaria PFSH ED PFSH: Medical History Autistic disorder GERD (gastroesophageal reflux disease) Hyperglycemia Hyperlipidemia Peripheral edema Residual schizophrenia Seizure disorder Social History Smoking risk assessment/counseling performed?: Yes Tobacco counseling given: counseling >3 minutes Alcohol intake: never Caregiver/support person: Yes Household members: caregiver and other Marital status: Single Current occupational status: disabled Current gender identity: Male Physical Exam Const: COMMON NORMALS: no acute distress, patient oriented x3 and healthy appearing HENMT: COMMON NORMALS: normocephalic; head/scalp not atraumatic (abrasion to forehead) HEAD & SCALP: normocephalic; not atraumatic (abrasion to forehead) Eye: COMMON NORMALS: Equal, round and reactive pupils present and EOMs intact bilaterally PUPIL: Yes Equal, round and reactive pupils present Neck/C-Spine: COMMON NORMALS: full ROM and supple Chest: COMMONS NORMALS: normal inspection of the chest and normal palpation of entire chest wall Resp: COMMON NORMALS: normal respiratory effort, No retractions, No use of accessory muscles and clear to auscultation bilaterally AUSCULTATION: clear to auscultation bilaterally Cardio: COMMON NORMALS: regular rate, regular rhythm and No murmurs present (Cardio) RATE: regular rate RHYTHM: regular rhythm GI: COMMON NORMALS: Normal to inspection, nondistended, normoactive bowel sounds present, Soft to palpation, non-tender and no masses PALPATION: Yes Soft to palpation Extremity: COMMON NORMALS: normal to inspection and full ROM Neuro: COMMON NORMALS: patient oriented x3, moves all extremities and no focal motor deficits Psych: COMMON NORMALS: mental status grossly normal, Normal thought process present and cooperative THOUGHT PROCESS: Normal thought process present Skin: COMMON NORMALS: no rashes or lesions noted and no wounds GENERAL SKIN EXAM: no rashes or lesions noted Course Vital Signs: Vital signs: Vital Signs Temperature 98.3 F 03/29/21 22:00 Pulse Rate 95 03/29/21 22:00 Respiratory Rate 18 03/29/21 22:00 Blood Pressure 127/58 03/29/21 22:00 Pulse Oximetry 100 03/29/21 22:00 MDM - Psych Medical Decision Making Patient presents here with anger outburst. Patient was seen by Dr. Hooks who agrees with me that he is not in any acute distress does not require inpatient admission patient discharged back to his long-term setting. Lab Data Radiology Impressions Head CT 03/29/21 22:01 IMPRESSION: No acute intracranial injury. Discharge Plan Discharge Patient Disposition: Home Clinical Impression: Closed head injury, Outbursts of anger Condition: Stable Prescriptions: No Action oxybutynin chloride 5 mg tablet 5 mg PO BID 0RF atorvastatin 40 mg tablet 40 mg PO DAILY 0RF trazodone 150 mg tablet 150 mg PO BEDTIME 0RF haloperidol 5 mg tablet 5 mg PO BID 30 Days Qty: 60 1RF haloperidol 5 mg Tablet 5 mg PO TID PRN (Reason: Agitation) 30 Days Qty: 90 1RF Depakote ER 500 mg Tablet Extended Release 24 Hr 1,000 mg PO BID 30 Days Qty: 120 1RF fluvoxamine 50 mg tablet 50 mg PO BEDTIME 0RF pantoprazole 40 mg Tablet,Delayed Release (Dr/Ec) 40 mg PO DAILY 0RF aripiprazole [Abilify] 30 mg Tablet 30 mg PO DAILY 0RF Discharge Orders: Discharge ED (Routine); Ordered 03/29/21 Ordered By: Adilson Bethea Referrals: Baldomero Chacon DO [Primary Care Provider] - Discharge Diet: Advance as tolerated Discharge Activity: Resume usual activity Patient Instructions: Head Injury (ED) Coding Level of Care Code ED Electronic Warfare Specialist for Chg Fwd Exam Comprehensive
--- NOTE | 2021-03-29 22:01 | CTR_ITS ---
PROCEDURE INFORMATION: Exam: CT Head Without Contrast Exam date and time: 03/29/2021 10:01 PM Age: 40 years old Clinical indication: Injury or trauma; Other: Blow to head. ; Blunt trauma (contusions or hematomas); Patient HX: Patient with history of intellectual disability hit himself in the forehead. Minor swelling with small abrasion to center of forehead. TECHNIQUE: Imaging protocol: Computed tomography of the head without contrast. Radiation optimization: All CT scans at this facility use at least one of these dose optimization techniques: automated exposure control; mA and/or kV adjustment per patient size (includes targeted exams where dose is matched to clinical indication); or iterative reconstruction. COMPARISON: CT head wo con* [id number] 04/01/2020 4:32 PM RADIATION DOSE METRICS: Total DLP (mGy-cm): 944.14 FINDINGS: Brain: Normal. No hemorrhage. Unremarkable white matter. No mass effect. Cerebral ventricles: No ventriculomegaly. Paranasal sinuses: Mucosal thickening in the ethmoid and maxillary sinuses. Mastoid air cells: Visualized mastoid air cells are well aerated. Orbital cavity: The patient has had bilateral lens replacement surgery. Bones/joints: Unremarkable. No acute fracture. Soft tissues: Unremarkable. CT/CT head wo con* [id number] IMPRESSION: No acute intracranial injury.
[2021-03-29] MEDS: haloperidol 5 mg Tablet PO (22:09)
--- NOTE | 2021-03-29 23:38 | PC.NURSE ---
discharge pt caregiver stated facility told her to not leave with patient until crisis hotline spoke with us. stated this because 'pt is not safe at current location' this nurse placed a call to the crisis hotline because [place] told caregiver to leave pt here. caregiver stayed in room. [place] charge nurse earnestvd a call from [facility], crisis line plastic sheets supervisor, and stated they never told them that and to send him back to the facility.
== END 2021-03-29 23:50 | disposition home or self-care (01) ==
PROVIDERS: Emergency Provider Emergency Medicine; PCP Internal Medicine
DX: R45.4 Irritability and anger (principal); S09.8XXA Other specified injuries of head, initial encounter; F84.0 Autistic disorder; E78.5 Hyperlipidemia, unspecified; W22.8XXA Striking against or struck by other objects, initial encounter
CPT/HCPCS: 70450; 99283

== ENCOUNTER → 2021-04-22 13:07 | Outpatient (BNVA) | payer MEDICAID, SELFPAY | PROVIDERS: PCP Family Medicine; Referring Provider Family Medicine; Visit Provider Specialist | DX: R45.4 Irritability and anger (principal); G40.909 Epilepsy, unspecified, not intractable, without status epilepticus; F17.210 Nicotine dependence, cigarettes, uncomplicated | CPT/HCPCS: 95816 ==

== ENCOUNTER 2021-04-28 17:05 | Emergency (ER) | payer MEDICAID, SELFPAY ==
[2021-04-28 17:30] VITALS: BP 113/70; PULSE 73; RESP 16; TEMP 36.8; O2SAT 99; BMI 36.2
--- NOTE | 2021-04-28 18:57 | ECG_ITS ---
[facility] Test Date: 2021-04-28 Pat Name: Yadiel Melo Department: Room: Gender: Male Business Liaison Manager: : 1980 Requested By: Adilson Bethea Order Number: [id number] Luis MD: Josafat Ames M.D. Measurements Intervals [place] Rate: 73 P: 38 WV: 161 QRS: 16 QRSD: 86 T: 42 QT: 348 QTc: 385 Interpretive Statements SINUS RHYTHM Compared to ECG 02/09/2021 11:09:12 No significant changes Electronically Signed On 04-29-2021 20:14:30 CDT by Josafat Ames M.D. [email or web address]
--- NOTE | 2021-04-28 19:02 | ED_ITS ---
HPI - Skin/Abscess/Foreign Bdy General: Chief complaint: Skin/Abscess/Foreign Body Stated complaint: Rash, fast haert rate Time Seen by Provider: 04/28/21 18:56 Source: patient Mode of arrival: ambulatory Limitations: no limitations History of Present Illness: 41-year-old male who is here with his case checker she states that just tonight he started using rolled up cigarettes and thinks he had allergic reaction he states that he is having redness to his trunk face and tachycardia he states that started roughly 3 hours ago states is much improved now just has very minimal urticaria never had any dyspnea no swelling. Associated symptoms: Deny chills, fever(s), nausea or vomiting Review of Systems Const: Denies: fever(s), chills, body aches or change in appetite Eyes: Denies: blurry vision or eye discomfort ENMT: Denies: throat pain or dental pain Card: Denies: chest pain Resp: Denies: dyspnea GI: Denies: abdominal pain, nausea, vomiting or diarrhea : Denies: dysuria Musc: Denies: neck pain or back pain Skin/Breast: Reports: rash Neuro: Denies: headache(s) Psych: Denies: depression [place]/Lymph: Denies: easy bruising All/Imm: Denies: urticaria PFSH ED PFSH: Medical History Autistic disorder GERD (gastroesophageal reflux disease) Hyperglycemia Hyperlipidemia Peripheral edema Residual schizophrenia Seizure disorder Social History Smoking and tobacco status: current every day smoker cigarettes Smoking risk assessment/counseling performed?: Yes Tobacco counseling given: counseling >3 minutes Alcohol intake: never Caregiver/support person: Yes Household members: caregiver and other Marital status: Single Current occupational status: disabled Current gender identity: Male Physical Exam Const: COMMON NORMALS: no acute distress, patient oriented x3 and healthy appearing HENMT: COMMON NORMALS: normocephalic and atraumatic HEAD & SCALP: normocephalic and atraumatic Eye: COMMON NORMALS: Equal, round and reactive pupils present and EOMs intact bilaterally PUPIL: Yes Equal, round and reactive pupils present Neck/C-Spine: COMMON NORMALS: full ROM and supple Chest: COMMONS NORMALS: normal inspection of the chest and normal palpation of entire chest wall Resp: COMMON NORMALS: normal respiratory effort, No retractions, No use of accessory muscles and clear to auscultation bilaterally AUSCULTATION: clear to auscultation bilaterally Cardio: COMMON NORMALS: regular rate, regular rhythm and No murmurs present (Cardio) RATE: regular rate RHYTHM: regular rhythm GI: COMMON NORMALS: Normal to inspection, nondistended, normoactive bowel sounds present, Soft to palpation, non-tender and no masses PALPATION: Yes Soft to palpation Extremity: COMMON NORMALS: normal to inspection and full ROM Neuro: COMMON NORMALS: patient oriented x3, moves all extremities and no focal motor deficits Psych: COMMON NORMALS: mental status grossly normal, Normal thought process present and cooperative THOUGHT PROCESS: Normal thought process present Skin: COMMON NORMALS: no wounds NARRATIVE SKIN EXAM: Slight urticaria over right shoulder Course Vital Signs: Vital signs: Vital Signs Temperature 98.2 F 04/28/21 17:30 Pulse Rate 73 04/28/21 17:30 Respiratory Rate 16 04/28/21 17:30 Blood Pressure 113/70 04/28/21 17:30 Pulse Oximetry 99 04/28/21 17:30 MDM - Skin/Abscess/Foreign Bdy Medicial Decision Making Patient presents here with likely allergic reaction he is well-appearing here symptoms are practically resolved no airway involvement he stable for discharge follow-up PCP return if worsening. EKG Data EKG 1: I personally reviewed and interpreted this EKG as follows: EKG Interpretation Date: 04/28/21 EKG interpretation time: 17:33 Interpretation: nsr hr [address] or t wave abnormalities qrs 86 qtc 374 Discharge Plan Discharge Patient Disposition: Home Clinical Impression: Allergic reaction Qualifiers: Encounter type: initial encounter Qualified Code(s): T78.40XA - Allergy, unspecified, initial encounter Condition: Stable Prescriptions: No Action atorvastatin 40 mg tablet 40 mg PO DAILY 0RF methylprednisolone [Medrol (Don)] 4 mg tablets,dose pack See Rx Instructions PO PER PKG DIR Qty: 21 0RF Rx Instructions: PO PER PKG DIR celecoxib [Celebrex] 200 mg capsule 200 mg PO BID Qty: 30 0RF triamterene-hydrochlorothiazid 37.5-25 mg tablet 1 tab PO QAM Qty: 30 3RF oxybutynin chloride 5 mg tablet 5 mg PO BID Qty: 60 2RF divalproex 500 mg tablet,delayed release (DR/EC) See Rx Instructions .ROUTE .COMPLEX Qty: 120 1RF Dose Instruction: TAKE TWO TABLETS BY MOUTH TWICE DAILY Rx Instructions: TAKE TWO TABLETS BY MOUTH TWICE DAILY trazodone 150 mg tablet 150 mg PO BEDTIME 0RF haloperidol 5 mg tablet 5 mg PO BID 30 Days Qty: 60 1RF haloperidol 5 mg Tablet 5 mg PO TID PRN (Reason: Agitation) 30 Days Qty: 90 1RF fluvoxamine 50 mg tablet 50 mg PO BEDTIME 0RF pantoprazole 40 mg Tablet,Delayed Release (Dr/Ec) 40 mg PO DAILY 0RF aripiprazole [Abilify] 30 mg Tablet 30 mg PO DAILY 0RF Discharge Orders: Discharge ED (Routine); Ordered 04/28/21 Ordered By: Adilson Bethea Referrals: Janina Torres MD [Primary Care Provider] - Discharge Diet: Advance as tolerated Discharge Activity: Resume usual activity Patient Instructions: General Allergic Reaction (ED) Coding Level of Care Code ED Corrosion Control Fitter for Chg Fwd Exam Comprehensive
[2021-04-28] MEDS: diphenhydrAMINE 50 mg/mL SDV 1mL IM (19:06)
[2021-04-28 19:37] VITALS: BP 129/91; PULSE 78; RESP 16; O2SAT 95
== END 2021-04-28 19:38 | disposition home or self-care (01) ==
PROVIDERS: Emergency Provider Emergency Medicine; PCP Family Medicine
DX: T78.40XA Allergy, unspecified, initial encounter (principal); E78.5 Hyperlipidemia, unspecified; F84.0 Autistic disorder; F17.210 Nicotine dependence, cigarettes, uncomplicated
CPT/HCPCS: 93005; 96372; 99283; J1200

== ENCOUNTER → 2021-05-21 16:54 | Outpatient (BNVA) | payer MEDICAID, SELFPAY | PROVIDERS: PCP Family Medicine; Visit Provider Family Medicine | DX: J02.9 Acute pharyngitis, unspecified (principal) | CPT/HCPCS: 87071; 87880 ==

== ENCOUNTER → 2021-06-27 12:03 | Outpatient (BNVA) | payer MEDICAID, SELFPAY | PROVIDERS: PCP Family Medicine; Visit Provider Family Medicine | DX: Z11.1 Encounter for screening for respiratory tuberculosis (principal); R30.0 Dysuria; E11.65 Type 2 diabetes mellitus with hyperglycemia; E78.5 Hyperlipidemia, unspecified; L60.0 Ingrowing nail; K59.00 Constipation, unspecified; K21.9 Gastro-esophageal reflux disease without esophagitis; H66.93 Otitis media, unspecified, bilateral | CPT/HCPCS: 71046; 80053; 80061; 81000; 83036 ==

== ENCOUNTER → 2021-07-04 08:06 | Outpatient (BNVA) | payer MEDICAID, SELFPAY | PROVIDERS: PCP Family Medicine; Referring Provider Family Medicine; Visit Provider Podiatrist Foot & Ankle Surgery | DX: L60.0 Ingrowing nail (principal); I73.9 Peripheral vascular disease, unspecified; E11.9 Type 2 diabetes mellitus without complications; L60.3 Nail dystrophy; R23.4 Changes in skin texture | CPT/HCPCS: 11721 ==

== ENCOUNTER 2021-07-10 03:56 | Inpatient (IN) | payer MEDICAID, SELFPAY ==
[2021-07-10] VITALS (14 sets, daily range): BP systolic 97–144; BP diastolic 61–75; PULSE 81–100; RESP 12–24; TEMP 36.7–37.6; O2SAT 94–98; BMI 31.1
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
[2021-07-10 04:17] LABS: Basophils % 0.3 %; Eosinophils % 0.3 %; Hemoglobin 13.8 g/dL (11.7-16.6); Lymphocytes # 1.5 10^3/uL (0.8-4.8); Mean Corpuscular HGB Conc 35.4 g/dL (30.0-36.0); Mean Corpuscular Hemoglobin 31.1 pg (28.0-34.0); Mean Corpuscular Volume 87.8 fl (80-94); Mean Platelet Volume 10.3 fL (7.4-10.4); Monocytes # 1.1 10^3/uL (0.2-0.9); Monocytes % 11.1 %; Neutrophils % 72.9 %; Nucleated Red Blood Cells % 0 %; Platelet Count 178 10^3/cmm (130-400); Red Blood Count 4.44 10^6/uL (4.1-5.3); Red Cell Distribution Width 12.3 % (12.1-15.1); White Blood Count 10.2 10^3/uL (4.0-10.0)
[2021-07-10 04:26] LABS: Amphetamines Screen Urine Negative (Negative); Barbiturates Screen Urine Negative (Negative); Benzodiazepines Screen Urine Negative (Negative); Cocaine Screen Urine Negative (Negative); Opiate Screen Urine Negative (Negative); PCP Screen Urine Negative (Negative); THC Screen Urine Negative (Negative)
[2021-07-10 04:32] LABS: Alanine Aminotransferase 19 U/L (0-41); Albumin Level 4.6 g/dL (3.5-5.2); Alkaline Phosphatase 68 IU/L (40-130); Anion Gap 18.2 (5-19); Aspartate Amino Transferase 30 U/L (0-40); Blood Urea Nitrogen 27 mg/dL (6-20); Calcium 9.3 mg/dL (8.5-10.5); Carbon Dioxide 24 mmol/L (22-29); Chloride 101 mmol/L (98-107); Globulin 2.3 g/dL (1.3-4.6); Glomerular Filtration Rate 45.1 mL/min (90-130); Glucose 79 mg/dL (65-115); Osmolality Calculated 294 mOsm/kg (285-295); Potassium 3.2 mmol/L (3.5-5.1); Sodium 140 mmol/L (136-145); Total Bilirubin 0.6 mg/dL (0.15-1.2); Total Protein 6.9 g/dL (6.6-8.7); Valproic Acid Level 112.7 ug/mL (50-100)
[2021-07-10 04:33] LABS: Acetaminophen < 5.0 ug/mL (10-30); Alcohol Level < 10 mg/dL (0-10)
--- NOTE | 2021-07-10 07:03 | PC.NURSE ---
PT resting in bed with eyes closed at this time.
--- NOTE | 2021-07-10 08:55 | PC.PHAR ---
PT IS FROM [facility] PER STAFF IN PTS ROOM STATES THE PT TAKES THE MEDICATIONS ENTERED
[2021-07-10] MEDS: ziprasidone 20 mg/mL SDV IM (12:48)
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
[2021-07-10] MEDS: diphenhydrAMINE 50 mg/mL SDV 1mL IM (13:22)
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
--- NOTE | 2021-07-10 15:38 | PC.NURSE ---
UNABLE TO OBTAIN VITAL SIGNS UPON ARRIVAL TO UNIT D/T LEVEL OF AGITATION/AGGRESSION WITH STAFF. PT DOES NOT APPEAR TO BE IN ANY DISTRESS, RESP EVEN ET UNLABORED, COUNT IS 17. PT CHANGED INTO GREEN SCRUBS, PAPER SCRUBS REMOVED FROM ROOM BY NURSING STAFF. PT GIVEN SNACK ET SOMETHING TO DRINK
[2021-07-10] MEDS: acetaminophen 325 mg Tablet 650 MG PO (17:45)
--- NOTE | 2021-07-10 18:23 | PC.NURSE ---
PT TO NURSES STATION, THIS RN ASKED IF HEAD COULD BE CLEANED OFF. PT STATES YES. CLEANED FOREHEAD WITH NS AND GAUZE, LEFT DISTRIBUTOR OPERATOR. TOLERATED WELL. DID RECEIVE TYLENOL ORDERED FOR GENERALIZED PAIN TO HEAD. HEAD INJURY WAS SELF INFLICTED BY PT IN ER, PER ER STAFF. PT IS NOW CALM AND COOPERATIVE. APPEARS SCARED AT TIMES. PT IS DELAYED MENTALLY.
--- NOTE | 2021-07-10 18:34 | PC.NURSE ---
PT DENIES USING DRUGS OR ALCOHOL. STATES HE SMOKES TOBACCO BUT CAN NOT TELL THIS RN HOW MUCH OR WHEN HE STARTED. EDUCATED ON CESSATION AND THAT UNIT HAS NICOTINE PATCHES AND GUM AVAILABLE. VERBALIZES UNDERSTANDING
[2021-07-10] MEDS: hyDROXYzine 25 mg Capsule 50 MG PO (21:24)
[2021-07-10] MEDS: ARIPiprazole 30 mg Tablet PO (21:24)
[2021-07-10] MEDS: atorvastatin 40 mg Tablet PO (21:24)
[2021-07-10] MEDS: trazodone 100 mg Tablet PO (21:25)
[2021-07-10] MEDS: haloperidol 5 mg Tablet 10 MG PO (21:27)
[2021-07-11 06:00] VITALS: BP 122/74; PULSE 76; RESP 18; O2SAT 100
[2021-07-11] MEDS: nicotine 2 mg Gum BUCCAL (06:38)
--- NOTE | 2021-07-11 07:09 | P.NPUHP_ITS ---
Providers/Chief Complaint Admitting Physician: Hany Hooks MD Primary Care Provider: Jainna Torres MD Chief Complaint: SI/HI HPI NPU History of Present Illness Yadiel Melo is a 41 year old male admitted through our emergency department with the following report: 41-year-old male with history of autism is well-known to ER EMS states that caregiver states that he has been combative since about 5 PM they state they have been try to give his as needed meds but he is escalating.? They state when they arrived he was extremely agitated they know patient well and states that they using her able to de-escalating but denies any was extremely combative and Seney want to kill himself they had to give him 350 mg of ketamine IM to get him into the EMS.? Patient is currently sedated of he will respond to painful stimuli but no history is available from him he did hit his head against plywood and punched plywood has abrasion to his head He was admitted to the neuropsychiatry unit for definitive treatment of his issues. He is not a very good historian. This is compounded by the fact that much of what he says is unintelligible. Many questions have to be repeated to clarify the answers. He initially said that he was mad yesterday. He said he did not know why. He then said that they were moving him to a new house. He said it is because he punched out the window and broke the door in his current house. He admitted that he is nervous about the move. He does not know who his roommate will be. He does not know who his new staff will be. He said that he is not worried about the staff but is somewhat worried about the new roommate. He says that his things are packed up and ready to move. He feels that his medications are working well and does not feel that change is needed. He says that he was fine up until yesterday. He has not had difficulty with sleeping or his appetite. His mood has been relatively good. Below is his discharge summary from the last admission for context. Discharge Patient Disposition: Home Condition: Stable Prescriptions: New ? haloperidol 5 mg tablet ?? 5 mg PO BID 30 Days Qty: 60 1RF Continued ? oxybutynin chloride 5 mg tablet ?? 5 mg PO BID 0RF ? atorvastatin 40 mg tablet ?? 40 mg PO DAILY 0RF ? trazodone 150 mg tablet ?? 150 mg PO BEDTIME 0RF ? fluvoxamine 50 mg tablet ?? 50 mg PO BEDTIME 0RF ? pantoprazole 40 mg Tablet,Delayed Release (Dr/Ec) ?? 40 mg PO DAILY 0RF ? aripiprazole [Abilify] 30 mg Tablet ?? 30 mg PO DAILY 0RF Changed ? haloperidol 5 mg Tablet ?? 5 mg PO TID PRN (Reason: Agitation) 30 Days Qty: 90 1RF ? Depakote ER 500 mg Tablet Extended Release 24 Hr ?? 1,000 mg PO BID 30 Days Qty: 120 1RF Discontinued ? divalproex [Depakote ER] 500 mg tablet extended release 24 hr ?? 500 mg PO DAILY 0RF Discharge Orders: Discharge Order? (Routine); Ordered 03/15/21 ?? Ordered By:? Hany Hooks Referrals: Baldomero Chacon, DO [Primary Care Provider] - Diagnoses at Discharge Discharge Diagnosis (1) Depression: ?Status:?Acute (2) Outbursts of anger: ?Status:?Acute (3) Suicidal behavior with attempted self-injury: ?Status:?Acute (4) Left shoulder strain: ?Status:?Acute (5) Anxiety: ?Status:?Acute (6) Insomnia: ?Status:?Acute (7) Seizure disorder: ?Status:?Acute (8) Autistic disorder: ?Status:?Acute (9) Diabetes type 2, controlled: ?Status:?Acute (10) Hyperglycemia: ?Status:?Acute (11) Hyperlipidemia: ?Status:?Acute ?Qualifiers: ?Hyperlipidemia type:?unspecified? Qualified Code(s):?E78.5 - Hyperlipidemia, unspecified (12) GERD (gastroesophageal reflux disease): ?Status:?Acute ?Qualifiers: ?Esophagitis presence:?esophagitis presence not specified? Qualified Code(s):?K21.9 - Gastro-esophageal reflux disease without esophagitis (13) Intellectual disability: ?Status:?Acute (14) Residual schizophrenia: ?Status:?Acute Reason for Visit A MHE? Brief History: Yadiel T Melo is a 40 year old male who presented to the emergency department with the following report: 40-year-old male history of intellectual disability and autism here from a detention for agitation he became angry was threatened to hurt himself and his roommate and hit his head against the wall.? Patient was seen yesterday evaluated by psychiatrist was cleared to go home but he states that he had increasing agitation since being there.? Patient here is scratching his own arm and is agitated here he is not being very cooperative with questioning either Associated symptoms: Reports depression He is admitted to the neuropsychiatric unit for definitive treatment of those issues.? He presents today as a limited historian as usual due to his cognitive limitations.? He had presented to the hospital a couple nights prior after the chief loss there playoff game angry, aggressive lashing out and threatening to kill himself, staff and his roommate.? He agreed to go home but returned again yesterday angry, lashing out and threatening to kill people.? This time reportedly he was angry because his money had not arrived and he went pizza and he did not have the funds to get the pizza.? Reportedly a staff member acquiesced to avoid the eventual outcome by buying pizza and that still did not in his aggression and threats.? Ultimately he came to the emergency department and much like the day prior he was upset but this time he was cursing the staff member calling her all kinds of names, lashing out equipment and already having had all of his as needed medications for the day and his bedtime medication and he still is not calming down.? He presents now reporting that he is feeling okay and possibly ready to go home but I do not know. ? We discussed that given his inability to calm down even after his as needed medication we would take a look at his medication and watch his behavior and another hopefully therapeutic admission.? An excerpt from his last note is included below for context as n othing is changed from psychosocial circumstances. Hospital Course He quickly acclimated to the individual, group and milieu therapies provided. Concerns raised by staff about Depakote level was reviewed and unlike their concern a trough level revealed a low therapeutic range. In response we increased his Depakote ER to 1000 mg p.o. twice daily. Additionally there wasn't much you seen for the Haldol, so we switched him from 3 times daily scheduled dosing with twice daily as needed to twice daily schedule dosing and 3 times daily as needed. As we continue to report he has mental health conditions that can towards impulsivity and lack of impulse control and so intermittent explosiveness should be anticipated versus found to be odd. He had no episodes here in the hospital. He was able to contract for safety outside the hospital, prior to discharge. During the hospitalization, patient had routine laboratory studies which were within normal limits except for few outliers.? Additionally there was a general medical evaluation which was also within normal limits and revealed no new acute processes. Discharge Summary: At the time of discharge, he denied psychosis or lethality.? Mood and anxiety were well managed.? Patient endorsed a plan to follow-up with the aftercare recommendations of the treatment team.? Patient was evaluated and deemed to be absent credible lethality, and had achieved the maximum benefit from an inpatient hospitalization, so was discharged. Meds NPU Home Medications Medication Instructions Recorded Confirmed Last Taken Type haloperidol 5 mg tablet 5 mg PO TID PRN 30 Days #90 tab 03/14/21 07/10/21 Unknown Rx oxybutynin chloride 5 mg tablet 5 mg PO BID #60 tab 04/22/21 07/10/21 Unknown Rx diphenhydramine HCl 25 mg capsule 50 mg PO Q8H PRN #20 cap 04/30/21 07/10/21 Unknown Rx (Benadryl) polyethylene glycol 3350 17 gram 17 g PO DAILY PRN #100 ea 06/27/21 07/10/21 Unknown Rx oral powder packet (Miralax) aripiprazole 30 mg tablet (Abilify) 30 mg PO BEDTIME 07/10/21 07/10/21 Unknown History atorvastatin 40 mg tablet 40 mg PO BEDTIME 07/10/21 07/10/21 Unknown History benztropine 1 mg tablet 1 mg PO BID 07/10/21 07/10/21 Unknown History celecoxib 200 mg capsule 200 mg PO BID 07/10/21 07/10/21 Unknown History cetirizine 10 mg tablet 10 mg PO DAILY 07/10/21 07/10/21 Unknown History divalproex 500 mg tablet,delayed 1,000 mg PO BID 07/10/21 07/10/21 Unknown History release fluvoxamine 50 mg tablet 50 mg PO BEDTIME 07/10/21 07/10/21 Unknown History haloperidol 10 mg tablet 10 mg PO BID 07/10/21 07/10/21 Unknown History hydroxyzine pamoate 25 mg capsule 25 mg PO TID 07/10/21 07/10/21 Unknown History pantoprazole 40 mg tablet,delayed 40 mg PO DAILY 07/10/21 07/10/21 Unknown History release trazodone 100 mg tablet 100 mg PO BEDTIME 07/10/21 07/10/21 Unknown History triamterene 37.5 1 tab PO DAILY@08 07/10/21 07/10/21 Unknown History mg-hydrochlorothiazide 25 mg tablet Allergies Allergy/AdvReac Type Severity Reaction Status Date / Time lorazepam Allergy Unknown Verified 07/04/21 08:11 pseudoephedrine Allergy Unknown Verified 07/04/21 08:11 Sulfa (Sulfonamide Allergy Unknown Verified 07/04/21 08:11 Antibiotics) tuberculin, purified protein Allergy Unknown Verified 07/04/21 08:11 deriva PFSH NPU PFSH: Medical History Autistic disorder GERD (gastroesophageal reflux disease) Hyperglycemia Hyperlipidemia Peripheral edema Residual schizophrenia Seizure disorder Social History Smoking and tobacco status: never smoked Smoking risk assessment/counseling performed?: Yes Tobacco counseling given: counseling >3 minutes Alcohol intake: never Caregiver/support person: Yes Household members: caregiver and other Marital status: Single Current occupational status: disabled Current gender identity: Male Mental Status Exam MSE Comments: This is an obese white male in hospital scrubs with adequate grooming and eye contact.? Slightly abnormal facies.? No abnormal movements. psychomotor activity is normal. He is very tremulous at times but at other times more calm. He has a large abrasion on his forehead from banging yesterday. He also has a large bruise on his right forearm from his hitting something yesterday. Cooperative with exam in no acute distress.? Speech was limited and decreased rate and volume and dysarthric and unintelligible at times. Mood described as good, affect more calm.? Thought process linear.? Thought content: Patient denied suicidal or homicidal ideations, there were no delusions reported or noted, he denied any auditory visual hallucination.? Attention centration appeared intact and memory was limited but mostly appeared reliable but none were formally tested.? He is alert and oriented x3.? Insight and judgment are impaired, impulse control appears limited, intellectual ability is impaired. Vitals/I&O/Wt Last Vital Signs Temp 98.0 F 07/10/21 20:01 Pulse 76 07/11/21 06:00 Resp 18 07/11/21 06:00 BP 122/74 07/11/21 06:00 Pulse Ox 100 07/11/21 06:00 Weight last 48 hrs Weight 92.986 kg Data NPU : 07/10/21 04:10 07/10/21 04:10 A&P Assessment and plan (1) Outbursts of anger: Status: Acute (2) Suicidal behavior with attempted self-injury: Status: Acute (3) Anxiety: Status: Acute (4) Seizure disorder: Status: Acute (5) Autistic disorder: Status: Acute (6) Intellectual disability: Status: Acute Plan This is a 40-year-old white male with a long history of intellectual disability, autism and history of schizophrenia who presents after an episode at his [facility] much like previous episodes that are significant enough to lead to an evaluation in emergency room with varying levels of aggression, but generally he returns to being calm almost immediately and is discharged quickly. 1.? Continue current medication.? 2.? Continue every 15 minute checks for safety. 3.? Encourage individual, group and milieu therapy. 4.? Will work with facility to get him home sooner rather than later.? Involuntary Hold Information 96 Hour Hold: 96 Hour Involuntary Admission: No Attestations NPU Medical Necessity Statement*: Inpatient hospitalization is medically necessary and the clinically appropriate intervention at this time. We will initiate medications and make changes as indicated. He will be in the hospital for over 2 midnights. 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
[2021-07-11] MEDS: hyDROXYzine 25 mg Capsule PO ×3 (09:02→20:28)
[2021-07-11] MEDS: acetaminophen 325 mg Tablet 650 MG PO (09:02)
[2021-07-11] MEDS: pantoprazole DR 40 mg Tablet PO (09:03)
[2021-07-11] MEDS: benztropine 1 mg Tablet PO ×2 (09:03→18:13)
[2021-07-11] MEDS: cetirizine 10 mg Tablet PO (09:03)
[2021-07-11] MEDS: haloperidol 5 mg Tablet 10 MG PO ×2 (09:03→18:14)
[2021-07-11] MEDS: divalproex DR 500 mg Tablet 1000 MG PO ×2 (09:03→18:13)
[2021-07-11] MEDS: oxybutynin 5 mg Tablet PO ×2 (09:03→18:14)
[2021-07-11] MEDS: CELEcoxib 200 mg Capsule PO ×2 (09:03→18:14)
[2021-07-11 14:00] VITALS: BP 119/76; PULSE 80; RESP 18; TEMP 36.5; O2SAT 97
[2021-07-11] MEDS: hyDROXYzine 25 mg Capsule 50 MG PO (15:58)
[2021-07-11] MEDS: trazodone 100 mg Tablet PO (20:27)
[2021-07-11] MEDS: ARIPiprazole 30 mg Tablet PO (20:27)
[2021-07-11] MEDS: atorvastatin 40 mg Tablet PO (20:28)
[2021-07-11 21:45] VITALS: BP 124/75; PULSE 92; RESP 18; TEMP 36.8; O2SAT 99
[2021-07-12 06:00] VITALS: BP 120/70; PULSE 73; RESP 18; TEMP 36.8; O2SAT 97
[2021-07-12] MEDS: divalproex DR 500 mg Tablet 1000 MG PO ×2 (08:17→17:13)
[2021-07-12] MEDS: hyDROXYzine 25 mg Capsule PO ×3 (08:18→20:30)
[2021-07-12] MEDS: oxybutynin 5 mg Tablet PO ×2 (08:18→17:14)
[2021-07-12] MEDS: CELEcoxib 200 mg Capsule PO ×2 (08:18→17:13)
[2021-07-12] MEDS: pantoprazole DR 40 mg Tablet PO (08:18)
[2021-07-12] MEDS: cetirizine 10 mg Tablet PO (08:18)
[2021-07-12] MEDS: benztropine 1 mg Tablet PO ×2 (08:18→17:14)
[2021-07-12] MEDS: haloperidol 5 mg Tablet 10 MG PO ×2 (08:18→17:13)
--- NOTE | 2021-07-12 13:43 | P.NPUPN_ITS ---
Subjective NPU Subjective: He says that he is feeling a little better. He wants to leave and go to his new house. They do have everything ready at the new house and can come and pick him up tomorrow at 8 AM. He is looking forward to being able to smoke. He has not had any behavioral problems here. His mood has seemed as it usually does after he comes down from an episode. Mental Status Exam MSE Comments: This is an obese white male in hospital scrubs with adequate grooming and eye contact.? Slightly abnormal facies.? No abnormal movements. psychomotor activity is normal. He is very tremulous at times but at other times more calm. He has a large abrasion on his forehead from banging yesterday. He also has a large bruise on his right forearm from his hitting something yesterday. Cooperative with exam in no acute distress.? Speech was limited and decreased rate and volume and dysarthric and unintelligible at times. Mood described as good, affect more calm.? Thought process linear.? Thought content: Patient denied suicidal or homicidal ideations, there were no delusions reported or noted, he denied any auditory visual hallucination.? Attention centration appeared intact and memory was limited but mostly appeared reliable but none were formally tested.? He is alert and oriented x3.? Insight and judgment are impaired, impulse control appears limited, intellectual ability is impaired. Cognition: Patient Appearance: Disheveled/Poor Hygiene Level of Consciousness: Sedated Patient Cognition Impaired: Yes (sedated) Ability to Follow Directions: Poor Patient Orientation (long list): Person, Place and Name Comprehension Ability: Severe Impairment Hallucination Type: None Delusion Description: Paranoid Ideation Thought Process: Blocking, Confused, Disorganized and Incoherent Affect: Affect Description: Appropriate Behavior: Patient Behavior: Appropriate and Cooperative Speech Pattern: Appropriate and Clear Vitals/I&O/Wt Last Vital Signs Temp 98.2 F 07/12/21 06:00 Pulse 73 07/12/21 06:00 Resp 18 07/12/21 06:00 BP 120/70 07/12/21 06:00 Pulse Ox 97 07/12/21 06:00 07/11/21 07/12/21 07/12/21 22:59 06:59 14:59 Intake Total 240 / 240 Balance 240 / 240 Data NPU : 07/10/21 04:10 07/10/21 04:10 A&P Assessment and plan (1) Outbursts of anger: Status: Acute (2) Suicidal behavior with attempted self-injury: Status: Acute (3) Anxiety: Status: Acute (4) Seizure disorder: Status: Acute (5) Autistic disorder: Status: Acute (6) Intellectual disability: Status: Acute Plan This is a 40-year-old white male with a long history of intellectual disability, autism and history of schizophrenia who presents after an episode at his facility much like previous episodes that are significant enough to lead to an evaluation in emergency room with varying levels of aggression, but generally he returns to being calm almost immediately and is discharged quickly. 1.? Continue current medication.? 2.? Continue every 15 minute checks for safety. 3.? Encourage individual, group and milieu therapy. 4.? Will work with facility to get him home sooner rather than later.? Involuntary Hold Information 96 Hour Hold: 96 Hour Involuntary Admission: No Attestations NPU Medical Necessity Statement*: Inpatient hospitalization is medically necessary and the clinically appropriate intervention at this time. We will initiate medications and make changes as indicated. 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
[2021-07-12 14:00] VITALS: BP 138/85; PULSE 94; RESP 20; TEMP 36.6; O2SAT 99
[2021-07-12 19:25] VITALS: BP 89/45; PULSE 81; RESP 20; TEMP 36.6; O2SAT 99
[2021-07-12] MEDS: ARIPiprazole 30 mg Tablet PO (20:30)
[2021-07-12] MEDS: trazodone 100 mg Tablet PO (20:30)
[2021-07-12] MEDS: atorvastatin 40 mg Tablet PO (20:30)
[2021-07-13 06:00] VITALS: BP 109/68; PULSE 91; RESP 20; TEMP 36.4; O2SAT 97
--- NOTE | 2021-07-13 06:15 | P.NPUDS_ITS ---
Diagnoses at Discharge Discharge Diagnosis (1) Outbursts of anger: Status: Acute (2) Suicidal behavior with attempted self-injury: Status: Acute (3) Anxiety: Status: Acute (4) Seizure disorder: Status: Acute (5) Autistic disorder: Status: Acute (6) Intellectual disability: Status: Acute Reason for Visit Reason for Visit: SI/HI Brief History: History of Present Illness Yadiel Melo is a 41 year old male admitted through our emergency department with the following report: 41-year-old male with history of autism is well-known to ER EMS states that caregiver states that he has been combative since about 5 PM they state they have been try to give his as needed meds but he is escalating.? They state when they arrived he was extremely agitated they know patient well and states that they using her able to de-escalating but denies any was extremely combative and Seney want to kill himself they had to give him 350 mg of ketamine IM to get him into the EMS.? Patient is currently sedated of he will respond to painful stimuli but no history is available from him he did hit his head against plywood and punched agnes has abrasion to his head He was admitted to the neuropsychiatry unit for definitive treatment of his issues.? He is not a very good historian.? This is compounded by the fact that much of what he says is unintelligible.? Many questions have to be repeated to clarify the answers.? He initially said that he was mad yesterday.? He said he did not know why.? He then said that they were moving him to a new house.? He said it is because he punched out the window and broke the door in his current house.? He admitted that he is nervous about the move.? He does not know who his roommate will be.? He does not know who his new staff will be.? He said that he is not worried about the staff but is somewhat worried about the new roommate.? He says that his things are packed up and ready to move.? He feels that his medications are working well and does not feel that change is needed.? He says that he was fine up until yesterday.? He has not had difficulty with sleeping or his appetite.? His mood has been relatively good. Hospital Course Hospital Course He slowly acclimated to the individual, group and milieu therapies provided. He said that his medications were working well and they were left unchanged. He tolerated these doses and showed steady improvement during his stay. He was able to contract for safety outside hospital prior to discharge. During the hospitalization, patient had routine laboratory studies which were within normal limits except for few outliers. Additionally there was a general medical evaluation which was also within normal limits and revealed no new acute processes. Discharge Summary: At the time of discharge, lethality was denied. He settled down rather quickly and returned to baseline. He was still somewhat anxious about his new living arrangement but was willing to give it a good try. Mood and anxiety were well managed. Patient endorsed a plan to follow-up with the aftercare recommendations of the treatment team. Patient was evaluated and deemed to be absent credible lethality, and had achieved the maximum benefit from an inpatient hospitalization, so was discharged. Involuntary Hold Information 96 Hour Hold: 96 Hour Involuntary Admission: No Mental Status Exam MSE Comments: This is an obese white male in hospital scrubs with adequate grooming and eye contact.? Slightly abnormal facies.? No abnormal movements. psychomotor activity is normal. He is very tremulous at times but at other times more calm. He has a large abrasion on his forehead from banging before admission. He also has a large bruise on his right forearm from his hitting something before admission. Cooperative with exam in mild distress.? Speech was limited and decreased rate and volume and dysarthric and unintelligible at times. Mood described as good, affect more calm.? Thought process linear.? Thought content: Patient denied suicidal or homicidal ideations, there were no delusions reported or noted, he denied any auditory visual hallucination.? Attention centration appeared intact and memory was limited but mostly appeared reliable but none were formally tested.? He is alert and oriented x3.? Insight and judgment are impaired, impulse control appears limited, intellectual ability is impaired. Cognition: Patient Appearance: Appropriate Level of Consciousness: Sedated Patient Cognition Impaired: Yes (sedated) Ability to Follow Directions: Poor Patient Orientation (long list): Person, Place and Name Comprehension Ability: Severe Impairment Hallucination Type: None Delusion Description: Not Present Thought Process: Appropriate, Circumstantial and Perseveration Affect: Affect Description: Anxious Behavior: Patient Behavior: Appropriate and Cooperative Speech Pattern: Appropriate, Clear and Mumbled Discharge Data Studies Completed and Pending: Completed Studies During Hospitalization Category Date Time Status CT head wo con* 7 0450 Urgent Cat Scan 07/10/21 04:00 Completed XR hand LT min 3V * [id number] Stat Exams 07/10/21 04:00 Completed XR hand RT min 3V * [id number] Stat Exams 07/10/21 04:00 Completed Radiology Impressions Hand X-Ray 07/10/21 04:00 IMPRESSION: Normal radiographic appearance of the right hand. Head CT 07/10/21 04:00 IMPRESSION: No acute intracranial findings. Laboratory Results WBC 10.2 10^3/uL (4.0 -10.0) H 07/10/21 04:10 RBC 4.44 10^6/uL (4.1 -5.3) 07/10/21 04:10 Hgb 13.8 g/dL (11.7-1 6.6) 07/10/21 04:10 Hct 39.0 % (42.0-52.0 ) L 07/10/21 04:10 MCV 87.8 fl (80-94) 07/10/21 04:10 MCH 31.1 pg (28.0-34. 0) 07/10/21 04:10 MCHC 35.4 g/dL (30.0-3 6.0) 07/10/21 04:10 RDW 12.3 % (12.1-15.1 ) 07/10/21 04:10 Plt Count 178 10^3/cmm (130 -400) 07/10/21 04:10 MPV 10.3 fL (7.4-10.4 ) 07/10/21 04:10 Neut % (Auto) 72.9 % 07/10/21 04:10 Lymph % (Auto) 15.0 % 07/10/21 04:10 [place] % (Auto) 11.1 % 07/10/21 04:10 Eos % (Auto) 0.3 % 07/10/21 04:10 Baso % (Auto) 0.3 % 07/10/21 04:10 Neut # (Auto) 7.40 10^3/uL (1.8 -7.7) 07/10/21 04:10 Lymph # (Auto) 1.5 10^3/uL (0.8- 4.8) 07/10/21 04:10 [place] # (Auto) 1.1 10^3/uL (0.2- 0.9) H 07/10/21 04:10 Eos # (Auto) 0.0 10^3/uL (0.0- 0.8) 07/10/21 04:10 Baso # (Auto) 0.0 10^3/uL (0.0- 0.1) 07/10/21 04:10 Nucleated RBC % (a uto) 0 % 07/10/21 04:10 Nucleated RBCs # 0.0 /100WBC 07/10/21 04:10 Sodium 140 mmol/L (136-1 45) 07/10/21 04:10 Potassium 3.2 mmol/L (3.5-5 .1) L 07/10/21 04:10 Chloride 101 mmol/L (98-10 7) 07/10/21 04:10 Carbon Dioxide 24 mmol/L (22-29) 07/10/21 04:10 Anion Gap 18.2 (5-19) 07/10/21 04:10 BUN 27 mg/dL (6-20) H 07/10/21 04:10 Creatinine 1.7 mg/dL (0.7-1. 2) H 07/10/21 04:10 GFR Calculation 45.1 mL/min (90-1 30) L 07/10/21 04:10 Glucose 79 mg/dL (65-115) 07/10/21 04:10 Calculated Osmolal ity 294 mOsm/kg (285- 295) 07/10/21 04:10 Calcium 9.3 mg/dL (8.5-10 .5) 07/10/21 04:10 Total Bilirubin 0.6 mg/dL (0.15-1 .2) 07/10/21 04:10 AST 30 U/L (0-40) 07/10/21 04:10 ALT 19 U/L (0-41) 07/10/21 04:10 Alkaline Phosphata se 68 IU/L (40-130) 07/10/21 04:10 Total Protein 6.9 g/dL (6.6-8.7 ) 07/10/21 04:10 Albumin 4.6 g/dL (3.5-5.2 ) 07/10/21 04:10 Globulin 2.3 g/dL (1.3-4.6 ) 07/10/21 04:10 Salicylates 1.0 mg/dL (3-10) L 07/10/21 04:10 Urine Opiates Scre en Negative ng/mL (N egative) 07/10/21 04:10 Acetaminophen < 5.0 ug/mL (10-3 0) L 07/10/21 04:10 Ur Barbiturates Sc reen Negative ng/mL (N egative) 07/10/21 04:10 Valproic Acid 112.7 ug/mL (50-1 00) H 07/10/21 04:10 Ur Phencyclidine S crn Negative ng/mL (N egative) 07/10/21 04:10 Ur Amphetamines Sc reen Negative ng/mL (N egative) 07/10/21 04:10 U Benzodiazepines Scrn Negative ng/mL (N egative) 07/10/21 04:10 Urine Cocaine Scre en Negative ng/mL (N egative) 07/10/21 04:10 U Marijuana (THC) Screen Negative ng/mL (N egative) 07/10/21 04:10 Ethyl Alcohol < 10 mg/dL (0-10) 07/10/21 04:10 Vitals: Last Vital Signs Temp 97.5 F L 07/13/21 06:00 Pulse 91 07/13/21 06:00 Resp 20 H 07/13/21 06:00 BP 109/68 07/13/21 06:00 Pulse Ox 97 07/13/21 06:00 Discharge Plan Discharge Patient Disposition: Home Condition: Stable Prescriptions: Continued diphenhydramine HCl [Benadryl] 25 mg capsule 50 mg PO Q8H PRN (Reason: allergic reaction) Qty: 20 2RF polyethylene glycol 3350 [Miralax] 17 gram powder in packet 17 g PO DAILY PRN (Reason: constipation) Qty: 100 0RF oxybutynin chloride 5 mg tablet 5 mg PO BID Qty: 60 2RF haloperidol 5 mg Tablet 5 mg PO TID PRN (Reason: Agitation) 30 Days Qty: 90 1RF celecoxib 200 mg capsule 200 mg PO BID 0RF atorvastatin 40 mg tablet 40 mg PO BEDTIME 0RF cetirizine 10 mg tablet 10 mg PO DAILY 0RF divalproex 500 mg tablet,delayed release (DR/EC) 1,000 mg PO BID 0RF trazodone 100 mg tablet 100 mg PO BEDTIME 0RF pantoprazole 40 mg tablet,delayed release (DR/EC) 40 mg PO DAILY 0RF haloperidol 10 mg tablet 10 mg PO BID 0RF benztropine 1 mg tablet 1 mg PO BID 0RF triamterene-hydrochlorothiazid 37.5-25 mg tablet 1 tab PO DAILY@08 0RF fluvoxamine 50 mg tablet 50 mg PO BEDTIME 0RF hydroxyzine pamoate 25 mg capsule 25 mg PO TID 0RF aripiprazole [Abilify] 30 mg tablet 30 mg PO BEDTIME 0RF Discharge Orders: Discharge Order (Routine); Ordered 07/13/21 Ordered By: Juan Santos Referrals: Janina Torres MD [Primary Care Provider] - Discharge Diet: Regular Discharge Activity: Resume usual activity Patient Instructions: Opioid Safety Discharge Attestations NPU Time Spent in Discharge Care*: less than 30 min Specific Discharge Activities: Specific discharge activities: educating patient, discussing with manager case management/social workers/dc planners, documenting/other paperwork and evaluating patient/reviewing data Status at Discharge: Cognitive status at discharge: mildly impaired cognition , Behavioral status at discharge: cooperative , Coding Level of Care Code Acute Chg FW DC note Diagnoses Outbursts of anger R45.4 Suicidal behavior with attempted self-injury T14.91XA Anxiety F41.9 Seizure disorder G40.909 Autistic disorder F84.0 Intellectual disability F79
[2021-07-13 06:56] VITALS: BP 109/68; PULSE 91; RESP 20; TEMP 36.4; O2SAT 97
--- NOTE | 2021-07-13 08:20 | PC.NURSE ---
AT NURSES STATION ANTICIPATING DC THIS AM. DENIES SI/HI AND AVH AT THIS TIME. DENIES PAIN. WHEN STAFF APPROACHES PT ACTS MOUSEY IF HE IS SCARED THAN BRIGHTENS UP ONCE CONVERSTAION STARTS. THIS RN WILL COMPLETE DC PAPER WORK WITH [employer] WORKER PICKING PT UP DUE TO PTS INTELLECTUAL DELAY.
[2021-07-13] MEDS: haloperidol 5 mg Tablet 10 MG PO (08:24)
[2021-07-13] MEDS: oxybutynin 5 mg Tablet PO (08:24)
[2021-07-13] MEDS: benztropine 1 mg Tablet PO (08:24)
[2021-07-13] MEDS: hyDROXYzine 25 mg Capsule PO (08:24)
[2021-07-13] MEDS: CELEcoxib 200 mg Capsule PO (08:24)
[2021-07-13] MEDS: cetirizine 10 mg Tablet PO (08:25)
[2021-07-13] MEDS: acetaminophen 325 mg Tablet 650 MG PO (08:25)
[2021-07-13] MEDS: pantoprazole DR 40 mg Tablet PO (08:25)
[2021-07-13] MEDS: divalproex DR 500 mg Tablet 1000 MG PO (08:25)
== END 2021-07-13 08:40 | disposition home or self-care (01) | DRG 914 ==
LOC: ER 06:43 → NP 12:38
PROVIDERS: Emergency Medicine; Admitting Provider Psychiatry & Neurology Psychiatry; Emergency Provider Family Medicine; PCP Family Medicine; Visit Provider Psychiatry & Neurology Psychiatry
DX: T14.91XA Suicide attempt, initial encounter (principal); F84.0 Autistic disorder; F20.5 Residual schizophrenia; S00.81XA Abrasion of other part of head, initial encounter; S60.512A Abrasion of left hand, initial encounter; S60.511A Abrasion of right hand, initial encounter; X79.XXXA Intentional self-harm by blunt object, initial encounter; K21.9 Gastro-esophageal reflux disease without esophagitis; E78.5 Hyperlipidemia, unspecified; F91.9 Conduct disorder, unspecified; F79 Unspecified intellectual disabilities; F32.A Depression, unspecified; R45.4 Irritability and anger; S46.912A Strain of unspecified muscle, fascia and tendon at shoulder and upper arm level, left arm, initial encounter; G47.00 Insomnia, unspecified; G40.909 Epilepsy, unspecified, not intractable, without status epilepticus; E11.9 Type 2 diabetes mellitus without complications; Z79.891 Long term (current) use of opiate analgesic; F17.200 Nicotine dependence, unspecified, uncomplicated
CPT/HCPCS: 70450; 73130; 80053; 80164; 80306; 80307; 85025; 96372; 97150; 97165; 99285; J1200; J3486